=== PATIENT | male | born 1945 | race Caucasian/White ===

== ENCOUNTER 2020-04-09 10:10 | Inpatient (IN) | payer MEDICARE ==
[~2020-04-09] VITALS: Ht 175.3 cm; Wt 125.0 kg
--- NOTE | 2020-04-09 10:10 | NUR ---
PT ARRIVED TO UNIT VIA W/C ACCOMPANIED BY STAFF. PATIENTS VS OBTAINED AND ARE STABLE. PT IS ORIENTED TO ROOM AND PROCEDURES. PT IS OFFERED FOOD AND DRINK. PTS COVID SWAB COMPLETED AND ALL [facility] LABS ENTERED INTO COMPUTER. PT IS RESTING IN ROOM AT THIS TIME. DR WALTON NOTIFIED OF ADMISSION.
[2020-04-09 10:15] VITALS: BP 101/66
[2020-04-09] MEDS ORDERED: LORA10TA68 PO (12:45)
[2020-04-09] MEDS ORDERED: TAMS0.4C97 PO (12:45)
[2020-04-09] MEDS ORDERED: RISP0.5T24 PO (12:45)
[2020-04-09] MEDS ORDERED: PANT40TA3 PO (12:45)
[2020-04-09] MEDS ORDERED: ATOR20TA PO (12:45)
[2020-04-09] MEDS ORDERED: LOSA25TA PO (12:45)
[2020-04-09] MEDS ORDERED: ALBU2.5V8 IH (12:45)
[2020-04-09] MEDS ORDERED: CHOL4POW11 PO (12:45)
[2020-04-09] MEDS ORDERED: FLUP2.5T3 PO (12:45)
[2020-04-09] MEDS ORDERED: ASCO500C PO (12:45)
[2020-04-09] MEDS ORDERED: RIVA20TA2 PO (12:45)
[2020-04-09] MEDS ORDERED: ISOS60TA55 PO (12:45)
[2020-04-09] MEDS ORDERED: LEVO50TA5 PO (12:45)
[2020-04-09] MEDS ORDERED: HYDR-2763 PO (12:45)
[2020-04-09] MEDS ORDERED: INSU100I13 SQ (12:45)
[2020-04-09] MEDS ORDERED: CARV3.12 PO (12:45)
[2020-04-09] MEDS ORDERED: POLY17PO5 PO (12:45)
[2020-04-09] MEDS ORDERED: CALC0.2530 PO (12:45)
[2020-04-09] MEDS ORDERED: CARB15DR3 EACHEYE (12:45)
[2020-04-09] MEDS ORDERED: LOPE2TAB27 PO (12:45)
[2020-04-09] MEDS ORDERED: NYST15PO9 TP (12:45)
[2020-04-09] MEDS ORDERED: FURO-68 PO (12:45)
[2020-04-09] MEDS ORDERED: [UNRECOGNIZED DRUG - CODE] PO (12:45)
[2020-04-09] MEDS ORDERED: CELE200C PO (12:45)
[2020-04-09] MEDS ORDERED: DILT120C99 PO (12:45)
[2020-04-09] MEDS ORDERED: ESCITALOPRAM OX10 MG PO (12:45)
[2020-04-09] MEDS ORDERED: METH1TAB54 PO (12:45)
[2020-04-09] MEDS ORDERED: CHOL200078 PO (12:45)
[2020-04-09] MEDS ORDERED: TOLT4CAP PO (12:45)
[2020-04-09] MEDS ORDERED: ROPI1TAB4 PO (12:45)
[2020-04-09 13:44] LABS: BASO # 0.2 x10^3/uL (0.0-0.2); BASO % 1 % (0-3); EOS # 0.2 x10^3/uL (0.0-0.7); EOS % 1 % (0-3); HEMATOCRIT 36.6 % (39.0-53.0); HEMOGLOBIN 11.2 g/dL (13.0-17.5); LYMPH # 1.3 x10^3/uL (1.0-4.8); LYMPH % 10 % (24-48); MEAN CORPUSCULAR HEMOGLOBIN 28 pg (25-35); MEAN CORPUSCULAR HGB CONC 31 g/dL (31-37); MEAN CORPUSCULAR VOLUME 90 fL (79-100); MONO % 8 % (0-9); NEUT % 80 % (31-73); PLATELET COUNT 281 x10^3/uL (140-400); RED BLOOD COUNT 4.05 x10^6/uL (4.30-5.70); RED CELL DISTRIBUTION WIDTH 13.8 % (11.5-14.5); WHITE BLOOD COUNT 12.5 x10^3/uL (4.0-11.0)
[2020-04-09 14:01] LABS: ALBUMIN 2.6 g/dL (3.4-5.0); ALBUMIN/GLOBULIN RATIO 0.7 (1.0-1.7); CREATININE 0.8 mg/dL (0.7-1.3); MAGNESIUM 1.4 mg/dL (1.8-2.4); POTASSIUM 3.4 mmol/L (3.5-5.1); TOTAL BILIRUBIN 0.2 mg/dL (0.2-1.0); TOTAL PROTEIN 6.1 g/dL (6.4-8.2)
[2020-04-09] MEDS ORDERED: NYSTATIN TOPICAL POWDER 15GM BOTTLE. TP PRN (14:45)
[2020-04-09] MEDS ORDERED: POLYETHYLENE GLYCOL 3350 17 GM PACKET. PO PRN (14:45)
[2020-04-09] MEDS: HYDROcodone/APAP 7.5/325MG 1 TAB TABLET PO PRN ×2 (14:49→20:56)
[2020-04-09 15:15] LABS: BACTERIA,URINE 0 /HPF (0-FEW); BILIRUBIN,URINE NEG (NEG); CLARITY,URINE CLEAR; COLOR,URINE YELLOW; GLUCOSE,URINE NEG (NEG); NITRITE,URINE NEG (NEG); RBC,URINE 0 /HPF (0-2); UROBILINOGEN,URINE 0.2 mg/dL (0.2 mg/dL); WBC,URINE RARE /HPF (0-4)
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
[2020-04-09] MEDS ORDERED: CHOLESTYRAMINE/ASPARTAME 4 GM PACKET PO PRN (15:45)
[2020-04-09] MEDS ORDERED: LOPERAMIDE 2 MG CAPSULE PO PRN (15:45)
[2020-04-09] MEDS ORDERED: POLYVINYL ALCOHOL/POVIDONE/PF OPHTH SOLUTION DROPERETTE. OU PRN (15:45)
[2020-04-09 16:02] VITALS: BP 145/81
[2020-04-09] MEDS ORDERED: RIVAROXABAN 10 MG TABLET. PO SCH (17:00)
[2020-04-09] MEDS: CARVEDILOL 3.125 MG TABLET PO SCH (17:13)
[2020-04-09] MEDS ORDERED: TAMSULOSIN 0.4 MG CAP.ER.24H. PO SCH (18:00)
[2020-04-09 18:56] VITALS: BP 125/68
[2020-04-09] MEDS: OXYBUTYNIN CHLORIDE 5 MG TABLET PO SCH (20:53)
[2020-04-09] MEDS: PANTOPRAZOLE 40 MG TABLET. PO SCH (20:53)
[2020-04-09] MEDS: risperiDONE 0.25 MG TABLET. PO SCH (20:53)
[2020-04-09] MEDS: ASCORBIC ACID 500 MG TABLET PO SCH (20:54)
[2020-04-09] MEDS: POTASSIUM CHLORIDE 20 MEQ TABLET.ER. PO SCH (20:54)
[2020-04-09] MEDS: SIMETHICONE 80 MG TAB.CHEW PO SCH (20:54)
[2020-04-09] MEDS: MAGNESIUM OXIDE 400 MG TABLET PO SCH (20:55)
[2020-04-09] MEDS: METHENAMINE HIPPURATE 1 GM TABLET PO SCH (20:57)
[2020-04-09] MEDS ORDERED: CELECOXIB 100 MG CAPSULE PO SCH (21:00)
[2020-04-09] MEDS ORDERED: INSULIN GLARGINE SYRINGE. SQ SCH (21:00)
[2020-04-09] MEDS ORDERED: ATORVASTATIN CALCIUM 20 MG TABLET PO SCH (21:00)
[2020-04-09] MEDS ORDERED: rOPINIRole 1 MG TABLET. PO SCH (21:00)
[2020-04-09] MEDS: ALBUTEROL SULFATE 8GM INHALER. INH PRN (22:13)
[2020-04-09 22:56] VITALS: BP 118/69
[2020-04-10 05:41] LABS: HEMOGLOBIN A1C 5.8 % (4.8-5.6)
[2020-04-10 06:10] VITALS: BP 149/83
[2020-04-10] MEDS ORDERED: LEVOTHYROXINE 50 MCG TABLET PO SCH (07:30)
[2020-04-10] MEDS: ASCORBIC ACID 500 MG TABLET PO SCH (08:15)
[2020-04-10] MEDS: HYDROcodone/APAP 7.5/325MG 1 TAB TABLET PO PRN ×2 (08:15→12:50)
[2020-04-10] MEDS: SIMETHICONE 80 MG TAB.CHEW PO SCH ×2 (08:16→12:47)
[2020-04-10] MEDS: METHENAMINE HIPPURATE 1 GM TABLET PO SCH (08:17)
[2020-04-10] MEDS: PANTOPRAZOLE 40 MG TABLET. PO SCH (08:17)
[2020-04-10] MEDS: MAGNESIUM OXIDE 400 MG TABLET PO SCH ×2 (08:17→12:47)
[2020-04-10] MEDS: OXYBUTYNIN CHLORIDE 5 MG TABLET PO SCH ×2 (08:17→12:48)
[2020-04-10] MEDS: CARVEDILOL 3.125 MG TABLET PO SCH (08:18)
[2020-04-10] MEDS: ALBUTEROL SULFATE 8GM INHALER. INH PRN (08:18)
[2020-04-10] MEDS: POTASSIUM CHLORIDE 20 MEQ TABLET.ER. PO SCH ×2 (08:19→12:47)
[2020-04-10] MEDS ORDERED: FUROSEMIDE 40 MG TABLET PO SCH (09:00)
[2020-04-10] MEDS ORDERED: LOSARTAN 25 MG TABLET. PO SCH (09:00)
[2020-04-10] MEDS ORDERED: CHOLECALCIFEROL (VITAMIN D3) 1,000 UNIT TABLET PO SCH (09:00)
[2020-04-10] MEDS ORDERED: CETIRIZINE HCL 10 MG TABLET PO SCH (09:00)
[2020-04-10] MEDS ORDERED: ISOSORBIDE MONONITRATE ER 30 MG TAB.ER.24H PO SCH (09:00)
[2020-04-10] MEDS ORDERED: CITALOPRAM 20 MG TABLET. PO SCH (09:00)
[2020-04-10] MEDS ORDERED: CALCITRIOL 0.25 MCG CAPSULE PO SCH (09:00)
[2020-04-10] MEDS: risperiDONE 0.25 MG TABLET. PO SCH (09:36)
[2020-04-10 10:48] VITALS: BP 163/91
--- NOTE | 2020-04-10 14:25 | DS ---
DATE OF DISCHARGE: 04/10/2020 HISTORY OF PRESENT ILLNESS: The patient is a 74-year-old male patient, a resident at [facility], who was admitted to Med/Surg Unit in [facility] to screen him for coronavirus and his coronavirus-2 PCR was undetectable and he will be transferred to [facility] as he has been extremely agitated, anxious, paranoid, accusing staff for abusing and neglecting him. The police have been out of the facility multiple times and report his reports are unfounded. Attempt was made to treat him as an outpatient by the [facility] team has failed and therefore, he was referred to [facility] for inpatient psychiatric stabilization. PHYSICAL EXAMINATION: GENERAL: When I saw him today, he looked well and was clearly in no apparent respiratory distress. No pallor, jaundice, cyanosis or thyromegaly. No jugular venous distention. No lower limb edema. VITAL SIGNS: His heart rate was 80, blood pressure was 163/91, temperature was 98, respiratory rate was 18, and oxygen saturation was 92% on 3 liters of oxygen. HEAD, EYES, EARS, NOSE AND THROAT: Showed normocephalic, atraumatic. NECK: Supple. HEART: Showed normal first and second heart sounds. No gallop or murmur. CHEST: Clear to auscultation. No crepitation or rhonchi. ABDOMEN: Distended, soft, nontender. NEUROLOGIC: He has tardive dyskinesia with abnormal tongue movement that makes it difficult to understand at times, but otherwise, all his cranial nerves are intact. He moves extremities without difficulty, though is mostly wheelchair bound. LABORATORY DATA: Showed white cell count of 12,500, hemoglobin 11, hematocrit 36, MCV 90 and platelet count 281,000 with normal manual differential. His D-dimer was 0.37. His chemistry showed a serum sodium 143, potassium 3.4, chloride 103, bicarbonate 34, anion gap of 6, BUN 9, creatinine 0.8, estimated GFR was 95 mL per minute. His glucose 137, calcium 8, magnesium was 1.4. Total bilirubin, AST, ALT, alkaline phosphatase were normal. Total protein 6.1, albumin 2.6. His hemoglobin A1c was 5.8. TSH was normal at 1.0. His urinalysis essentially unremarkable and his coronavirus PCR was not detectable. DISCHARGE MEDICATIONS: He was transferred to Senior Behavioral Unit to continue with levothyroxine 50 mcg once a day, cetirizine 10 mg once a day, isosorbide mononitrate 60 mg once a day, citalopram hydrobromide 20 mg once a day, vitamin D 2000 units once a day, losartan potassium 25 mg daily, furosemide 40 mg once a day, diltiazem 120 mg daily, calcitriol 0.25 mcg once a day, potassium chloride 20 mEq 3 times a day, magnesium oxide 400 mg 3 times a day, oxybutynin 5 mg 3 times a day, Lantus insulin 30 units at bedtime, Celebrex 200 mg at bedtime, ascorbic acid 500 mg twice a day, simethicone 80 mg 3 times a day, Requip 1 mg at bedtime, Requip 0.25 mg twice a day, Protonix 40 mg twice a day, methenamine hippurate 1 gram twice a day, fluphenazine 2.5 mg at bedtime, atorvastatin 20 mg at bedtime, tamsulosin 0.4 mg at bedtime, rivaroxaban 20 mg once a day, carvedilol 3.125 mg twice a day, loperamide 2 mg every 2 hours, cholestyramine 1 gram daily, albuterol sulfate 1 puff every 4 hours, polyethylene glycol 17 grams daily, nystatin powder applied topically twice a day and hydrocodone/APAP 7.5/325 one tablet q.i.d. FINAL DISCHARGE DIAGNOSES: 1. Extreme agitation, anxiety and paranoia. The patient has a multitude of medical problems including: A. Chronic obstructive pulmonary disease. B. Type 2 diabetes mellitus. E. Obesity. D. Heart failure. E. Bronchial asthma. F. Hypercholesterolemia. G. Hypothyroidism. H. Vitamin D deficiency. I. Restless leg syndrome. J. Atrial fibrillation. K. Cerebrovascular accident. L. Gastroesophageal reflux disease. ZENA WALTON MD DR: CRISTHIAN/stephanie JOB#: [id number] / [id number]
--- NOTE | 2020-04-10 14:32 | NUR ---
PATIENT IS DISCHARGED TO [facility]. PT IS STABLE AT TIME OF DISCHARGE ALL LABS AND MED REC IS SENT WITH PATIENT.
[2020-04-10] MEDS ORDERED: CETI10TA16 PO (16:01)
[2020-04-10] MEDS ORDERED: CHOL500021 PO (16:21)
[2020-04-10] MEDS ORDERED: POTA20TA4 PO (16:21)
[2020-04-10] MEDS ORDERED: OXYB5TAB10 PO (16:21)
[2020-04-10] MEDS ORDERED: MAGN400T5 PO (16:21)
[2020-04-10] MEDS ORDERED: CITA10TA4 PO (16:21)
[2020-04-11] MEDS ORDERED: LEVOTHYROXINE 50 MCG TABLET PO SCH (06:00)
--- NOTE | 2020-04-14 07:10 | EKG ---
[address] [address] Test Date: 2020-04-09 Test Time: 16:23:31 Pat Name: NISREEN GARCÍA Department: Room: 105 A Gender: M Private Investigator Surveillance: : 1945 Requested By: ZENA WALTON Order Number: [id number] Reading MD: Measurements Intervals [place] Rate: P: ID: QRS: QRSD: T: QT: QTc: Interpretive Statements
== END 2020-04-10 14:50 | DRG 640 ==
LOC: 1 SOUTH 10:10
PROVIDERS: ADMIT Psychiatry & Neurology Psychiatry; ATTEND Psychiatry & Neurology Psychiatry
DX: E87.6 Hypokalemia (principal); E43 Unspecified severe protein-calorie malnutrition; I50.22 Chronic systolic (congestive) heart failure; Z68.41 Body mass index [BMI] 40.0-44.9, adult; F41.9 Anxiety disorder, unspecified; F22 Delusional disorders; J44.9 Chronic obstructive pulmonary disease, unspecified; E11.9 Type 2 diabetes mellitus without complications; E78.00 Pure hypercholesterolemia, unspecified; E03.9 Hypothyroidism, unspecified; G25.81 Restless legs syndrome; I11.0 Hypertensive heart disease with heart failure; I48.91 Unspecified atrial fibrillation; D64.9 Anemia, unspecified; K21.9 Gastro-esophageal reflux disease without esophagitis; M15.9 Polyosteoarthritis, unspecified; E83.42 Hypomagnesemia; G24.01 Drug induced subacute dyskinesia; E66.01 Morbid (severe) obesity due to excess calories; Z20.822 Contact with and (suspected) exposure to COVID-19; G47.33 Obstructive sleep apnea (adult) (pediatric); K59.09 Other constipation; Z99.3 Dependence on wheelchair; Z88.0 Allergy status to penicillin; Z88.8 Allergy status to other drugs, medicaments and biological substances; Z86.711 Personal history of pulmonary embolism; Z87.891 Personal history of nicotine dependence; Z86.73 Personal history of transient ischemic attack (TIA), and cerebral infarction without residual deficits
CPT/HCPCS: 36415; 80053; 80061; 81001; 82306; 82607; 82947; 83036; 83735; 84443; 85025; 85379; 86592; 93005; J1815; U0003

== ENCOUNTER 2020-04-10 14:50 | Inpatient (IN) | payer MEDICARE ==
[~2020-04-10] VITALS: Ht 175.3 cm; Wt 123.2 kg
[~2020-04-10 14:50] MED LIST: ALBU2.5V8 IH; ASCO500C PO; ATOR20TA PO; CALC0.2530 PO; CARB15DR3 EACHEYE; CARV3.12 PO; CELE200C PO; CHOL200078 PO; CHOL4POW11 PO; DILT120C99 PO; ESCITALOPRAM OX10 MG PO; FLUP2.5T3 PO; FURO-68 PO; HYDR-2763 PO; INSU100I13 SQ; ISOS60TA55 PO; LEVO50TA5 PO; LOPE2TAB27 PO; LORA10TA68 PO; LOSA25TA PO; METH1TAB54 PO; NYST15PO9 TP; PANT40TA3 PO; POLY17PO5 PO; RISP0.5T24 PO; RIVA20TA2 PO; ROPI1TAB4 PO; TAMS0.4C97 PO; TOLT4CAP PO; [UNRECOGNIZED DRUG - CODE] PO
[2020-04-10 15:18] VITALS: BP 111/57
[2020-04-10] MEDS ORDERED: POLYETHYLENE GLYCOL 3350 17 GM PACKET. PO PRN (15:45)
[2020-04-10] MEDS ORDERED: CETI10TA16 PO (16:01)
[2020-04-10] MEDS ORDERED: POTA20TA4 PO (16:21)
[2020-04-10] MEDS ORDERED: OXYB5TAB10 PO (16:21)
[2020-04-10] MEDS ORDERED: MAGN400T5 PO (16:21)
[2020-04-10] MEDS ORDERED: CHOL500021 PO (16:21)
[2020-04-10] MEDS ORDERED: CITA10TA4 PO (16:21)
[2020-04-10] MEDS ORDERED: MAGNESIUM HYDROXIDE 2,400 MG/30 ML ORAL.SUSP. PO PRN (16:30)
[2020-04-10] MEDS ORDERED: MAG HYDROX/AL HYDROX/SIMETH 30 ML ORAL.SUSP PO PRN (16:30)
[2020-04-10] MEDS ORDERED: METHYL SALICYLATE/MENTHOL TOPICAL OINTMENT 57GM TUBE. TP PRN (16:30)
--- NOTE | 2020-04-10 16:35 | NUR ---
Admission Note with Justification for Admission to [facility] Patient admitted to [facility] for protective oversight for emergency stabilization of acute psychiatric crisis. Pt admitted from: [facility] Facility Mode of arrival: Secure Transport Accompanied By: [facility] Staff Precipitating behaviors that initiated intake and admission: agitated, anxious, paranoid, acusing staff of abuse Description of failure of out patient attempts at stabilization in previous setting list behavior and medication trials:social work intrvention Behaviors and assessment findings upon admission: calm and cooperative Plan: Admit for protective oversight for adjustment and stabilization of medications, behaviors and mood. Intense treatment regimen including groups, medication adjustments, therapy, consistent regimen for ADL's, self care, and sleep hygiene. Daily monitoring by Inpatient staff, Psychiatry, and Medical Physician.
[2020-04-10] MEDS ORDERED: CHOLESTYRAMINE/ASPARTAME 4 GM PACKET PO PRN (17:00)
[2020-04-10] MEDS ORDERED: POLYVINYL ALCOHOL 1.4% OPHTH SOLUTION 15ML BOTTLE. OU PRN (17:00)
[2020-04-10] MEDS: RIVAROXABAN 10 MG TABLET. PO SCH (17:00)
[2020-04-10] MEDS: CARVEDILOL 3.125 MG TABLET PO SCH (17:00)
[2020-04-10] MEDS: TAMSULOSIN 0.4 MG CAP.ER.24H. PO SCH (17:23)
[2020-04-10] MEDS: INSULIN GLARGINE SYRINGE. SQ SCH (21:00)
[2020-04-10] MEDS: ATORVASTATIN CALCIUM 20 MG TABLET PO SCH (21:10)
[2020-04-10] MEDS: CELECOXIB 100 MG CAPSULE PO SCH (21:10)
[2020-04-10] MEDS: METHENAMINE HIPPURATE 1 GM TABLET PO SCH (21:11)
[2020-04-10] MEDS: rOPINIRole 1 MG TABLET. PO SCH (21:11)
[2020-04-10] MEDS: SIMETHICONE 80 MG TAB.CHEW PO SCH (21:11)
[2020-04-10] MEDS: ASCORBIC ACID 500 MG TABLET PO SCH (21:11)
[2020-04-10] MEDS: PANTOPRAZOLE 40 MG TABLET. PO SCH (21:11)
[2020-04-10] MEDS: risperiDONE 0.25 MG TABLET. PO SCH (21:11)
[2020-04-10] MEDS: HYDROcodone/APAP 7.5/325MG 1 TAB TABLET PO PRN (21:26)
--- NOTE | 2020-04-10 23:54 | NUR ---
Nursing Note The patient has been calm and compliant this shift. The patient was located in his room for his assessment and medication pass. The patient was able to take his medication whole with honey thick liquids. The patient was drowsy during his assessment but was able to tell med name and location. The patient was cooperative during HS cares.
[2020-04-11 06:00] VITALS: BP 143/85
[2020-04-11] MEDS: ASCORBIC ACID 500 MG TABLET PO SCH ×2 (09:38→20:37)
[2020-04-11] MEDS: SIMETHICONE 80 MG TAB.CHEW PO SCH ×3 (09:38→20:37)
[2020-04-11] MEDS: CARVEDILOL 3.125 MG TABLET PO SCH ×2 (09:38→16:30)
[2020-04-11] MEDS: PANTOPRAZOLE 40 MG TABLET. PO SCH ×2 (09:38→20:37)
[2020-04-11] MEDS: risperiDONE 0.25 MG TABLET. PO SCH ×2 (09:38→20:38)
[2020-04-11] MEDS: ISOSORBIDE MONONITRATE ER 30 MG TAB.ER.24H PO SCH (09:44)
[2020-04-11] MEDS: FUROSEMIDE 40 MG TABLET PO SCH (09:45)
[2020-04-11] MEDS: METHENAMINE HIPPURATE 1 GM TABLET PO SCH ×2 (09:45→20:39)
[2020-04-11] MEDS: LOSARTAN 25 MG TABLET. PO SCH (09:45)
[2020-04-11] MEDS: CALCITRIOL 0.25 MCG CAPSULE PO SCH (09:45)
[2020-04-11] MEDS: LEVOTHYROXINE 50 MCG TABLET PO SCH (09:45)
[2020-04-11] MEDS: HYDROcodone/APAP 7.5/325MG 1 TAB TABLET PO PRN ×3 (09:46→20:51)
--- NOTE | 2020-04-11 11:53 | NUR ---
WEEKLY ACTIVITY THERAPY NOTE Date of Admission: 04/10 Date of AT Assessment: TBD Precipitating behaviors that initiated intake and admission: agitated, anxious, paranoid, acusing staff of abuse Goal aimed:TBD Initial Goal: TBD Weekly progress towards goal: NA Group participation level: zero Weekly highlights: arrived on unit, new pt on observation Behaviors observed: Plan: meet/asses pt Beneficial adaptations:
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
--- NOTE | 2020-04-11 15:19 | NUR ---
Nursing note: Pt in his room at time of AM med pass and assessment. He is med compliant and cooperative. Pt c/o back pain at that time and requested PRN. PRN given with good effect. After lunch, pt was requesting to lay back down in bed. Pt was encouraged to stay up for group since he had laid in bed all morning. Pt responded "I have a bad heart and a bad back. I'm supposed to lay down all day." Pt was eventually agreeable to remain in his wheelchair for a little while longer. He is currently resting quietly in bed. Will continue to monitor.
[2020-04-11 16:02] VITALS: BP 133/65
[2020-04-11] MEDS: RIVAROXABAN 10 MG TABLET. PO SCH (16:30)
[2020-04-11] MEDS: TAMSULOSIN 0.4 MG CAP.ER.24H. PO SCH (16:30)
[2020-04-11] MEDS: ALBUTEROL SULFATE 2.5 MG/3 ML NEBU. IH PRN (16:34)
[2020-04-11] MEDS: ATORVASTATIN CALCIUM 20 MG TABLET PO SCH (20:37)
[2020-04-11] MEDS: rOPINIRole 1 MG TABLET. PO SCH (20:37)
[2020-04-11] MEDS: CELECOXIB 100 MG CAPSULE PO SCH (20:37)
--- NOTE | 2020-04-11 21:44 | PDOC ---
Exam Note: Good Note: Late entry for 04/10/2020. Please also refer to the separate dictated note~for this date of service dictated separately.~Patient seen individually. Discussed the patient with Nursing staff reviewed the chart.~Reviewed interim history and current functioning. Reviewed vital signs,~Labs/ Radiology~and current medic ations noted below. Continue current treatment with the changes noted in the dictated addendum note Assessment: Vital Signs/I&O: Vital Signs Date Time Temp Pulse Resp B/P (MAP) Pulse Ox O2 Delivery O2 Flow Rate FiO2 04/11/20 20:51 22 Nasal Cannula 2.5 04/11/20 17:53 95 04/11/20 16:30 57 133/65 04/11/20 16:02 97.6 I & O 04/10/20 04/10/20 04/11/20 15:00 23:00 07:00 Intake Total 1560 ml Balance 1560 ml Labs: Laboratory Tests Test 04/11/20 07:43 04/11/20 19:01 Glucose (Fingerstick) 130 mg/dL (70-99) H 146 mg/dL (70-99) H Current Medications: Meds: Current Medications Medications (Trade) Dose Ordered Sig/Aaron Route PRN Reason Start Time Stop Time Status Last Admin Dose Admin Calcitriol (Rocaltrol) 0.25 mcg DAILY PO 04/11/20 09:00 04/11/20 09:45 Diltiazem HCl (Cardizem 24hr Cd) 120 mg DAILY PO 04/11/20 09:00 04/11/20 09:45 Furosemide (Lasix) 40 mg DAILY PO 04/11/20 09:00 04/11/20 09:45 Levothyroxine Sodium (Synthroid) 50 mcg DAILYAC PO 04/11/20 07:30 04/11/20 09:45 Losartan Potassium (Cozaar) 25 mg DAILY PO 04/11/20 09:00 04/11/20 09:45 Isosorbide Mononitrate (Imdur) 60 mg DAILY PO 04/11/20 09:00 04/11/20 09:44 I have reviewed the current psychotropics carefully including drug interactions. Risk benefit ratio favors no change other than as noted in my dictated progress note. Diagnosis: Problems: (1) Schizoaffective disorder, bipolar type (2) Bipolar disorder with psychotic features (3) Chronic undifferentiated schizophrenia (4) Tardive dyskinesia KAMILA LOMELI MD Apr 11, 2020 21:44
--- NOTE | 2020-04-11 21:45 | PDOC ---
Exam Note: Good Note: Please also refer to the separate dictated note~for this date of service dictated separately.~Patient seen individually. Discussed the patient with Nursing staff reviewed the chart.~Reviewed interim history and current functioning. Reviewed vital signs,~Labs/ Radiology~and current medications noted below. Continue current treatment with the changes noted in the dictated addendum note Assessment: Vital Signs/I&O: Vital Signs Date Time Temp Pulse Resp B/P (MAP) Pulse Ox O2 Delivery O2 Flow Rate FiO2 04/11/20 20:51 22 Nasal Cannula 2.5 04/11/20 17:53 95 04/11/20 16:30 57 133/65 04/11/20 16:02 97.6 I & O 04/10/20 04/10/20 04/11/20 15:00 23:00 07:00 Intake Total 1560 ml Balance 1560 ml Labs: Laboratory Tests Test 04/11/20 07:43 04/11/20 19:01 Glucose (Fingerstick) 130 mg/dL (70-99) H 146 mg/dL (70-99) H Current Medications: Meds: Current Medications Medications (Trade) Dose Ordered Sig/Aaron Route PRN Reason Start Time Stop Time Status Last Admin Dose Admin Calcitriol (Rocaltrol) 0.25 mcg DAILY PO 04/11/20 09:00 04/11/20 09:45 Diltiazem HCl (Cardizem 24hr Cd) 120 mg DAILY PO 04/11/20 09:00 04/11/20 09:45 Furosemide (Lasix) 40 mg DAILY PO 04/11/20 09:00 04/11/20 09:45 Levothyroxine Sodium (Synthroid) 50 mcg DAILYAC PO 04/11/20 07:30 04/11/20 09:45 Losartan Potassium (Cozaar) 25 mg DAILY PO 04/11/20 09:00 04/11/20 09:45 Isosorbide Mononitrate (Imdur) 60 mg DAILY PO 04/11/20 09:00 04/11/20 09:44 I have reviewed the current psychotropics carefully including drug interactions. Risk benefit ratio favors no change other than as noted in my dictated progress note. Diagnosis: Problems: (1) Tardive dyskinesia (2) Chronic undifferentiated schizophrenia (3) Schizoaffective disorder, bipolar type (4) Bipolar disorder with psychotic features ARMANI,MAN M MD Apr 11, 2020 21:45
[2020-04-11] MEDS: INSULIN GLARGINE SYRINGE. SQ SCH (21:56)
--- NOTE | 2020-04-12 02:04 | NUR ---
Nursing Note The patient has been calm and compliant this shift. The patient was located in his room laying in bed for his assessment and medication pass. The patient was able to take his medication whole with honey thick liquids. The patient was drowsy during his assessment but was able to tell name, location and situation. The patient was cooperative during HS cares.
[2020-04-12 06:01] VITALS: BP 115/54
[2020-04-12] MEDS: LOSARTAN 25 MG TABLET. PO SCH (08:24)
[2020-04-12] MEDS: PANTOPRAZOLE 40 MG TABLET. PO SCH ×2 (08:24→20:35)
[2020-04-12] MEDS: ASCORBIC ACID 500 MG TABLET PO SCH ×2 (08:25→20:36)
[2020-04-12] MEDS: SIMETHICONE 80 MG TAB.CHEW PO SCH ×3 (08:25→20:36)
[2020-04-12] MEDS: LEVOTHYROXINE 50 MCG TABLET PO SCH (08:25)
[2020-04-12] MEDS: risperiDONE 0.25 MG TABLET. PO SCH ×2 (08:25→20:35)
[2020-04-12] MEDS: CARVEDILOL 3.125 MG TABLET PO SCH ×2 (08:26→16:13)
[2020-04-12] MEDS: FUROSEMIDE 40 MG TABLET PO SCH (08:26)
[2020-04-12] MEDS: METHENAMINE HIPPURATE 1 GM TABLET PO SCH ×2 (08:27→20:37)
[2020-04-12] MEDS: CALCITRIOL 0.25 MCG CAPSULE PO SCH (08:27)
[2020-04-12] MEDS: ISOSORBIDE MONONITRATE ER 30 MG TAB.ER.24H PO SCH (08:29)
[2020-04-12] MEDS: HYDROcodone/APAP 7.5/325MG 1 TAB TABLET PO PRN ×3 (08:36→20:44)
--- NOTE | 2020-04-12 09:08 | HP ---
ADMIT DATE: 04/10/2020 PSYCHIATRIC ADMISSION HISTORY/EVALUATION This late entry for date of service 04/10 covers elements not covered in my initial note 04/10. IDENTIFYING DATA: The patient is a 74-year-old male referred to us from Rachel Castillo by his primary care physician and psychiatrist who is at the [facility] in [place] on account of an acute exacerbation of his schizoaffective disorder, bipolar type versus schizophrenia, chronic, undifferentiated. The patient has been increasingly agitated, anxious, sleeping excessively, having an acute exacerbation of his tardive dyskinetic movements. He has been paranoid, suspicious, accusing staff of abusing and neglecting him. Reportedly, the police had to be called twice to the facility and the reports are unfounded. The patient has failed outpatient psychiatric interventions. Behaviors are unmanageable at the facility resulting in this referral. CHIEF COMPLAINT: "I have been treated for schizophrenia for many years. I have been going to the [facility] in [place]." HISTORY OF PRESENT ILLNESS: The patient has a long history of schizoaffective disorder, bipolar type versus schizophrenia, chronic, undifferentiated type. Recently, he has been more paranoid, delusional, agitated with marked mood lability, sleep and appetite changes. He does have a past history of alcohol abuse as well. Memory has been reasonable. PAST PSYCHIATRIC HISTORY: As above. MEDICAL HISTORY: Positive for COPD, diabetes mellitus, obesity, heart failure, asthma, hyperlipidemia, past history of alcohol abuse. Accu-Cheks b.i.d. CODE STATUS: Full code. ALLERGIES: PENICILLIN, LEVAQUIN, METOPROLOL, PRAVASTATIN. Ambulates in wheelchair, takes medications whole. UA 04/09 was negative. FAMILY HISTORY: Noncontributory. SOCIAL HISTORY: The patient lives at the above nursing facility and his lives at the same facility. Past history of alcohol abuse. No physical, sexual or elder abuse history is noted. He is not known to be a perpetrator. REACTION TO HOSPITALIZATION: The patient accepting of it. ASSETS: Supportive family, stable living at the above facility. REVIEW OF SYSTEMS: Ambulation impaired as the tardive dyskinetic movements, mainly of his orofacial muscles and tongue movements with tongue protrusion quite evident as I met with him evening of 04/10. Speech is a little garbled due to the above, but he is comprehensible. Abstraction fair, computation impaired, language function intact, attention span short. Mood and affect somewhat anxious, labile. He is quite paranoid as I addressed at length circumstances prompting admission. No suicidal or homicidal ideation. LABORATORY DATA: Reviewed. IMPRESSION: Schizoaffective disorder, bipolar type, mixed with psychotic features; anxiety disorder; unspecified schizophrenia, chronic, undifferentiated with acute exacerbation and psychotic features; impulse control disorder. Rest unchanged as above. PLAN: Admit to Geropsychiatry Unit at [facility]. I will see the patient daily individually from a psychiatric standpoint. Medical followup with Dr. Ortega/Dr. Alcantara. Continue the patient on his current medications [facility]. The patient is currently on Celexa 20 mg a day, Risperdal 0.25 mg b.i.d. Consider adding Depakote as a mood stabilizer, perhaps changing Risperdal to Clozaril and considering valbenazine any for his tardive dyskinesia. We will make further adjustments post baseline assessment. KAMILA LOMELI MD DR: MARILIN/stephanie JOB#: [id number] / [id number]
--- NOTE | 2020-04-12 09:16 | PN ---
DATE: 04/11/2020 PSYCHIATRIC PROGRESS NOTE This late entry 04/11 covers elements not covered in my initial note. SUBJECTIVE: I met with the patient evening of 04/11. The patient slept 8 hours previous night. He remains somewhat withdrawn, anxious with ongoing paranoia, but no aggression. Discussed with JUJU Jones. He continues to have dyskinetic movements of tardive dyskinesia. He becomes somewhat domineering, demanding, insisting he needs to be put to bed. We are awaiting medication records from the [facility]. REVIEW OF SYSTEMS: Ambulation impaired, in wheelchair. No CV, , pulmonary, eye system symptoms on review. MENTAL STATUS EXAM: Reasonably oriented. Speech is coherent, a little garbled as before due to his tardive dyskinesia. Abstraction fair, computation impaired, language function intact, attention span short. Mood and affect remain somewhat anxious, labile, distractable. No active suicidal or homicidal ideation. LABORATORY DATA: Reviewed. IMPRESSION: Schizoaffective disorder, bipolar type, mixed with psychotic features, schizophrenia, chronic, undifferentiated with acute exacerbation. Rest unchanged. PLAN: Continue current psychotropics. Consider changing Risperdal to Clozaril. Consider adding Depakote, but we will make all of these decisions after we get the records from the [facility]. Discussed all this at great length with the patient individually. He seemed to understand, was appreciative of the discussion and appreciative of the fact that we are waiting for the [facility] records before making final decisions on his treatment plan. KAMILA LOMELI MD DR: MARILIN/stephanie JOB#: [id number] / [id number]
[2020-04-12] MEDS: ALBUTEROL SULFATE 2.5 MG/3 ML NEBU. IH PRN ×2 (11:39→16:14)
[2020-04-12] MEDS: ACETAMINOPHEN 325 MG TABLET PO PRN (14:07)
--- NOTE | 2020-04-12 14:11 | NUR ---
Pt c/o of 6/10 pain in lower back and tailbone. PRN Acetaminophen 650 mg PO administered at his request
--- NOTE | 2020-04-12 14:36 | NUR ---
ACTIVITY THERAPY ASSESSMENT completed based on notes, observation and interview. Pt was sitting in the day room connected to the wall for his oxygen tank. Pt was polite, calm and pleasant during time of the assessment. Pt said that he has been sick for many years so he does not do many activities. Pt said that he likes watching TV, chatting with his and using the internet on his phone or ipad. Pt was unsure of his facilities name but was able to recall his date of , age, and what year it is. Pt was aware that he was at [facility]. Pt said that he is and has no children. Pt said that all his family has and his has Alzheimer's disease. Per notes pt was adopted at the age of 17 and did not end on good terms with his adoptive parents. AT explained groups to pt and asked if he was interested. Pt said "it depends if I am awake or not." Pt said that he feels like his is a good support system but has no further contact with any family. Pt reports that he is stressed as his watch, phone and wheelchair were taken upon admission. AT explained to pt hospital policies and that his items would be returned once he is discharged. Pt understood and said that he would manage. AT offered pt reading material which he declined. Pt came into Activity Therapy group and immediately lost interest and left. Pt often requests to lay down and is reserved to room. Initial goal aimed to increase motivation and engagement skills. Pt will participate in at least one individual or group Activity Therapy session per week. Addendum: 04/18/20 at 1223 by ROGER RM ACT Goal changed 04/18: Pt will participate in at least two individual or group Activity Therapy session per week.
--- NOTE | 2020-04-12 15:14 | NUR ---
Nursing note: Pt has been med compliant and cooperative this shift. He has been mostly pleasant, but has had a couple moments of agitation. Pt was very upset about his personal wheelchair being switched for one of ours that allowed an oxygen tank to be attached so the pt is able to wheel himself around the unit. Pt began yelling and cursing at staff and was difficult to redirect, but was eventually able to be redirected. He was also angry about his pain medication not automatically being administered every 6 hours. Pt was educated on the purpose of PRN medications. Pt verbalized understanding and requested a PRN for pain this morning as he was complaining of 7/10 back pain. Pt later requested PRN anxiety medication. He was informed at that time that he does not currently have an order for one. This was discussed with Dr. Layton and new PRN order received. He has spent most of the shift withdrawn to his room. Will continue to monitor.
--- NOTE | 2020-04-12 15:26 | TX PLAN ---
Interdisciplinary Tx Plan Admission Information Apr 10, 2020 at 14:50 Legal Status (on Admission): Voluntary DPOA/Guardian Name: Marv Hager Contact Other Contact Name: Maryanne Samayoa Other Contact Verified Code Status: Full Code Allergies: Coded Allergies: levofloxacin (Verified Allergy, Intermediate, 04/09/20) metoprolol (Verified Allergy, Intermediate, 04/09/20) Penicillins (Verified Allergy, Unknown, 04/09/20) pravastatin (Verified Allergy, Unknown, 04/09/20) Diagnoses Primary Diagnosis: Schizoaffective disorder, bipolar type, mixed with psychotic features, schizophrenia, chronic, undifferentiated with acute exacerbation Reasons for Admission: Agitated, Sig. Change Sleep, Anxiety/Panic, Suspicio us/paranoid Problem in Patient's Words: Per pt, "I need help getting my medications figured out. [facility], but he wanted me to come here for further help." Additional Admission Comments: Per intake record, at facility pt was agitated, anxious, sleeps too much, paranoid, accusing staff of abusing/neglecting him. Police have been out to facility twice to check on allegations, but reports were unfounded. Problems Active Problems: Agitation, sleeps too much, anxiety, accusatory Inactive Problems: None noted at this time Pt Strengths/Limitations Ability for Candor: Poor Cognitive Functioning/Ability: Fair Communication Skills/Ability: Fair Financial Resources: Good Insight/Judgement: Fair Intellectual Ability: Fair Physical Health: Poor Social Skills: Fair Stability in Family: Poor Stability in School/Work: Fair Verbal Skills: Fair Discharge Criteria Discharge Criteria: Adequate arrangements @DC, Verbal commit med comply, Improved behavior, Improved mood/thought Other Discharge Comments: None at this time Preliminary Discharge Plan Preliminary DC Plan: Current Living Arrange. Special Precautions Special Precautions: Agitation/Assault, Other (Pt is on O2.) Fall Risk: Moderate Other Precautions (specify): Pt uses a WC which he can transfer himself. He can ambulate short distances Initial D/C Plan Pt plan is to return to [facility] once stable. Identified Discharge Needs: None at this time. Currently Utilized Resources Currently Utilized Resources/P: PCP-Dr. Sudheer Peck Guardian-Marv Hager Caregiver-Francine Sanchez Living facility-[facility]-Maryanne Brownr, TRINI P) [phone] Referrals Community Resources: None noted at this time. Identified Problems/Hx/Goals Objectives/Short-Term Goals Short Term Goals: Control abnormal behavior, Dec. Anxiety/Panic, Dec. Hallucination/Delus, Dec. Symp. Depression, Improved Social Skills, Medication Stabilization, Monitor Med Effects, Promote Coping Skill Short Term Goals in Patient's: Pt states, "My medication needs to be monitored and probably altered, so that my [facility] can follow along." Interventions/Frequency Staff Interventions/Frequency&: Psychiatry to assess pt three times per week for medication management. Nursing to assess behaviors, monitor, medications, and complete 15 minute checks daily. Social Work to see pt at least two times weekly to aid in return to placement. Activities to encourage pt to participate in group activities daily. History Vocational History: According to pt, he served 7 years in the [employer] and 1 1/2 years in the [employer] until he retired for having hallucinations. Education: Pt reports that he was kicked out of high school for driving while intoxicated, but he did go back and finish. He later took some colled classes, but never earned a degree. Community Follow-up PCP Community Provider/Family Inpu: Input was given from pt facility. Guardian has not responded to outreach at this time. Treatment Plan Explained Patient/Systems Software Manager had this treatment plan explained to him/her as indicated by the signature below and has been given the opportunity to ask questions and make suggestions: Date: Patient/Systems Software Manager Signature: BENEDICT VALENCIA Apr 12, 2020 15:26
[2020-04-12 15:56] VITALS: BP 132/78
[2020-04-12] MEDS: RIVAROXABAN 10 MG TABLET. PO SCH (16:13)
[2020-04-12] MEDS: TAMSULOSIN 0.4 MG CAP.ER.24H. PO SCH (16:13)
[2020-04-12] MEDS: LORazepam 0.5 MG TABLET PO PRN (17:30)
--- NOTE | 2020-04-12 19:25 | CONS ---
DATE OF CONSULTATION: 04/12/2020 REASON FOR CONSULTATION: Medical management. HISTORY OF PRESENT ILLNESS: The patient, the patient is a 74-year-old male patient who was referred to [facility] from [facility] by his primary care physician and psychiatrist who is at the [facility] in [place] on account of acute exacerbation of his schizoaffective disorder, bipolar type versus schizophrenia. He apparently had an acute exacerbation of his tardive dyskinesia movement, has been paranoid, suspicious, accusing staff of abusing and neglecting him. Reportedly, the police had to be called twice to the facility and reports are unfounded. He apparently has failed outpatient psychiatric intervention and therefore, he was referred to [facility] to be screened for COVID-19 that came as undetectable and therefore he was transferred to [facility] for inpatient psychiatric stabilization. PAST MEDICAL HISTORY: Significant for chronic obstructive pulmonary disease, diabetes mellitus, obesity, heart failure, bronchial asthma, history of alcohol dependence, hypercholesterolemia. He also has hypothyroidism, vitamin D deficiency, restless leg syndrome, essential hypertension, atrial fibrillation, cerebrovascular accident, gastroesophageal reflux disease without esophagitis, chronic constipation, generalized osteoarthritis, history of retention of urine, pulmonary embolism, and recurrent episode of urinary tract infection as well as tardive dyskinesia. PAST SURGICAL HISTORY: Significant for automatic implantable cardioverter defibrillator. He denied any other surgical intervention. FAMILY HISTORY: Unremarkable. SOCIAL HISTORY: He is . His lives with him in the same senior living. He quit smoking about 5 years ago, quit drinking years ago according to him, he was in the [employer] after 7 years there, he retired and worked for another 23 years. ALLERGIES: HE IS ALLERGIC TO PENICILLIN, LEVOFLOXACIN, METOPROLOL AND PRAVASTATIN. MEDICATIONS: He is currently on following medications, __ 3 times a day, isosorbide mononitrate 60 mg daily, losartan potassium 25 mg daily, furosemide 40 mg daily, diltiazem hydrochloride 120 mg daily, calcitriol 0.25 mcg daily, levothyroxine sodium 50 mcg daily, Lantus insulin 30 units at bedtime, Celebrex 200 mg at bedtime, ascorbic acid 500 mg twice a day, simethicone 80 mg 3 times a day, Requip 1 mg at bedtime, Requip 0.25 mg twice a day, Protonix 40 mg twice a day, methenamine hippurate 1 gram twice a day, fluphenazine 2.5 mg at bedtime, atorvastatin 20 mg at bedtime, tamsulosin 0.4 mg in the evening. He is on rivaroxaban 20 mg daily, cholestyramine 4 grams daily, artificial tears 1 drop to both eyes twice a day, carvedilol 3.125 mg twice a day, magnesium hydroxide for milk of magnesia 30 mL p.o. daily p.r.n. for constipation, polyethylene glycol 17 grams daily, acetaminophen 650 mg every 6 hours, nystatin powder apply topically twice a day, hydrocodone/APAP 7.5/325 one tablet 4 times a day, albuterol sulfate inhaler every 4 hours as needed. PHYSICAL EXAMINATION: GENERAL: On examining him, he looked well and was clearly in no apparent respiratory distress. No pallor, jaundice or cyanosis. No lymphadenopathy, no thyromegaly. No jugular venous distention. No lower limb edema. VITAL SIGNS: His heart rate was 66, blood pressure 132/78, temperature 97.4, respiratory rate 16, and oxygen saturation was 96% on 2 liters of oxygen. HEAD, EYES, EARS, NOSE AND THROAT: Showed he is normocephalic, atraumatic. NECK: Supple. HEART: Showed normal first and second heart sounds. No gallop or murmur. CHEST: Clear to auscultation. No crepitation or rhonchi. ABDOMEN: Distended, soft, nontender. No guarding or rigidity. No organomegaly. All hernial orifice intact. Bowel sounds normal. NEUROLOGIC: He has tardive dyskinesia and abnormal movement of his tongue that sometimes makes understanding him difficult; however, grossly generally neurologically intact. All his cranial nerves are intact. EXTREMITIES: He moves extremities without difficulty, although he is mostly wheelchair bound. LABORATORY DATA: His blood sugar seems to be well controlled. His lab work showed a white cell count of 12,500, hemoglobin 11, hematocrit 36, MCV 90 and platelet count 281,000. His serum sodium was 143, potassium 3.4, chloride 103, bicarbonate 34, anion gap of 6, BUN 9, creatinine 0.8, estimated GFR was 95 mL per minute. His glucose 137, calcium 8, and magnesium was 1.4. Total bilirubin, AST, ALT, alkaline phosphatase were normal. Total protein is 6.1 and albumin 2.6. His vitamin B12 was 286 pg/mL. His 25-hydroxy vitamin D was 33 and TSH was 1.012. I did actually start him on potassium and magnesium. ASSESSMENT AND PLAN: In summary, examination of the skin showed he has also acanthosis nigricans, but he has also some form of skin rash on his left axillary area. It is not a rash, actually is a lesion that might need to be excised and once he is discharged to be seen by a patient services coordinator to make sure to rule out malignancy. All in all, the patient seems to be medically stable. His lab work showed that he has hypokalemia and hypomagnesemia for which I did start him on potassium and magnesium supplement. I will arrange for him to repeat his labs. Thank you, Dr. Layton to allow for allowing me to participate in the care of this patient. ZENA WALTON MD DR: CRISTHIAN/stephanie JOB#: [id number] / [id number]
[2020-04-12] MEDS: rOPINIRole 1 MG TABLET. PO SCH (20:35)
[2020-04-12] MEDS: CELECOXIB 100 MG CAPSULE PO SCH (20:36)
[2020-04-12] MEDS: ATORVASTATIN CALCIUM 20 MG TABLET PO SCH (20:36)
[2020-04-12] MEDS: LOPERAMIDE 2 MG CAPSULE PO PRN (20:36)
--- NOTE | 2020-04-12 21:00 | PDOC ---
Exam Note: Good Note: Please also refer to the separate dictated note~for this date of service dictated separately.~Patient seen individually. Discussed the patient with Nursing staff reviewed the chart.~Reviewed interim history and current functioning. Reviewed vital signs,~Labs/ Radiology~and current medications noted below. Continue current treatment with the changes noted in the dictated addendum note Assessment: Vital Signs/I&O: Vital Signs Date Time Temp Pulse Resp B/P (MAP) Pulse Ox O2 Delivery O2 Flow Rate FiO2 04/12/20 20:44 18 Nasal Cannula 2.5 04/12/20 17:17 96 04/12/20 16:13 66 132/78 04/12/20 15:56 97.4 I & O 04/11/20 04/11/20 04/12/20 15:00 23:00 07:00 Intake Total 960 ml 960 ml Balance 960 ml 960 ml Labs: Laboratory Tests Test 04/12/20 08:09 04/12/20 19:06 Glucose (Fingerstick) 97 mg/dL (70-99) 147 mg/dL (70-99) H Current Medications: Meds: Current Medications Medications (Trade) Dose Ordered Sig/Aaron Route PRN Reason Start Time Stop Time Status Last Admin Dose Admin Lorazepam (Ativan) 0.25 mg PRN TID PRN PO ANXIETY / AGITATION 04/12/20 16:30 04/12/20 17:30 I have reviewed the current psychotropics carefully including drug interactions. Risk benefit ratio favors no change other than as noted in my dictated progress note. Diagnosis: Problems: (1) Impulse control disorder, unspecified (2) Anxiety disorder, unspecified (3) Tardive dyskinesia (4) Chronic undifferentiated schizophrenia (5) Schizoaffective disorder, bipolar type (6) Bipolar disorder with psychotic features KAMILA LOMELI MD Apr 12, 2020 21:00
[2020-04-12] MEDS: INSULIN GLARGINE SYRINGE. SQ SCH (22:04)
[2020-04-12 22:07] LABS: ALBUMIN/GLOBULIN RATIO 0.8 (1.0-1.7); CALCIUM 8.2 mg/dL (8.5-10.1); CREATININE 0.9 mg/dL (0.7-1.3); GFR 82.9; POTASSIUM 3.4 mmol/L (3.5-5.1); TOTAL BILIRUBIN 0.3 mg/dL (0.2-1.0); TOTAL PROTEIN 6.6 g/dL (6.4-8.2)
[2020-04-13] MEDS: HYDROcodone/APAP 7.5/325MG 1 TAB TABLET PO PRN ×3 (05:54→20:38)
[2020-04-13 06:04] VITALS: BP 132/70
[2020-04-13] MEDS: LOPERAMIDE 2 MG CAPSULE PO PRN (06:35)
[2020-04-13] MEDS: LORazepam 0.5 MG TABLET PO PRN ×3 (06:35→20:45)
[2020-04-13 07:28] LABS: HEMATOCRIT 39.7 % (39.0-53.0); HEMOGLOBIN 12.6 g/dL (13.0-17.5); RED BLOOD COUNT 4.41 x10^6/uL (4.30-5.70); RED CELL DISTRIBUTION WIDTH 13.8 % (11.5-14.5); WHITE BLOOD COUNT 10.5 x10^3/uL (4.0-11.0)
[2020-04-13] MEDS: SIMETHICONE 80 MG TAB.CHEW PO SCH ×3 (08:37→19:44)
[2020-04-13] MEDS: LOSARTAN 25 MG TABLET. PO SCH (08:38)
[2020-04-13] MEDS: risperiDONE 0.25 MG TABLET. PO SCH ×2 (08:38→19:47)
[2020-04-13] MEDS: ISOSORBIDE MONONITRATE ER 30 MG TAB.ER.24H PO SCH (08:38)
[2020-04-13] MEDS: ASCORBIC ACID 500 MG TABLET PO SCH ×2 (08:38→19:47)
[2020-04-13] MEDS: PANTOPRAZOLE 40 MG TABLET. PO SCH ×2 (08:38→19:44)
[2020-04-13] MEDS: LEVOTHYROXINE 50 MCG TABLET PO SCH (08:38)
[2020-04-13] MEDS: CARVEDILOL 3.125 MG TABLET PO SCH ×2 (08:38→16:52)
[2020-04-13] MEDS: FUROSEMIDE 40 MG TABLET PO SCH (08:39)
[2020-04-13] MEDS: METHENAMINE HIPPURATE 1 GM TABLET PO SCH ×2 (08:40→19:49)
[2020-04-13] MEDS: CALCITRIOL 0.25 MCG CAPSULE PO SCH (08:40)
--- NOTE | 2020-04-13 09:59 | PDOC ---
Exam Note: Good Note: This note is a late entry for 04/11/2020 covers elements not covered in my initial note. Subjective: The patient was seen face to face in the evening of 04/11/2020 with Anel MATUTE, discussed and reviewed the chart. He slept 8-1/4 hours previous night. The patient has significant tardive dyskinetic movements. He has been pleasant, spends much time in bed, depending to get to bed. We are awaiting medication log of his psychotropics from the [facility]. Review of Systems: Positive for impaired ambulation in wheelchair and the abnormal movements consistent with tardive dyskinesia. No CV, , pulmonary, eye system symptoms on review. Mental Status Exam: The patient is oriented to himself and situation. Speech garbled due to tardive dyskinetic movements. Abstraction is fair. Computation impaired. Attention span is short. Language function intact. Mood and affect anxious, labile. No active suicidal or homicidal ideation. Laboratory Data: Reviewed. 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 Schizophrenia chronic undifferentiated. Anxiety disorder unspecified. Impulse control disorder unspecified. Plan: Discussed his baseline assessments and adjustments in his psychotropics depending on this. Assessment: Vital Signs/I&O: Vital Signs Date Time Temp Pulse Resp B/P (MAP) Pulse Ox O2 Delivery O2 Flow Rate FiO2 04/13/20 08:39 72 132/70 04/13/20 07:33 97 04/13/20 06:04 98.6 18 04/13/20 05:54 2.5 04/12/20 21:44 Nasal Cannula I & O 04/12/20 04/12/20 04/13/20 15:00 23:00 07:00 Intake Total 1140 ml 1080 ml Balance 1140 ml 1080 ml Labs: Laboratory Tests Test 04/12/20 19:06 04/12/20 21:40 04/13/20 06:52 04/13/20 07:47 Glucose (Fingerstick) 147 mg/dL (70-99) H 200 mg/dL (70-99) H Sodium Level 140 mmol/L (136-145) Potassium Level 3.4 mmol/L (3.5-5.1) L Chloride Level 99 mmol/L (98-107) Carbon Dioxide Level 33 mmol/L (21-32) H Anion Gap 8 (6-14) Blood Urea Nitrogen 8 mg/dL (8-26) Creatinine 0.9 mg/dL (0.7-1.3) Estimated GFR (Cockcroft-Gault) 82.9 BUN/Creatinine Ratio 9 (6-20) Glucose Level 150 mg/dL (70-99) H Calcium Level 8.2 mg/dL (8.5-10.1) L Total Bilirubin 0.3 mg/dL (0.2-1.0) Aspartate Amino Transferase (AST) 18 U/L (15-37) Alanine Aminotransferase (ALT) 24 U/L (16-63) Alkaline Phosphatase 65 U/L (46-116) Total Protein 6.6 g/dL (6.4-8.2) Albumin 3.0 g/dL (3.4-5.0) L Albumin/Globulin Ratio 0.8 (1.0-1.7) L White Blood Count 10.5 x10^3/uL (4.0-11.0) Red Blood Count 4.41 x10^6/uL (4.30-5.70) Hemoglobin 12.6 g/dL (13.0-17.5) L Hematocrit 39.7 % (39.0-53.0) Mean Corpuscular Volume 90 fL (79-100) Mean Corpuscular Hemoglobin 28 pg (25-35) Mean Corpuscular Hemoglobin Concent 32 g/dL (31-37) Red Cell Distribution Width 13.8 % (11.5-14.5) Platelet Count 287 x10^3/uL (140-400) Magnesium Level 1.7 mg/dL (1.8-2.4) L Current Medications: Meds: Laboratory Tests Test 04/12/20 19:06 04/12/20 21:40 04/13/20 06:52 04/13/20 07:47 Glucose (Fingerstick) 147 mg/dL 200 mg/dL Sodium Level 140 mmol/L Potassium Level 3.4 mmol/L Chloride Level 99 mmol/L Carbon Dioxide Level 33 mmol/L Anion Gap 8 Blood Urea Nitrogen 8 mg/dL Creatinine 0.9 mg/dL Estimated GFR (Cockcroft-Gault) 82.9 BUN/Creatinine Ratio 9 Glucose Level 150 mg/dL Calcium Level 8.2 mg/dL Total Bilirubin 0.3 mg/dL Aspartate Amino Transf (AST/SGOT) 18 U/L Alanine Aminotransferase (ALT/SGPT) 24 U/L Alkaline Phosphatase 65 U/L Total Protein 6.6 g/dL Albumin 3.0 g/dL Albumin/Globulin Ratio 0.8 White Blood Count 10.5 x10^3/uL Red Blood Count 4.41 x10^6/uL Hemoglobin 12.6 g/dL Hematocrit 39.7 % Mean Corpuscular Volume 90 fL Mean Corpuscular Hemoglobin 28 pg Mean Corpuscular Hemoglobin Concent 32 g/dL Red Cell Distribution Width 13.8 % Platelet Count 287 x10^3/uL Magnesium Level 1.7 mg/dL Current Medications Medications (Trade) Dose Ordered Sig/Aaron Route PRN Reason Start Time Stop Time Status Last Admin Dose Admin Albuterol Sulfate (Ventolin) 8 mg PRN Q4HRS PRN IH wheezing 04/10/20 15:45 04/12/20 16:14 Atorvastatin Calcium (Lipitor) 20 mg QHS PO 04/10/20 21:00 04/12/20 20:36 Calcitriol (Rocaltrol) 0.25 mcg DAILY PO 04/11/20 09:00 04/13/20 08:40 Carvedilol (Coreg) 3.125 mg BIDWMEALS PO 04/10/20 17:00 04/13/20 08:38 Diltiazem HCl (Cardizem 24hr Cd) 120 mg DAILY PO 04/11/20 09:00 04/13/20 08:39 Fluphenazine HCl (Prolixin) 2.5 mg QHS PO 04/10/20 21:00 04/12/20 20:35 Furosemide (Lasix) 40 mg DAILY PO 04/11/20 09:00 04/13/20 08:39 Acetaminophen/ Hydrocodone Bitart (Lortab 7.5/325) 1 tab PRN QID PRN PO MOD-SEV PAIN 04/10/20 15:45 04/13/20 05:54 Levothyroxine Sodium (Synthroid) 50 mcg DAILYAC PO 04/11/20 07:30 04/13/20 08:38 Losartan Potassium (Cozaar) 25 mg DAILY PO 04/11/20 09:00 04/13/20 08:38 Methenamine Hippurate (Hiprex) 1 gm BID PO 04/10/20 21:00 04/13/20 08:40 Nystatin (Nystop) 15 kailey PRN BID PRN TP YEAST 04/10/20 15:45 Pantoprazole Sodium (Protonix) 40 mg BID PO 04/10/20 21:00 04/13/20 08:38 Polyethylene Glycol (miraLAX) 17 gm PRN DAILY PRN PO 2ND CHOICE CONSTIPATION 04/10/20 15:45 Risperidone (RisperDAL) 0.25 mg BID PO 04/10/20 21:00 04/13/20 08:38 Ropinirole HCl (Requip) 1 mg QHS PO 04/10/20 21:00 04/12/20 20:35 Tamsulosin HCl (Flomax) 0.4 mg QEVNG PO 04/10/20 18:00 04/12/20 16:13 Simethicone (Gas-X) 80 mg TID PO 04/10/20 21:00 04/13/20 08:37 Ascorbic Acid (Vitamin C) 500 mg BID PO 04/10/20 21:00 04/13/20 08:38 Artificial Tears (Artificial Tears) 1 drop PRN BID PRN OU DRY EYE 04/10/20 17:00 Celecoxib (CeleBREX) 200 mg QHS PO 04/10/20 21:00 04/12/20 20:36 Cholestyramine Resin (Questran Light) 4 gm PRN DAILY PRN PO LOOSE STOOLS 04/10/20 17:00 Insulin Glargine (Lantus Syringe) 30 unit QHS SQ 04/10/20 21:00 04/12/20 22:04 Isosorbide Mononitrate (Imdur) 60 mg DAILY PO 04/11/20 09:00 04/13/20 08:38 Loperamide HCl (Imodium) 2 mg PRN Q2HRS PRN PO DIARRHEA 04/10/20 17:00 04/13/20 06:35 Rivaroxaban (Xarelto) 20 mg DAILYWSUP PO 04/10/20 17:00 04/12/20 16:13 Acetaminophen (Tylenol) 650 mg PRN Q6HRS PRN PO MILD PAIN / TEMP > 100.3'F 04/10/20 16:30 04/12/20 14:07 Multi-Ingredient Ointment (Analgesic [place]) 1 kailey PRN QID PRN TP MUSCLE PAIN 04/10/20 16:30 Al Hydroxide/Mg Hydroxide (Mylanta Plus Xs) 15 ml PRN AFTMEALHC PRN PO DYSPEPSIA 04/10/20 16:30 Magnesium Hydroxide (Milk Of Magnesia) 2,400 mg PRN QHS PRN PO 2ND CHOICE CONSTIPATION 04/10/20 16:30 Lorazepam (Ativan) 0.25 mg PRN TID PRN PO ANXIETY / AGITATION 04/12/20 16:30 04/13/20 06:35 Current Medications Medications (Trade) Dose Ordered Sig/Aaron Route PRN Reason Start Time Stop Time Status Last Admin Dose Admin Lorazepam (Ativan) 0.25 mg PRN TID PRN PO ANXIETY / AGITATION 04/12/20 16:30 04/13/20 06:35 I have reviewed the current psychotropics carefully including drug interactions. Risk benefit ratio favors no change other than as noted in my dictated progress note. Diagnosis: Problems: (1) Tardive dyskinesia (2) Chronic undifferentiated schizophrenia (3) Schizoaffective disorder, bipolar type (4) Bipolar disorder with psychotic features (5) Impulse control disorder, unspecified (6) Anxiety disorder, unspecified KAMILA LOMELI MD Apr 13, 2020 09:59
--- NOTE | 2020-04-13 10:22 | PDOC ---
Exam Note: Good Note: This note is a late entry for 04/12/2020 covers elements not covered in my initial note. Subjective: The patient was seen face to face in the morning of 04/12/2020 for a treatment team meeting with Janet Duarte and Jessica (long term care social worker), Michelle Espinal and Anna, activity therapy and Anel MATUTE, discussed and reviewed the chart. We had lengthy discussion about his diagnoses, possible need for mood stabilizers, perhaps Depakote, consideration of Clozaril but we are awaiting records from [facility] to make final decisions. He slept 7-3/4 hours previous night. The patient remains on oxygen, was very upset with staff because they took his personal wheelchair and substituted it with more appropriate wheelchair that can hold his oxygen tank. He is not accepting this and I addressed this with him. His care is being managed by his legal guardian. Review of Systems: Shortness of breath on oxygen supplements. Poor ambulation in wheelchair and the abnormal movements consistent with tardive dyskinesia. No CV, , pulmonary, eye system symptoms on review. Mental Status Exam: The patient is oriented to himself. Speech garbled due to tardive dyskinetic movements. Abstraction is fair. Computation impaired. Attention span is short. Language function intact. Mood and affect anxious, labile. No active suicidal or homicidal ideation. Laboratory Data: Reviewed. 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 Schizophrenia chronic undifferentiated. Anxiety disorder unspecified. Impulse control disorder unspecified. Plan: As noted above. Assessment: Vital Signs/I&O: Vital Signs Date Time Temp Pulse Resp B/P (MAP) Pulse Ox O2 Delivery O2 Flow Rate FiO2 04/13/20 08:39 72 132/70 04/13/20 07:33 97 04/13/20 06:04 98.6 18 04/13/20 05:54 2.5 04/12/20 21:44 Nasal Cannula I & O 04/12/20 04/12/20 04/13/20 15:00 23:00 07:00 Intake Total 1140 ml 1080 ml Balance 1140 ml 1080 ml Labs: Laboratory Tests Test 04/12/20 19:06 04/12/20 21:40 04/13/20 06:52 04/13/20 07:47 Glucose (Fingerstick) 147 mg/dL (70-99) H 200 mg/dL (70-99) H Sodium Level 140 mmol/L (136-145) Potassium Level 3.4 mmol/L (3.5-5.1) L Chloride Level 99 mmol/L (98-107) Carbon Dioxide Level 33 mmol/L (21-32) H Anion Gap 8 (6-14) Blood Urea Nitrogen 8 mg/dL (8-26) Creatinine 0.9 mg/dL (0.7-1.3) Estimated GFR (Cockcroft-Gault) 82.9 BUN/Creatinine Ratio 9 (6-20) Glucose Level 150 mg/dL (70-99) H Calcium Level 8.2 mg/dL (8.5-10.1) L Total Bilirubin 0.3 mg/dL (0.2-1.0) Aspartate Amino Transferase (AST) 18 U/L (15-37) Alanine Aminotransferase (ALT) 24 U/L (16-63) Alkaline Phosphatase 65 U/L (46-116) Total Protein 6.6 g/dL (6.4-8.2) Albumin 3.0 g/dL (3.4-5.0) L Albumin/Globulin Ratio 0.8 (1.0-1.7) L White Blood Count 10.5 x10^3/uL (4.0-11.0) Red Blood Count 4.41 x10^6/uL (4.30-5.70) Hemoglobin 12.6 g/dL (13.0-17.5) L Hematocrit 39.7 % (39.0-53.0) Mean Corpuscular Volume 90 fL (79-100) Mean Corpuscular Hemoglobin 28 pg (25-35) Mean Corpuscular Hemoglobin Concent 32 g/dL (31-37) Red Cell Distribution Width 13.8 % (11.5-14.5) Platelet Count 287 x10^3/uL (140-400) Magnesium Level 1.7 mg/dL (1.8-2.4) L Current Medications: Meds: Current Medications Medications (Trade) Dose Ordered Sig/Aaron Route PRN Reason Start Time Stop Time Status Last Admin Dose Admin Lorazepam (Ativan) 0.25 mg PRN TID PRN PO ANXIETY / AGITATION 04/12/20 16:30 04/13/20 06:35 I have reviewed the current psychotropics carefully including drug interactions. Risk benefit ratio favors no change other than as noted in my dictated progress note. Diagnosis: Problems: (1) Tardive dyskinesia (2) Chronic undifferentiated schizophrenia (3) Schizoaffective disorder, bipolar type (4) Bipolar disorder with psychotic features (5) Impulse control disorder, unspecified (6) Anxiety disorder, unspecified KAMILA LOMELI MD Apr 13, 2020 10:22
--- NOTE | 2020-04-13 12:07 | NUR ---
Nursing note: Pt has been pleasant, med compliant and cooperative this shift. Pt had no complaints at time of assessment. He is currently in the dining room for lunch. Will continue to monitor.
--- NOTE | 2020-04-13 12:33 | NUR ---
Nursing note: Pt c/o back pain 08/20. PRN given. Will continue to monitor.
[2020-04-13] MEDS: ALBUTEROL SULFATE 2.5 MG/3 ML NEBU. IH PRN ×2 (14:09→20:45)
[2020-04-13] MEDS: RIVAROXABAN 10 MG TABLET. PO SCH (16:51)
[2020-04-13] MEDS: TAMSULOSIN 0.4 MG CAP.ER.24H. PO SCH ×2 (16:52→19:47)
[2020-04-13] MEDS: rOPINIRole 1 MG TABLET. PO SCH (19:44)
[2020-04-13] MEDS: CELECOXIB 100 MG CAPSULE PO SCH (19:44)
[2020-04-13] MEDS: ATORVASTATIN CALCIUM 20 MG TABLET PO SCH (19:47)
--- NOTE | 2020-04-13 21:02 | NUR ---
Patient requested PRN pain medication and anti-anxiety medicine for pain and anxiety. PRN Lortan and PRN xanax given per order. Patient also requested PRN inhaler for wheezing. PRN inhaler given per order. Will continue to monitor
--- NOTE | 2020-04-13 21:03 | PDOC ---
Exam Note: Good Note: Please also refer to the separate dictated note~for this date of service dictated separately.~Patient seen individually. Discussed the patient with Nursing staff reviewed the chart.~Reviewed interim history and current functioning. Reviewed vital signs,~Labs/ Radiology~and current medications noted below. Continue current treatment with the changes noted in the dictated addendum note Assessment: Vital Signs/I&O: Vital Signs Date Time Temp Pulse Resp B/P (MAP) Pulse Ox O2 Delivery O2 Flow Rate FiO2 04/13/20 16:52 72 132/70 04/13/20 14:02 97 04/13/20 06:04 98.6 18 04/13/20 05:54 2.5 04/12/20 21:44 Nasal Cannula I & O 04/12/20 04/12/20 04/13/20 14:59 22:59 06:59 Intake Total 1140 ml 1080 ml Balance 1140 ml 1080 ml Labs: Laboratory Tests Test 04/12/20 21:40 04/13/20 06:52 04/13/20 07:47 04/13/20 19:09 Sodium Level 140 mmol/L (136-145) Potassium Level 3.4 mmol/L (3.5-5.1) L Chloride Level 99 mmol/L (98-107) Carbon Dioxide Level 33 mmol/L (21-32) H Anion Gap 8 (6-14) Blood Urea Nitrogen 8 mg/dL (8-26) Creatinine 0.9 mg/dL (0.7-1.3) Estimated GFR (Cockcroft-Gault) 82.9 BUN/Creatinine Ratio 9 (6-20) Glucose Level 150 mg/dL (70-99) H Calcium Level 8.2 mg/dL (8.5-10.1) L Total Bilirubin 0.3 mg/dL (0.2-1.0) Aspartate Amino Transferase (AST) 18 U/L (15-37) Alanine Aminotransferase (ALT) 24 U/L (16-63) Alkaline Phosphatase 65 U/L (46-116) Total Protein 6.6 g/dL (6.4-8.2) Albumin 3.0 g/dL (3.4-5.0) L Albumin/Globulin Ratio 0.8 (1.0-1.7) L White Blood Count 10.5 x10^3/uL (4.0-11.0) Red Blood Count 4.41 x10^6/uL (4.30-5.70) Hemoglobin 12.6 g/dL (13.0-17.5) L Hematocrit 39.7 % (39.0-53.0) Mean Corpuscular Volume 90 fL (79-100) Mean Corpuscular Hemoglobin 28 pg (25-35) Mean Corpuscular Hemoglobin Concent 32 g/dL (31-37) Red Cell Distribution Width 13.8 % (11.5-14.5) Platelet Count 287 x10^3/uL (140-400) Magnesium Level 1.7 mg/dL (1.8-2.4) L Glucose (Fingerstick) 200 mg/dL (70-99) H 139 mg/dL (70-99) H Current Medications: Meds: Laboratory Tests Test 04/12/20 21:40 04/13/20 06:52 04/13/20 07:47 04/13/20 19:09 Sodium Level 140 mmol/L Potassium Level 3.4 mmol/L Chloride Level 99 mmol/L Carbon Dioxide Level 33 mmol/L Anion Gap 8 Blood Urea Nitrogen 8 mg/dL Creatinine 0.9 mg/dL Estimated GFR (Cockcroft-Gault) 82.9 BUN/Creatinine Ratio 9 Glucose Level 150 mg/dL Calcium Level 8.2 mg/dL Total Bilirubin 0.3 mg/dL Aspartate Amino Transf (AST/SGOT) 18 U/L Alanine Aminotransferase (ALT/SGPT) 24 U/L Alkaline Phosphatase 65 U/L Total Protein 6.6 g/dL Albumin 3.0 g/dL Albumin/Globulin Ratio 0.8 White Blood Count 10.5 x10^3/uL Red Blood Count 4.41 x10^6/uL Hemoglobin 12.6 g/dL Hematocrit 39.7 % Mean Corpuscular Volume 90 fL Mean Corpuscular Hemoglobin 28 pg Mean Corpuscular Hemoglobin Concent 32 g/dL Red Cell Distribution Width 13.8 % Platelet Count 287 x10^3/uL Magnesium Level 1.7 mg/dL Glucose (Fingerstick) 200 mg/dL 139 mg/dL Current Medications Medications (Trade) Dose Ordered Sig/Aaron Route PRN Reason Start Time Stop Time Status Last Admin Dose Admin Albuterol Sulfate (Ventolin) 8 mg PRN Q4HRS PRN IH wheezing 04/10/20 15:45 04/13/20 20:45 Atorvastatin Calcium (Lipitor) 20 mg QHS PO 04/10/20 21:00 04/13/20 19:47 Calcitriol (Rocaltrol) 0.25 mcg DAILY PO 04/11/20 09:00 04/13/20 08:40 Carvedilol (Coreg) 3.125 mg BIDWMEALS PO 04/10/20 17:00 04/13/20 16:52 Diltiazem HCl (Cardizem 24hr Cd) 120 mg DAILY PO 04/11/20 09:00 04/13/20 08:39 Fluphenazine HCl (Prolixin) 2.5 mg QHS PO 04/10/20 21:00 04/13/20 19:44 Furosemide (Lasix) 40 mg DAILY PO 04/11/20 09:00 04/13/20 08:39 Acetaminophen/ Hydrocodone Bitart (Lortab 7.5/325) 1 tab PRN QID PRN PO MOD-SEV PAIN 04/10/20 15:45 04/13/20 20:38 Levothyroxine Sodium (Synthroid) 50 mcg DAILYAC PO 04/11/20 07:30 04/13/20 08:38 Losartan Potassium (Cozaar) 25 mg DAILY PO 04/11/20 09:00 04/13/20 08:38 Methenamine Hippurate (Hiprex) 1 gm BID PO 04/10/20 21:00 04/13/20 19:49 Nystatin (Nystop) 15 kailey PRN BID PRN TP YEAST 04/10/20 15:45 Pantoprazole Sodium (Protonix) 40 mg BID PO 04/10/20 21:00 04/13/20 19:44 Polyethylene Glycol (miraLAX) 17 gm PRN DAILY PRN PO 2ND CHOICE CONSTIPATION 04/10/20 15:45 Risperidone (RisperDAL) 0.25 mg BID PO 04/10/20 21:00 04/13/20 19:47 Ropinirole HCl (Requip) 1 mg QHS PO 04/10/20 21:00 04/13/20 19:44 Tamsulosin HCl (Flomax) 0.4 mg QEVNG PO 04/10/20 18:00 04/13/20 19:47 Simethicone (Gas-X) 80 mg TID PO 04/10/20 21:00 04/13/20 19:44 Ascorbic Acid (Vitamin C) 500 mg BID PO 04/10/20 21:00 04/13/20 19:47 Artificial Tears (Artificial Tears) 1 drop PRN BID PRN OU DRY EYE 04/10/20 17:00 Celecoxib (CeleBREX) 200 mg QHS PO 04/10/20 21:00 04/13/20 19:44 Cholestyramine Resin (Questran Light) 4 gm PRN DAILY PRN PO LOOSE STOOLS 04/10/20 17:00 Insulin Glargine (Lantus Syringe) 30 unit QHS SQ 04/10/20 21:00 04/12/20 22:04 Isosorbide Mononitrate (Imdur) 60 mg DAILY PO 04/11/20 09:00 04/13/20 08:38 Loperamide HCl (Imodium) 2 mg PRN Q2HRS PRN PO DIARRHEA 04/10/20 17:00 04/13/20 06:35 Rivaroxaban (Xarelto) 20 mg DAILYWSUP PO 04/10/20 17:00 04/13/20 16:51 Acetaminophen (Tylenol) 650 mg PRN Q6HRS PRN PO MILD PAIN / TEMP > 100.3'F 04/10/20 16:30 04/12/20 14:07 Multi-Ingredient Ointment (Analgesic [place]) 1 kailey PRN QID PRN TP MUSCLE PAIN 04/10/20 16:30 Al Hydroxide/Mg Hydroxide (Mylanta Plus Xs) 15 ml PRN AFTMEALHC PRN PO DYSPEPSIA 04/10/20 16:30 Magnesium Hydroxide (Milk Of Magnesia) 2,400 mg PRN QHS PRN PO 2ND CHOICE CONSTIPATION 04/10/20 16:30 Lorazepam (Ativan) 0.25 mg PRN TID PRN PO ANXIETY / AGITATION 04/12/20 16:30 04/13/20 20:45 Divalproex Sodium (Depakote Sprinkles) 250 mg 0900,1700 PO 04/14/20 09:00 I have reviewed the current psychotropics carefully including drug interactions. Risk benefit ratio favors no change other than as noted in my dictated progress note. Diagnosis: Problems: (1) Tardive dyskinesia (2) Chronic undifferentiated schizophrenia (3) Schizoaffective disorder, bipolar type (4) Bipolar disorder with psychotic features (5) Impulse control disorder, unspecified (6) Anxiety disorder, unspecified KAMILA LOMELI MD Apr 13, 2020 21:03
[2020-04-13] MEDS: INSULIN GLARGINE SYRINGE. SQ SCH (21:35)
--- NOTE | 2020-04-13 22:00 | NUR ---
Patient was in day room watching tv with peers. He asked several staff members when he would get his medication and reported pain. Nurse provided medication whole with honey thick orange juice. Patient compliant with medications and tolerated the honey thick beverage well. Patient polite to nurse and interactive. After receiving HS meds and PRN medications, the patient is sleeping at this time with no s/s pain noted. Patient stated he was anxious, but did not accuse staff of neglecting him this night.
[2020-04-14 05:51] VITALS: BP 139/81
--- NOTE | 2020-04-14 07:35 | PDOC ---
Exam Note: Good Note: This note is a late entry for 04/13/2020 covers elements not covered in my initial note. Subjective: The patient was seen face to face in the evening of 04/13/2020 with Anel MATUTE, discussed and reviewed the chart. He slept 6-1/4 hours previous night. Overall, the patient has been less attention seeking. We are awaiting records from the [facility]. Review of Systems: Shortness of breath on oxygen supplements. Positive for tardive dyskinetic mouth and tongue movements. Impaired ambulation in wheelchair. No CV, , pulmonary, eye system symptoms on review. Mental Status Exam: The patient is oriented to himself and situation. Speech at times is difficult to understand. Abstraction is fair. Computation impaired. Language function intact. Mood and affect less paranoid, psychotic, labile. Laboratory Data: Reviewed. 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 Schizophrenia chronic undifferentiated. Anxiety disorder unspecified. Impulse control disorder unspecified. Plan: We will start Depakote Sprinkle 250 mg 9 a.m. and 5 p.m. Check CBC, CMP, valproic acid level in 3 days. Rest unchanged for now. Initially the patient said he had been on Depakote in the past, did not do well but later he corrected himself and felt he had got confused with different medication. Assessment: Vital Signs/I&O: Vital Signs Date Time Temp Pulse Resp B/P (MAP) Pulse Ox O2 Delivery O2 Flow Rate FiO2 04/14/20 05:51 97.7 68 20 139/81 (100) 94 04/13/20 05:54 2.5 04/12/20 21:44 Nasal Cannula I & O 04/13/20 04/13/20 04/14/20 15:00 23:00 07:00 Intake Total 880 ml 1020 ml Balance 880 ml 1020 ml Labs: Laboratory Tests Test 04/13/20 07:47 04/13/20 19:09 Glucose (Fingerstick) 200 mg/dL (70-99) H 139 mg/dL (70-99) H Current Medications: Meds: Laboratory Tests Test 04/13/20 07:47 04/13/20 19:09 Glucose (Fingerstick) 200 mg/dL 139 mg/dL Current Medications Medications (Trade) Dose Ordered Sig/Aaron Route PRN Reason Start Time Stop Time Status Last Admin Dose Admin Albuterol Sulfate (Ventolin) 8 mg PRN Q4HRS PRN IH wheezing 04/10/20 15:45 04/13/20 20:45 Atorvastatin Calcium (Lipitor) 20 mg QHS PO 04/10/20 21:00 04/13/20 19:47 Calcitriol (Rocaltrol) 0.25 mcg DAILY PO 04/11/20 09:00 04/13/20 08:40 Carvedilol (Coreg) 3.125 mg BIDWMEALS PO 04/10/20 17:00 04/13/20 16:52 Diltiazem HCl (Cardizem 24hr Cd) 120 mg DAILY PO 04/11/20 09:00 04/13/20 08:39 Fluphenazine HCl (Prolixin) 2.5 mg QHS PO 04/10/20 21:00 04/13/20 19:44 Furosemide (Lasix) 40 mg DAILY PO 04/11/20 09:00 04/13/20 08:39 Acetaminophen/ Hydrocodone Bitart (Lortab 7.5/325) 1 tab PRN QID PRN PO MOD-SEV PAIN 04/10/20 15:45 04/13/20 20:38 Levothyroxine Sodium (Synthroid) 50 mcg DAILYAC PO 04/11/20 07:30 04/13/20 08:38 Losartan Potassium (Cozaar) 25 mg DAILY PO 04/11/20 09:00 04/13/20 08:38 Methenamine Hippurate (Hiprex) 1 gm BID PO 04/10/20 21:00 04/13/20 19:49 Nystatin (Nystop) 15 kailey PRN BID PRN TP YEAST 04/10/20 15:45 Pantoprazole Sodium (Protonix) 40 mg BID PO 04/10/20 21:00 04/13/20 19:44 Polyethylene Glycol (miraLAX) 17 gm PRN DAILY PRN PO 2ND CHOICE CONSTIPATION 04/10/20 15:45 Risperidone (RisperDAL) 0.25 mg BID PO 04/10/20 21:00 04/13/20 19:47 Ropinirole HCl (Requip) 1 mg QHS PO 04/10/20 21:00 04/13/20 19:44 Tamsulosin HCl (Flomax) 0.4 mg QEVNG PO 04/10/20 18:00 04/13/20 19:47 Simethicone (Gas-X) 80 mg TID PO 04/10/20 21:00 04/13/20 19:44 Ascorbic Acid (Vitamin C) 500 mg BID PO 04/10/20 21:00 04/13/20 19:47 Artificial Tears (Artificial Tears) 1 drop PRN BID PRN OU DRY EYE 04/10/20 17:00 Celecoxib (CeleBREX) 200 mg QHS PO 04/10/20 21:00 04/13/20 19:44 Cholestyramine Resin (Questran Light) 4 gm PRN DAILY PRN PO LOOSE STOOLS 04/10/20 17:00 Insulin Glargine (Lantus Syringe) 30 unit QHS SQ 04/10/20 21:00 04/13/20 21:35 Isosorbide Mononitrate (Imdur) 60 mg DAILY PO 04/11/20 09:00 04/13/20 08:38 Loperamide HCl (Imodium) 2 mg PRN Q2HRS PRN PO DIARRHEA 04/10/20 17:00 04/13/20 06:35 Rivaroxaban (Xarelto) 20 mg DAILYWSUP PO 04/10/20 17:00 04/13/20 16:51 Acetaminophen (Tylenol) 650 mg PRN Q6HRS PRN PO MILD PAIN / TEMP > 100.3'F 04/10/20 16:30 04/12/20 14:07 Multi-Ingredient Ointment (Analgesic [place]) 1 kailey PRN QID PRN TP MUSCLE PAIN 04/10/20 16:30 Al Hydroxide/Mg Hydroxide (Mylanta Plus Xs) 15 ml PRN AFTMEALHC PRN PO DYSPEPSIA 04/10/20 16:30 Magnesium Hydroxide (Milk Of Magnesia) 2,400 mg PRN QHS PRN PO 2ND CHOICE CONSTIPATION 04/10/20 16:30 Lorazepam (Ativan) 0.25 mg PRN TID PRN PO ANXIETY / AGITATION 04/12/20 16:30 04/13/20 20:45 Divalproex Sodium (Depakote Sprinkles) 250 mg 0900,1700 PO 04/14/20 09:00 I have reviewed the current psychotropics carefully including drug interactions. Risk benefit ratio favors no change other than as noted in my dictated progress note. Diagnosis: Problems: (1) Tardive dyskinesia (2) Chronic undifferentiated schizophrenia (3) Schizoaffective disorder, bipolar type (4) Bipolar disorder with psychotic features (5) Impulse control disorder, unspecified (6) Anxiety disorder, unspecified KAMILA LOMELI MD Apr 14, 2020 07:35
[2020-04-14] MEDS: METHENAMINE HIPPURATE 1 GM TABLET PO SCH ×2 (08:20→21:03)
[2020-04-14] MEDS: ISOSORBIDE MONONITRATE ER 30 MG TAB.ER.24H PO SCH (08:20)
[2020-04-14] MEDS: PANTOPRAZOLE 40 MG TABLET. PO SCH ×2 (08:21→21:02)
[2020-04-14] MEDS: FUROSEMIDE 40 MG TABLET PO SCH (08:21)
[2020-04-14] MEDS: LEVOTHYROXINE 50 MCG TABLET PO SCH (08:21)
[2020-04-14] MEDS: SIMETHICONE 80 MG TAB.CHEW PO SCH ×3 (08:21→22:27)
[2020-04-14] MEDS: risperiDONE 0.25 MG TABLET. PO SCH ×2 (08:21→21:02)
[2020-04-14] MEDS: CARVEDILOL 3.125 MG TABLET PO SCH ×2 (08:21→17:23)
[2020-04-14] MEDS: DIVALPROEX 125 MG CAP.SPRINK PO SCH ×2 (08:21→17:21)
[2020-04-14] MEDS: ASCORBIC ACID 500 MG TABLET PO SCH ×2 (08:22→22:27)
[2020-04-14] MEDS: CALCITRIOL 0.25 MCG CAPSULE PO SCH (08:22)
[2020-04-14] MEDS: LOSARTAN 25 MG TABLET. PO SCH (08:22)
[2020-04-14] MEDS: HYDROcodone/APAP 7.5/325MG 1 TAB TABLET PO PRN ×3 (08:26→22:12)
[2020-04-14] MEDS: LORazepam 0.5 MG TABLET PO PRN (08:27)
--- NOTE | 2020-04-14 16:51 | NUR ---
Patient in room at time of assessment. Patient is alert and oriented with complaints of lower back and chest pain. Chest pain is nothing new and he continues to have. No shooting pain down arm, no shortness of breath, no other signs needing attention. Normal pain for patient to have. Pain medication given with medications. patient takes whole with no problems. He is on thicken fluids, but does fine with swallowing pills. Patient also has a white discharge from right eye and it itches and nuno. He has redness in left eye but no discharge. ABX eye drop ordered to begin tonight or when we get from pharmacy. No further concerns or complaints at this time.
[2020-04-14] MEDS: RIVAROXABAN 10 MG TABLET. PO SCH (17:22)
[2020-04-14 17:30] VITALS: BP 120/74
--- NOTE | 2020-04-14 17:39 | NUR ---
Patient is very demanding and attention seeking. Once he sees that someone else gets something he needs it. He is also c/opain still so he was given another hydrocodone.
--- NOTE | 2020-04-14 19:00 | NUR ---
Patient has K+ 3.4 and is on lasix. Patient is not on a potassium supplement at this time. Dr Alcantara is aware per report from day nurse.
[2020-04-14 19:44] VITALS: BP 154/54
[2020-04-14] MEDS: rOPINIRole 1 MG TABLET. PO SCH (21:02)
[2020-04-14] MEDS: ATORVASTATIN CALCIUM 20 MG TABLET PO SCH (21:02)
[2020-04-14] MEDS: CELECOXIB 100 MG CAPSULE PO SCH (21:02)
--- NOTE | 2020-04-14 21:02 | PDOC ---
Exam Note: Good Note: Please also refer to the separate dictated note~for this date of service dictated separately.~Patient seen individually. Discussed the patient with Nursing staff reviewed the chart.~Reviewed interim history and current functioning. Reviewed vital signs,~Labs/ Radiology~and current medications noted below. Continue current treatment with the changes noted in the dictated addendum note Assessment: Vital Signs/I&O: Vital Signs Date Time Temp Pulse Resp B/P (MAP) Pulse Ox O2 Delivery O2 Flow Rate FiO2 04/14/20 19:44 53 18 154/54 (87) 99 Room Air 04/14/20 17:30 98.5 04/13/20 05:54 2.5 I & O 04/13/20 04/13/20 04/14/20 15:00 23:00 07:00 Intake Total 880 ml 1020 ml Balance 880 ml 1020 ml Labs: Laboratory Tests Test 04/14/20 07:56 04/14/20 19:39 Glucose (Fingerstick) 110 mg/dL (70-99) H 151 mg/dL (70-99) H Current Medications: Meds: Current Medications Medications (Trade) Dose Ordered Sig/Aaron Route PRN Reason Start Time Stop Time Status Last Admin Dose Admin Divalproex Sodium (Depakote Sprinkles) 250 mg 0900,1700 PO 04/14/20 09:00 04/14/20 17:21 I have reviewed the current psychotropics carefully including drug interactions. Risk benefit ratio favors no change other than as noted in my dictated progress note. Diagnosis: Problems: (1) Tardive dyskinesia (2) Chronic undifferentiated schizophrenia (3) Schizoaffective disorder, bipolar type (4) Bipolar disorder with psychotic features (5) Impulse control disorder, unspecified (6) Anxiety disorder, unspecified KAMILA LOMELI MD Apr 14, 2020 21:02
[2020-04-14] MEDS: NEOMYCIN/BACI/POLY/HC OPHTH OINTMENT 3.5GM TUBE. OU SCH (21:59)
[2020-04-14] MEDS: INSULIN GLARGINE SYRINGE. SQ SCH (21:59)
[2020-04-14] MEDS: ALBUTEROL SULFATE 2.5 MG/3 ML NEBU. IH PRN (22:12)
--- NOTE | 2020-04-14 22:27 | NUR ---
Patient stated that he had requested a Lortab for pain when he got his shower at 1999, he was then sleeping after that when nurse checked on him. Nurse provided PRN lortab for pain at 2215 with HS medications per order. PRN inhaler used per order as well per patient request.
--- NOTE | 2020-04-14 23:02 | NUR ---
Patient cooperative with shower and then went to bed. HS medications give at around 2200. Patient compliant with medications and cooperative. Patients right eye continues to have white drainage and patient states it itches. Cortisporin opthalmic ointment applied per order. BMP ordered for tomorrow morning to re-check patients potassium. It was 3.4 on a previous test and patient is on lasix without a potassium supplement.
[2020-04-15 05:54] VITALS: BP 135/73
[2020-04-15] MEDS: HYDROcodone/APAP 7.5/325MG 1 TAB TABLET PO PRN ×3 (06:10→16:13)
--- NOTE | 2020-04-15 06:10 | NUR ---
Patient requests pain pill, states he has pain in his back. PRN lortab provided per order for pain.
[2020-04-15] MEDS: LEVOTHYROXINE 50 MCG TABLET PO SCH ×2 (06:12→07:30)
[2020-04-15 07:06] LABS: CALCIUM 8.5 mg/dL (8.5-10.1); CREATININE 0.9 mg/dL (0.7-1.3); GFR 82.9; POTASSIUM 4.2 mmol/L (3.5-5.1)
[2020-04-15] MEDS: risperiDONE 0.25 MG TABLET. PO SCH ×2 (07:52→20:50)
[2020-04-15] MEDS: LOSARTAN 25 MG TABLET. PO SCH (07:52)
[2020-04-15] MEDS: SIMETHICONE 80 MG TAB.CHEW PO SCH ×3 (07:52→20:50)
[2020-04-15] MEDS: CALCITRIOL 0.25 MCG CAPSULE PO SCH (07:53)
[2020-04-15] MEDS: DIVALPROEX 125 MG CAP.SPRINK PO SCH ×2 (07:53→17:01)
[2020-04-15] MEDS: ISOSORBIDE MONONITRATE ER 30 MG TAB.ER.24H PO SCH (07:53)
[2020-04-15] MEDS: PANTOPRAZOLE 40 MG TABLET. PO SCH ×2 (07:54→20:50)
[2020-04-15] MEDS: FUROSEMIDE 40 MG TABLET PO SCH (07:54)
[2020-04-15] MEDS: CARVEDILOL 3.125 MG TABLET PO SCH ×2 (07:54→17:01)
[2020-04-15] MEDS: ASCORBIC ACID 500 MG TABLET PO SCH ×2 (07:54→20:50)
[2020-04-15] MEDS: NEOMYCIN/BACI/POLY/HC OPHTH OINTMENT 3.5GM TUBE. OU SCH ×2 (07:55→20:53)
[2020-04-15] MEDS: METHENAMINE HIPPURATE 1 GM TABLET PO SCH ×2 (07:56→21:11)
--- NOTE | 2020-04-15 07:56 | PDOC ---
Exam Note: Good Note: This note is a late entry for 04/14/2020 covers elements not covered in my initial note. Subjective: The patient was seen individually in the evening of 04/14/2020 with Tash MATUTE, discussed and reviewed the chart. He slept 7-1/4 hours previous night. The patient has been somewhat more sedated. He has some eye discharge and has been started on antibiotics per Dr. Alcantara. I met with him in his room. Review of Systems: Shortness of breath on oxygen supplements. Positive for tardive dyskinetic movements and difficulty in speech. Impaired ambulation in wheelchair. No CV, , pulmonary, eye system symptoms on review. Mental Status Exam: The patient is reasonably oriented. He has difficulty with speech due to his tardive dyskinesia. Speech is coherent. Abstraction is fair. Computation impaired. Language function intact. Mood and affect less paranoid. No suicidal or homicidal ideation. Laboratory Data: Reviewed. 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 Schizophrenia chronic undifferentiated. Anxiety disorder unspecified. Impulse control disorder unspecified. Plan: No change from initial note. We have initiated Depakote and we will follow labs level. Adjust as clinically indicated. Assessment: Vital Signs/I&O: Vital Signs Date Time Temp Pulse Resp B/P (MAP) Pulse Ox O2 Delivery O2 Flow Rate FiO2 04/15/20 05:54 97.0 59 18 135/73 (93) 96 04/14/20 19:44 Room Air 04/13/20 05:54 2.5 I & O 04/14/20 04/14/20 04/15/20 15:00 23:00 07:00 Intake Total 720 ml 600 ml Balance 720 ml 600 ml Labs: Laboratory Tests Test 04/14/20 19:39 04/15/20 06:06 Glucose (Fingerstick) 151 mg/dL (70-99) H Sodium Level 144 mmol/L (136-145) Potassium Level 4.2 mmol/L (3.5-5.1) Chloride Level 104 mmol/L (98-107) Carbon Dioxide Level 36 mmol/L (21-32) H Anion Gap 4 (6-14) L Blood Urea Nitrogen 15 mg/dL (8-26) Creatinine 0.9 mg/dL (0.7-1.3) Estimated GFR (Cockcroft-Gault) 82.9 Glucose Level 109 mg/dL (70-99) H Calcium Level 8.5 mg/dL (8.5-10.1) Current Medications: Meds: Laboratory Tests Test 04/14/20 19:39 04/15/20 06:06 Glucose (Fingerstick) 151 mg/dL Sodium Level 144 mmol/L Potassium Level 4.2 mmol/L Chloride Level 104 mmol/L Carbon Dioxide Level 36 mmol/L Anion Gap 4 Blood Urea Nitrogen 15 mg/dL Creatinine 0.9 mg/dL Estimated GFR (Cockcroft-Gault) 82.9 Glucose Level 109 mg/dL Calcium Level 8.5 mg/dL Current Medications Medications (Trade) Dose Ordered Sig/Aaron Route PRN Reason Start Time Stop Time Status Last Admin Dose Admin Albuterol Sulfate (Ventolin) 8 mg PRN Q4HRS PRN IH wheezing 04/10/20 15:45 04/14/20 22:31 DC 04/14/20 22:12 Atorvastatin Calcium (Lipitor) 20 mg QHS PO 04/10/20 21:00 04/14/20 21:02 Calcitriol (Rocaltrol) 0.25 mcg DAILY PO 04/11/20 09:00 04/14/20 08:22 Carvedilol (Coreg) 3.125 mg BIDWMEALS PO 04/10/20 17:00 04/14/20 17:23 Diltiazem HCl (Cardizem 24hr Cd) 120 mg DAILY PO 04/11/20 09:00 04/14/20 08:21 Fluphenazine HCl (Prolixin) 2.5 mg QHS PO 04/10/20 21:00 04/14/20 21:02 Furosemide (Lasix) 40 mg DAILY PO 04/11/20 09:00 04/14/20 08:21 Acetaminophen/ Hydrocodone Bitart (Lortab 7.5/325) 1 tab PRN QID PRN PO MOD-SEV PAIN 04/10/20 15:45 04/15/20 06:10 Levothyroxine Sodium (Synthroid) 50 mcg DAILYAC PO 04/11/20 07:30 04/14/20 08:21 Losartan Potassium (Cozaar) 25 mg DAILY PO 04/11/20 09:00 04/14/20 08:22 Methenamine Hippurate (Hiprex) 1 gm BID PO 04/10/20 21:00 04/14/20 21:03 Nystatin (Nystop) 15 kailey PRN BID PRN TP YEAST 04/10/20 15:45 Pantoprazole Sodium (Protonix) 40 mg BID PO 04/10/20 21:00 04/14/20 21:02 Polyethylene Glycol (miraLAX) 17 gm PRN DAILY PRN PO 2ND CHOICE CONSTIPATION 04/10/20 15:45 Risperidone (RisperDAL) 0.25 mg BID PO 04/10/20 21:00 04/14/20 21:02 Ropinirole HCl (Requip) 1 mg QHS PO 04/10/20 21:00 04/14/20 21:02 Tamsulosin HCl (Flomax) 0.4 mg QEVNG PO 04/10/20 18:00 04/13/20 19:47 Simethicone (Gas-X) 80 mg TID PO 04/10/20 21:00 04/14/20 14:00 Ascorbic Acid (Vitamin C) 500 mg BID PO 04/10/20 21:00 04/14/20 08:22 Artificial Tears (Artificial Tears) 1 drop PRN BID PRN OU DRY EYE 04/10/20 17:00 Celecoxib (CeleBREX) 200 mg QHS PO 04/10/20 21:00 04/14/20 21:02 Cholestyramine Resin (Questran Light) 4 gm PRN DAILY PRN PO LOOSE STOOLS 04/10/20 17:00 Insulin Glargine (Lantus Syringe) 30 unit QHS SQ 04/10/20 21:00 04/14/20 21:59 Isosorbide Mononitrate (Imdur) 60 mg DAILY PO 04/11/20 09:00 04/14/20 08:20 Loperamide HCl (Imodium) 2 mg PRN Q2HRS PRN PO DIARRHEA 04/10/20 17:00 04/13/20 06:35 Rivaroxaban (Xarelto) 20 mg DAILYWSUP PO 04/10/20 17:00 04/14/20 17:22 Acetaminophen (Tylenol) 650 mg PRN Q6HRS PRN PO MILD PAIN / TEMP > 100.3'F 04/10/20 16:30 04/12/20 14:07 Multi-Ingredient Ointment (Analgesic [place]) 1 kailey PRN QID PRN TP MUSCLE PAIN 04/10/20 16:30 Al Hydroxide/Mg Hydroxide (Mylanta Plus Xs) 15 ml PRN AFTMEALHC PRN PO DYSPEPSIA 04/10/20 16:30 Magnesium Hydroxide (Milk Of Magnesia) 2,400 mg PRN QHS PRN PO 2ND CHOICE CONSTIPATION 04/10/20 16:30 Lorazepam (Ativan) 0.25 mg PRN TID PRN PO ANXIETY / AGITATION 04/12/20 16:30 04/14/20 08:27 Divalproex Sodium (Depakote Sprinkles) 250 mg 0900,1700 PO 04/14/20 09:00 04/14/20 17:21 Neomycin/ Polymyxin/Bacitr/ Hydrocort (Cortisporin Ophth) 2 kaiely BID OU 04/14/20 21:00 04/14/20 21:59 Albuterol Sulfate (Ventolin) 2.5 mg PRN Q4HRS PRN IH wheezing 04/14/20 22:31 Current Medications Medications (Trade) Dose Ordered Sig/Aaron Route PRN Reason Start Time Stop Time Status Last Admin Dose Admin Divalproex Sodium (Depakote Sprinkles) 250 mg 0900,1700 PO 04/14/20 09:00 04/14/20 17:21 Neomycin/ Polymyxin/Bacitr/ Hydrocort (Cortisporin Ophth) 2 kailey BID OU 04/14/20 21:00 04/14/20 21:59 I have reviewed the current psychotropics carefully including drug interactions. Risk benefit ratio favors no change other than as noted in my dictated progress note. Diagnosis: Problems: (1) Tardive dyskinesia (2) Chronic undifferentiated schizophrenia (3) Schizoaffective disorder, bipolar type (4) Bipolar disorder with psychotic features (5) Impulse control disorder, unspecified (6) Anxiety disorder, unspecified KAMILA LOMELI MD Apr 15, 2020 07:56
[2020-04-15] MEDS: LORazepam 0.5 MG TABLET PO PRN ×2 (10:26→17:01)
--- NOTE | 2020-04-15 10:38 | NUR ---
Patient states that he is very anxious and would like an ativan. GIven to patient.
[2020-04-15 16:12] VITALS: BP 114/73
[2020-04-15] MEDS: RIVAROXABAN 10 MG TABLET. PO SCH (17:01)
[2020-04-15] MEDS: TAMSULOSIN 0.4 MG CAP.ER.24H. PO SCH (18:00)
--- NOTE | 2020-04-15 18:40 | NUR ---
Patient in room at time of visit. Patient is alert and oriented. Patient takes medications whole with no problems. Patient tends to be attention seeking and everytime he heres someone ask for something he needs it too. He also wants to see if we an schedule his pain medications so he does not need to ask for them. We will talk to the facility he came from to see how he was taking there and go fromt here.
--- NOTE | 2020-04-15 19:58 | NUR ---
Per Dr Morris request, med list from facility verified, patient is supposed to be taking his lortab scheduled QID not PRN as it was entered. Corrected in [employer] to QID per medication list.
--- NOTE | 2020-04-15 20:48 | PDOC ---
Exam Note: Good Note: Please also refer to the separate dictated note~for this date of service dictated separately.~Patient seen individually. Discussed the patient with Nursing staff reviewed the chart.~Reviewed interim history and current functioning. Reviewed vital signs,~Labs/ Radiology~and current medications noted below. Continue current treatment with the changes noted in the dictated addendum note Assessment: Vital Signs/I&O: Vital Signs Date Time Temp Pulse Resp B/P (MAP) Pulse Ox O2 Delivery O2 Flow Rate FiO2 04/15/20 17:01 76 114/73 04/15/20 16:12 97.3 22 93 Room Air 04/13/20 05:54 2.5 I & O 04/14/20 04/14/20 04/15/20 15:00 23:00 07:00 Intake Total 720 ml 600 ml Balance 720 ml 600 ml Labs: Laboratory Tests Test 04/15/20 06:06 04/15/20 08:08 04/15/20 19:22 Sodium Level 144 mmol/L (136-145) Potassium Level 4.2 mmol/L (3.5-5.1) Chloride Level 104 mmol/L (98-107) Carbon Dioxide Level 36 mmol/L (21-32) H Anion Gap 4 (6-14) L Blood Urea Nitrogen 15 mg/dL (8-26) Creatinine 0.9 mg/dL (0.7-1.3) Estimated GFR (Cockcroft-Gault) 82.9 Glucose Level 109 mg/dL (70-99) H Calcium Level 8.5 mg/dL (8.5-10.1) Glucose (Fingerstick) 113 mg/dL (70-99) H 125 mg/dL (70-99) H Current Medications: Meds: Current Medications Medications (Trade) Dose Ordered Sig/Aaron Route PRN Reason Start Time Stop Time Status Last Admin Dose Admin Neomycin/ Polymyxin/Bacitr/ Hydrocort (Cortisporin Ophth) 2 kailey BID OU 04/14/20 21:00 04/15/20 07:55 I have reviewed the current psychotropics carefully including drug interactions. Risk benefit ratio favors no change other than as noted in my dictated progress note. Diagnosis: Problems: (1) Tardive dyskinesia (2) Chronic undifferentiated schizophrenia (3) Schizoaffective disorder, bipolar type (4) Bipolar disorder with psychotic features (5) Impulse control disorder, unspecified (6) Anxiety disorder, unspecified KAMILA LOMELI MD Apr 15, 2020 20:48
[2020-04-15] MEDS: rOPINIRole 1 MG TABLET. PO SCH (20:50)
[2020-04-15] MEDS: ATORVASTATIN CALCIUM 20 MG TABLET PO SCH (20:50)
[2020-04-15] MEDS: LOPERAMIDE 2 MG CAPSULE PO PRN (20:50)
[2020-04-15] MEDS: CELECOXIB 100 MG CAPSULE PO SCH (20:50)
[2020-04-15] MEDS: HYDROcodone/APAP 7.5/325MG 1 TAB TABLET PO SCH (20:51)
[2020-04-15] MEDS: INSULIN GLARGINE SYRINGE. SQ SCH (21:12)
--- NOTE | 2020-04-15 23:34 | NUR ---
Patient was attention and medication seeking at the beginning of the shift. Once he got his HS medications he went to bed. Patient given PRN inhaler at HS for SOB per his request. Patient requested PRN ativan but it had only been 4 hours since his last dose. Nurse encouraged him to lay down and try to sleep without it. He was able to fall asleep and has been sleeping soundly. Patient reported that he has had diarrhea multiple times today. PRN Imodium given for diarrhea with HS meds as well. Will continue to monitor.
[2020-04-16] MEDS ORDERED: SALI44.32 MM (00:44)
[2020-04-16] MEDS ORDERED: NITR0.4T22 SL (00:44)
[2020-04-16] MEDS ORDERED: CHOL400T36 PO (00:44)
[2020-04-16] MEDS ORDERED: SALIVA STIMULANT AGENT 44ML SPRAY BOTTLE. PO PRN (01:15)
[2020-04-16 06:22] VITALS: BP 129/77
[2020-04-16] MEDS ORDERED: CHOLECALCIFEROL 50 MCG PO SCH (09:00)
[2020-04-16] MEDS: LORazepam 0.5 MG TABLET PO PRN ×2 (09:19→17:05)
[2020-04-16] MEDS: LEVOTHYROXINE 50 MCG TABLET PO SCH (09:19)
[2020-04-16] MEDS: CARVEDILOL 3.125 MG TABLET PO SCH ×2 (09:25→17:04)
[2020-04-16] MEDS: POTASSIUM CHLORIDE 20 MEQ TABLET.ER. PO SCH ×3 (09:25→17:04)
[2020-04-16] MEDS: NEOMYCIN/BACI/POLY/HC OPHTH OINTMENT 3.5GM TUBE. OU SCH ×2 (09:26→20:49)
[2020-04-16] MEDS: CITALOPRAM 10 MG TABLET. PO SCH (09:26)
[2020-04-16] MEDS: DIVALPROEX 125 MG CAP.SPRINK PO SCH ×2 (09:27→17:04)
[2020-04-16] MEDS: LOSARTAN 25 MG TABLET. PO SCH (09:27)
[2020-04-16] MEDS: OXYBUTYNIN CHLORIDE 5 MG TABLET PO SCH ×3 (09:28→20:51)
[2020-04-16] MEDS: ISOSORBIDE MONONITRATE ER 30 MG TAB.ER.24H PO SCH (09:28)
[2020-04-16] MEDS: METHENAMINE HIPPURATE 1 GM TABLET PO SCH ×2 (09:28→20:50)
[2020-04-16] MEDS: SIMETHICONE 80 MG TAB.CHEW PO SCH ×3 (09:28→20:51)
[2020-04-16] MEDS: FUROSEMIDE 40 MG TABLET PO SCH (09:28)
[2020-04-16] MEDS: PANTOPRAZOLE 40 MG TABLET. PO SCH ×2 (09:30→20:51)
[2020-04-16] MEDS: ASCORBIC ACID 500 MG TABLET PO SCH ×2 (09:30→20:51)
[2020-04-16] MEDS: CETIRIZINE HCL 10 MG TABLET PO SCH (09:30)
[2020-04-16] MEDS: CHOLECALCIFEROL (VITAMIN D3) 1,000 UNIT TABLET PO SCH (09:30)
[2020-04-16] MEDS: risperiDONE 0.25 MG TABLET. PO SCH ×2 (09:30→20:51)
[2020-04-16] MEDS: MAGNESIUM OXIDE 400 MG TABLET PO SCH ×3 (09:31→20:51)
[2020-04-16] MEDS: CALCITRIOL 0.25 MCG CAPSULE PO SCH (09:32)
[2020-04-16] MEDS: HYDROcodone/APAP 7.5/325MG 1 TAB TABLET PO SCH ×4 (09:33→20:51)
--- NOTE | 2020-04-16 10:52 | NUR ---
Pt is A & O x 4. He is compliant with his medication and assessment. He was verbally aggressive and cursed at a [employer] PATHOLOGIST this am when his glasses were not immediately available-see B[employer] LANGU[employer] PATHOLOGIST's note.
[2020-04-16 16:14] VITALS: BP 106/63
[2020-04-16] MEDS: RIVAROXABAN 10 MG TABLET. PO SCH (17:06)
[2020-04-16] MEDS: TAMSULOSIN 0.4 MG CAP.ER.24H. PO SCH (17:07)
[2020-04-16] MEDS: CELECOXIB 100 MG CAPSULE PO SCH (20:50)
[2020-04-16] MEDS: ATORVASTATIN CALCIUM 20 MG TABLET PO SCH (20:51)
[2020-04-16] MEDS: rOPINIRole 1 MG TABLET. PO SCH (20:51)
[2020-04-16] MEDS: INSULIN GLARGINE SYRINGE. SQ SCH (21:27)
--- NOTE | 2020-04-16 21:28 | PDOC ---
Exam Note: Good Note: Please also refer to the separate dictated note~for this date of service dictated separately.~Patient seen individually. Discussed the patient with Nursing staff reviewed the chart.~Reviewed interim history and current functioning. Reviewed vital signs,~Labs/ Radiology~and current medications noted below. Continue current treatment with the changes noted in the dictated addendum note Assessment: Vital Signs/I&O: Vital Signs Date Time Temp Pulse Resp B/P (MAP) Pulse Ox O2 Delivery O2 Flow Rate FiO2 04/16/20 17:04 20 04/16/20 17:04 78 106/63 04/16/20 16:14 97.4 98 2.0 04/16/20 06:22 Nasal Cannula I & O 04/15/20 04/15/20 04/16/20 15:00 23:00 07:00 Intake Total 1200 ml 720 ml Balance 1200 ml 720 ml Labs: Laboratory Tests Test 04/16/20 07:22 04/16/20 19:14 Glucose (Fingerstick) 89 mg/dL (70-99) 165 mg/dL (70-99) H Current Medications: Meds: Current Medications Medications (Trade) Dose Ordered Sig/Aaron Route PRN Reason Start Time Stop Time Status Last Admin Dose Admin Cetirizine HCl (ZyrTEC) 10 mg DAILY PO 04/16/20 09:00 04/16/20 09:30 Citalopram Hydrobromide (CeleXA) 20 mg DAILY PO 04/16/20 09:00 04/16/20 09:26 Magnesium Oxide (Magnesium Oxide) 400 mg TID PO 04/16/20 09:00 04/16/20 20:51 Oxybutynin Chloride (Ditropan) 5 mg TID PO 04/16/20 09:00 04/16/20 20:51 Potassium Chloride (Klor-Con) 20 meq TIDWMEALS PO 04/16/20 08:00 04/16/20 17:04 Vitamin D (Vitamin D3) 2,000 unit DAILY PO 04/16/20 09:00 04/16/20 09:30 I have reviewed the current psychotropics carefully including drug interactions. Risk benefit ratio favors no change other than as noted in my dictated progress note. Diagnosis: Problems: (1) Tardive dyskinesia (2) Chronic undifferentiated schizophrenia (3) Schizoaffective disorder, bipolar type (4) Bipolar disorder with psychotic features (5) Impulse control disorder, unspecified (6) Anxiety disorder, unspecified KAMILA OLMELI MD Apr 16, 2020 21:28
--- NOTE | 2020-04-17 00:33 | NUR ---
Pt calm and compliant, in bed for med pass. Currently in bed asleep.
[2020-04-17] MEDS: LEVOTHYROXINE 50 MCG TABLET PO SCH ×3 (05:10→06:00)
--- NOTE | 2020-04-17 05:19 | NUR ---
Pt refused synthroid this AM. RN clarified medication, educated on purpose, but pt stated synthroid made him sick and he stopped taking it before admission.
[2020-04-17 06:30] VITALS: BP 115/72
[2020-04-17 06:55] LABS: BASO # 0.1 x10^3/uL (0.0-0.2); BASO % 1 % (0-3); EOS # 0.3 x10^3/uL (0.0-0.7); EOS % 3 % (0-3); HEMATOCRIT 38.2 % (39.0-53.0); HEMOGLOBIN 12.4 g/dL (13.0-17.5); LYMPH # 1.5 x10^3/uL (1.0-4.8); LYMPH % 14 % (24-48); MEAN CORPUSCULAR HEMOGLOBIN 29 pg (25-35); MEAN CORPUSCULAR HGB CONC 32 g/dL (31-37); MEAN CORPUSCULAR VOLUME 90 fL (79-100); MONO # 0.8 x10^3/uL (0.0-1.1); MONO % 8 % (0-9); NEUT # 7.5 x10^3uL (1.8-7.7); NEUT % 74 % (31-73); PLATELET COUNT 257 x10^3/uL (140-400); RED BLOOD COUNT 4.26 x10^6/uL (4.30-5.70); RED CELL DISTRIBUTION WIDTH 14.2 % (11.5-14.5); WHITE BLOOD COUNT 10.1 x10^3/uL (4.0-11.0)
[2020-04-17 07:05] LABS: ALBUMIN/GLOBULIN RATIO 0.8 (1.0-1.7); ALK PHOS 58 U/L (46-116); ALT (SGPT) 28 U/L (16-63); ANION GAP 6 (6-14); AST (SGOT) 19 U/L (15-37); BLOOD UREA NITROGEN 16 mg/dL (8-26); BUN/CREATININE RATIO 20 (6-20); CALCIUM 8.8 mg/dL (8.5-10.1); CARBON DIOXIDE 35 mmol/L (21-32); CHLORIDE 101 mmol/L (98-107); CREATININE 0.8 mg/dL (0.7-1.3); GLUCOSE 113 mg/dL (70-99); POTASSIUM 4.4 mmol/L (3.5-5.1); SODIUM 142 mmol/L (136-145); TOTAL BILIRUBIN 0.4 mg/dL (0.2-1.0); TOTAL PROTEIN 6.7 g/dL (6.4-8.2)
[2020-04-17 07:07] LABS: VAL ACID 20 mcg/mL (50-100)
--- NOTE | 2020-04-17 07:38 | PDOC ---
Exam Note: Good Note: This note is a late entry for 04/15/2020 covers elements not covered in my initial note. Subjective: The patient was seen individually in the evening of 04/15/2020 with Tash MATUTE, discussed and reviewed the chart. He slept 8-3/4 hours previous night. The patient has been upset about not getting enough of his narcotics for pain and we will defer to Dr. Alcantara. Nursing staff will check with group home and restart the schedule he was getting at the group home unless Dr. Alcantara wants to do it differently. He is also obsessed about wanting Ativan just when he can get it. Review of Systems: Shortness of breath on oxygen supplements, some GI complaints and having bad gas. No CV, , eye, ENT system symptoms on review. Mental Status Exam: The patient is oriented to himself and situation. I met with him in his room. Speech is coherent, less pressured. Abstraction is fair. Computation impaired. Language function intact. Mood and affect remains somewhat anxious, labile. No suicidal or homicidal ideation. Laboratory Data: Reviewed. 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 Schizophrenia chronic undifferentiated. Anxiety disorder unspecified. Impulse control disorder unspecified. Plan: No change from initial note. Continue Depakote current dosage and check labs level on 04/17 unchanged for now. Assessment: Vital Signs/I&O: Vital Signs Date Time Temp Pulse Resp B/P (MAP) Pulse Ox O2 Delivery O2 Flow Rate FiO2 04/17/20 06:30 97.0 60 24 115/72 (86) 94 Nasal Cannula 3.0 I & O 04/16/20 04/16/20 04/17/20 14:59 22:59 06:59 Intake Total 480 ml 700 ml Balance 480 ml 700 ml Labs: Laboratory Tests Test 04/16/20 19:14 04/17/20 06:20 04/17/20 07:35 Glucose (Fingerstick) 165 mg/dL (70-99) H 86 mg/dL (70-99) White Blood Count 10.1 x10^3/uL (4.0-11.0) Red Blood Count 4.26 x10^6/uL (4.30-5.70) L Hemoglobin 12.4 g/dL (13.0-17.5) L Hematocrit 38.2 % (39.0-53.0) L Mean Corpuscular Volume 90 fL (79-100) Mean Corpuscular Hemoglobin 29 pg (25-35) Mean Corpuscular Hemoglobin Concent 32 g/dL (31-37) Red Cell Distribution Width 14.2 % (11.5-14.5) Platelet Count 257 x10^3/uL (140-400) Neutrophils (%) (Auto) 74 % (31-73) H Lymphocytes (%) (Auto) 14 % (24-48) L Monocytes (%) (Auto) 8 % (0-9) Eosinophils (%) (Auto) 3 % (0-3) Basophils (%) (Auto) 1 % (0-3) Neutrophils # (Auto) 7.5 x10^3uL (1.8-7.7) Lymphocytes # (Auto) 1.5 x10^3/uL (1.0-4.8) Monocytes # (Auto) 0.8 x10^3/uL (0.0-1.1) Eosinophils # (Auto) 0.3 x10^3/uL (0.0-0.7) Basophils # (Auto) 0.1 x10^3/uL (0.0-0.2) Sodium Level 142 mmol/L (136-145) Potassium Level 4.4 mmol/L (3.5-5.1) Chloride Level 101 mmol/L (98-107) Carbon Dioxide Level 35 mmol/L (21-32) H Anion Gap 6 (6-14) Blood Urea Nitrogen 16 mg/dL (8-26) Creatinine 0.8 mg/dL (0.7-1.3) Estimated GFR (Cockcroft-Gault) 95.0 BUN/Creatinine Ratio 20 (6-20) Glucose Level 113 mg/dL (70-99) H Calcium Level 8.8 mg/dL (8.5-10.1) Total Bilirubin 0.4 mg/dL (0.2-1.0) Aspartate Amino Transferase (AST) 19 U/L (15-37) Alanine Aminotransferase (ALT) 28 U/L (16-63) Alkaline Phosphatase 58 U/L (46-116) Total Protein 6.7 g/dL (6.4-8.2) Albumin 3.0 g/dL (3.4-5.0) L Albumin/Globulin Ratio 0.8 (1.0-1.7) L Valproic Acid Level 20 mcg/mL (50-100) L Valproic Acid Last Dose Date 04/16/20 Valproic Acid Last Dose Time 1700 Current Medications: Meds: Laboratory Tests Test 04/16/20 19:14 04/17/20 06:20 04/17/20 07:35 Glucose (Fingerstick) 165 mg/dL 86 mg/dL White Blood Count 10.1 x10^3/uL Red Blood Count 4.26 x10^6/uL Hemoglobin 12.4 g/dL Hematocrit 38.2 % Mean Corpuscular Volume 90 fL Mean Corpuscular Hemoglobin 29 pg Mean Corpuscular Hemoglobin Concent 32 g/dL Red Cell Distribution Width 14.2 % Platelet Count 257 x10^3/uL Neutrophils (%) (Auto) 74 % Lymphocytes (%) (Auto) 14 % Monocytes (%) (Auto) 8 % Eosinophils (%) (Auto) 3 % Basophils (%) (Auto) 1 % Neutrophils # (Auto) 7.5 x10^3uL Lymphocytes # (Auto) 1.5 x10^3/uL Monocytes # (Auto) 0.8 x10^3/uL Eosinophils # (Auto) 0.3 x10^3/uL Basophils # (Auto) 0.1 x10^3/uL Sodium Level 142 mmol/L Potassium Level 4.4 mmol/L Chloride Level 101 mmol/L Carbon Dioxide Level 35 mmol/L Anion Gap 6 Blood Urea Nitrogen 16 mg/dL Creatinine 0.8 mg/dL Estimated GFR (Cockcroft-Gault) 95.0 BUN/Creatinine Ratio 20 Glucose Level 113 mg/dL Calcium Level 8.8 mg/dL Total Bilirubin 0.4 mg/dL Aspartate Amino Transf (AST/SGOT) 19 U/L Alanine Aminotransferase (ALT/SGPT) 28 U/L Alkaline Phosphatase 58 U/L Total Protein 6.7 g/dL Albumin 3.0 g/dL Albumin/Globulin Ratio 0.8 Valproic Acid (Depakene) Level 20 mcg/mL Valproic Acid Last Dose Date 04/16/20 Valproic Acid Last Dose Time 1700 Current Medications Medications (Trade) Dose Ordered Sig/Aaron Route PRN Reason Start Time Stop Time Status Last Admin Dose Admin Albuterol Sulfate (Ventolin) 8 mg PRN Q4HRS PRN IH wheezing 04/10/20 15:45 04/14/20 22:31 DC 04/14/20 22:12 Atorvastatin Calcium (Lipitor) 20 mg QHS PO 04/10/20 21:00 04/16/20 20:51 Calcitriol (Rocaltrol) 0.25 mcg DAILY PO 04/11/20 09:00 04/16/20 09:32 Carvedilol (Coreg) 3.125 mg BIDWMEALS PO 04/10/20 17:00 04/16/20 17:04 Diltiazem HCl (Cardizem 24hr Cd) 120 mg DAILY PO 04/11/20 09:00 04/16/20 09:26 Fluphenazine HCl (Prolixin) 2.5 mg QHS PO 04/10/20 21:00 04/16/20 20:51 Furosemide (Lasix) 40 mg DAILY PO 04/11/20 09:00 04/16/20 09:28 Acetaminophen/ Hydrocodone Bitart (Lortab 7.5/325) 1 tab PRN QID PRN PO MOD-SEV PAIN 04/10/20 15:45 04/15/20 19:58 DC 04/15/20 16:13 Levothyroxine Sodium (Synthroid) 50 mcg DAILYAC PO 04/11/20 07:30 04/16/20 11:53 DC 04/16/20 09:19 Losartan Potassium (Cozaar) 25 mg DAILY PO 04/11/20 09:00 04/16/20 09:27 Methenamine Hippurate (Hiprex) 1 gm BID PO 04/10/20 21:00 04/16/20 20:50 Nystatin (Nystop) 15 kailey PRN BID PRN TP YEAST 04/10/20 15:45 Pantoprazole Sodium (Protonix) 40 mg BID PO 04/10/20 21:00 04/16/20 20:51 Polyethylene Glycol (miraLAX) 17 gm PRN DAILY PRN PO 2ND CHOICE CONSTIPATION 04/10/20 15:45 Risperidone (RisperDAL) 0.25 mg BID PO 04/10/20 21:00 04/16/20 20:51 Ropinirole HCl (Requip) 1 mg QHS PO 04/10/20 21:00 04/16/20 20:51 Tamsulosin HCl (Flomax) 0.4 mg QEVNG PO 04/10/20 18:00 04/16/20 17:07 Simethicone (Gas-X) 80 mg TID PO 04/10/20 21:00 04/16/20 20:51 Ascorbic Acid (Vitamin C) 500 mg BID PO 04/10/20 21:00 04/16/20 20:51 Artificial Tears (Artificial Tears) 1 drop PRN BID PRN OU DRY EYE 04/10/20 17:00 Celecoxib (CeleBREX) 200 mg QHS PO 04/10/20 21:00 04/16/20 20:50 Cholestyramine Resin (Questran Light) 4 gm PRN DAILY PRN PO LOOSE STOOLS 04/10/20 17:00 Insulin Glargine (Lantus Syringe) 30 unit QHS SQ 04/10/20 21:00 04/16/20 21:27 Isosorbide Mononitrate (Imdur) 60 mg DAILY PO 04/11/20 09:00 04/16/20 09:28 Loperamide HCl (Imodium) 2 mg PRN Q2HRS PRN PO DIARRHEA 04/10/20 17:00 04/15/20 20:50 Rivaroxaban (Xarelto) 20 mg DAILYWSUP PO 04/10/20 17:00 04/16/20 17:06 Acetaminophen (Tylenol) 650 mg PRN Q6HRS PRN PO MILD PAIN / TEMP > 100.3'F 04/10/20 16:30 04/12/20 14:07 Multi-Ingredient Ointment (Analgesic [place]) 1 kailey PRN QID PRN TP MUSCLE PAIN 04/10/20 16:30 Al Hydroxide/Mg Hydroxide (Mylanta Plus Xs) 15 ml PRN AFTMEALHC PRN PO DYSPEPSIA 04/10/20 16:30 Magnesium Hydroxide (Milk Of Magnesia) 2,400 mg PRN QHS PRN PO 2ND CHOICE CONSTIPATION 04/10/20 16:30 Lorazepam (Ativan) 0.25 mg PRN TID PRN PO ANXIETY / AGITATION 04/12/20 16:30 04/16/20 17:05 Divalproex Sodium (Depakote Sprinkles) 250 mg 0900,1700 PO 04/14/20 09:00 04/16/20 17:04 Neomycin/ Polymyxin/Bacitr/ Hydrocort (Cortisporin Ophth) 2 kailey BID OU 04/14/20 21:00 04/16/20 20:49 Albuterol Sulfate (Ventolin) 2.5 mg PRN Q4HRS PRN IH wheezing 04/14/20 22:31 Acetaminophen/ Hydrocodone Bitart (Lortab 7.5/325) 1 tab QID PO 04/15/20 20:30 04/16/20 20:51 Cetirizine HCl (ZyrTEC) 10 mg DAILY PO 04/16/20 09:00 04/16/20 09:30 Citalopram Hydrobromide (CeleXA) 20 mg DAILY PO 04/16/20 09:00 04/16/20 09:26 Magnesium Oxide (Magnesium Oxide) 400 mg TID PO 04/16/20 09:00 04/16/20 20:51 Nitroglycerin (Nitrostat) 0.4 mg 1X PRN SL chest pain 04/16/20 00:30 Oxybutynin Chloride (Ditropan) 5 mg TID PO 04/16/20 09:00 04/16/20 20:51 Potassium Chloride (Klor-Con) 20 meq TIDWMEALS PO 04/16/20 08:00 04/16/20 17:04 Non-Formulary Medication (Cholecalciferol (Vitamin D3) (Vitamin D3)) 50 mcg DAILY PO 04/16/20 09:00 UNV Saliva Substitute (Biotene Moisturizing Mouth) 2 spray PRN Q12HR PRN PO DRY MOUTH 04/16/20 01:15 Vitamin D (Vitamin D3) 2,000 unit DAILY PO 04/16/20 09:00 04/16/20 09:30 Levothyroxine Sodium (Synthroid) 50 mcg DAILY06 PO 04/17/20 06:00 Current Medications Medications (Trade) Dose Ordered Sig/Aaron Route PRN Reason Start Time Stop Time Status Last Admin Dose Admin Cetirizine HCl (ZyrTEC) 10 mg DAILY PO 04/16/20 09:00 04/16/20 09:30 Citalopram Hydrobromide (CeleXA) 20 mg DAILY PO 04/16/20 09:00 04/16/20 09:26 Magnesium Oxide (Magnesium Oxide) 400 mg TID PO 04/16/20 09:00 04/16/20 20:51 Oxybutynin Chloride (Ditropan) 5 mg TID PO 04/16/20 09:00 04/16/20 20:51 Potassium Chloride (Klor-Con) 20 meq TIDWMEALS PO 04/16/20 08:00 04/16/20 17:04 Vitamin D (Vitamin D3) 2,000 unit DAILY PO 04/16/20 09:00 04/16/20 09:30 I have reviewed the current psychotropics carefully including drug interactions. Risk benefit ratio favors no change other than as noted in my dictated progress note. Diagnosis: Problems: (1) Tardive dyskinesia (2) Chronic undifferentiated schizophrenia (3) Schizoaffective disorder, bipolar type (4) Bipolar disorder with psychotic features (5) Impulse control disorder, unspecified (6) Anxiety disorder, unspecified KAMILA LOMELI MD Apr 17, 2020 07:38
--- NOTE | 2020-04-17 07:56 | PDOC ---
Exam Note: Good Note: This note is a late entry for 04/16/2020 covers elements not covered in my initial note. Subjective: The patient was seen individually in the evening of 04/16/2020 with Debbie MATUTE, discussed and reviewed the chart. He slept 7-1/2 hours previous night. The patient had a good night and day. He was agitated, feeling someone had taken his glasses, cursing and yelling at staff, redirected later. Review of Systems: Shortness of breath on oxygen supplements. Impaired ambulation in wheelchair. GI symptoms with bad gas as before. No CV, , eye, ENT system symptoms on review. Mental Status Exam: The patient is reasonably oriented. I met with him in his room in the evening. Speech is coherent. Abstraction is fair. Computation impaired. Language function intact. Mood and affect less paranoid. No suicidal or homicidal ideation. Laboratory Data: Reviewed. 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 Schizophrenia chronic undifferentiated. Anxiety disorder unspecified. Impulse control disorder unspecified. Plan: No change from initial note. Assessment: Vital Signs/I&O: Vital Signs Date Time Temp Pulse Resp B/P (MAP) Pulse Ox O2 Delivery O2 Flow Rate FiO2 04/17/20 06:30 97.0 60 24 115/72 (86) 94 Nasal Cannula 3.0 I & O 04/16/20 04/16/20 04/17/20 15:00 23:00 07:00 Intake Total 480 ml 700 ml Balance 480 ml 700 ml Labs: Laboratory Tests Test 04/16/20 19:14 04/17/20 06:20 04/17/20 07:35 Glucose (Fingerstick) 165 mg/dL (70-99) H 86 mg/dL (70-99) White Blood Count 10.1 x10^3/uL (4.0-11.0) Red Blood Count 4.26 x10^6/uL (4.30-5.70) L Hemoglobin 12.4 g/dL (13.0-17.5) L Hematocrit 38.2 % (39.0-53.0) L Mean Corpuscular Volume 90 fL (79-100) Mean Corpuscular Hemoglobin 29 pg (25-35) Mean Corpuscular Hemoglobin Concent 32 g/dL (31-37) Red Cell Distribution Width 14.2 % (11.5-14.5) Platelet Count 257 x10^3/uL (140-400) Neutrophils (%) (Auto) 74 % (31-73) H Lymphocytes (%) (Auto) 14 % (24-48) L Monocytes (%) (Auto) 8 % (0-9) Eosinophils (%) (Auto) 3 % (0-3) Basophils (%) (Auto) 1 % (0-3) Neutrophils # (Auto) 7.5 x10^3uL (1.8-7.7) Lymphocytes # (Auto) 1.5 x10^3/uL (1.0-4.8) Monocytes # (Auto) 0.8 x10^3/uL (0.0-1.1) Eosinophils # (Auto) 0.3 x10^3/uL (0.0-0.7) Basophils # (Auto) 0.1 x10^3/uL (0.0-0.2) Sodium Level 142 mmol/L (136-145) Potassium Level 4.4 mmol/L (3.5-5.1) Chloride Level 101 mmol/L (98-107) Carbon Dioxide Level 35 mmol/L (21-32) H Anion Gap 6 (6-14) Blood Urea Nitrogen 16 mg/dL (8-26) Creatinine 0.8 mg/dL (0.7-1.3) Estimated GFR (Cockcroft-Gault) 95.0 BUN/Creatinine Ratio 20 (6-20) Glucose Level 113 mg/dL (70-99) H Calcium Level 8.8 mg/dL (8.5-10.1) Total Bilirubin 0.4 mg/dL (0.2-1.0) Aspartate Amino Transferase (AST) 19 U/L (15-37) Alanine Aminotransferase (ALT) 28 U/L (16-63) Alkaline Phosphatase 58 U/L (46-116) Total Protein 6.7 g/dL (6.4-8.2) Albumin 3.0 g/dL (3.4-5.0) L Albumin/Globulin Ratio 0.8 (1.0-1.7) L Valproic Acid Level 20 mcg/mL (50-100) L Valproic Acid Last Dose Date 04/16/20 Valproic Acid Last Dose Time 1700 Current Medications: Meds: Laboratory Tests Test 3/6/21 19:14 04/17/20 06:20 04/17/20 07:35 Glucose (Fingerstick) 165 mg/dL 86 mg/dL White Blood Count 10.1 x10^3/uL Red Blood Count 4.26 x10^6/uL Hemoglobin 12.4 g/dL Hematocrit 38.2 % Mean Corpuscular Volume 90 fL Mean Corpuscular Hemoglobin 29 pg Mean Corpuscular Hemoglobin Concent 32 g/dL Red Cell Distribution Width 14.2 % Platelet Count 257 x10^3/uL Neutrophils (%) (Auto) 74 % Lymphocytes (%) (Auto) 14 % Monocytes (%) (Auto) 8 % Eosinophils (%) (Auto) 3 % Basophils (%) (Auto) 1 % Neutrophils # (Auto) 7.5 x10^3uL Lymphocytes # (Auto) 1.5 x10^3/uL Monocytes # (Auto) 0.8 x10^3/uL Eosinophils # (Auto) 0.3 x10^3/uL Basophils # (Auto) 0.1 x10^3/uL Sodium Level 142 mmol/L Potassium Level 4.4 mmol/L Chloride Level 101 mmol/L Carbon Dioxide Level 35 mmol/L Anion Gap 6 Blood Urea Nitrogen 16 mg/dL Creatinine 0.8 mg/dL Estimated GFR (Cockcroft-Gault) 95.0 BUN/Creatinine Ratio 20 Glucose Level 113 mg/dL Calcium Level 8.8 mg/dL Total Bilirubin 0.4 mg/dL Aspartate Amino Transf (AST/SGOT) 19 U/L Alanine Aminotransferase (ALT/SGPT) 28 U/L Alkaline Phosphatase 58 U/L Total Protein 6.7 g/dL Albumin 3.0 g/dL Albumin/Globulin Ratio 0.8 Valproic Acid (Depakene) Level 20 mcg/mL Valproic Acid Last Dose Date 04/16/20 Valproic Acid Last Dose Time 1700 Current Medications Medications (Trade) Dose Ordered Sig/Aaron Route PRN Reason Start Time Stop Time Status Last Admin Dose Admin Albuterol Sulfate (Ventolin) 8 mg PRN Q4HRS PRN IH wheezing 04/10/20 15:45 04/14/20 22:31 DC 04/14/20 22:12 Atorvastatin Calcium (Lipitor) 20 mg QHS PO 04/10/20 21:00 04/16/20 20:51 Calcitriol (Rocaltrol) 0.25 mcg DAILY PO 04/11/20 09:00 04/16/20 09:32 Carvedilol (Coreg) 3.125 mg BIDWMEALS PO 04/10/20 17:00 04/16/20 17:04 Diltiazem HCl (Cardizem 24hr Cd) 120 mg DAILY PO 04/11/20 09:00 04/16/20 09:26 Fluphenazine HCl (Prolixin) 2.5 mg QHS PO 04/10/20 21:00 04/16/20 20:51 Furosemide (Lasix) 40 mg DAILY PO 04/11/20 09:00 04/16/20 09:28 Acetaminophen/ Hydrocodone Bitart (Lortab 7.5/325) 1 tab PRN QID PRN PO MOD-SEV PAIN 04/10/20 15:45 04/15/20 19:58 DC 04/15/20 16:13 Levothyroxine Sodium (Synthroid) 50 mcg DAILYAC PO 04/11/20 07:30 04/16/20 11:53 DC 04/16/20 09:19 Losartan Potassium (Cozaar) 25 mg DAILY PO 04/11/20 09:00 04/16/20 09:27 Methenamine Hippurate (Hiprex) 1 gm BID PO 04/10/20 21:00 04/16/20 20:50 Nystatin (Nystop) 15 kailey PRN BID PRN TP YEAST 04/10/20 15:45 Pantoprazole Sodium (Protonix) 40 mg BID PO 04/10/20 21:00 04/16/20 20:51 Polyethylene Glycol (miraLAX) 17 gm PRN DAILY PRN PO 2ND CHOICE CONSTIPATION 04/10/20 15:45 Risperidone (RisperDAL) 0.25 mg BID PO 04/10/20 21:00 04/16/20 20:51 Ropinirole HCl (Requip) 1 mg QHS PO 04/10/20 21:00 04/16/20 20:51 Tamsulosin HCl (Flomax) 0.4 mg QEVNG PO 04/10/20 18:00 04/16/20 17:07 Simethicone (Gas-X) 80 mg TID PO 04/10/20 21:00 04/16/20 20:51 Ascorbic Acid (Vitamin C) 500 mg BID PO 04/10/20 21:00 04/16/20 20:51 Artificial Tears (Artificial Tears) 1 drop PRN BID PRN OU DRY EYE 04/10/20 17:00 Celecoxib (CeleBREX) 200 mg QHS PO 04/10/20 21:00 04/16/20 20:50 Cholestyramine Resin (Questran Light) 4 gm PRN DAILY PRN PO LOOSE STOOLS 04/10/20 17:00 Insulin Glargine (Lantus Syringe) 30 unit QHS SQ 04/10/20 21:00 04/16/20 21:27 Isosorbide Mononitrate (Imdur) 60 mg DAILY PO 04/11/20 09:00 04/16/20 09:28 Loperamide HCl (Imodium) 2 mg PRN Q2HRS PRN PO DIARRHEA 04/10/20 17:00 04/15/20 20:50 Rivaroxaban (Xarelto) 20 mg DAILYWSUP PO 04/10/20 17:00 04/16/20 17:06 Acetaminophen (Tylenol) 650 mg PRN Q6HRS PRN PO MILD PAIN / TEMP > 100.3'F 04/10/20 16:30 04/12/20 14:07 Multi-Ingredient Ointment (Analgesic [place]) 1 kailey PRN QID PRN TP MUSCLE PAIN 04/10/20 16:30 Al Hydroxide/Mg Hydroxide (Mylanta Plus Xs) 15 ml PRN AFTMEALHC PRN PO DYSPEPSIA 04/10/20 16:30 Magnesium Hydroxide (Milk Of Magnesia) 2,400 mg PRN QHS PRN PO 2ND CHOICE CONSTIPATION 04/10/20 16:30 Lorazepam (Ativan) 0.25 mg PRN TID PRN PO ANXIETY / AGITATION 04/12/20 16:30 04/16/20 17:05 Divalproex Sodium (Depakote Sprinkles) 250 mg 0900,1700 PO 04/14/20 09:00 04/16/20 17:04 Neomycin/ Polymyxin/Bacitr/ Hydrocort (Cortisporin Ophth) 2 kailey BID OU 04/14/20 21:00 04/16/20 20:49 Albuterol Sulfate (Ventolin) 2.5 mg PRN Q4HRS PRN IH wheezing 04/14/20 22:31 Acetaminophen/ Hydrocodone Bitart (Lortab 7.5/325) 1 tab QID PO 04/15/20 20:30 04/16/20 20:51 Cetirizine HCl (ZyrTEC) 10 mg DAILY PO 04/16/20 09:00 04/16/20 09:30 Citalopram Hydrobromide (CeleXA) 20 mg DAILY PO 04/16/20 09:00 04/16/20 09:26 Magnesium Oxide (Magnesium Oxide) 400 mg TID PO 04/16/20 09:00 04/16/20 20:51 Nitroglycerin (Nitrostat) 0.4 mg 1X PRN SL chest pain 04/16/20 00:30 Oxybutynin Chloride (Ditropan) 5 mg TID PO 04/16/20 09:00 04/16/20 20:51 Potassium Chloride (Klor-Con) 20 meq TIDWMEALS PO 04/16/20 08:00 04/16/20 17:04 Non-Formulary Medication (Cholecalciferol (Vitamin D3) (Vitamin D3)) 50 mcg DAILY PO 04/16/20 09:00 UNV Saliva Substitute (Biotene Moisturizing Mouth) 2 spray PRN Q12HR PRN PO DRY MOUTH 04/16/20 01:15 Vitamin D (Vitamin D3) 2,000 unit DAILY PO 04/16/20 09:00 04/16/20 09:30 Levothyroxine Sodium (Synthroid) 50 mcg DAILY06 PO 04/17/20 06:00 Current Medications Medications (Trade) Dose Ordered Sig/Aaron Route PRN Reason Start Time Stop Time Status Last Admin Dose Admin Cetirizine HCl (ZyrTEC) 10 mg DAILY PO 04/16/20 09:00 04/16/20 09:30 Citalopram Hydrobromide (CeleXA) 20 mg DAILY PO 04/16/20 09:00 04/16/20 09:26 Magnesium Oxide (Magnesium Oxide) 400 mg TID PO 04/16/20 09:00 04/16/20 20:51 Oxybutynin Chloride (Ditropan) 5 mg TID PO 04/16/20 09:00 04/16/20 20:51 Potassium Chloride (Klor-Con) 20 meq TIDWMEALS PO 04/16/20 08:00 04/16/20 17:04 Vitamin D (Vitamin D3) 2,000 unit DAILY PO 04/16/20 09:00 04/16/20 09:30 I have reviewed the current psychotropics carefully including drug interactions. Risk benefit ratio favors no change other than as noted in my dictated progress note. Diagnosis: Problems: (1) Tardive dyskinesia (2) Chronic undifferentiated schizophrenia (3) Schizoaffective disorder, bipolar type (4) Bipolar disorder with psychotic features (5) Impulse control disorder, unspecified (6) Anxiety disorder, unspecified KAMILA LOMELI MD Apr 17, 2020 07:56
[2020-04-17] MEDS: POTASSIUM CHLORIDE 20 MEQ TABLET.ER. PO SCH ×3 (08:05→17:04)
[2020-04-17] MEDS: CARVEDILOL 3.125 MG TABLET PO SCH ×2 (08:05→17:04)
[2020-04-17] MEDS: CITALOPRAM 10 MG TABLET. PO SCH (08:06)
[2020-04-17] MEDS: NEOMYCIN/BACI/POLY/HC OPHTH OINTMENT 3.5GM TUBE. OU SCH ×2 (08:06→19:43)
[2020-04-17] MEDS: DIVALPROEX 125 MG CAP.SPRINK PO SCH ×2 (08:07→17:04)
[2020-04-17] MEDS: SIMETHICONE 80 MG TAB.CHEW PO SCH ×3 (08:07→19:31)
[2020-04-17] MEDS: OXYBUTYNIN CHLORIDE 5 MG TABLET PO SCH ×3 (08:07→19:31)
[2020-04-17] MEDS: LOSARTAN 25 MG TABLET. PO SCH (08:07)
[2020-04-17] MEDS: HYDROcodone/APAP 7.5/325MG 1 TAB TABLET PO SCH ×4 (08:08→19:31)
[2020-04-17] MEDS: MAGNESIUM OXIDE 400 MG TABLET PO SCH ×3 (08:08→19:34)
[2020-04-17] MEDS: PANTOPRAZOLE 40 MG TABLET. PO SCH ×2 (08:08→19:30)
[2020-04-17] MEDS: FUROSEMIDE 40 MG TABLET PO SCH (08:08)
[2020-04-17] MEDS: risperiDONE 0.25 MG TABLET. PO SCH ×2 (08:08→19:30)
[2020-04-17] MEDS: CALCITRIOL 0.25 MCG CAPSULE PO SCH (08:09)
[2020-04-17] MEDS: ASCORBIC ACID 500 MG TABLET PO SCH ×2 (08:09→19:43)
[2020-04-17] MEDS: CETIRIZINE HCL 10 MG TABLET PO SCH (08:09)
[2020-04-17] MEDS: LORazepam 0.5 MG TABLET PO PRN ×3 (08:09→17:04)
[2020-04-17] MEDS: CHOLECALCIFEROL (VITAMIN D3) 1,000 UNIT TABLET PO SCH (08:09)
[2020-04-17] MEDS: METHENAMINE HIPPURATE 1 GM TABLET PO SCH ×2 (08:15→19:30)
[2020-04-17] MEDS: ISOSORBIDE MONONITRATE ER 30 MG TAB.ER.24H PO SCH (08:15)
[2020-04-17] MEDS: ALBUTEROL SULFATE 2.5 MG/3 ML NEBU. IH PRN ×2 (08:24→12:28)
--- NOTE | 2020-04-17 09:51 | NUR ---
Pt is calm, cooperative, and compliant. No agitation, no aggression, no hallucinations, no delusions. He is compliant with his medications and assessment. He stated he feels his medication is working and feels better.
[2020-04-17 16:14] VITALS: BP 103/62
[2020-04-17] MEDS: TAMSULOSIN 0.4 MG CAP.ER.24H. PO SCH (17:04)
[2020-04-17] MEDS: RIVAROXABAN 10 MG TABLET. PO SCH (17:04)
[2020-04-17] MEDS: rOPINIRole 1 MG TABLET. PO SCH (19:30)
[2020-04-17] MEDS: ATORVASTATIN CALCIUM 20 MG TABLET PO SCH (19:30)
[2020-04-17] MEDS: CELECOXIB 100 MG CAPSULE PO SCH (19:31)
[2020-04-17] MEDS: NYSTATIN TOPICAL POWDER 15GM BOTTLE. TP PRN (19:32)
[2020-04-17] MEDS: INSULIN GLARGINE SYRINGE. SQ SCH (19:45)
--- NOTE | 2020-04-17 21:00 | NUR ---
Pt has been in his room tonight. He was cooperative with cares and meds. Meds were taken whole without difficulty. He has had no behaviors tonight.
--- NOTE | 2020-04-17 21:01 | PDOC ---
Exam Note: Good Note: Please also refer to the separate dictated note~for this date of service dictated separately.~Patient seen individually. Discussed the patient with Nursing staff reviewed the chart.~Reviewed interim history and current functioning. Reviewed vital signs,~Labs/ Radiology~and current medications noted below. Continue current treatment with the changes noted in the dictated addendum note Assessment: Vital Signs/I&O: Vital Signs Date Time Temp Pulse Resp B/P (MAP) Pulse Ox O2 Delivery O2 Flow Rate FiO2 04/17/20 18:04 20 04/17/20 17:04 80 103/62 04/17/20 16:14 97.2 97 Room Air 04/17/20 06:30 3.0 I & O 04/16/20 04/16/20 04/17/20 15:00 23:00 07:00 Intake Total 480 ml 700 ml Balance 480 ml 700 ml Labs: Laboratory Tests Test 04/17/20 06:20 04/17/20 07:35 04/17/20 19:12 White Blood Count 10.1 x10^3/uL (4.0-11.0) Red Blood Count 4.26 x10^6/uL (4.30-5.70) L Hemoglobin 12.4 g/dL (13.0-17.5) L Hematocrit 38.2 % (39.0-53.0) L Mean Corpuscular Volume 90 fL (79-100) Mean Corpuscular Hemoglobin 29 pg (25-35) Mean Corpuscular Hemoglobin Concent 32 g/dL (31-37) Red Cell Distribution Width 14.2 % (11.5-14.5) Platelet Count 257 x10^3/uL (140-400) Neutrophils (%) (Auto) 74 % (31-73) H Lymphocytes (%) (Auto) 14 % (24-48) L Monocytes (%) (Auto) 8 % (0-9) Eosinophils (%) (Auto) 3 % (0-3) Basophils (%) (Auto) 1 % (0-3) Neutrophils # (Auto) 7.5 x10^3uL (1.8-7.7) Lymphocytes # (Auto) 1.5 x10^3/uL (1.0-4.8) Monocytes # (Auto) 0.8 x10^3/uL (0.0-1.1) Eosinophils # (Auto) 0.3 x10^3/uL (0.0-0.7) Basophils # (Auto) 0.1 x10^3/uL (0.0-0.2) Sodium Level 142 mmol/L (136-145) Potassium Level 4.4 mmol/L (3.5-5.1) Chloride Level 101 mmol/L (98-107) Carbon Dioxide Level 35 mmol/L (21-32) H Anion Gap 6 (6-14) Blood Urea Nitrogen 16 mg/dL (8-26) Creatinine 0.8 mg/dL (0.7-1.3) Estimated GFR (Cockcroft-Gault) 95.0 BUN/Creatinine Ratio 20 (6-20) Glucose Level 113 mg/dL (70-99) H Calcium Level 8.8 mg/dL (8.5-10.1) Total Bilirubin 0.4 mg/dL (0.2-1.0) Aspartate Amino Transferase (AST) 19 U/L (15-37) Alanine Aminotransferase (ALT) 28 U/L (16-63) Alkaline Phosphatase 58 U/L (46-116) Total Protein 6.7 g/dL (6.4-8.2) Albumin 3.0 g/dL (3.4-5.0) L Albumin/Globulin Ratio 0.8 (1.0-1.7) L Valproic Acid Level 20 mcg/mL (50-100) L Valproic Acid Last Dose Date 04/16/20 Valproic Acid Last Dose Time 1700 Glucose (Fingerstick) 86 mg/dL (70-99) 131 mg/dL (70-99) H Current Medications: Meds: Laboratory Tests Test 04/17/20 06:20 04/17/20 07:35 04/17/20 19:12 White Blood Count 10.1 x10^3/uL Red Blood Count 4.26 x10^6/uL Hemoglobin 12.4 g/dL Hematocrit 38.2 % Mean Corpuscular Volume 90 fL Mean Corpuscular Hemoglobin 29 pg Mean Corpuscular Hemoglobin Concent 32 g/dL Red Cell Distribution Width 14.2 % Platelet Count 257 x10^3/uL Neutrophils (%) (Auto) 74 % Lymphocytes (%) (Auto) 14 % Monocytes (%) (Auto) 8 % Eosinophils (%) (Auto) 3 % Basophils (%) (Auto) 1 % Neutrophils # (Auto) 7.5 x10^3uL Lymphocytes # (Auto) 1.5 x10^3/uL Monocytes # (Auto) 0.8 x10^3/uL Eosinophils # (Auto) 0.3 x10^3/uL Basophils # (Auto) 0.1 x10^3/uL Sodium Level 142 mmol/L Potassium Level 4.4 mmol/L Chloride Level 101 mmol/L Carbon Dioxide Level 35 mmol/L Anion Gap 6 Blood Urea Nitrogen 16 mg/dL Creatinine 0.8 mg/dL Estimated GFR (Cockcroft-Gault) 95.0 BUN/Creatinine Ratio 20 Glucose Level 113 mg/dL Calcium Level 8.8 mg/dL Total Bilirubin 0.4 mg/dL Aspartate Amino Transf (AST/SGOT) 19 U/L Alanine Aminotransferase (ALT/SGPT) 28 U/L Alkaline Phosphatase 58 U/L Total Protein 6.7 g/dL Albumin 3.0 g/dL Albumin/Globulin Ratio 0.8 Valproic Acid (Depakene) Level 20 mcg/mL Valproic Acid Last Dose Date 04/16/20 Valproic Acid Last Dose Time 1700 Glucose (Fingerstick) 86 mg/dL 131 mg/dL Current Medications Medications (Trade) Dose Ordered Sig/Aaron Route PRN Reason Start Time Stop Time Status Last Admin Dose Admin Albuterol Sulfate (Ventolin) 8 mg PRN Q4HRS PRN IH wheezing 04/10/20 15:45 04/14/20 22:31 DC 04/14/20 22:12 Atorvastatin Calcium (Lipitor) 20 mg QHS PO 04/10/20 21:00 04/17/20 19:30 Calcitriol (Rocaltrol) 0.25 mcg DAILY PO 04/11/20 09:00 04/17/20 08:09 Carvedilol (Coreg) 3.125 mg BIDWMEALS PO 04/10/20 17:00 04/17/20 17:04 Diltiazem HCl (Cardizem 24hr Cd) 120 mg DAILY PO 04/11/20 09:00 04/17/20 08:06 Fluphenazine HCl (Prolixin) 2.5 mg QHS PO 04/10/20 21:00 04/17/20 19:30 Furosemide (Lasix) 40 mg DAILY PO 04/11/20 09:00 04/17/20 08:08 Acetaminophen/ Hydrocodone Bitart (Lortab 7.5/325) 1 tab PRN QID PRN PO MOD-SEV PAIN 04/10/20 15:45 04/15/20 19:58 DC 04/15/20 16:13 Levothyroxine Sodium (Synthroid) 50 mcg DAILYAC PO 04/11/20 07:30 04/16/20 11:53 DC 04/16/20 09:19 Losartan Potassium (Cozaar) 25 mg DAILY PO 04/11/20 09:00 04/17/20 08:07 Methenamine Hippurate (Hiprex) 1 gm BID PO 04/10/20 21:00 04/17/20 19:30 Nystatin (Nystop) 15 kailey PRN BID PRN TP YEAST 04/10/20 15:45 04/17/20 19:32 Pantoprazole Sodium (Protonix) 40 mg BID PO 04/10/20 21:00 04/17/20 19:30 Polyethylene Glycol (miraLAX) 17 gm PRN DAILY PRN PO 2ND CHOICE CONSTIPATION 04/10/20 15:45 Risperidone (RisperDAL) 0.25 mg BID PO 04/10/20 21:00 04/17/20 19:30 Ropinirole HCl (Requip) 1 mg QHS PO 04/10/20 21:00 04/17/20 19:30 Tamsulosin HCl (Flomax) 0.4 mg QEVNG PO 04/10/20 18:00 04/17/20 17:04 Simethicone (Gas-X) 80 mg TID PO 04/10/20 21:00 04/17/20 19:31 Ascorbic Acid (Vitamin C) 500 mg BID PO 04/10/20 21:00 04/17/20 19:43 Artificial Tears (Artificial Tears) 1 drop PRN BID PRN OU DRY EYE 04/10/20 17:00 Celecoxib (CeleBREX) 200 mg QHS PO 04/10/20 21:00 04/17/20 19:31 Cholestyramine Resin (Questran Light) 4 gm PRN DAILY PRN PO LOOSE STOOLS 04/10/20 17:00 Insulin Glargine (Lantus Syringe) 30 unit QHS SQ 04/10/20 21:00 04/17/20 19:45 Isosorbide Mononitrate (Imdur) 60 mg DAILY PO 04/11/20 09:00 04/17/20 08:15 Loperamide HCl (Imodium) 2 mg PRN Q2HRS PRN PO DIARRHEA 04/10/20 17:00 04/15/20 20:50 Rivaroxaban (Xarelto) 20 mg DAILYWSUP PO 04/10/20 17:00 04/17/20 17:04 Acetaminophen (Tylenol) 650 mg PRN Q6HRS PRN PO MILD PAIN / TEMP > 100.3'F 04/10/20 16:30 04/12/20 14:07 Multi-Ingredient Ointment (Analgesic [place]) 1 kailey PRN QID PRN TP MUSCLE PAIN 04/10/20 16:30 Al Hydroxide/Mg Hydroxide (Mylanta Plus Xs) 15 ml PRN AFTMEALHC PRN PO DYSPEPSIA 04/10/20 16:30 Magnesium Hydroxide (Milk Of Magnesia) 2,400 mg PRN QHS PRN PO 2ND CHOICE CONSTIPATION 04/10/20 16:30 Lorazepam (Ativan) 0.25 mg PRN TID PRN PO ANXIETY / AGITATION 04/12/20 16:30 04/17/20 17:04 Divalproex Sodium (Depakote Sprinkles) 250 mg 0900,1700 PO 04/14/20 09:00 04/17/20 18:32 DC 04/17/20 17:04 Neomycin/ Polymyxin/Bacitr/ Hydrocort (Cortisporin Ophth) 2 kailey BID OU 04/14/20 21:00 04/17/20 08:06 Albuterol Sulfate (Ventolin) 2.5 mg PRN Q4HRS PRN IH wheezing 04/14/20 22:31 04/17/20 12:28 Acetaminophen/ Hydrocodone Bitart (Lortab 7.5/325) 1 tab QID PO 04/15/20 20:30 04/17/20 19:31 Cetirizine HCl (ZyrTEC) 10 mg DAILY PO 04/16/20 09:00 04/17/20 08:09 Citalopram Hydrobromide (CeleXA) 20 mg DAILY PO 04/16/20 09:00 04/17/20 08:06 Magnesium Oxide (Magnesium Oxide) 400 mg TID PO 04/16/20 09:00 04/17/20 19:34 Nitroglycerin (Nitrostat) 0.4 mg 1X PRN SL chest pain 04/16/20 00:30 Oxybutynin Chloride (Ditropan) 5 mg TID PO 04/16/20 09:00 04/17/20 19:31 Potassium Chloride (Klor-Con) 20 meq TIDWMEALS PO 04/16/20 08:00 04/17/20 17:04 Non-Formulary Medication (Cholecalciferol (Vitamin D3) (Vitamin D3)) 50 mcg DAILY PO 04/16/20 09:00 UNV Saliva Substitute (Biotene Moisturizing Mouth) 2 spray PRN Q12HR PRN PO DRY MOUTH 04/16/20 01:15 Vitamin D (Vitamin D3) 2,000 unit DAILY PO 04/16/20 09:00 04/17/20 08:09 Levothyroxine Sodium (Synthroid) 50 mcg DAILY06 PO 04/17/20 06:00 Divalproex Sodium (Depakote Sprinkles) 500 mg 0900,1700 PO 04/18/20 09:00 I have reviewed the current psychotropics carefully including drug interactions. Risk benefit ratio favors no change other than as noted in my dictated progress note. Diagnosis: Problems: (1) Tardive dyskinesia (2) Chronic undifferentiated schizophrenia (3) Schizoaffective disorder, bipolar type (4) Bipolar disorder with psychotic features (5) Impulse control disorder, unspecified (6) Anxiety disorder, unspecified KAMILA LOMELI MD Apr 17, 2020 21:01
[2020-04-18] MEDS: LEVOTHYROXINE 50 MCG TABLET PO SCH (05:38)
[2020-04-18 06:21] VITALS: BP 116/68
[2020-04-18] MEDS: CARVEDILOL 3.125 MG TABLET PO SCH ×2 (08:08→17:15)
[2020-04-18] MEDS: POTASSIUM CHLORIDE 20 MEQ TABLET.ER. PO SCH ×3 (08:08→17:19)
[2020-04-18] MEDS: NEOMYCIN/BACI/POLY/HC OPHTH OINTMENT 3.5GM TUBE. OU SCH ×2 (08:09→20:50)
[2020-04-18] MEDS: CITALOPRAM 10 MG TABLET. PO SCH (08:10)
[2020-04-18] MEDS: LOSARTAN 25 MG TABLET. PO SCH (08:11)
[2020-04-18] MEDS: DIVALPROEX 125 MG CAP.SPRINK PO SCH ×2 (08:11→17:15)
[2020-04-18] MEDS: SIMETHICONE 80 MG TAB.CHEW PO SCH ×3 (08:11→20:50)
[2020-04-18] MEDS: OXYBUTYNIN CHLORIDE 5 MG TABLET PO SCH ×3 (08:11→20:49)
[2020-04-18] MEDS: FUROSEMIDE 40 MG TABLET PO SCH (08:12)
[2020-04-18] MEDS: MAGNESIUM OXIDE 400 MG TABLET PO SCH ×3 (08:12→21:00)
[2020-04-18] MEDS: HYDROcodone/APAP 7.5/325MG 1 TAB TABLET PO SCH ×4 (08:12→21:00)
[2020-04-18] MEDS: CHOLECALCIFEROL (VITAMIN D3) 1,000 UNIT TABLET PO SCH (08:13)
[2020-04-18] MEDS: ASCORBIC ACID 500 MG TABLET PO SCH ×2 (08:13→20:50)
[2020-04-18] MEDS: CETIRIZINE HCL 10 MG TABLET PO SCH (08:13)
[2020-04-18] MEDS: PANTOPRAZOLE 40 MG TABLET. PO SCH ×2 (08:13→20:50)
[2020-04-18] MEDS: risperiDONE 0.25 MG TABLET. PO SCH ×2 (08:13→20:49)
[2020-04-18] MEDS: LORazepam 0.5 MG TABLET PO PRN ×3 (08:14→17:16)
[2020-04-18] MEDS: ISOSORBIDE MONONITRATE ER 30 MG TAB.ER.24H PO SCH (08:17)
[2020-04-18] MEDS: METHENAMINE HIPPURATE 1 GM TABLET PO SCH ×2 (08:17→20:49)
[2020-04-18] MEDS: CALCITRIOL 0.25 MCG CAPSULE PO SCH (08:17)
--- NOTE | 2020-04-18 08:26 | PDOC ---
Exam Note: Good Note: This note is a late entry for 04/17/2020 covers elements not covered in my initial note. Subjective: The patient was seen individually in the evening of 04/17/2020 with Debbie MATUTE, discussed and reviewed the chart. He slept 9-3/4 hours previous night. Overall the patient is doing better. Review of Systems: Shortness of breath on oxygen supplements. Impaired ambulation in wheelchair. No CV, , eye, ENT system symptoms on review. Mental Status Exam: The patient is lying in bed as I initially went to his room. He sat up to visit with me. Speech is coherent, difficult to understand at times. Abstraction is fair. Computation impaired. Language function intact. Attention span is short. Mood and affect somewhat anxious, less labile. Laboratory Data: Reviewed. 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 Schizophrenia chronic undifferentiated. Anxiety disorder unspecified. Impulse control disorder unspecified. Plan: Valproic acid level is 20. We will increase the Depakote from 250 mg b.i.d. to 500 mg b.i.d. Check CBC, CMP, valproic acid level in 3 days. Rest unchanged. Assessment: Vital Signs/I&O: Vital Signs Date Time Temp Pulse Resp B/P (MAP) Pulse Ox O2 Delivery O2 Flow Rate FiO2 04/18/20 08:17 68 116/68 04/18/20 08:12 20 04/18/20 06:21 98.0 94 Nasal Cannula 3.0 I & O 04/17/20 04/17/20 04/18/20 15:00 23:00 07:00 Intake Total 1320 ml 840 ml Balance 1320 ml 840 ml Labs: Laboratory Tests Test 04/17/20 19:12 04/18/20 07:43 Glucose (Fingerstick) 131 mg/dL (70-99) H 99 mg/dL (70-99) Current Medications: Meds: Laboratory Tests Test 04/17/20 19:12 04/18/20 07:43 Glucose (Fingerstick) 131 mg/dL 99 mg/dL Current Medications Medications (Trade) Dose Ordered Sig/Aaron Route PRN Reason Start Time Stop Time Status Last Admin Dose Admin Albuterol Sulfate (Ventolin) 8 mg PRN Q4HRS PRN IH wheezing 04/10/20 15:45 04/14/20 22:31 DC 04/14/20 22:12 Atorvastatin Calcium (Lipitor) 20 mg QHS PO 04/10/20 21:00 04/17/20 19:30 Calcitriol (Rocaltrol) 0.25 mcg DAILY PO 04/11/20 09:00 04/18/20 08:17 Carvedilol (Coreg) 3.125 mg BIDWMEALS PO 04/10/20 17:00 04/18/20 08:08 Diltiazem HCl (Cardizem 24hr Cd) 120 mg DAILY PO 04/11/20 09:00 04/18/20 08:09 Fluphenazine HCl (Prolixin) 2.5 mg QHS PO 04/10/20 21:00 04/17/20 19:30 Furosemide (Lasix) 40 mg DAILY PO 04/11/20 09:00 04/18/20 08:12 Acetaminophen/ Hydrocodone Bitart (Lortab 7.5/325) 1 tab PRN QID PRN PO MOD-SEV PAIN 04/10/20 15:45 04/15/20 19:58 DC 04/15/20 16:13 Levothyroxine Sodium (Synthroid) 50 mcg DAILYAC PO 04/11/20 07:30 04/16/20 11:53 DC 04/16/20 09:19 Losartan Potassium (Cozaar) 25 mg DAILY PO 04/11/20 09:00 04/18/20 08:11 Methenamine Hippurate (Hiprex) 1 gm BID PO 04/10/20 21:00 04/18/20 08:17 Nystatin (Nystop) 15 kailey PRN BID PRN TP YEAST 04/10/20 15:45 04/17/20 19:32 Pantoprazole Sodium (Protonix) 40 mg BID PO 04/10/20 21:00 04/18/20 08:13 Polyethylene Glycol (miraLAX) 17 gm PRN DAILY PRN PO 2ND CHOICE CONSTIPATION 04/10/20 15:45 Risperidone (RisperDAL) 0.25 mg BID PO 04/10/20 21:00 04/18/20 08:13 Ropinirole HCl (Requip) 1 mg QHS PO 04/10/20 21:00 04/17/20 19:30 Tamsulosin HCl (Flomax) 0.4 mg QEVNG PO 04/10/20 18:00 04/17/20 17:04 Simethicone (Gas-X) 80 mg TID PO 04/10/20 21:00 04/18/20 08:11 Ascorbic Acid (Vitamin C) 500 mg BID PO 04/10/20 21:00 04/18/20 08:13 Artificial Tears (Artificial Tears) 1 drop PRN BID PRN OU DRY EYE 04/10/20 17:00 Celecoxib (CeleBREX) 200 mg QHS PO 04/10/20 21:00 04/17/20 19:31 Cholestyramine Resin (Questran Light) 4 gm PRN DAILY PRN PO LOOSE STOOLS 04/10/20 17:00 Insulin Glargine (Lantus Syringe) 30 unit QHS SQ 04/10/20 21:00 04/17/20 19:45 Isosorbide Mononitrate (Imdur) 60 mg DAILY PO 04/11/20 09:00 04/18/20 08:17 Loperamide HCl (Imodium) 2 mg PRN Q2HRS PRN PO DIARRHEA 04/10/20 17:00 04/15/20 20:50 Rivaroxaban (Xarelto) 20 mg DAILYWSUP PO 04/10/20 17:00 04/17/20 17:04 Acetaminophen (Tylenol) 650 mg PRN Q6HRS PRN PO MILD PAIN / TEMP > 100.3'F 04/10/20 16:30 04/12/20 14:07 Multi-Ingredient Ointment (Analgesic [place]) 1 kailey PRN QID PRN TP MUSCLE PAIN 04/10/20 16:30 Al Hydroxide/Mg Hydroxide (Mylanta Plus Xs) 15 ml PRN AFTMEALHC PRN PO DYSPEPSIA 04/10/20 16:30 Magnesium Hydroxide (Milk Of Magnesia) 2,400 mg PRN QHS PRN PO 2ND CHOICE CONSTIPATION 04/10/20 16:30 Lorazepam (Ativan) 0.25 mg PRN TID PRN PO ANXIETY / AGITATION 04/12/20 16:30 04/18/20 08:14 Divalproex Sodium (Depakote Sprinkles) 250 mg 0900,1700 PO 04/14/20 09:00 04/17/20 18:32 DC 04/17/20 17:04 Neomycin/ Polymyxin/Bacitr/ Hydrocort (Cortisporin Ophth) 2 kailey BID OU 04/14/20 21:00 04/18/20 08:09 Albuterol Sulfate (Ventolin) 2.5 mg PRN Q4HRS PRN IH wheezing 04/14/20 22:31 04/17/20 12:28 Acetaminophen/ Hydrocodone Bitart (Lortab 7.5/325) 1 tab QID PO 04/15/20 20:30 04/18/20 08:12 Cetirizine HCl (ZyrTEC) 10 mg DAILY PO 04/16/20 09:00 04/18/20 08:13 Citalopram Hydrobromide (CeleXA) 20 mg DAILY PO 04/16/20 09:00 04/18/20 08:10 Magnesium Oxide (Magnesium Oxide) 400 mg TID PO 04/16/20 09:00 04/18/20 08:12 Nitroglycerin (Nitrostat) 0.4 mg 1X PRN SL chest pain 04/16/20 00:30 Oxybutynin Chloride (Ditropan) 5 mg TID PO 04/16/20 09:00 04/18/20 08:11 Potassium Chloride (Klor-Con) 20 meq TIDWMEALS PO 04/16/20 08:00 04/18/20 08:08 Non-Formulary Medication (Cholecalciferol (Vitamin D3) (Vitamin D3)) 50 mcg DAILY PO 04/16/20 09:00 UNV Saliva Substitute (Biotene Moisturizing Mouth) 2 spray PRN Q12HR PRN PO DRY MOUTH 04/16/20 01:15 Vitamin D (Vitamin D3) 2,000 unit DAILY PO 04/16/20 09:00 04/18/20 08:13 Levothyroxine Sodium (Synthroid) 50 mcg DAILY06 PO 04/17/20 06:00 04/18/20 05:38 Divalproex Sodium (Depakote Sprinkles) 500 mg 0900,1700 PO 04/18/20 09:00 04/18/20 08:11 Current Medications Medications (Trade) Dose Ordered Sig/Aaron Route PRN Reason Start Time Stop Time Status Last Admin Dose Admin Divalproex Sodium (Depakote Sprinkles) 500 mg 0900,1700 PO 04/18/20 09:00 04/18/20 08:11 I have reviewed the current psychotropics carefully including drug interactions. Risk benefit ratio favors no change other than as noted in my dictated progress note. Diagnosis: Problems: (1) Tardive dyskinesia (2) Chronic undifferentiated schizophrenia (3) Schizoaffective disorder, bipolar type (4) Bipolar disorder with psychotic features (5) Impulse control disorder, unspecified (6) Anxiety disorder, unspecified KAMILA LOMELI MD Apr 18, 2020 08:26
--- NOTE | 2020-04-18 09:56 | NUR ---
No agitation, no aggression, no hallucinations, no delusions. He is compliant with his medications and assessment. He stated he feels his medication is working and feels better. Pt is calm, cooperative, and compliant.
--- NOTE | 2020-04-18 12:17 | NUR ---
WEEKLY ACTIVITY THERAPY NOTE Date of Admission: 04/10 Date of AT Assessment: 04/12 Precipitating behaviors that initiated intake and admission: agitated, anxious, paranoid, accusing staff of abuse Goal aimed:increase motivation and engagement skills Initial Goal:Pt will participate in at least one individual or group Activity Therapy session per week. Weekly progress towards goal: achieved goal, 03/14 Group participation level: 1 min, 1 mod Weekly highlights: fishing Saturday afternoon Behaviors observed: often sleeping or secluded to room Plan: change goal to: Pt will participate in at least two individual or group Activity Therapy session per week. Beneficial adaptations:
--- NOTE | 2020-04-18 12:40 | TX PLAN ---
Interdisciplinary Tx Plan Admission Information Apr 10, 2020 at 14:50 Legal Status (on Admission): Voluntary DPOA/Guardian Name: Marv Hager Contact Other Contact Name: Maryanne Samayoa Other Contact Verified Code Status: Full Code Allergies: Coded Allergies: levofloxacin (Verified Allergy, Intermediate, 04/09/20) metoprolol (Verified Allergy, Intermediate, 04/09/20) Penicillins (Verified Allergy, Unknown, 04/09/20) pravastatin (Verified Allergy, Unknown, 04/09/20) Diagnoses Primary Diagnosis: Schizoaffective disorder, bipolar type, mixed with psychotic features, schizophrenia, chronic, undifferentiated with acute exacerbation Reasons for Admission: Agitated, Sig. Change Sleep, Anxiety/Panic, Suspicio us/paranoid Problem in Patient's Words: Per pt, "I need help getting my medications figured out. I've worked with [facility], but he wanted me to come here for further help." Additional Admission Comments: Per intake record, at facility pt was agitated, anxious, sleeps too much, paranoid, accusing staff of abusing/neglecting him. Police have been out to facility twice to check on allegations, but reports were unfounded. Problems Active Problems: Agitation, sleeps too much, anxiety, accusatory Inactive Problems: None noted at this time Pt Strengths/Limitations Ability for [place]: Poor Cognitive Functioning/Ability: Fair Communication Skills/Ability: Fair Financial Resources: Good Insight/Judgement: Fair Intellectual Ability: Fair Physical Health: Poor Social Skills: Fair Stability in Family: Poor Stability in School/Work: Fair Verbal Skills: Fair Discharge Criteria Discharge Criteria: Adequate arrangements @DC, Verbal commit med comply, Improved behavior, Improved mood/thought Other Discharge Comments: None at this time Preliminary Discharge Plan Preliminary DC Plan: Current Living Arrange. Special Precautions Special Precautions: Agitation/Assault, Other (Pt is on O2.) Fall Risk: Moderate Other Precautions (specify): Pt uses a WC which he can transfer himself. He can ambulate short distances Initial D/C Plan Pt plan is to return to [facility] once stable. Identified Discharge Needs: None at this time. Currently Utilized Resources Currently Utilized Resources/P: PCP-Dr. Sudheer Peck Guardian-Marv Hager Caregiver-Francine Sanchez [facility], TRINI P) [phone] Referrals Community Resources: None noted at this time. Identified Problems/Hx/Goals Objectives/Short-Term Goals Short Term Goals: Control abnormal behavior, Dec. Anxiety/Panic, Dec. Hallucination/Delus, Dec. Symp. Depression, Improved Social Skills, Medication Stabilization, Monitor Med Effects, Promote Coping Skill Short Term Goals in Patient's: Pt states, "My medication needs to be monitored and probably altered, so that my [facility] doctor can follow along." Interventions/Frequency Staff Interventions/Frequency&: Psychiatry to assess pt three times per week for medication management. Nursing to assess behaviors, monitor, medications, and complete 15 minute checks daily. Social Work to see pt at least two times weekly to aid in return to placement. Activities to encourage pt to participate in group activities daily. History Vocational History: According to pt, he served 7 years in the [employer] and 1 1/2 years in the [employer] until he retired for having hallucinations. Education: Pt reports that he was kicked out of high school for driving while intoxicated, but he did go back and finish. He later took some colled classes, but never earned a degree. Community Follow-up PCP Community Provider/Family Inpu: Input was given from pt facility. Guardian has not responded to outreach at this time. Treatment Plan Explained Patient/Store Stock Help had this treatment plan explained to him/her as indicated by the signature below and has been given the opportunity to ask questions and make suggestions: Date: Patient/Store Stock Help Signature: Status Update Update Pt sleeping an average of 9 hours at night and eating 100% of his meals. He attended two groups last week and stays mostly in his own room. Pt reporting he seems to be feeling better and has been pleasant with staff. Pt agitation has decreased and he has had no incidences of accusations . Pt is taking Celexa, Risperdal, Ativan, and Depakote. Pt will return to facility once stable. BENEDICT VALENCIA Apr 18, 2020 12:40
[2020-04-18 16:05] VITALS: BP 112/67
[2020-04-18] MEDS: TAMSULOSIN 0.4 MG CAP.ER.24H. PO SCH (17:16)
[2020-04-18] MEDS: RIVAROXABAN 10 MG TABLET. PO SCH (17:16)
[2020-04-18] MEDS: ALBUTEROL SULFATE 2.5 MG/3 ML NEBU. IH PRN (17:17)
[2020-04-18] MEDS: NYSTATIN TOPICAL POWDER 15GM BOTTLE. TP PRN (20:47)
[2020-04-18] MEDS: CELECOXIB 100 MG CAPSULE PO SCH (20:49)
[2020-04-18] MEDS: rOPINIRole 1 MG TABLET. PO SCH (20:49)
[2020-04-18] MEDS: ATORVASTATIN CALCIUM 20 MG TABLET PO SCH (20:49)
[2020-04-18] MEDS: INSULIN GLARGINE SYRINGE. SQ SCH (20:51)
--- NOTE | 2020-04-18 21:23 | PDOC ---
Exam Note: Good Note: Please also refer to the separate dictated note~for this date of service dictated separately.~Patient seen individually. Discussed the patient with Nursing staff reviewed the chart.~Reviewed interim history and current functioning. Reviewed vital signs,~Labs/ Radiology~and current medications noted below. Continue current treatment with the changes noted in the dictated addendum note Assessment: Vital Signs/I&O: Vital Signs Date Time Temp Pulse Resp B/P (MAP) Pulse Ox O2 Delivery O2 Flow Rate FiO2 04/18/20 18:15 20 04/18/20 17:15 71 112/67 04/18/20 16:05 97.9 96 2.0 04/18/20 06:21 Nasal Cannula I & O 04/17/20 04/17/20 04/18/20 15:00 23:00 07:00 Intake Total 1320 ml 840 ml Balance 1320 ml 840 ml Labs: Laboratory Tests Test 04/18/20 07:43 04/18/20 19:01 Glucose (Fingerstick) 99 mg/dL (70-99) 152 mg/dL (70-99) H Current Medications: Meds: Current Medications Medications (Trade) Dose Ordered Sig/Aaron Route PRN Reason Start Time Stop Time Status Last Admin Dose Admin Divalproex Sodium (Depakote Sprinkles) 500 mg 0900,1700 PO 04/18/20 09:00 04/18/20 17:15 I have reviewed the current psychotropics carefully including drug interactions. Risk benefit ratio favors no change other than as noted in my dictated progress note. Diagnosis: Problems: (1) Tardive dyskinesia (2) Chronic undifferentiated schizophrenia (3) Schizoaffective disorder, bipolar type (4) Bipolar disorder with psychotic features (5) Impulse control disorder, unspecified (6) Anxiety disorder, unspecified KAMILA LOMELI MD Apr 18, 2020 21:23
[2020-04-19 06:15] VITALS: BP 123/72
[2020-04-19] MEDS: MAGNESIUM OXIDE 400 MG TABLET PO SCH ×3 (09:00→20:55)
[2020-04-19] MEDS: METHENAMINE HIPPURATE 1 GM TABLET PO SCH ×2 (09:05→20:54)
[2020-04-19] MEDS: CALCITRIOL 0.25 MCG CAPSULE PO SCH (09:05)
[2020-04-19] MEDS: DIVALPROEX 125 MG CAP.SPRINK PO SCH ×2 (09:05→16:53)
[2020-04-19] MEDS: CETIRIZINE HCL 10 MG TABLET PO SCH (09:05)
[2020-04-19] MEDS: FUROSEMIDE 40 MG TABLET PO SCH (09:06)
[2020-04-19] MEDS: ASCORBIC ACID 500 MG TABLET PO SCH ×2 (09:07→20:54)
[2020-04-19] MEDS: PANTOPRAZOLE 40 MG TABLET. PO SCH ×2 (09:07→20:55)
[2020-04-19] MEDS: SIMETHICONE 80 MG TAB.CHEW PO SCH ×3 (09:07→20:54)
[2020-04-19] MEDS: LOSARTAN 25 MG TABLET. PO SCH (09:07)
[2020-04-19] MEDS: OXYBUTYNIN CHLORIDE 5 MG TABLET PO SCH ×3 (09:07→20:54)
[2020-04-19] MEDS: CARVEDILOL 3.125 MG TABLET PO SCH ×2 (09:07→16:54)
[2020-04-19] MEDS: CITALOPRAM 10 MG TABLET. PO SCH (09:08)
[2020-04-19] MEDS: POTASSIUM CHLORIDE 20 MEQ TABLET.ER. PO SCH ×3 (09:08→16:53)
[2020-04-19] MEDS: risperiDONE 0.25 MG TABLET. PO SCH ×2 (09:08→20:55)
[2020-04-19] MEDS: ISOSORBIDE MONONITRATE ER 30 MG TAB.ER.24H PO SCH (09:08)
[2020-04-19] MEDS: CHOLECALCIFEROL (VITAMIN D3) 1,000 UNIT TABLET PO SCH (09:08)
[2020-04-19] MEDS: LEVOTHYROXINE 50 MCG TABLET PO SCH (09:08)
[2020-04-19] MEDS: HYDROcodone/APAP 7.5/325MG 1 TAB TABLET PO SCH ×4 (09:09→20:55)
[2020-04-19] MEDS: NEOMYCIN/BACI/POLY/HC OPHTH OINTMENT 3.5GM TUBE. OU SCH ×2 (09:10→20:53)
--- NOTE | 2020-04-19 11:26 | NUR ---
Nursing note: Pt was initially agitated upon waking up as he was demanding TRANSPORTATION ATTENDANT to get him dressed. TRANSPORTATION ATTENDANT reminded pt that he is capable of dressing himself as he has shown he is able to multiple times. Pt began yelling and cursing at TRANSPORTATION ATTENDANT. Pt then got dressed on his own. He was taken to the day room once dressed so he could eat his breakfast and take his meds. Pt was much calmer at this point and took his meds whole . Pt c/o back pain 09/20. Scheduled pain medication provided. Pt is currently sitting quietly in the day room. Will continue to monitor.
[2020-04-19 16:11] VITALS: BP 96/61
[2020-04-19] MEDS: RIVAROXABAN 10 MG TABLET. PO SCH (16:53)
[2020-04-19] MEDS: TAMSULOSIN 0.4 MG CAP.ER.24H. PO SCH (16:53)
[2020-04-19] MEDS: ALBUTEROL SULFATE 2.5 MG/3 ML NEBU. IH PRN (16:54)
[2020-04-19] MEDS: INSULIN GLARGINE SYRINGE. SQ SCH (20:53)
[2020-04-19] MEDS: rOPINIRole 1 MG TABLET. PO SCH (20:54)
[2020-04-19] MEDS: ATORVASTATIN CALCIUM 20 MG TABLET PO SCH (20:54)
[2020-04-19] MEDS: CELECOXIB 100 MG CAPSULE PO SCH (20:54)
--- NOTE | 2020-04-19 21:01 | PDOC ---
Exam Note: Good Note: This note is a late entry for 04/18/2020 covers elements not covered in my initial note. Subjective: The patient was reviewed in the morning of 04/18/2020 for a treatment team meeting with Vicenta Wright, Janet Duarte and Jessica (social media specialist), Anna, activity therapy and Debbie MATUTE, discussed and reviewed the chart. He slept 9 hours previous night. Appetite is 100%. Review of Systems: Difficulty with breathing on oxygen supplements. Impaired ambulation in wheelchair, chronic pain. No CV, , eye, ENT system symptoms on review. Mental Status Exam: Reasonably oriented. Speech is coherent, less pressured. Abstraction is fair. Computation impaired. Language function intact. Attention span is short. Mood and affect improved. Laboratory Data: Reviewed. 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 Schizophrenia chronic undifferentiated. Anxiety disorder unspecified. Impulse control disorder unspecified. Plan: No change from initial note. Depakote is being adjusted. Labs to be drawn on 04/21. Rest unchanged. Assessment: Vital Signs/I&O: Vital Signs Date Time Temp Pulse Resp B/P (MAP) Pulse Ox O2 Delivery O2 Flow Rate FiO2 04/19/20 18:00 96 04/19/20 16:54 67 96/61 04/19/20 16:11 98.4 18 04/19/20 06:15 Nasal Cannula 2.0 I & O 04/18/20 04/18/20 04/19/20 15:00 23:00 07:00 Intake Total 1060 ml 600 ml Balance 1060 ml 600 ml Labs: Laboratory Tests Test 04/19/20 07:23 04/19/20 19:13 Glucose (Fingerstick) 84 mg/dL (70-99) 158 mg/dL (70-99) H Current Medications: Meds: Laboratory Tests Test 04/19/20 07:23 04/19/20 19:13 Glucose (Fingerstick) 84 mg/dL 158 mg/dL Current Medications Medications (Trade) Dose Ordered Sig/Aaron Route PRN Reason Start Time Stop Time Status Last Admin Dose Admin Albuterol Sulfate (Ventolin) 8 mg PRN Q4HRS PRN IH wheezing 04/10/20 15:45 04/14/20 22:31 DC 04/14/20 22:12 Atorvastatin Calcium (Lipitor) 20 mg QHS PO 04/10/20 21:00 04/19/20 20:54 Calcitriol (Rocaltrol) 0.25 mcg DAILY PO 04/11/20 09:00 04/19/20 09:05 Carvedilol (Coreg) 3.125 mg BIDWMEALS PO 04/10/20 17:00 04/19/20 09:07 Diltiazem HCl (Cardizem 24hr Cd) 120 mg DAILY PO 04/11/20 09:00 04/19/20 09:06 Fluphenazine HCl (Prolixin) 2.5 mg QHS PO 04/10/20 21:00 04/19/20 20:54 Furosemide (Lasix) 40 mg DAILY PO 04/11/20 09:00 04/19/20 09:06 Acetaminophen/ Hydrocodone Bitart (Lortab 7.5/325) 1 tab PRN QID PRN PO MOD-SEV PAIN 04/10/20 15:45 04/15/20 19:58 DC 04/15/20 16:13 Levothyroxine Sodium (Synthroid) 50 mcg DAILYAC PO 04/11/20 07:30 04/16/20 11:53 DC 04/16/20 09:19 Losartan Potassium (Cozaar) 25 mg DAILY PO 04/11/20 09:00 04/19/20 09:07 Methenamine Hippurate (Hiprex) 1 gm BID PO 04/10/20 21:00 04/19/20 20:54 Nystatin (Nystop) 15 kailey PRN BID PRN TP YEAST 04/10/20 15:45 04/18/20 20:47 Pantoprazole Sodium (Protonix) 40 mg BID PO 04/10/20 21:00 04/19/20 20:55 Polyethylene Glycol (miraLAX) 17 gm PRN DAILY PRN PO 2ND CHOICE CONSTIPATION 04/10/20 15:45 Risperidone (RisperDAL) 0.25 mg BID PO 04/10/20 21:00 04/19/20 20:55 Ropinirole HCl (Requip) 1 mg QHS PO 04/10/20 21:00 04/19/20 20:54 Tamsulosin HCl (Flomax) 0.4 mg QEVNG PO 04/10/20 18:00 04/19/20 16:53 Simethicone (Gas-X) 80 mg TID PO 04/10/20 21:00 04/19/20 20:54 Ascorbic Acid (Vitamin C) 500 mg BID PO 04/10/20 21:00 04/19/20 20:54 Artificial Tears (Artificial Tears) 1 drop PRN BID PRN OU DRY EYE 04/10/20 17:00 Celecoxib (CeleBREX) 200 mg QHS PO 04/10/20 21:00 04/19/20 20:54 Cholestyramine Resin (Questran Light) 4 gm PRN DAILY PRN PO LOOSE STOOLS 04/10/20 17:00 Insulin Glargine (Lantus Syringe) 30 unit QHS SQ 04/10/20 21:00 04/19/20 20:53 Isosorbide Mononitrate (Imdur) 60 mg DAILY PO 04/11/20 09:00 04/19/20 09:08 Loperamide HCl (Imodium) 2 mg PRN Q2HRS PRN PO DIARRHEA 04/10/20 17:00 04/15/20 20:50 Rivaroxaban (Xarelto) 20 mg DAILYWSUP PO 04/10/20 17:00 04/19/20 16:53 Acetaminophen (Tylenol) 650 mg PRN Q6HRS PRN PO MILD PAIN / TEMP > 100.3'F 04/10/20 16:30 04/12/20 14:07 Multi-Ingredient Ointment (Analgesic [place]) 1 kailey PRN QID PRN TP MUSCLE PAIN 04/10/20 16:30 Al Hydroxide/Mg Hydroxide (Mylanta Plus Xs) 15 ml PRN AFTMEALHC PRN PO DYSPEPSIA 04/10/20 16:30 Magnesium Hydroxide (Milk Of Magnesia) 2,400 mg PRN QHS PRN PO 2ND CHOICE CONSTIPATION 04/10/20 16:30 Lorazepam (Ativan) 0.25 mg PRN TID PRN PO ANXIETY / AGITATION 04/12/20 16:30 04/18/20 17:16 Divalproex Sodium (Depakote Sprinkles) 250 mg 0900,1700 PO 04/14/20 09:00 04/17/20 18:32 DC 04/17/20 17:04 Neomycin/ Polymyxin/Bacitr/ Hydrocort (Cortisporin Ophth) 2 kailey BID OU 3/4/21 21:00 04/19/20 20:53 Albuterol Sulfate (Ventolin) 2.5 mg PRN Q4HRS PRN IH wheezing 04/14/20 22:31 04/19/20 16:54 Acetaminophen/ Hydrocodone Bitart (Lortab 7.5/325) 1 tab QID PO 04/15/20 20:30 04/19/20 20:55 Cetirizine HCl (ZyrTEC) 10 mg DAILY PO 04/16/20 09:00 04/19/20 09:05 Citalopram Hydrobromide (CeleXA) 20 mg DAILY PO 04/16/20 09:00 04/19/20 09:08 Magnesium Oxide (Magnesium Oxide) 400 mg TID PO 04/16/20 09:00 04/19/20 20:55 Nitroglycerin (Nitrostat) 0.4 mg 1X PRN SL chest pain 04/16/20 00:30 Oxybutynin Chloride (Ditropan) 5 mg TID PO 04/16/20 09:00 04/19/20 20:54 Potassium Chloride (Klor-Con) 20 meq TIDWMEALS PO 04/16/20 08:00 04/19/20 16:53 Non-Formulary Medication (Cholecalciferol (Vitamin D3) (Vitamin D3)) 50 mcg DAILY PO 04/16/20 09:00 UNV Saliva Substitute (Biotene Moisturizing Mouth) 2 spray PRN Q12HR PRN PO DRY MOUTH 04/16/20 01:15 Vitamin D (Vitamin D3) 2,000 unit DAILY PO 04/16/20 09:00 04/19/20 09:08 Levothyroxine Sodium (Synthroid) 50 mcg DAILY06 PO 04/17/20 06:00 04/19/20 09:08 Divalproex Sodium (Depakote Sprinkles) 500 mg 0900,1700 PO 04/18/20 09:00 04/19/20 16:53 I have reviewed the current psychotropics carefully including drug interactions. Risk benefit ratio favors no change other than as noted in my dictated progress note. Diagnosis: Problems: (1) Tardive dyskinesia (2) Chronic undifferentiated schizophrenia (3) Schizoaffective disorder, bipolar type (4) Bipolar disorder with psychotic features (5) Impulse control disorder, unspecified (6) Anxiety disorder, unspecified KAMILA LOMELI MD Apr 19, 2020 21:01
--- NOTE | 2020-04-19 21:01 | PDOC ---
Exam Note: Good Note: Please also refer to the separate dictated note~for this date of service dictated separately.~Patient seen individually. Discussed the patient with Nursing staff reviewed the chart.~Reviewed interim history and current functioning. Reviewed vital signs,~Labs/ Radiology~and current medications noted below. Continue current treatment with the changes noted in the dictated addendum note Assessment: Vital Signs/I&O: Vital Signs Date Time Temp Pulse Resp B/P (MAP) Pulse Ox O2 Delivery O2 Flow Rate FiO2 04/19/20 18:00 96 04/19/20 16:54 67 96/61 04/19/20 16:11 98.4 18 04/19/20 06:15 Nasal Cannula 2.0 I & O 04/18/20 04/18/20 04/19/20 15:00 23:00 07:00 Intake Total 1060 ml 600 ml Balance 1060 ml 600 ml Labs: Laboratory Tests Test 04/19/20 07:23 04/19/20 19:13 Glucose (Fingerstick) 84 mg/dL (70-99) 158 mg/dL (70-99) H Current Medications: Meds: Laboratory Tests Test 04/19/20 07:23 04/19/20 19:13 Glucose (Fingerstick) 84 mg/dL 158 mg/dL Current Medications Medications (Trade) Dose Ordered Sig/Aaron Route PRN Reason Start Time Stop Time Status Last Admin Dose Admin Albuterol Sulfate (Ventolin) 8 mg PRN Q4HRS PRN IH wheezing 04/10/20 15:45 04/14/20 22:31 DC 04/14/20 22:12 Atorvastatin Calcium (Lipitor) 20 mg QHS PO 04/10/20 21:00 04/19/20 20:54 Calcitriol (Rocaltrol) 0.25 mcg DAILY PO 04/11/20 09:00 04/19/20 09:05 Carvedilol (Coreg) 3.125 mg BIDWMEALS PO 04/10/20 17:00 04/19/20 09:07 Diltiazem HCl (Cardizem 24hr Cd) 120 mg DAILY PO 04/11/20 09:00 04/19/20 09:06 Fluphenazine HCl (Prolixin) 2.5 mg QHS PO 04/10/20 21:00 04/19/20 20:54 Furosemide (Lasix) 40 mg DAILY PO 04/11/20 09:00 04/19/20 09:06 Acetaminophen/ Hydrocodone Bitart (Lortab 7.5/325) 1 tab PRN QID PRN PO MOD-SEV PAIN 04/10/20 15:45 04/15/20 19:58 DC 04/15/20 16:13 Levothyroxine Sodium (Synthroid) 50 mcg DAILYAC PO 04/11/20 07:30 04/16/20 11:53 DC 04/16/20 09:19 Losartan Potassium (Cozaar) 25 mg DAILY PO 04/11/20 09:00 04/19/20 09:07 Methenamine Hippurate (Hiprex) 1 gm BID PO 04/10/20 21:00 04/19/20 20:54 Nystatin (Nystop) 15 kailey PRN BID PRN TP YEAST 04/10/20 15:45 04/18/20 20:47 Pantoprazole Sodium (Protonix) 40 mg BID PO 04/10/20 21:00 04/19/20 20:55 Polyethylene Glycol (miraLAX) 17 gm PRN DAILY PRN PO 2ND CHOICE CONSTIPATION 04/10/20 15:45 Risperidone (RisperDAL) 0.25 mg BID PO 04/10/20 21:00 04/19/20 20:55 Ropinirole HCl (Requip) 1 mg QHS PO 04/10/20 21:00 04/19/20 20:54 Tamsulosin HCl (Flomax) 0.4 mg QEVNG PO 04/10/20 18:00 04/19/20 16:53 Simethicone (Gas-X) 80 mg TID PO 04/10/20 21:00 04/19/20 20:54 Ascorbic Acid (Vitamin C) 500 mg BID PO 04/10/20 21:00 04/19/20 20:54 Artificial Tears (Artificial Tears) 1 drop PRN BID PRN OU DRY EYE 04/10/20 17:00 Celecoxib (CeleBREX) 200 mg QHS PO 04/10/20 21:00 04/19/20 20:54 Cholestyramine Resin (Questran Light) 4 gm PRN DAILY PRN PO LOOSE STOOLS 04/10/20 17:00 Insulin Glargine (Lantus Syringe) 30 unit QHS SQ 04/10/20 21:00 3/9/21 20:53 Isosorbide Mononitrate (Imdur) 60 mg DAILY PO 04/11/20 09:00 04/19/20 09:08 Loperamide HCl (Imodium) 2 mg PRN Q2HRS PRN PO DIARRHEA 04/10/20 17:00 04/15/20 20:50 Rivaroxaban (Xarelto) 20 mg DAILYWSUP PO 04/10/20 17:00 04/19/20 16:53 Acetaminophen (Tylenol) 650 mg PRN Q6HRS PRN PO MILD PAIN / TEMP > 100.3'F 04/10/20 16:30 04/12/20 14:07 Multi-Ingredient Ointment (Analgesic [place]) 1 kailey PRN QID PRN TP MUSCLE PAIN 04/10/20 16:30 Al Hydroxide/Mg Hydroxide (Mylanta Plus Xs) 15 ml PRN AFTMEALHC PRN PO DYSPEPSIA 04/10/20 16:30 Magnesium Hydroxide (Milk Of Magnesia) 2,400 mg PRN QHS PRN PO 2ND CHOICE CONSTIPATION 04/10/20 16:30 Lorazepam (Ativan) 0.25 mg PRN TID PRN PO ANXIETY / AGITATION 04/12/20 16:30 04/18/20 17:16 Divalproex Sodium (Depakote Sprinkles) 250 mg 0900,1700 PO 04/14/20 09:00 04/17/20 18:32 DC 04/17/20 17:04 Neomycin/ Polymyxin/Bacitr/ Hydrocort (Cortisporin Ophth) 2 kailey BID OU 04/14/20 21:00 04/19/20 20:53 Albuterol Sulfate (Ventolin) 2.5 mg PRN Q4HRS PRN IH wheezing 04/14/20 22:31 04/19/20 16:54 Acetaminophen/ Hydrocodone Bitart (Lortab 7.5/325) 1 tab QID PO 04/15/20 20:30 04/19/20 20:55 Cetirizine HCl (ZyrTEC) 10 mg DAILY PO 04/16/20 09:00 04/19/20 09:05 Citalopram Hydrobromide (CeleXA) 20 mg DAILY PO 04/16/20 09:00 04/19/20 09:08 Magnesium Oxide (Magnesium Oxide) 400 mg TID PO 04/16/20 09:00 04/19/20 20:55 Nitroglycerin (Nitrostat) 0.4 mg 1X PRN SL chest pain 04/16/20 00:30 Oxybutynin Chloride (Ditropan) 5 mg TID PO 04/16/20 09:00 04/19/20 20:54 Potassium Chloride (Klor-Con) 20 meq TIDWMEALS PO 04/16/20 08:00 04/19/20 16:53 Non-Formulary Medication (Cholecalciferol (Vitamin D3) (Vitamin D3)) 50 mcg DAILY PO 04/16/20 09:00 UNV Saliva Substitute (Biotene Moisturizing Mouth) 2 spray PRN Q12HR PRN PO DRY MOUTH 04/16/20 01:15 Vitamin D (Vitamin D3) 2,000 unit DAILY PO 04/16/20 09:00 04/19/20 09:08 Levothyroxine Sodium (Synthroid) 50 mcg DAILY06 PO 04/17/20 06:00 04/19/20 09:08 Divalproex Sodium (Depakote Sprinkles) 500 mg 0900,1700 PO 04/18/20 09:00 04/19/20 16:53 I have reviewed the current psychotropics carefully including drug interactions. Risk benefit ratio favors no change other than as noted in my dictated progress note. Diagnosis: Problems: (1) Tardive dyskinesia (2) Chronic undifferentiated schizophrenia (3) Schizoaffective disorder, bipolar type (4) Bipolar disorder with psychotic features (5) Impulse control disorder, unspecified (6) Anxiety disorder, unspecified KAMILA LOMELI MD Apr 19, 2020 21:01
--- NOTE | 2020-04-20 02:06 | NUR ---
Pt has been in his room tonight mainly sleeping. When awake he has been pleasant and cooperative. Meds were taken whole without difficulty and he has had no behaviors tonight.
[2020-04-20 06:14] VITALS: BP 124/90
[2020-04-20] MEDS: LEVOTHYROXINE 50 MCG TABLET PO SCH (06:18)
--- NOTE | 2020-04-20 08:09 | PDOC ---
Exam Note: Good Note: This note is a late entry for 04/19/2020 covers elements not covered in my initial note. Subjective: The patient was seen individually in the evening of 04/19/2020 with Anel MATUTE, discussed and reviewed the chart. He slept 8 hours previous night. Previous night he was agitated when he was taken for a shower but then did better. He was angry in the morning. He was trying to walk in the dayroom undressed without pants and shirt. He did redirect, undressed himself even though he was demanding per nursing staff to assist him but he is able to do it himself and staff encouraged him to do so which he did ultimately. His Depakote has been increased recently. Labs level are to be checked on 04/21. Review of Systems: Shortness of breath on oxygen supplements. No CV, , eye, ENT system symptoms on review. Mental Status Exam: Reasonably oriented. Speech is coherent, less pressured. Abstraction is fair. Computation impaired. Language function intact. Attention span is short. Mood and affect labile at times. Laboratory Data: Reviewed. 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 Schizophrenia chronic undifferentiated. Anxiety disorder unspecified. Impulse control disorder unspecified. Plan: No change from initial note. Continue current psychotropics. Adjust Depakote post labs. Assessment: Vital Signs/I&O: Vital Signs Date Time Temp Pulse Resp B/P (MAP) Pulse Ox O2 Delivery O2 Flow Rate FiO2 04/20/20 06:14 97.0 80 20 124/90 (101) 96 Nasal Cannula 3.0 I & O 04/19/20 04/19/20 04/20/20 15:00 23:00 07:00 Intake Total 660 ml 300 ml Balance 660 ml 300 ml Labs: Laboratory Tests Test 04/19/20 19:13 Glucose (Fingerstick) 158 mg/dL (70-99) H Current Medications: Meds: Laboratory Tests Test 04/19/20 19:13 Glucose (Fingerstick) 158 mg/dL Current Medications Medications (Trade) Dose Ordered Sig/Aaron Route PRN Reason Start Time Stop Time Status Last Admin Dose Admin Albuterol Sulfate (Ventolin) 8 mg PRN Q4HRS PRN IH wheezing 04/10/20 15:45 04/14/20 22:31 DC 04/14/20 22:12 Atorvastatin Calcium (Lipitor) 20 mg QHS PO 04/10/20 21:00 04/19/20 20:54 Calcitriol (Rocaltrol) 0.25 mcg DAILY PO 04/11/20 09:00 04/19/20 09:05 Carvedilol (Coreg) 3.125 mg BIDWMEALS PO 04/10/20 17:00 04/19/20 09:07 Diltiazem HCl (Cardizem 24hr Cd) 120 mg DAILY PO 04/11/20 09:00 04/19/20 09:06 Fluphenazine HCl (Prolixin) 2.5 mg QHS PO 04/10/20 21:00 04/19/20 20:54 Furosemide (Lasix) 40 mg DAILY PO 04/11/20 09:00 04/19/20 09:06 Acetaminophen/ Hydrocodone Bitart (Lortab 7.5/325) 1 tab PRN QID PRN PO MOD-SEV PAIN 04/10/20 15:45 04/15/20 19:58 DC 04/15/20 16:13 Levothyroxine Sodium (Synthroid) 50 mcg DAILYAC PO 04/11/20 07:30 04/16/20 11:53 DC 04/16/20 09:19 Losartan Potassium (Cozaar) 25 mg DAILY PO 04/11/20 09:00 04/19/20 09:07 Methenamine Hippurate (Hiprex) 1 gm BID PO 04/10/20 21:00 04/19/20 20:54 Nystatin (Nystop) 15 kailey PRN BID PRN TP YEAST 04/10/20 15:45 04/18/20 20:47 Pantoprazole Sodium (Protonix) 40 mg BID PO 04/10/20 21:00 04/19/20 20:55 Polyethylene Glycol (miraLAX) 17 gm PRN DAILY PRN PO 2ND CHOICE CONSTIPATION 04/10/20 15:45 Risperidone (RisperDAL) 0.25 mg BID PO 04/10/20 21:00 04/19/20 20:55 Ropinirole HCl (Requip) 1 mg QHS PO 04/10/20 21:00 04/19/20 20:54 Tamsulosin HCl (Flomax) 0.4 mg QEVNG PO 04/10/20 18:00 04/19/20 16:53 Simethicone (Gas-X) 80 mg TID PO 04/10/20 21:00 04/19/20 20:54 Ascorbic Acid (Vitamin C) 500 mg BID PO 04/10/20 21:00 04/19/20 20:54 Artificial Tears (Artificial Tears) 1 drop PRN BID PRN OU DRY EYE 04/10/20 17:00 Celecoxib (CeleBREX) 200 mg QHS PO 04/10/20 21:00 04/19/20 20:54 Cholestyramine Resin (Questran Light) 4 gm PRN DAILY PRN PO LOOSE STOOLS 04/10/20 17:00 Insulin Glargine (Lantus Syringe) 30 unit QHS SQ 04/10/20 21:00 04/19/20 20:53 Isosorbide Mononitrate (Imdur) 60 mg DAILY PO 04/11/20 09:00 04/19/20 09:08 Loperamide HCl (Imodium) 2 mg PRN Q2HRS PRN PO DIARRHEA 04/10/20 17:00 04/15/20 20:50 Rivaroxaban (Xarelto) 20 mg DAILYWSUP PO 04/10/20 17:00 04/19/20 16:53 Acetaminophen (Tylenol) 650 mg PRN Q6HRS PRN PO MILD PAIN / TEMP > 100.3'F 04/10/20 16:30 04/12/20 14:07 Multi-Ingredient Ointment (Analgesic [place]) 1 kailey PRN QID PRN TP MUSCLE PAIN 04/10/20 16:30 Al Hydroxide/Mg Hydroxide (Mylanta Plus Xs) 15 ml PRN AFTMEALHC PRN PO DYSPEPSIA 04/10/20 16:30 Magnesium Hydroxide (Milk Of Magnesia) 2,400 mg PRN QHS PRN PO 2ND CHOICE CONSTIPATION 04/10/20 16:30 Lorazepam (Ativan) 0.25 mg PRN TID PRN PO ANXIETY / AGITATION 04/12/20 16:30 04/18/20 17:16 Divalproex Sodium (Depakote Sprinkles) 250 mg 0900,1700 PO 04/14/20 09:00 04/17/20 18:32 DC 04/17/20 17:04 Neomycin/ Polymyxin/Bacitr/ Hydrocort (Cortisporin Ophth) 2 kailey BID OU 04/14/20 21:00 04/19/20 20:53 Albuterol Sulfate (Ventolin) 2.5 mg PRN Q4HRS PRN IH wheezing 04/14/20 22:31 04/19/20 16:54 Acetaminophen/ Hydrocodone Bitart (Lortab 7.5/325) 1 tab QID PO 04/15/20 20:30 04/19/20 20:55 Cetirizine HCl (ZyrTEC) 10 mg DAILY PO 04/16/20 09:00 04/19/20 09:05 Citalopram Hydrobromide (CeleXA) 20 mg DAILY PO 04/16/20 09:00 04/19/20 09:08 Magnesium Oxide (Magnesium Oxide) 400 mg TID PO 04/16/20 09:00 04/19/20 20:55 Nitroglycerin (Nitrostat) 0.4 mg 1X PRN SL chest pain 04/16/20 00:30 Oxybutynin Chloride (Ditropan) 5 mg TID PO 04/16/20 09:00 04/19/20 20:54 Potassium Chloride (Klor-Con) 20 meq TIDWMEALS PO 04/16/20 08:00 04/19/20 16:53 Non-Formulary Medication (Cholecalciferol (Vitamin D3) (Vitamin D3)) 50 mcg DAILY PO 04/16/20 09:00 UNV Saliva Substitute (Biotene Moisturizing Mouth) 2 spray PRN Q12HR PRN PO DRY MOUTH 04/16/20 01:15 Vitamin D (Vitamin D3) 2,000 unit DAILY PO 04/16/20 09:00 04/19/20 09:08 Levothyroxine Sodium (Synthroid) 50 mcg DAILY06 PO 04/17/20 06:00 04/20/20 06:18 Divalproex Sodium (Depakote Sprinkles) 500 mg 0900,1700 PO 04/18/20 09:00 04/19/20 16:53 I have reviewed the current psychotropics carefully including drug interactions. Risk benefit ratio favors no change other than as noted in my dictated progress note. Diagnosis: Problems: (1) Tardive dyskinesia (2) Chronic undifferentiated schizophrenia (3) Schizoaffective disorder, bipolar type (4) Bipolar disorder with psychotic features (5) Impulse control disorder, unspecified (6) Anxiety disorder, unspecified KAMILA LOMELI MD Apr 20, 2020 08:09
[2020-04-20] MEDS: ISOSORBIDE MONONITRATE ER 30 MG TAB.ER.24H PO SCH (08:23)
[2020-04-20] MEDS: CITALOPRAM 10 MG TABLET. PO SCH (08:23)
[2020-04-20] MEDS: CARVEDILOL 3.125 MG TABLET PO SCH ×2 (08:23→17:32)
[2020-04-20] MEDS: ASCORBIC ACID 500 MG TABLET PO SCH ×2 (08:23→19:46)
[2020-04-20] MEDS: POTASSIUM CHLORIDE 20 MEQ TABLET.ER. PO SCH ×3 (08:24→17:40)
[2020-04-20] MEDS: CALCITRIOL 0.25 MCG CAPSULE PO SCH (08:24)
[2020-04-20] MEDS: risperiDONE 0.25 MG TABLET. PO SCH ×2 (08:24→19:48)
[2020-04-20] MEDS: SIMETHICONE 80 MG TAB.CHEW PO SCH ×3 (08:24→19:47)
[2020-04-20] MEDS: PANTOPRAZOLE 40 MG TABLET. PO SCH ×2 (08:25→19:47)
[2020-04-20] MEDS: FUROSEMIDE 40 MG TABLET PO SCH (08:25)
[2020-04-20] MEDS: OXYBUTYNIN CHLORIDE 5 MG TABLET PO SCH ×3 (08:25→19:46)
[2020-04-20] MEDS: LOSARTAN 25 MG TABLET. PO SCH (08:25)
[2020-04-20] MEDS: CHOLECALCIFEROL (VITAMIN D3) 1,000 UNIT TABLET PO SCH (08:25)
[2020-04-20] MEDS: CETIRIZINE HCL 10 MG TABLET PO SCH (08:26)
[2020-04-20] MEDS: HYDROcodone/APAP 7.5/325MG 1 TAB TABLET PO SCH ×4 (08:26→19:55)
[2020-04-20] MEDS: DIVALPROEX 125 MG CAP.SPRINK PO SCH ×2 (08:26→17:40)
[2020-04-20] MEDS: METHENAMINE HIPPURATE 1 GM TABLET PO SCH ×2 (08:26→19:50)
[2020-04-20] MEDS: NEOMYCIN/BACI/POLY/HC OPHTH OINTMENT 3.5GM TUBE. OU SCH ×2 (08:27→19:50)
[2020-04-20] MEDS: MAGNESIUM OXIDE 400 MG TABLET PO SCH ×3 (08:27→19:48)
--- NOTE | 2020-04-20 11:53 | NUR ---
Nursing note: Pt in dining room at time of AM med pass and assessment. He is med compliant and cooperative with assessment. Pt was upset that he had not been given water yet, though he had already drank coffee and 3 cups of juice. Pt was given water to take his meds with and much happier. He c/o pain in his back. Scheduled pain med administered. After breakfast, pt went back to his room where he is currently laying in bed. Will continue to monitor.
[2020-04-20] MEDS: RIVAROXABAN 10 MG TABLET. PO SCH (17:35)
[2020-04-20] MEDS: TAMSULOSIN 0.4 MG CAP.ER.24H. PO SCH (17:41)
[2020-04-20] MEDS: ATORVASTATIN CALCIUM 20 MG TABLET PO SCH (19:47)
[2020-04-20] MEDS: rOPINIRole 1 MG TABLET. PO SCH (19:47)
[2020-04-20] MEDS: CELECOXIB 100 MG CAPSULE PO SCH (19:47)
[2020-04-20] MEDS: INSULIN GLARGINE SYRINGE. SQ SCH (21:00)
[2020-04-20 22:43] VITALS: BP 101/69
--- NOTE | 2020-04-20 22:47 | PDOC ---
Exam Note: Good Note: Please also refer to the separate dictated note~for this date of service dictated separately.~Patient seen individually. Discussed the patient with Nursing staff reviewed the chart.~Reviewed interim history and current functioning. Reviewed vital signs,~Labs/ Radiology~and current medications noted below. Continue current treatment with the changes noted in the dictated addendum note Assessment: Vital Signs/I&O: Vital Signs Date Time Temp Pulse Resp B/P (MAP) Pulse Ox O2 Delivery O2 Flow Rate FiO2 04/20/20 22:43 98.0 69 16 101/69 (80) 98 Nasal Cannula 3.0 I & O 04/19/20 04/19/20 04/20/20 15:00 23:00 07:00 Intake Total 660 ml 300 ml Balance 660 ml 300 ml Labs: Laboratory Tests Test 04/20/20 08:25 04/20/20 19:21 Glucose (Fingerstick) 94 mg/dL (70-99) 134 mg/dL (70-99) H Current Medications: Meds: Laboratory Tests Test 04/20/20 08:25 04/20/20 19:21 Glucose (Fingerstick) 94 mg/dL 134 mg/dL Current Medications Medications (Trade) Dose Ordered Sig/Aaron Route PRN Reason Start Time Stop Time Status Last Admin Dose Admin Albuterol Sulfate (Ventolin) 8 mg PRN Q4HRS PRN IH wheezing 04/10/20 15:45 04/14/20 22:31 DC 04/14/20 22:12 Atorvastatin Calcium (Lipitor) 20 mg QHS PO 04/10/20 21:00 04/20/20 19:47 Calcitriol (Rocaltrol) 0.25 mcg DAILY PO 04/11/20 09:00 04/20/20 08:24 Carvedilol (Coreg) 3.125 mg BIDWMEALS PO 04/10/20 17:00 04/20/20 17:32 Diltiazem HCl (Cardizem 24hr Cd) 120 mg DAILY PO 04/11/20 09:00 04/20/20 08:24 Fluphenazine HCl (Prolixin) 2.5 mg QHS PO 04/10/20 21:00 04/20/20 19:48 Furosemide (Lasix) 40 mg DAILY PO 04/11/20 09:00 04/20/20 08:25 Acetaminophen/ Hydrocodone Bitart (Lortab 7.5/325) 1 tab PRN QID PRN PO MOD-SEV PAIN 04/10/20 15:45 04/15/20 19:58 DC 04/15/20 16:13 Levothyroxine Sodium (Synthroid) 50 mcg DAILYAC PO 04/11/20 07:30 04/16/20 11:53 DC 04/16/20 09:19 Losartan Potassium (Cozaar) 25 mg DAILY PO 04/11/20 09:00 04/20/20 08:25 Methenamine Hippurate (Hiprex) 1 gm BID PO 04/10/20 21:00 04/20/20 19:50 Nystatin (Nystop) 15 kailey PRN BID PRN TP YEAST 04/10/20 15:45 04/18/20 20:47 Pantoprazole Sodium (Protonix) 40 mg BID PO 04/10/20 21:00 04/20/20 19:47 Polyethylene Glycol (miraLAX) 17 gm PRN DAILY PRN PO 2ND CHOICE CONSTIPATION 04/10/20 15:45 Risperidone (RisperDAL) 0.25 mg BID PO 04/10/20 21:00 04/20/20 19:48 Ropinirole HCl (Requip) 1 mg QHS PO 04/10/20 21:00 04/20/20 19:47 Tamsulosin HCl (Flomax) 0.4 mg QEVNG PO 04/10/20 18:00 04/20/20 17:41 Simethicone (Gas-X) 80 mg TID PO 04/10/20 21:00 04/20/20 19:47 Ascorbic Acid (Vitamin C) 500 mg BID PO 04/10/20 21:00 04/20/20 19:46 Artificial Tears (Artificial Tears) 1 drop PRN BID PRN OU DRY EYE 04/10/20 17:00 Celecoxib (CeleBREX) 200 mg QHS PO 04/10/20 21:00 04/20/20 19:47 Cholestyramine Resin (Questran Light) 4 gm PRN DAILY PRN PO LOOSE STOOLS 04/10/20 17:00 Insulin Glargine (Lantus Syringe) 30 unit QHS SQ 04/10/20 21:00 04/20/20 21:00 Isosorbide Mononitrate (Imdur) 60 mg DAILY PO 04/11/20 09:00 04/20/20 08:23 Loperamide HCl (Imodium) 2 mg PRN Q2HRS PRN PO DIARRHEA 04/10/20 17:00 04/15/20 20:50 Rivaroxaban (Xarelto) 20 mg DAILYWSUP PO 04/10/20 17:00 04/20/20 17:35 Acetaminophen (Tylenol) 650 mg PRN Q6HRS PRN PO MILD PAIN / TEMP > 100.3'F 04/10/20 16:30 04/12/20 14:07 Multi-Ingredient Ointment (Analgesic [place]) 1 kailey PRN QID PRN TP MUSCLE PAIN 04/10/20 16:30 Al Hydroxide/Mg Hydroxide (Mylanta Plus Xs) 15 ml PRN AFTMEALHC PRN PO DYSPEPSIA 04/10/20 16:30 Magnesium Hydroxide (Milk Of Magnesia) 2,400 mg PRN QHS PRN PO 2ND CHOICE CONSTIPATION 04/10/20 16:30 Lorazepam (Ativan) 0.25 mg PRN TID PRN PO ANXIETY / AGITATION 04/12/20 16:30 04/18/20 17:16 Divalproex Sodium (Depakote Sprinkles) 250 mg 0900,1700 PO 04/14/20 09:00 04/17/20 18:32 DC 04/17/20 17:04 Neomycin/ Polymyxin/Bacitr/ Hydrocort (Cortisporin Ophth) 2 kailey BID OU 04/14/20 21:00 04/20/20 19:50 Albuterol Sulfate (Ventolin) 2.5 mg PRN Q4HRS PRN IH wheezing 04/14/20 22:31 04/19/20 16:54 Acetaminophen/ Hydrocodone Bitart (Lortab 7.5/325) 1 tab QID PO 04/15/20 20:30 04/20/20 19:55 Cetirizine HCl (ZyrTEC) 10 mg DAILY PO 04/16/20 09:00 04/20/20 08:26 Citalopram Hydrobromide (CeleXA) 20 mg DAILY PO 04/16/20 09:00 04/20/20 08:23 Magnesium Oxide (Magnesium Oxide) 400 mg TID PO 04/16/20 09:00 04/20/20 19:48 Nitroglycerin (Nitrostat) 0.4 mg 1X PRN SL chest pain 04/16/20 00:30 Oxybutynin Chloride (Ditropan) 5 mg TID PO 04/16/20 09:00 04/20/20 19:46 Potassium Chloride (Klor-Con) 20 meq TIDWMEALS PO 04/16/20 08:00 04/20/20 17:40 Non-Formulary Medication (Cholecalciferol (Vitamin D3) (Vitamin D3)) 50 mcg DAILY PO 04/16/20 09:00 UNV Saliva Substitute (Biotene Moisturizing Mouth) 2 spray PRN Q12HR PRN PO DRY MOUTH 04/16/20 01:15 Vitamin D (Vitamin D3) 2,000 unit DAILY PO 04/16/20 09:00 04/20/20 08:25 Levothyroxine Sodium (Synthroid) 50 mcg DAILY06 PO 04/17/20 06:00 04/20/20 06:18 Divalproex Sodium (Depakote Sprinkles) 500 mg 0900,1700 PO 04/18/20 09:00 04/20/20 17:40 I have reviewed the current psychotropics carefully including drug interactions. Risk benefit ratio favors no change other than as noted in my dictated progress note. Diagnosis: Problems: (1) Tardive dyskinesia (2) Chronic undifferentiated schizophrenia (3) Schizoaffective disorder, bipolar type (4) Bipolar disorder with psychotic features (5) Impulse control disorder, unspecified (6) Anxiety disorder, unspecified KAMILA LOMELI MD Apr 20, 2020 22:47
--- NOTE | 2020-04-21 01:40 | NUR ---
Pt is calm, cooperative, and compliant. No behaviors are present at this time. He is compliant with his medications and assessment.
[2020-04-21 05:37] VITALS: BP 100/60
[2020-04-21] MEDS: LEVOTHYROXINE 50 MCG TABLET PO SCH (05:39)
[2020-04-21 06:34] LABS: BASO % 0 % (0-3); EOS # 0.3 x10^3/uL (0.0-0.7); EOS % 4 % (0-3); HEMATOCRIT 38.9 % (39.0-53.0); HEMOGLOBIN 12.2 g/dL (13.0-17.5); LYMPH # 1.6 x10^3/uL (1.0-4.8); LYMPH % 17 % (24-48); MEAN CORPUSCULAR HEMOGLOBIN 28 pg (25-35); MEAN CORPUSCULAR HGB CONC 31 g/dL (31-37); MEAN CORPUSCULAR VOLUME 90 fL (79-100); MONO # 0.9 x10^3/uL (0.0-1.1); MONO % 10 % (0-9); NEUT # 6.4 x10^3uL (1.8-7.7); NEUT % 69 % (31-73); PLATELET COUNT 264 x10^3/uL (140-400); RED BLOOD COUNT 4.32 x10^6/uL (4.30-5.70); RED CELL DISTRIBUTION WIDTH 14.4 % (11.5-14.5); WHITE BLOOD COUNT 9.3 x10^3/uL (4.0-11.0)
[2020-04-21 06:54] LABS: ALBUMIN/GLOBULIN RATIO 0.8 (1.0-1.7); ALK PHOS 62 U/L (46-116); ALT (SGPT) 26 U/L (16-63); ANION GAP 4 (6-14); AST (SGOT) 15 U/L (15-37); BLOOD UREA NITROGEN 21 mg/dL (8-26); BUN/CREATININE RATIO 19 (6-20); CALCIUM 8.5 mg/dL (8.5-10.1); CARBON DIOXIDE 35 mmol/L (21-32); CHLORIDE 99 mmol/L (98-107); CREATININE 1.1 mg/dL (0.7-1.3); GFR 65.8; GLUCOSE 93 mg/dL (70-99); POTASSIUM 5.3 mmol/L (3.5-5.1); SODIUM 138 mmol/L (136-145); TOTAL BILIRUBIN 0.5 mg/dL (0.2-1.0); TOTAL PROTEIN 6.7 g/dL (6.4-8.2)
[2020-04-21 06:57] LABS: VAL ACID 38 mcg/mL (50-100)
[2020-04-21] MEDS: POTASSIUM CHLORIDE 20 MEQ TABLET.ER. PO SCH ×2 (08:00→12:00)
--- NOTE | 2020-04-21 08:00 | PDOC ---
Exam Note: Good Note: This note is a late entry for 04/20/2020 covers elements not covered in my initial note. Subjective: The patient was seen individually in the evening of 04/20/2020 with Anel MATUTE, discussed and reviewed the chart. He slept 7 hours previous night. The patient spends much time in bed. He has been anxious at times but otherwise appropriate, somewhat paranoid. Review of Systems: Positive for chronic pain, wanting his pain meds right on the minute. Shortness of breath on O2 supplements. Impaired ambulation. Difficulty with his speech due to tardive dyskinetic movements. No CV, , eye system symptoms on review. Mental Status Exam: Reasonably oriented. Speech as noted above. Abstraction is fair. Computation impaired. Language function intact. Attention span is short. Mood and affect somewhat anxious, labile, withdrawn at times. Laboratory Data: Reviewed. 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 Anxiety disorder unspecified. Impulse control disorder unspecified. Plan: No change from initial note. We will check labs in the morning. Assessment: Vital Signs/I&O: Vital Signs Date Time Temp Pulse Resp B/P (MAP) Pulse Ox O2 Delivery O2 Flow Rate FiO2 04/21/20 05:37 97.2 80 24 100/60 (73) 92 Room Air 04/20/20 22:43 3.0 I & O 04/20/20 04/20/20 04/21/20 15:00 23:00 07:00 Intake Total 820 ml 790 ml Balance 820 ml 790 ml Labs: Laboratory Tests Test 04/20/20 08:25 04/20/20 19:21 04/21/20 06:10 04/21/20 07:43 Glucose (Fingerstick) 94 mg/dL (70-99) 134 mg/dL (70-99) H 90 mg/dL (70-99) White Blood Count 9.3 x10^3/uL (4.0-11.0) Red Blood Count 4.32 x10^6/uL (4.30-5.70) Hemoglobin 12.2 g/dL (13.0-17.5) L Hematocrit 38.9 % (39.0-53.0) L Mean Corpuscular Volume 90 fL (79-100) Mean Corpuscular Hemoglobin 28 pg (25-35) Mean Corpuscular Hemoglobin Concent 31 g/dL (31-37) Red Cell Distribution Width 14.4 % (11.5-14.5) Platelet Count 264 x10^3/uL (140-400) Neutrophils (%) (Auto) 69 % (31-73) Lymphocytes (%) (Auto) 17 % (24-48) L Monocytes (%) (Auto) 10 % (0-9) H Eosinophils (%) (Auto) 4 % (0-3) H Basophils (%) (Auto) 0 % (0-3) Neutrophils # (Auto) 6.4 x10^3uL (1.8-7.7) Lymphocytes # (Auto) 1.6 x10^3/uL (1.0-4.8) Monocytes # (Auto) 0.9 x10^3/uL (0.0-1.1) Eosinophils # (Auto) 0.3 x10^3/uL (0.0-0.7) Basophils # (Auto) 0.0 x10^3/uL (0.0-0.2) Sodium Level 138 mmol/L (136-145) Potassium Level 5.3 mmol/L (3.5-5.1) H Chloride Level 99 mmol/L (98-107) Carbon Dioxide Level 35 mmol/L (21-32) H Anion Gap 4 (6-14) L Blood Urea Nitrogen 21 mg/dL (8-26) Creatinine 1.1 mg/dL (0.7-1.3) Estimated GFR (Cockcroft-Gault) 65.8 BUN/Creatinine Ratio 19 (6-20) Glucose Level 93 mg/dL (70-99) Calcium Level 8.5 mg/dL (8.5-10.1) Total Bilirubin 0.5 mg/dL (0.2-1.0) Aspartate Amino Transferase (AST) 15 U/L (15-37) Alanine Aminotransferase (ALT) 26 U/L (16-63) Alkaline Phosphatase 62 U/L (46-116) Total Protein 6.7 g/dL (6.4-8.2) Albumin 3.0 g/dL (3.4-5.0) L Albumin/Globulin Ratio 0.8 (1.0-1.7) L Valproic Acid Level 38 mcg/mL (50-100) L Valproic Acid Last Dose Date 04/20/20 Valproic Acid Last Dose Time 1700 Current Medications: Meds: Laboratory Tests Test 04/20/20 08:25 04/20/20 19:21 04/21/20 06:10 04/21/20 07:43 Glucose (Fingerstick) 94 mg/dL 134 mg/dL 90 mg/dL White Blood Count 9.3 x10^3/uL Red Blood Count 4.32 x10^6/uL Hemoglobin 12.2 g/dL Hematocrit 38.9 % Mean Corpuscular Volume 90 fL Mean Corpuscular Hemoglobin 28 pg Mean Corpuscular Hemoglobin Concent 31 g/dL Red Cell Distribution Width 14.4 % Platelet Count 264 x10^3/uL Neutrophils (%) (Auto) 69 % Lymphocytes (%) (Auto) 17 % Monocytes (%) (Auto) 10 % Eosinophils (%) (Auto) 4 % Basophils (%) (Auto) 0 % Neutrophils # (Auto) 6.4 x10^3uL Lymphocytes # (Auto) 1.6 x10^3/uL Monocytes # (Auto) 0.9 x10^3/uL Eosinophils # (Auto) 0.3 x10^3/uL Basophils # (Auto) 0.0 x10^3/uL Sodium Level 138 mmol/L Potassium Level 5.3 mmol/L Chloride Level 99 mmol/L Carbon Dioxide Level 35 mmol/L Anion Gap 4 Blood Urea Nitrogen 21 mg/dL Creatinine 1.1 mg/dL Estimated GFR (Cockcroft-Gault) 65.8 BUN/Creatinine Ratio 19 Glucose Level 93 mg/dL Calcium Level 8.5 mg/dL Total Bilirubin 0.5 mg/dL Aspartate Amino Transf (AST/SGOT) 15 U/L Alanine Aminotransferase (ALT/SGPT) 26 U/L Alkaline Phosphatase 62 U/L Total Protein 6.7 g/dL Albumin 3.0 g/dL Albumin/Globulin Ratio 0.8 Valproic Acid (Depakene) Level 38 mcg/mL Valproic Acid Last Dose Date 04/20/20 Valproic Acid Last Dose Time 1700 Current Medications Medications (Trade) Dose Ordered Sig/Aaron Route PRN Reason Start Time Stop Time Status Last Admin Dose Admin Albuterol Sulfate (Ventolin) 8 mg PRN Q4HRS PRN IH wheezing 04/10/20 15:45 04/14/20 22:31 DC 04/14/20 22:12 Atorvastatin Calcium (Lipitor) 20 mg QHS PO 04/10/20 21:00 04/20/20 19:47 Calcitriol (Rocaltrol) 0.25 mcg DAILY PO 04/11/20 09:00 04/20/20 08:24 Carvedilol (Coreg) 3.125 mg BIDWMEALS PO 04/10/20 17:00 04/20/20 17:32 Diltiazem HCl (Cardizem 24hr Cd) 120 mg DAILY PO 04/11/20 09:00 04/20/20 08:24 Fluphenazine HCl (Prolixin) 2.5 mg QHS PO 04/10/20 21:00 04/20/20 19:48 Furosemide (Lasix) 40 mg DAILY PO 04/11/20 09:00 04/20/20 08:25 Acetaminophen/ Hydrocodone Bitart (Lortab 7.5/325) 1 tab PRN QID PRN PO MOD-SEV PAIN 04/10/20 15:45 04/15/20 19:58 DC 04/15/20 16:13 Levothyroxine Sodium (Synthroid) 50 mcg DAILYAC PO 04/11/20 07:30 04/16/20 11:53 DC 04/16/20 09:19 Losartan Potassium (Cozaar) 25 mg DAILY PO 04/11/20 09:00 04/20/20 08:25 Methenamine Hippurate (Hiprex) 1 gm BID PO 04/10/20 21:00 04/20/20 19:50 Nystatin (Nystop) 15 kailey PRN BID PRN TP YEAST 04/10/20 15:45 04/18/20 20:47 Pantoprazole Sodium (Protonix) 40 mg BID PO 04/10/20 21:00 04/20/20 19:47 Polyethylene Glycol (miraLAX) 17 gm PRN DAILY PRN PO 2ND CHOICE CONSTIPATION 04/10/20 15:45 Risperidone (RisperDAL) 0.25 mg BID PO 04/10/20 21:00 04/20/20 19:48 Ropinirole HCl (Requip) 1 mg QHS PO 04/10/20 21:00 04/20/20 19:47 Tamsulosin HCl (Flomax) 0.4 mg QEVNG PO 04/10/20 18:00 04/20/20 17:41 Simethicone (Gas-X) 80 mg TID PO 04/10/20 21:00 04/20/20 19:47 Ascorbic Acid (Vitamin C) 500 mg BID PO 04/10/20 21:00 04/20/20 19:46 Artificial Tears (Artificial Tears) 1 drop PRN BID PRN OU DRY EYE 04/10/20 17:00 Celecoxib (CeleBREX) 200 mg QHS PO 04/10/20 21:00 04/20/20 19:47 Cholestyramine Resin (Questran Light) 4 gm PRN DAILY PRN PO LOOSE STOOLS 04/10/20 17:00 Insulin Glargine (Lantus Syringe) 30 unit QHS SQ 04/10/20 21:00 04/20/20 21:00 Isosorbide Mononitrate (Imdur) 60 mg DAILY PO 04/11/20 09:00 04/20/20 08:23 Loperamide HCl (Imodium) 2 mg PRN Q2HRS PRN PO DIARRHEA 04/10/20 17:00 04/15/20 20:50 Rivaroxaban (Xarelto) 20 mg DAILYWSUP PO 04/10/20 17:00 04/20/20 17:35 Acetaminophen (Tylenol) 650 mg PRN Q6HRS PRN PO MILD PAIN / TEMP > 100.3'F 04/10/20 16:30 04/12/20 14:07 Multi-Ingredient Ointment (Analgesic Bentley) 1 kailey PRN QID PRN TP MUSCLE PAIN 04/10/20 16:30 Al Hydroxide/Mg Hydroxide (Mylanta Plus Xs) 15 ml PRN AFTMEALHC PRN PO DYSPEPSIA 04/10/20 16:30 Magnesium Hydroxide (Milk Of Magnesia) 2,400 mg PRN QHS PRN PO 2ND CHOICE CONSTIPATION 04/10/20 16:30 Lorazepam (Ativan) 0.25 mg PRN TID PRN PO ANXIETY / AGITATION 04/12/20 16:30 04/18/20 17:16 Divalproex Sodium (Depakote Sprinkles) 250 mg 0900,1700 PO 04/14/20 09:00 04/17/20 18:32 DC 04/17/20 17:04 Neomycin/ Polymyxin/Bacitr/ Hydrocort (Cortisporin Ophth) 2 kailey BID OU 04/14/20 21:00 04/20/20 19:50 Albuterol Sulfate (Ventolin) 2.5 mg PRN Q4HRS PRN IH wheezing 04/14/20 22:31 04/19/20 16:54 Acetaminophen/ Hydrocodone Bitart (Lortab 7.5/325) 1 tab QID PO 04/15/20 20:30 04/20/20 19:55 Cetirizine HCl (ZyrTEC) 10 mg DAILY PO 04/16/20 09:00 04/20/20 08:26 Citalopram Hydrobromide (CeleXA) 20 mg DAILY PO 04/16/20 09:00 04/20/20 08:23 Magnesium Oxide (Magnesium Oxide) 400 mg TID PO 04/16/20 09:00 04/20/20 19:48 Nitroglycerin (Nitrostat) 0.4 mg 1X PRN SL chest pain 04/16/20 00:30 Oxybutynin Chloride (Ditropan) 5 mg TID PO 04/16/20 09:00 04/20/20 19:46 Potassium Chloride (Klor-Con) 20 meq TIDWMEALS PO 04/16/20 08:00 04/20/20 17:40 Non-Formulary Medication (Cholecalciferol (Vitamin D3) (Vitamin D3)) 50 mcg DAILY PO 04/16/20 09:00 UNV Saliva Substitute (Biotene Moisturizing Mouth) 2 spray PRN Q12HR PRN PO DRY MOUTH 04/16/20 01:15 Vitamin D (Vitamin D3) 2,000 unit DAILY PO 04/16/20 09:00 04/20/20 08:25 Levothyroxine Sodium (Synthroid) 50 mcg DAILY06 PO 04/17/20 06:00 04/21/20 05:39 Divalproex Sodium (Depakote Sprinkles) 500 mg 0900,1700 PO 04/18/20 09:00 04/20/20 17:40 I have reviewed the current psychotropics carefully including drug interactions. Risk benefit ratio favors no change other than as noted in my dictated progress note. Diagnosis: Problems: (1) Tardive dyskinesia (2) Schizoaffective disorder, bipolar type (3) Bipolar disorder with psychotic features (4) Impulse control disorder, unspecified (5) Anxiety disorder, unspecified KAMILA LOMELI MD Apr 21, 2020 08:00
[2020-04-21] MEDS: MAGNESIUM OXIDE 400 MG TABLET PO SCH ×3 (09:00→20:28)
[2020-04-21] MEDS: ASCORBIC ACID 500 MG TABLET PO SCH ×2 (09:13→20:26)
[2020-04-21] MEDS: CHOLECALCIFEROL (VITAMIN D3) 1,000 UNIT TABLET PO SCH (09:13)
[2020-04-21] MEDS: ISOSORBIDE MONONITRATE ER 30 MG TAB.ER.24H PO SCH (09:14)
[2020-04-21] MEDS: OXYBUTYNIN CHLORIDE 5 MG TABLET PO SCH ×3 (09:14→20:26)
[2020-04-21] MEDS: CETIRIZINE HCL 10 MG TABLET PO SCH (09:14)
[2020-04-21] MEDS: DIVALPROEX 125 MG CAP.SPRINK PO SCH ×2 (09:14→17:30)
[2020-04-21] MEDS: risperiDONE 0.25 MG TABLET. PO SCH ×2 (09:14→20:26)
[2020-04-21] MEDS: PANTOPRAZOLE 40 MG TABLET. PO SCH ×2 (09:14→20:25)
[2020-04-21] MEDS: SIMETHICONE 80 MG TAB.CHEW PO SCH ×3 (09:15→20:25)
[2020-04-21] MEDS: METHENAMINE HIPPURATE 1 GM TABLET PO SCH ×2 (09:15→20:29)
[2020-04-21] MEDS: FUROSEMIDE 40 MG TABLET PO SCH (09:15)
[2020-04-21] MEDS: LOSARTAN 25 MG TABLET. PO SCH (09:16)
[2020-04-21] MEDS: CALCITRIOL 0.25 MCG CAPSULE PO SCH (09:16)
[2020-04-21] MEDS: HYDROcodone/APAP 7.5/325MG 1 TAB TABLET PO SCH ×4 (09:16→21:00)
[2020-04-21] MEDS: CARVEDILOL 3.125 MG TABLET PO SCH ×2 (09:16→17:00)
[2020-04-21] MEDS: NEOMYCIN/BACI/POLY/HC OPHTH OINTMENT 3.5GM TUBE. OU SCH ×2 (09:17→20:30)
[2020-04-21] MEDS: CITALOPRAM 10 MG TABLET. PO SCH (09:17)
--- NOTE | 2020-04-21 16:06 | NUR ---
[facility] and review medication list. Maryanne appreciative of call. TRINI will contact Maryanne again next week for update.
[2020-04-21 16:21] VITALS: BP 92/62
--- NOTE | 2020-04-21 16:30 | NUR ---
Nursing note: Pt has spent most of the day in bed. He is compliant with meds whole and continues to c/o back pain, but receives scheduled pain medication. Pt is demanding at times and wants someone to dress him and change his brief for him when he is capable of doing these cares himself. Pt will get up at meal times, but then goes back to bed though he receives much encouragement to stay up a little bit and participate in groups. Will continue to monitor.
[2020-04-21] MEDS: RIVAROXABAN 10 MG TABLET. PO SCH (17:30)
[2020-04-21] MEDS: TAMSULOSIN 0.4 MG CAP.ER.24H. PO SCH ×2 (17:33→20:28)
[2020-04-21] MEDS: rOPINIRole 1 MG TABLET. PO SCH (20:25)
[2020-04-21] MEDS: ATORVASTATIN CALCIUM 20 MG TABLET PO SCH (20:26)
[2020-04-21] MEDS: CELECOXIB 100 MG CAPSULE PO SCH (20:28)
[2020-04-21 20:39] VITALS: BP 96/58
--- NOTE | 2020-04-21 20:59 | PDOC ---
Exam Note: Good Note: Please also refer to the separate dictated note~for this date of service dictated separately.~Patient seen individually. Discussed the patient with Nursing staff reviewed the chart.~Reviewed interim history and current functioning. Reviewed vital signs,~Labs/ Radiology~and current medications noted below. Continue current treatment with the changes noted in the dictated addendum note Assessment: Vital Signs/I&O: Vital Signs Date Time Temp Pulse Resp B/P (MAP) Pulse Ox O2 Delivery O2 Flow Rate FiO2 04/21/20 20:39 66 96/58 (71) 04/21/20 20:39 20 Nasal Cannula 2.0 04/21/20 17:30 96 04/21/20 16:21 98.7 I & O 04/20/20 04/20/20 04/21/20 15:00 23:00 07:00 Intake Total 820 ml 790 ml Balance 820 ml 790 ml Labs: Laboratory Tests Test 04/21/20 06:10 04/21/20 07:43 04/21/20 19:17 White Blood Count 9.3 x10^3/uL (4.0-11.0) Red Blood Count 4.32 x10^6/uL (4.30-5.70) Hemoglobin 12.2 g/dL (13.0-17.5) L Hematocrit 38.9 % (39.0-53.0) L Mean Corpuscular Volume 90 fL (79-100) Mean Corpuscular Hemoglobin 28 pg (25-35) Mean Corpuscular Hemoglobin Concent 31 g/dL (31-37) Red Cell Distribution Width 14.4 % (11.5-14.5) Platelet Count 264 x10^3/uL (140-400) Neutrophils (%) (Auto) 69 % (31-73) Lymphocytes (%) (Auto) 17 % (24-48) L Monocytes (%) (Auto) 10 % (0-9) H Eosinophils (%) (Auto) 4 % (0-3) H Basophils (%) (Auto) 0 % (0-3) Neutrophils # (Auto) 6.4 x10^3uL (1.8-7.7) Lymphocytes # (Auto) 1.6 x10^3/uL (1.0-4.8) Monocytes # (Auto) 0.9 x10^3/uL (0.0-1.1) Eosinophils # (Auto) 0.3 x10^3/uL (0.0-0.7) Basophils # (Auto) 0.0 x10^3/uL (0.0-0.2) Sodium Level 138 mmol/L (136-145) Potassium Level 5.3 mmol/L (3.5-5.1) H Chloride Level 99 mmol/L (98-107) Carbon Dioxide Level 35 mmol/L (21-32) H Anion Gap 4 (6-14) L Blood Urea Nitrogen 21 mg/dL (8-26) Creatinine 1.1 mg/dL (0.7-1.3) Estimated GFR (Cockcroft-Gault) 65.8 BUN/Creatinine Ratio 19 (6-20) Glucose Level 93 mg/dL (70-99) Calcium Level 8.5 mg/dL (8.5-10.1) Total Bilirubin 0.5 mg/dL (0.2-1.0) Aspartate Amino Transferase (AST) 15 U/L (15-37) Alanine Aminotransferase (ALT) 26 U/L (16-63) Alkaline Phosphatase 62 U/L (46-116) Total Protein 6.7 g/dL (6.4-8.2) Albumin 3.0 g/dL (3.4-5.0) L Albumin/Globulin Ratio 0.8 (1.0-1.7) L Valproic Acid Level 38 mcg/mL (50-100) L Valproic Acid Last Dose Date 04/20/20 Valproic Acid Last Dose Time 1700 Glucose (Fingerstick) 90 mg/dL (70-99) 109 mg/dL (70-99) H Current Medications: Meds: Laboratory Tests Test 04/21/20 06:10 04/21/20 07:43 04/21/20 19:17 White Blood Count 9.3 x10^3/uL Red Blood Count 4.32 x10^6/uL Hemoglobin 12.2 g/dL Hematocrit 38.9 % Mean Corpuscular Volume 90 fL Mean Corpuscular Hemoglobin 28 pg Mean Corpuscular Hemoglobin Concent 31 g/dL Red Cell Distribution Width 14.4 % Platelet Count 264 x10^3/uL Neutrophils (%) (Auto) 69 % Lymphocytes (%) (Auto) 17 % Monocytes (%) (Auto) 10 % Eosinophils (%) (Auto) 4 % Basophils (%) (Auto) 0 % Neutrophils # (Auto) 6.4 x10^3uL Lymphocytes # (Auto) 1.6 x10^3/uL Monocytes # (Auto) 0.9 x10^3/uL Eosinophils # (Auto) 0.3 x10^3/uL Basophils # (Auto) 0.0 x10^3/uL Sodium Level 138 mmol/L Potassium Level 5.3 mmol/L Chloride Level 99 mmol/L Carbon Dioxide Level 35 mmol/L Anion Gap 4 Blood Urea Nitrogen 21 mg/dL Creatinine 1.1 mg/dL Estimated GFR (Cockcroft-Gault) 65.8 BUN/Creatinine Ratio 19 Glucose Level 93 mg/dL Calcium Level 8.5 mg/dL Total Bilirubin 0.5 mg/dL Aspartate Amino Transf (AST/SGOT) 15 U/L Alanine Aminotransferase (ALT/SGPT) 26 U/L Alkaline Phosphatase 62 U/L Total Protein 6.7 g/dL Albumin 3.0 g/dL Albumin/Globulin Ratio 0.8 Valproic Acid (Depakene) Level 38 mcg/mL Valproic Acid Last Dose Date 04/20/20 Valproic Acid Last Dose Time 1700 Glucose (Fingerstick) 90 mg/dL 109 mg/dL Current Medications Medications (Trade) Dose Ordered Sig/Aaron Route PRN Reason Start Time Stop Time Status Last Admin Dose Admin Albuterol Sulfate (Ventolin) 8 mg PRN Q4HRS PRN IH wheezing 04/10/20 15:45 04/14/20 22:31 DC 04/14/20 22:12 Atorvastatin Calcium (Lipitor) 20 mg QHS PO 04/10/20 21:00 04/21/20 20:26 Calcitriol (Rocaltrol) 0.25 mcg DAILY PO 04/11/20 09:00 04/21/20 09:16 Carvedilol (Coreg) 3.125 mg BIDWMEALS PO 04/10/20 17:00 04/21/20 09:16 Diltiazem HCl (Cardizem 24hr Cd) 120 mg DAILY PO 04/11/20 09:00 04/21/20 09:17 Fluphenazine HCl (Prolixin) 2.5 mg QHS PO 04/10/20 21:00 04/21/20 20:25 Furosemide (Lasix) 40 mg DAILY PO 04/11/20 09:00 04/21/20 09:15 Acetaminophen/ Hydrocodone Bitart (Lortab 7.5/325) 1 tab PRN QID PRN PO MOD-SEV PAIN 04/10/20 15:45 04/15/20 19:58 DC 04/15/20 16:13 Levothyroxine Sodium (Synthroid) 50 mcg DAILYAC PO 04/11/20 07:30 04/16/20 11:53 DC 04/16/20 09:19 Losartan Potassium (Cozaar) 25 mg DAILY PO 04/11/20 09:00 04/21/20 09:16 Methenamine Hippurate (Hiprex) 1 gm BID PO 04/10/20 21:00 04/21/20 20:29 Nystatin (Nystop) 15 kailey PRN BID PRN TP YEAST 04/10/20 15:45 04/18/20 20:47 Pantoprazole Sodium (Protonix) 40 mg BID PO 04/10/20 21:00 04/21/20 20:25 Polyethylene Glycol (miraLAX) 17 gm PRN DAILY PRN PO 2ND CHOICE CONSTIPATION 04/10/20 15:45 Risperidone (RisperDAL) 0.25 mg BID PO 04/10/20 21:00 04/21/20 20:26 Ropinirole HCl (Requip) 1 mg QHS PO 04/10/20 21:00 04/21/20 20:25 Tamsulosin HCl (Flomax) 0.4 mg QEVNG PO 04/10/20 18:00 04/21/20 20:28 Simethicone (Gas-X) 80 mg TID PO 04/10/20 21:00 04/21/20 20:25 Ascorbic Acid (Vitamin C) 500 mg BID PO 04/10/20 21:00 04/21/20 20:26 Artificial Tears (Artificial Tears) 1 drop PRN BID PRN OU DRY EYE 04/10/20 17:00 Celecoxib (CeleBREX) 200 mg QHS PO 04/10/20 21:00 04/21/20 20:28 Cholestyramine Resin (Questran Light) 4 gm PRN DAILY PRN PO LOOSE STOOLS 04/10/20 17:00 Insulin Glargine (Lantus Syringe) 30 unit QHS SQ 04/10/20 21:00 04/20/20 21:00 Isosorbide Mononitrate (Imdur) 60 mg DAILY PO 04/11/20 09:00 04/21/20 09:14 Loperamide HCl (Imodium) 2 mg PRN Q2HRS PRN PO DIARRHEA 04/10/20 17:00 04/15/20 20:50 Rivaroxaban (Xarelto) 20 mg DAILYWSUP PO 04/10/20 17:00 04/21/20 17:30 Acetaminophen (Tylenol) 650 mg PRN Q6HRS PRN PO MILD PAIN / TEMP > 100.3'F 04/10/20 16:30 04/12/20 14:07 Multi-Ingredient Ointment (Analgesic Ivor) 1 kailey PRN QID PRN TP MUSCLE PAIN 04/10/20 16:30 Al Hydroxide/Mg Hydroxide (Mylanta Plus Xs) 15 ml PRN AFTMEALHC PRN PO DYSPEPSIA 04/10/20 16:30 Magnesium Hydroxide (Milk Of Magnesia) 2,400 mg PRN QHS PRN PO 2ND CHOICE CONSTIPATION 04/10/20 16:30 Lorazepam (Ativan) 0.25 mg PRN TID PRN PO ANXIETY / AGITATION 04/12/20 16:30 04/18/20 17:16 Divalproex Sodium (Depakote Sprinkles) 250 mg 0900,1700 PO 04/14/20 09:00 04/17/20 18:32 DC 04/17/20 17:04 Neomycin/ Polymyxin/Bacitr/ Hydrocort (Cortisporin Ophth) 2 kailey BID OU 04/14/20 21:00 04/21/20 20:30 Albuterol Sulfate (Ventolin) 2.5 mg PRN Q4HRS PRN IH wheezing 04/14/20 22:31 04/19/20 16:54 Acetaminophen/ Hydrocodone Bitart (Lortab 7.5/325) 1 tab QID PO 04/15/20 20:30 04/21/20 17:30 Cetirizine HCl (ZyrTEC) 10 mg DAILY PO 04/16/20 09:00 04/21/20 09:14 Citalopram Hydrobromide (CeleXA) 20 mg DAILY PO 04/16/20 09:00 04/21/20 09:17 Magnesium Oxide (Magnesium Oxide) 400 mg TID PO 04/16/20 09:00 04/21/20 20:28 Nitroglycerin (Nitrostat) 0.4 mg 1X PRN SL chest pain 04/16/20 00:30 Oxybutynin Chloride (Ditropan) 5 mg TID PO 04/16/20 09:00 04/21/20 20:26 Potassium Chloride (Klor-Con) 20 meq TIDWMEALS PO 04/16/20 08:00 04/21/20 16:03 DC 04/20/20 17:40 Non-Formulary Medication (Cholecalciferol (Vitamin D3) (Vitamin D3)) 50 mcg DAILY PO 04/16/20 09:00 UNV Saliva Substitute (Biotene Moisturizing Mouth) 2 spray PRN Q12HR PRN PO DRY MOUTH 04/16/20 01:15 Vitamin D (Vitamin D3) 2,000 unit DAILY PO 04/16/20 09:00 04/21/20 09:13 Levothyroxine Sodium (Synthroid) 50 mcg DAILY06 PO 04/17/20 06:00 04/21/20 05:39 Divalproex Sodium (Depakote Sprinkles) 500 mg 0900,1700 PO 04/18/20 09:00 04/21/20 18:05 DC 04/21/20 17:30 Potassium Chloride (Klor-Con) 20 meq DAILY PO 04/22/20 09:00 Divalproex Sodium (Depakote Sprinkles) 750 mg 0900,1700 PO 04/22/20 09:00 I have reviewed the current psychotropics carefully including drug interactions. Risk benefit ratio favors no change other than as noted in my dictated progress note. Diagnosis: Problems: (1) Tardive dyskinesia (2) Schizoaffective disorder, bipolar type (3) Bipolar disorder with psychotic features (4) Impulse control disorder, unspecified (5) Anxiety disorder, unspecified KAMILA LOMELI MD Apr 21, 2020 20:59
[2020-04-21] MEDS: INSULIN GLARGINE SYRINGE. SQ SCH (21:00)
--- NOTE | 2020-04-21 23:43 | NUR ---
Nursing Note The patient was located in his room laying in bed for his assessment and medication pass. The patient was compliant with his medication whole with honey thick liquid. The patient was alert to name, date and location. the patient did not receive his pain medication this shift related to low bp. the patients Insulin was held with a blood glucose level of 109 due to no snack prior to HS. the patient was pleasant and appropriate during interactions.
[2020-04-22] MEDS: LEVOTHYROXINE 50 MCG TABLET PO SCH ×2 (05:30→05:33)
[2020-04-22 06:03] VITALS: BP 110/71
[2020-04-22] MEDS: POTASSIUM CHLORIDE 20 MEQ TABLET.ER. PO SCH (07:33)
[2020-04-22] MEDS: PANTOPRAZOLE 40 MG TABLET. PO SCH ×2 (08:05→20:32)
[2020-04-22] MEDS: ISOSORBIDE MONONITRATE ER 30 MG TAB.ER.24H PO SCH (08:07)
[2020-04-22] MEDS: OXYBUTYNIN CHLORIDE 5 MG TABLET PO SCH ×3 (08:07→20:31)
[2020-04-22] MEDS: ASCORBIC ACID 500 MG TABLET PO SCH ×2 (08:07→20:30)
[2020-04-22] MEDS: SIMETHICONE 80 MG TAB.CHEW PO SCH ×3 (08:07→20:29)
[2020-04-22] MEDS: CITALOPRAM 10 MG TABLET. PO SCH (08:07)
[2020-04-22] MEDS: FUROSEMIDE 40 MG TABLET PO SCH (08:07)
[2020-04-22] MEDS: CETIRIZINE HCL 10 MG TABLET PO SCH (08:07)
[2020-04-22] MEDS: MAGNESIUM OXIDE 400 MG TABLET PO SCH ×3 (08:07→20:29)
[2020-04-22] MEDS: CARVEDILOL 3.125 MG TABLET PO SCH ×2 (08:08→16:32)
[2020-04-22] MEDS: CHOLECALCIFEROL (VITAMIN D3) 1,000 UNIT TABLET PO SCH (08:08)
[2020-04-22] MEDS: risperiDONE 0.25 MG TABLET. PO SCH ×2 (08:08→20:31)
[2020-04-22] MEDS: LOSARTAN 25 MG TABLET. PO SCH (08:08)
[2020-04-22] MEDS: NYSTATIN TOPICAL POWDER 15GM BOTTLE. TP PRN (08:12)
[2020-04-22] MEDS: DIVALPROEX 125 MG CAP.SPRINK PO SCH ×2 (08:12→16:32)
[2020-04-22] MEDS: NEOMYCIN/BACI/POLY/HC OPHTH OINTMENT 3.5GM TUBE. OU SCH ×2 (08:13→20:28)
[2020-04-22] MEDS: CALCITRIOL 0.25 MCG CAPSULE PO SCH (08:13)
[2020-04-22] MEDS: HYDROcodone/APAP 7.5/325MG 1 TAB TABLET PO SCH ×4 (08:13→20:30)
[2020-04-22] MEDS: METHENAMINE HIPPURATE 1 GM TABLET PO SCH ×2 (08:13→20:28)
--- NOTE | 2020-04-22 08:23 | PDOC ---
Exam Note: Good Note: This note is a late entry for 04/21/2020 covers elements not covered in my initial note. Subjective: The patient was seen individually in the evening of 04/21/2020 with Anel MATUTE, discussed and reviewed the chart. He slept 6-3/4 hours previous night. The patient spent much of the day in bed, redirected. Valproic acid level is 38. Review of Systems: Positive for difficulty breathing on O2 supplements. Impaired ambulation. Chronic pain. No CV, , eye system symptoms on review. Mental Status Exam: Reasonably oriented. I met with him in his room. 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 Abstraction is fair. Computation impaired. Language function intact. Mood and affect withdrawn. Laboratory Data: Reviewed. 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 Anxiety disorder unspecified. Impulse control disorder unspecified. Plan: Increase Depakote from 500 mg b.i.d. to 750 mg b.i.d. Check CBC, CMP, valproic acid level in 3 days. Rest unchanged for now. Assessment: Vital Signs/I&O: Vital Signs Date Time Temp Pulse Resp B/P (MAP) Pulse Ox O2 Delivery O2 Flow Rate FiO2 04/22/20 08:09 72 110/71 04/22/20 06:03 96.5 24 97 Nasal Cannula 3.0 I & O 04/21/20 04/21/20 04/22/20 15:00 23:00 07:00 Intake Total 680 ml 360 ml Balance 680 ml 360 ml Labs: Laboratory Tests Test 04/21/20 19:17 04/22/20 07:23 Glucose (Fingerstick) 109 mg/dL (70-99) H 90 mg/dL (70-99) Current Medications: Meds: Laboratory Tests Test 04/21/20 19:17 04/22/20 07:23 Glucose (Fingerstick) 109 mg/dL 90 mg/dL Current Medications Medications (Trade) Dose Ordered Sig/Aaron Route PRN Reason Start Time Stop Time Status Last Admin Dose Admin Albuterol Sulfate (Ventolin) 8 mg PRN Q4HRS PRN IH wheezing 04/10/20 15:45 04/14/20 22:31 DC 04/14/20 22:12 Atorvastatin Calcium (Lipitor) 20 mg QHS PO 04/10/20 21:00 04/21/20 20:26 Calcitriol (Rocaltrol) 0.25 mcg DAILY PO 04/11/20 09:00 04/22/20 08:13 Carvedilol (Coreg) 3.125 mg BIDWMEALS PO 04/10/20 17:00 04/22/20 08:08 Diltiazem HCl (Cardizem 24hr Cd) 120 mg DAILY PO 04/11/20 09:00 04/22/20 08:09 Fluphenazine HCl (Prolixin) 2.5 mg QHS PO 04/10/20 21:00 04/21/20 20:25 Furosemide (Lasix) 40 mg DAILY PO 04/11/20 09:00 04/22/20 08:07 Acetaminophen/ Hydrocodone Bitart (Lortab 7.5/325) 1 tab PRN QID PRN PO MOD-SEV PAIN 04/10/20 15:45 04/15/20 19:58 DC 04/15/20 16:13 Levothyroxine Sodium (Synthroid) 50 mcg DAILYAC PO 04/11/20 07:30 04/16/20 11:53 DC 04/16/20 09:19 Losartan Potassium (Cozaar) 25 mg DAILY PO 04/11/20 09:00 04/22/20 08:08 Methenamine Hippurate (Hiprex) 1 gm BID PO 04/10/20 21:00 04/22/20 08:13 Nystatin (Nystop) 15 kailey PRN BID PRN TP YEAST 04/10/20 15:45 04/22/20 08:12 Pantoprazole Sodium (Protonix) 40 mg BID PO 04/10/20 21:00 04/22/20 08:05 Polyethylene Glycol (miraLAX) 17 gm PRN DAILY PRN PO 2ND CHOICE CONSTIPATION 04/10/20 15:45 Risperidone (RisperDAL) 0.25 mg BID PO 04/10/20 21:00 04/22/20 08:08 Ropinirole HCl (Requip) 1 mg QHS PO 04/10/20 21:00 04/21/20 20:25 Tamsulosin HCl (Flomax) 0.4 mg QEVNG PO 04/10/20 18:00 04/21/20 20:28 Simethicone (Gas-X) 80 mg TID PO 04/10/20 21:00 04/22/20 08:07 Ascorbic Acid (Vitamin C) 500 mg BID PO 04/10/20 21:00 04/22/20 08:07 Artificial Tears (Artificial Tears) 1 drop PRN BID PRN OU DRY EYE 04/10/20 17:00 Celecoxib (CeleBREX) 200 mg QHS PO 04/10/20 21:00 04/21/20 20:28 Cholestyramine Resin (Questran Light) 4 gm PRN DAILY PRN PO LOOSE STOOLS 04/10/20 17:00 Insulin Glargine (Lantus Syringe) 30 unit QHS SQ 04/10/20 21:00 04/20/20 21:00 Isosorbide Mononitrate (Imdur) 60 mg DAILY PO 04/11/20 09:00 04/22/20 08:07 Loperamide HCl (Imodium) 2 mg PRN Q2HRS PRN PO DIARRHEA 04/10/20 17:00 04/15/20 20:50 Rivaroxaban (Xarelto) 20 mg DAILYWSUP PO 04/10/20 17:00 04/21/20 17:30 Acetaminophen (Tylenol) 650 mg PRN Q6HRS PRN PO MILD PAIN / TEMP > 100.3'F 04/10/20 16:30 04/12/20 14:07 Multi-Ingredient Ointment (Analgesic [place]) 1 kailey PRN QID PRN TP MUSCLE PAIN 04/10/20 16:30 Al Hydroxide/Mg Hydroxide (Mylanta Plus Xs) 15 ml PRN AFTMEALHC PRN PO DYSPEPSIA 04/10/20 16:30 Magnesium Hydroxide (Milk Of Magnesia) 2,400 mg PRN QHS PRN PO 2ND CHOICE CONSTIPATION 04/10/20 16:30 Lorazepam (Ativan) 0.25 mg PRN TID PRN PO ANXIETY / AGITATION 04/12/20 16:30 04/18/20 17:16 Divalproex Sodium (Depakote Sprinkles) 250 mg 0900,1700 PO 04/14/20 09:00 04/17/20 18:32 DC 04/17/20 17:04 Neomycin/ Polymyxin/Bacitr/ Hydrocort (Cortisporin Ophth) 2 kailey BID OU 04/14/20 21:00 04/21/20 20:30 Albuterol Sulfate (Ventolin) 2.5 mg PRN Q4HRS PRN IH wheezing 04/14/20 22:31 04/19/20 16:54 Acetaminophen/ Hydrocodone Bitart (Lortab 7.5/325) 1 tab QID PO 04/15/20 20:30 04/21/20 17:30 Cetirizine HCl (ZyrTEC) 10 mg DAILY PO 04/16/20 09:00 04/22/20 08:07 Citalopram Hydrobromide (CeleXA) 20 mg DAILY PO 04/16/20 09:00 04/22/20 08:07 Magnesium Oxide (Magnesium Oxide) 400 mg TID PO 04/16/20 09:00 04/22/20 08:07 Nitroglycerin (Nitrostat) 0.4 mg 1X PRN SL chest pain 04/16/20 00:30 Oxybutynin Chloride (Ditropan) 5 mg TID PO 04/16/20 09:00 04/22/20 08:07 Potassium Chloride (Klor-Con) 20 meq TIDWMEALS PO 04/16/20 08:00 04/21/20 16:03 DC 04/20/20 17:40 Non-Formulary Medication (Cholecalciferol (Vitamin D3) (Vitamin D3)) 50 mcg DAILY PO 04/16/20 09:00 UNV Saliva Substitute (Biotene Moisturizing Mouth) 2 spray PRN Q12HR PRN PO DRY MOUTH 04/16/20 01:15 Vitamin D (Vitamin D3) 2,000 unit DAILY PO 04/16/20 09:00 04/22/20 08:08 Levothyroxine Sodium (Synthroid) 50 mcg DAILY06 PO 04/17/20 06:00 04/21/20 05:39 Divalproex Sodium (Depakote Sprinkles) 500 mg 0900,1700 PO 04/18/20 09:00 04/21/20 18:05 DC 04/21/20 17:30 Potassium Chloride (Klor-Con) 20 meq DAILY PO 04/22/20 09:00 Divalproex Sodium (Depakote Sprinkles) 750 mg 0900,1700 PO 04/22/20 09:00 04/22/20 08:12 Current Medications Medications (Trade) Dose Ordered Sig/Aaron Route PRN Reason Start Time Stop Time Status Last Admin Dose Admin Divalproex Sodium (Depakote Sprinkles) 750 mg 0900,1700 PO 04/22/20 09:00 04/22/20 08:12 I have reviewed the current psychotropics carefully including drug interactions. Risk benefit ratio favors no change other than as noted in my dictated progress note. Diagnosis: Problems: (1) Tardive dyskinesia (2) Chronic undifferentiated schizophrenia (3) Schizoaffective disorder, bipolar type (4) Bipolar disorder with psychotic features (5) Impulse control disorder, unspecified (6) Anxiety disorder, unspecified KAMILA LOMELI MD Apr 22, 2020 08:23
--- NOTE | 2020-04-22 12:41 | NUR ---
NURSING NOTE PT WAS IN DINNING ROOM THIS AM UPON ASSESSMENT AND MEDICATION ADMINISTRATION. PT WAS A&OX3 BUT FORGETFUL. PT WAS VERY AGITATED THIS AM WITH HIS THICKENED LIQUIDS STATING THAT HE CANNOT TAKE HIS MEDICATIONS WITH THICKENED LIQUID AND THAT "THIS IS BULLSHIT" THAT HE HAS TO DRINK THICKENED LIQUIDS. PT DENIED PAIN THIS AM. PAIN MEDICATION HELD. PT DID END UP TAKING HIS MEDICATIONS WITH NO PROBLEM. PT POTASSIUM PILL HELD D/T K 5.3. PT REPORTED LBM 04/22. PT WANTS TO ASK THE DR ABOUT SOMETHING FOR DRY MOUTH. WILL CONTINUE TO MONITOR. JUJU VALENCIA.
[2020-04-22 15:31] VITALS: BP 118/71
[2020-04-22] MEDS: RIVAROXABAN 10 MG TABLET. PO SCH (16:32)
[2020-04-22] MEDS: rOPINIRole 1 MG TABLET. PO SCH (20:29)
[2020-04-22] MEDS: CELECOXIB 100 MG CAPSULE PO SCH (20:31)
[2020-04-22] MEDS: ATORVASTATIN CALCIUM 20 MG TABLET PO SCH (20:31)
[2020-04-22] MEDS: INSULIN GLARGINE SYRINGE. SQ SCH (20:33)
--- NOTE | 2020-04-22 21:03 | PDOC ---
Exam Note: Good Note: Please also refer to the separate dictated note~for this date of service dictated separately.~Patient seen individually. Discussed the patient with Nursing staff reviewed the chart.~Reviewed interim history and current functioning. Reviewed vital signs,~Labs/ Radiology~and current medications noted below. Continue current treatment with the changes noted in the dictated addendum note Assessment: Vital Signs/I&O: Vital Signs Date Time Temp Pulse Resp B/P (MAP) Pulse Ox O2 Delivery O2 Flow Rate FiO2 04/22/20 20:30 97 04/22/20 16:32 64 118/71 04/22/20 15:31 97.6 18 Nasal Cannula 3.0 I & O 0 04/21/20 04/21/20 04/22/20 14:59 22:59 06:59 Intake Total 680 ml 360 ml Balance 680 ml 360 ml Labs: Laboratory Tests Test 04/22/20 07:23 04/22/20 19:24 Glucose (Fingerstick) 90 mg/dL (70-99) 147 mg/dL (70-99) H Current Medications: Meds: Current Medications Medications (Trade) Dose Ordered Sig/Aaron Route PRN Reason Start Time Stop Time Status Last Admin Dose Admin Divalproex Sodium (Depakote Sprinkles) 750 mg 0900,1700 PO 04/22/20 09:00 04/22/20 16:32 I have reviewed the current psychotropics carefully including drug interactions. Risk benefit ratio favors no change other than as noted in my dictated progress note. Diagnosis: Problems: (1) Tardive dyskinesia (2) Chronic undifferentiated schizophrenia (3) Schizoaffective disorder, bipolar type (4) Bipolar disorder with psychotic features (5) Impulse control disorder, unspecified (6) Anxiety disorder, unspecified KAMILA LOMELI MD Apr 22, 2020 21:03
--- NOTE | 2020-04-22 22:54 | NUR ---
Patient is in his bed on assumption of care, awake in bed. He is in pleasant spirits. Compliant with assessments and medications whole with honey thickened liquid. No agitation. Patient denies any pain or discomfort. He appears to be sleeping comfortably at present time. Will continue to monitor.
[2020-04-23] MEDS: LEVOTHYROXINE 50 MCG TABLET PO SCH (05:20)
[2020-04-23 06:10] VITALS: BP 100/58
[2020-04-23] MEDS: NEOMYCIN/BACI/POLY/HC OPHTH OINTMENT 3.5GM TUBE. OU SCH ×2 (07:42→20:29)
[2020-04-23] MEDS: CHOLECALCIFEROL (VITAMIN D3) 1,000 UNIT TABLET PO SCH (08:38)
[2020-04-23] MEDS: CALCITRIOL 0.25 MCG CAPSULE PO SCH (08:38)
[2020-04-23] MEDS: FUROSEMIDE 40 MG TABLET PO SCH (08:38)
[2020-04-23] MEDS: METHENAMINE HIPPURATE 1 GM TABLET PO SCH ×2 (08:38→20:30)
[2020-04-23] MEDS: SIMETHICONE 80 MG TAB.CHEW PO SCH ×3 (08:38→20:30)
[2020-04-23] MEDS: ISOSORBIDE MONONITRATE ER 30 MG TAB.ER.24H PO SCH (08:39)
[2020-04-23] MEDS: MAGNESIUM OXIDE 400 MG TABLET PO SCH ×3 (08:39→20:32)
[2020-04-23] MEDS: CETIRIZINE HCL 10 MG TABLET PO SCH (08:39)
[2020-04-23] MEDS: OXYBUTYNIN CHLORIDE 5 MG TABLET PO SCH ×3 (08:39→20:30)
[2020-04-23] MEDS: DIVALPROEX 125 MG CAP.SPRINK PO SCH ×2 (08:39→16:49)
[2020-04-23] MEDS: PANTOPRAZOLE 40 MG TABLET. PO SCH ×2 (08:39→20:32)
[2020-04-23] MEDS: HYDROcodone/APAP 7.5/325MG 1 TAB TABLET PO SCH ×4 (08:39→20:31)
[2020-04-23] MEDS: ASCORBIC ACID 500 MG TABLET PO SCH ×2 (08:40→20:29)
[2020-04-23] MEDS: risperiDONE 0.25 MG TABLET. PO SCH ×2 (08:40→20:31)
[2020-04-23] MEDS: POTASSIUM CHLORIDE 20 MEQ TABLET.ER. PO SCH (08:40)
[2020-04-23] MEDS: LOSARTAN 25 MG TABLET. PO SCH (08:40)
[2020-04-23] MEDS: CARVEDILOL 3.125 MG TABLET PO SCH ×2 (08:40→16:49)
[2020-04-23] MEDS: CITALOPRAM 10 MG TABLET. PO SCH (08:40)
--- NOTE | 2020-04-23 10:36 | NUR ---
Patient calm and cooperative. Patient wandering the halls socializing with peers.
[2020-04-23 15:58] VITALS: BP 90/62
[2020-04-23] MEDS: TAMSULOSIN 0.4 MG CAP.ER.24H. PO SCH (16:47)
[2020-04-23] MEDS: RIVAROXABAN 10 MG TABLET. PO SCH (16:49)
[2020-04-23] MEDS: INSULIN GLARGINE SYRINGE. SQ SCH (19:26)
[2020-04-23] MEDS: ATORVASTATIN CALCIUM 20 MG TABLET PO SCH (20:32)
[2020-04-23] MEDS: CELECOXIB 100 MG CAPSULE PO SCH (20:32)
[2020-04-23] MEDS: rOPINIRole 1 MG TABLET. PO SCH (20:33)
--- NOTE | 2020-04-23 20:53 | PDOC ---
Exam Note: Good Note: Please also refer to the separate dictated note~for this date of service dictated separately.~Patient seen individually. Discussed the patient with Nursing staff reviewed the chart.~Reviewed interim history and current functioning. Reviewed vital signs,~Labs/ Radiology~and current medications noted below. Continue current treatment with the changes noted in the dictated addendum note Assessment: Vital Signs/I&O: Vital Signs Date Time Temp Pulse Resp B/P (MAP) Pulse Ox O2 Delivery O2 Flow Rate FiO2 04/23/20 20:31 96 04/23/20 16:49 62 90/62 04/23/20 15:58 97.2 18 Room Air 04/23/20 12:12 2.0 I & O 04/22/20 04/22/20 04/23/20 15:00 23:00 07:00 Intake Total 1050 ml 600 ml Balance 1050 ml 600 ml Labs: Laboratory Tests Test 04/23/20 07:18 04/23/20 19:09 Glucose (Fingerstick) 94 mg/dL (70-99) 148 mg/dL (70-99) H Current Medications: Meds: Laboratory Tests Test 04/23/20 07:18 04/23/20 19:09 Glucose (Fingerstick) 94 mg/dL 148 mg/dL Current Medications Medications (Trade) Dose Ordered Sig/Aaron Route PRN Reason Start Time Stop Time Status Last Admin Dose Admin Albuterol Sulfate (Ventolin) 8 mg PRN Q4HRS PRN IH wheezing 04/10/20 15:45 04/14/20 22:31 DC 04/14/20 22:12 Atorvastatin Calcium (Lipitor) 20 mg QHS PO 04/10/20 21:00 04/23/20 20:32 Calcitriol (Rocaltrol) 0.25 mcg DAILY PO 04/11/20 09:00 04/23/20 08:38 Carvedilol (Coreg) 3.125 mg BIDWMEALS PO 04/10/20 17:00 04/23/20 08:40 Diltiazem HCl (Cardizem 24hr Cd) 120 mg DAILY PO 04/11/20 09:00 04/23/20 08:40 Fluphenazine HCl (Prolixin) 2.5 mg QHS PO 04/10/20 21:00 04/23/20 20:32 Furosemide (Lasix) 40 mg DAILY PO 04/11/20 09:00 04/23/20 08:38 Acetaminophen/ Hydrocodone Bitart (Lortab 7.5/325) 1 tab PRN QID PRN PO MOD-SEV PAIN 04/10/20 15:45 04/15/20 19:58 DC 04/15/20 16:13 Levothyroxine Sodium (Synthroid) 50 mcg DAILYAC PO 04/11/20 07:30 04/16/20 11:53 DC 04/16/20 09:19 Losartan Potassium (Cozaar) 25 mg DAILY PO 04/11/20 09:00 04/23/20 08:40 Methenamine Hippurate (Hiprex) 1 gm BID PO 04/10/20 21:00 04/23/20 20:30 Nystatin (Nystop) 15 kailey PRN BID PRN TP YEAST 04/10/20 15:45 04/22/20 08:12 Pantoprazole Sodium (Protonix) 40 mg BID PO 04/10/20 21:00 04/23/20 20:32 Polyethylene Glycol (miraLAX) 17 gm PRN DAILY PRN PO 1ST CHOICE CONSTIPATION 04/10/20 15:45 Risperidone (RisperDAL) 0.25 mg BID PO 04/10/20 21:00 04/23/20 20:31 Ropinirole HCl (Requip) 1 mg QHS PO 04/10/20 21:00 04/23/20 20:33 Tamsulosin HCl (Flomax) 0.4 mg QEVNG PO 04/10/20 18:00 04/23/20 16:47 Simethicone (Gas-X) 80 mg TID PO 04/10/20 21:00 04/23/20 20:30 Ascorbic Acid (Vitamin C) 500 mg BID PO 04/10/20 21:00 04/23/20 20:29 Artificial Tears (Artificial Tears) 1 drop PRN BID PRN OU DRY EYE 04/10/20 17:00 Celecoxib (CeleBREX) 200 mg QHS PO 04/10/20 21:00 04/23/20 20:32 Cholestyramine Resin (Questran Light) 4 gm PRN DAILY PRN PO LOOSE STOOLS 04/10/20 17:00 Insulin Glargine (Lantus Syringe) 30 unit QHS SQ 04/10/20 21:00 04/20/20 21:00 Isosorbide Mononitrate (Imdur) 60 mg DAILY PO 04/11/20 09:00 04/23/20 08:39 Loperamide HCl (Imodium) 2 mg PRN Q2HRS PRN PO DIARRHEA 04/10/20 17:00 04/15/20 20:50 Rivaroxaban (Xarelto) 20 mg DAILYWSUP PO 04/10/20 17:00 04/23/20 16:49 Acetaminophen (Tylenol) 650 mg PRN Q6HRS PRN PO MILD PAIN / TEMP > 100.3'F 04/10/20 16:30 04/12/20 14:07 Multi-Ingredient Ointment (Analgesic [place]) 1 kailey PRN QID PRN TP MUSCLE PAIN 04/10/20 16:30 Al Hydroxide/Mg Hydroxide (Mylanta Plus Xs) 15 ml PRN AFTMEALHC PRN PO DYSPEPSIA 04/10/20 16:30 Magnesium Hydroxide (Milk Of Magnesia) 2,400 mg PRN QHS PRN PO 2ND CHOICE CONSTIPATION 04/10/20 16:30 Lorazepam (Ativan) 0.25 mg PRN TID PRN PO ANXIETY / AGITATION 04/12/20 16:30 04/18/20 17:16 Divalproex Sodium (Depakote Sprinkles) 250 mg 0900,1700 PO 04/14/20 09:00 04/17/20 18:32 DC 04/17/20 17:04 Neomycin/ Polymyxin/Bacitr/ Hydrocort (Cortisporin Ophth) 2 kailey BID OU 04/14/20 21:00 04/23/20 20:29 Albuterol Sulfate (Ventolin) 2.5 mg PRN Q4HRS PRN IH wheezing 04/14/20 22:31 04/19/20 16:54 Acetaminophen/ Hydrocodone Bitart (Lortab 7.5/325) 1 tab QID PO 04/15/20 20:30 04/23/20 20:31 Cetirizine HCl (ZyrTEC) 10 mg DAILY PO 04/16/20 09:00 04/23/20 08:39 Citalopram Hydrobromide (CeleXA) 20 mg DAILY PO 04/16/20 09:00 04/23/20 08:40 Magnesium Oxide (Magnesium Oxide) 400 mg TID PO 04/16/20 09:00 04/23/20 20:32 Nitroglycerin (Nitrostat) 0.4 mg 1X PRN SL chest pain 04/16/20 00:30 Oxybutynin Chloride (Ditropan) 5 mg TID PO 04/16/20 09:00 04/23/20 20:30 Potassium Chloride (Klor-Con) 20 meq TIDWMEALS PO 04/16/20 08:00 04/21/20 16:03 DC 04/20/20 17:40 Non-Formulary Medication (Cholecalciferol (Vitamin D3) (Vitamin D3)) 50 mcg DAILY PO 04/16/20 09:00 UNV Saliva Substitute (Biotene Moisturizing Mouth) 2 spray PRN Q12HR PRN PO DRY MOUTH 04/16/20 01:15 Vitamin D (Vitamin D3) 2,000 unit DAILY PO 04/16/20 09:00 04/23/20 08:38 Levothyroxine Sodium (Synthroid) 50 mcg DAILY06 PO 04/17/20 06:00 04/23/20 05:20 Divalproex Sodium (Depakote Sprinkles) 500 mg 0900,1700 PO 04/18/20 09:00 04/21/20 18:05 DC 04/21/20 17:30 Potassium Chloride (Klor-Con) 20 meq DAILY PO 04/22/20 09:00 Divalproex Sodium (Depakote Sprinkles) 750 mg 0900,1700 PO 04/22/20 09:00 04/23/20 16:49 I have reviewed the current psychotropics carefully including drug interactions. Risk benefit ratio favors no change other than as noted in my dictated progress note. Diagnosis: Problems: (1) Tardive dyskinesia (2) Chronic undifferentiated schizophrenia (3) Schizoaffective disorder, bipolar type (4) Bipolar disorder with psychotic features (5) Impulse control disorder, unspecified (6) Anxiety disorder, unspecified KAMILA LOMELI MD Apr 23, 2020 20:53
[2020-04-24] MEDS: LEVOTHYROXINE 50 MCG TABLET PO SCH (04:56)
[2020-04-24 06:17] VITALS: BP 116/70
--- NOTE | 2020-04-24 08:26 | PDOC ---
Exam Note: Good Note: This note is a late entry for 04/22/2020 covers elements not covered in my initial note. Subjective: The patient was seen individually in the evening of 04/22/2020 with Dulce MATUTE, discussed and reviewed the chart. He slept 8-1/2 hours previous night. The patient has been agitated in the morning, yelling at nursing staff around breakfast time. Review of Systems: Positive for difficulty breathing on O2 supplements. Impaired ambulation. No CV, , eye system symptoms on review. He is fairly withdrawn. Mental Status Exam: Reasonably oriented. Speech is coherent, difficult to understand due to his tardive dyskinetic movements. Abstraction is fair. Computation impaired. Language function intact. Mood and affect somewhat withdrawn. No psychotic symptoms, suicidal or homicidal ideation. Laboratory Data: Reviewed. 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 Anxiety disorder unspecified. Impulse control disorder unspecified. Plan: No change from initial note. Assessment: Vital Signs/I&O: Vital Signs Date Time Temp Pulse Resp B/P (MAP) Pulse Ox O2 Delivery O2 Flow Rate FiO2 04/24/20 06:17 97.8 63 18 116/70 (85) 97 3.0 04/23/20 15:58 Room Air I & O 04/23/20 04/23/20 04/24/20 15:00 23:00 07:00 Intake Total 1160 ml 180 ml Balance 1160 ml 180 ml Labs: Laboratory Tests Test 04/23/20 19:09 04/24/20 08:05 Glucose (Fingerstick) 148 mg/dL (70-99) H 96 mg/dL (70-99) Current Medications: Meds: Laboratory Tests Test 04/23/20 19:09 04/24/20 08:05 Glucose (Fingerstick) 148 mg/dL 96 mg/dL Current Medications Medications (Trade) Dose Ordered Sig/Aaron Route PRN Reason Start Time Stop Time Status Last Admin Dose Admin Albuterol Sulfate (Ventolin) 8 mg PRN Q4HRS PRN IH wheezing 04/10/20 15:45 04/14/20 22:31 DC 04/14/20 22:12 Atorvastatin Calcium (Lipitor) 20 mg QHS PO 04/10/20 21:00 04/23/20 20:32 Calcitriol (Rocaltrol) 0.25 mcg DAILY PO 04/11/20 09:00 04/23/20 08:38 Carvedilol (Coreg) 3.125 mg BIDWMEALS PO 04/10/20 17:00 04/23/20 08:40 Diltiazem HCl (Cardizem 24hr Cd) 120 mg DAILY PO 04/11/20 09:00 04/23/20 08:40 Fluphenazine HCl (Prolixin) 2.5 mg QHS PO 04/10/20 21:00 04/23/20 20:32 Furosemide (Lasix) 40 mg DAILY PO 04/11/20 09:00 04/23/20 08:38 Acetaminophen/ Hydrocodone Bitart (Lortab 7.5/325) 1 tab PRN QID PRN PO MOD-SEV PAIN 04/10/20 15:45 04/15/20 19:58 DC 04/15/20 16:13 Levothyroxine Sodium (Synthroid) 50 mcg DAILYAC PO 04/11/20 07:30 04/16/20 11:53 DC 04/16/20 09:19 Losartan Potassium (Cozaar) 25 mg DAILY PO 04/11/20 09:00 04/23/20 08:40 Methenamine Hippurate (Hiprex) 1 gm BID PO 04/10/20 21:00 04/23/20 20:30 Nystatin (Nystop) 15 kailey PRN BID PRN TP YEAST 04/10/20 15:45 04/22/20 08:12 Pantoprazole Sodium (Protonix) 40 mg BID PO 04/10/20 21:00 04/23/20 20:32 Polyethylene Glycol (miraLAX) 17 gm PRN DAILY PRN PO 1ST CHOICE CONSTIPATION 04/10/20 15:45 Risperidone (RisperDAL) 0.25 mg BID PO 04/10/20 21:00 04/23/20 20:31 Ropinirole HCl (Requip) 1 mg QHS PO 04/10/20 21:00 04/23/20 20:33 Tamsulosin HCl (Flomax) 0.4 mg QEVNG PO 04/10/20 18:00 04/23/20 16:47 Simethicone (Gas-X) 80 mg TID PO 04/10/20 21:00 04/23/20 20:30 Ascorbic Acid (Vitamin C) 500 mg BID PO 04/10/20 21:00 04/23/20 20:29 Artificial Tears (Artificial Tears) 1 drop PRN BID PRN OU DRY EYE 04/10/20 17:00 Celecoxib (CeleBREX) 200 mg QHS PO 04/10/20 21:00 04/23/20 20:32 Cholestyramine Resin (Questran Light) 4 gm PRN DAILY PRN PO LOOSE STOOLS 04/10/20 17:00 Insulin Glargine (Lantus Syringe) 30 unit QHS SQ 04/10/20 21:00 04/20/20 21:00 Isosorbide Mononitrate (Imdur) 60 mg DAILY PO 04/11/20 09:00 04/23/20 08:39 Loperamide HCl (Imodium) 2 mg PRN Q2HRS PRN PO DIARRHEA 04/10/20 17:00 04/15/20 20:50 Rivaroxaban (Xarelto) 20 mg DAILYWSUP PO 04/10/20 17:00 04/23/20 16:49 Acetaminophen (Tylenol) 650 mg PRN Q6HRS PRN PO MILD PAIN / TEMP > 100.3'F 04/10/20 16:30 04/12/20 14:07 Multi-Ingredient Ointment (Analgesic [place]) 1 kailey PRN QID PRN TP MUSCLE PAIN 04/10/20 16:30 Al Hydroxide/Mg Hydroxide (Mylanta Plus Xs) 15 ml PRN AFTMEALHC PRN PO DYSPEPSIA 04/10/20 16:30 Magnesium Hydroxide (Milk Of Magnesia) 2,400 mg PRN QHS PRN PO 2ND CHOICE CONSTIPATION 04/10/20 16:30 Lorazepam (Ativan) 0.25 mg PRN TID PRN PO ANXIETY / AGITATION 04/12/20 16:30 04/18/20 17:16 Divalproex Sodium (Depakote Sprinkles) 250 mg 0900,1700 PO 04/14/20 09:00 04/17/20 18:32 DC 04/17/20 17:04 Neomycin/ Polymyxin/Bacitr/ Hydrocort (Cortisporin Ophth) 2 kailey BID OU 04/14/20 21:00 04/23/20 20:29 Albuterol Sulfate (Ventolin) 2.5 mg PRN Q4HRS PRN IH wheezing 04/14/20 22:31 04/19/20 16:54 Acetaminophen/ Hydrocodone Bitart (Lortab 7.5/325) 1 tab QID PO 04/15/20 20:30 04/23/20 20:31 Cetirizine HCl (ZyrTEC) 10 mg DAILY PO 04/16/20 09:00 04/23/20 08:39 Citalopram Hydrobromide (CeleXA) 20 mg DAILY PO 04/16/20 09:00 04/23/20 08:40 Magnesium Oxide (Magnesium Oxide) 400 mg TID PO 04/16/20 09:00 04/23/20 20:32 Nitroglycerin (Nitrostat) 0.4 mg 1X PRN SL chest pain 04/16/20 00:30 Oxybutynin Chloride (Ditropan) 5 mg TID PO 04/16/20 09:00 04/23/20 20:30 Potassium Chloride (Klor-Con) 20 meq TIDWMEALS PO 04/16/20 08:00 04/21/20 16:03 DC 04/20/20 17:40 Non-Formulary Medication (Cholecalciferol (Vitamin D3) (Vitamin D3)) 50 mcg DAILY PO 04/16/20 09:00 UNV Saliva Substitute (Biotene Moisturizing Mouth) 2 spray PRN Q12HR PRN PO DRY MOUTH 04/16/20 01:15 Vitamin D (Vitamin D3) 2,000 unit DAILY PO 04/16/20 09:00 04/23/20 08:38 Levothyroxine Sodium (Synthroid) 50 mcg DAILY06 PO 04/17/20 06:00 04/24/20 04:56 Divalproex Sodium (Depakote Sprinkles) 500 mg 0900,1700 PO 04/18/20 09:00 04/21/20 18:05 DC 04/21/20 17:30 Potassium Chloride (Klor-Con) 20 meq DAILY PO 04/22/20 09:00 Divalproex Sodium (Depakote Sprinkles) 750 mg 0900,1700 PO 04/22/20 09:00 04/23/20 21:10 DC 04/23/20 16:49 Divalproex Sodium (Depakote Er) 1,500 mg QHS PO 04/24/20 21:30 I have reviewed the current psychotropics carefully including drug interactions. Risk benefit ratio favors no change other than as noted in my dictated progress note. Diagnosis: Problems: (1) Tardive dyskinesia (2) Chronic undifferentiated schizophrenia (3) Schizoaffective disorder, bipolar type (4) Bipolar disorder with psychotic features (5) Impulse control disorder, unspecified (6) Anxiety disorder, unspecified KAMILA LOMELI MD Apr 24, 2020 08:26
[2020-04-24] MEDS: CARVEDILOL 3.125 MG TABLET PO SCH ×2 (08:40→17:13)
--- NOTE | 2020-04-24 08:40 | PDOC ---
Exam Note: Good Note: This note is a late entry for 04/23/2020 covers elements not covered in my initial note. Subjective: The patient was seen individually in the evening of 04/23/2020 with Ghanshyam MATUTE, discussed and reviewed the chart. He slept 8 hours previous night. The patient has had a good day, compliant, withdrawn, naps off and on. The patient states he is very tired since we have added the Depakote. I reviewed his records again and we will go ahead and change the entire dosage to ER h.s. to avoid sedation. Review of Systems: Positive for difficulty breathing on O2 supplements. Difficulty with speech due to dysarthria, tardive dyskinesia. Impaired ambulation. No CV, , eye system symptoms on review. Mental Status Exam: Reasonably oriented. Speech as above. Abstraction is fair. Computation impaired. Language function intact. Mood and affect withdrawn. Laboratory Data: Reviewed. 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 Anxiety disorder unspecified. Impulse control disorder unspecified. Plan: No change from initial note. Assessment: Vital Signs/I&O: Vital Signs Date Time Temp Pulse Resp B/P (MAP) Pulse Ox O2 Delivery O2 Flow Rate FiO2 04/24/20 06:17 97.8 63 18 116/70 (85) 97 3.0 04/23/20 15:58 Room Air I & O 04/23/20 04/23/20 04/24/20 15:00 23:00 07:00 Intake Total 1160 ml 180 ml Balance 1160 ml 180 ml Labs: Laboratory Tests Test 04/23/20 19:09 04/24/20 08:05 Glucose (Fingerstick) 148 mg/dL (70-99) H 96 mg/dL (70-99) Current Medications: Meds: Laboratory Tests Test 04/23/20 19:09 04/24/20 08:05 Glucose (Fingerstick) 148 mg/dL 96 mg/dL Current Medications Medications (Trade) Dose Ordered Sig/Aaron Route PRN Reason Start Time Stop Time Status Last Admin Dose Admin Albuterol Sulfate (Ventolin) 8 mg PRN Q4HRS PRN IH wheezing 04/10/20 15:45 04/14/20 22:31 DC 04/14/20 22:12 Atorvastatin Calcium (Lipitor) 20 mg QHS PO 04/10/20 21:00 04/23/20 20:32 Calcitriol (Rocaltrol) 0.25 mcg DAILY PO 04/11/20 09:00 04/23/20 08:38 Carvedilol (Coreg) 3.125 mg BIDWMEALS PO 04/10/20 17:00 04/23/20 08:40 Diltiazem HCl (Cardizem 24hr Cd) 120 mg DAILY PO 04/11/20 09:00 04/23/20 08:40 Fluphenazine HCl (Prolixin) 2.5 mg QHS PO 04/10/20 21:00 04/23/20 20:32 Furosemide (Lasix) 40 mg DAILY PO 04/11/20 09:00 04/23/20 08:38 Acetaminophen/ Hydrocodone Bitart (Lortab 7.5/325) 1 tab PRN QID PRN PO MOD-SEV PAIN 04/10/20 15:45 04/15/20 19:58 DC 04/15/20 16:13 Levothyroxine Sodium (Synthroid) 50 mcg DAILYAC PO 04/11/20 07:30 04/16/20 11:53 DC 04/16/20 09:19 Losartan Potassium (Cozaar) 25 mg DAILY PO 04/11/20 09:00 04/23/20 08:40 Methenamine Hippurate (Hiprex) 1 gm BID PO 04/10/20 21:00 04/23/20 20:30 Nystatin (Nystop) 15 kailey PRN BID PRN TP YEAST 04/10/20 15:45 04/22/20 08:12 Pantoprazole Sodium (Protonix) 40 mg BID PO 04/10/20 21:00 04/23/20 20:32 Polyethylene Glycol (miraLAX) 17 gm PRN DAILY PRN PO 1ST CHOICE CONSTIPATION 04/10/20 15:45 Risperidone (RisperDAL) 0.25 mg BID PO 04/10/20 21:00 04/23/20 20:31 Ropinirole HCl (Requip) 1 mg QHS PO 04/10/20 21:00 04/23/20 20:33 Tamsulosin HCl (Flomax) 0.4 mg QEVNG PO 04/10/20 18:00 04/23/20 16:47 Simethicone (Gas-X) 80 mg TID PO 04/10/20 21:00 04/23/20 20:30 Ascorbic Acid (Vitamin C) 500 mg BID PO 04/10/20 21:00 04/23/20 20:29 Artificial Tears (Artificial Tears) 1 drop PRN BID PRN OU DRY EYE 04/10/20 17:00 Celecoxib (CeleBREX) 200 mg QHS PO 04/10/20 21:00 04/23/20 20:32 Cholestyramine Resin (Questran Light) 4 gm PRN DAILY PRN PO LOOSE STOOLS 04/10/20 17:00 Insulin Glargine (Lantus Syringe) 30 unit QHS SQ 04/10/20 21:00 04/20/20 21:00 Isosorbide Mononitrate (Imdur) 60 mg DAILY PO 04/11/20 09:00 04/23/20 08:39 Loperamide HCl (Imodium) 2 mg PRN Q2HRS PRN PO DIARRHEA 04/10/20 17:00 04/15/20 20:50 Rivaroxaban (Xarelto) 20 mg DAILYWSUP PO 04/10/20 17:00 04/23/20 16:49 Acetaminophen (Tylenol) 650 mg PRN Q6HRS PRN PO MILD PAIN / TEMP > 100.3'F 04/10/20 16:30 04/12/20 14:07 Multi-Ingredient Ointment (Analgesic [place]) 1 kailey PRN QID PRN TP MUSCLE PAIN 04/10/20 16:30 Al Hydroxide/Mg Hydroxide (Mylanta Plus Xs) 15 ml PRN AFTMEALHC PRN PO DYSPEPSIA 04/10/20 16:30 Magnesium Hydroxide (Milk Of Magnesia) 2,400 mg PRN QHS PRN PO 2ND CHOICE CONSTIPATION 04/10/20 16:30 Lorazepam (Ativan) 0.25 mg PRN TID PRN PO ANXIETY / AGITATION 04/12/20 16:30 04/18/20 17:16 Divalproex Sodium (Depakote Sprinkles) 250 mg 0900,1700 PO 04/14/20 09:00 04/17/20 18:32 DC 04/17/20 17:04 Neomycin/ Polymyxin/Bacitr/ Hydrocort (Cortisporin Ophth) 2 kailey BID OU 04/14/20 21:00 04/23/20 20:29 Albuterol Sulfate (Ventolin) 2.5 mg PRN Q4HRS PRN IH wheezing 04/14/20 22:31 04/19/20 16:54 Acetaminophen/ Hydrocodone Bitart (Lortab 7.5/325) 1 tab QID PO 04/15/20 20:30 04/23/20 20:31 Cetirizine HCl (ZyrTEC) 10 mg DAILY PO 04/16/20 09:00 04/23/20 08:39 Citalopram Hydrobromide (CeleXA) 20 mg DAILY PO 04/16/20 09:00 04/23/20 08:40 Magnesium Oxide (Magnesium Oxide) 400 mg TID PO 04/16/20 09:00 04/23/20 20:32 Nitroglycerin (Nitrostat) 0.4 mg 1X PRN SL chest pain 04/16/20 00:30 Oxybutynin Chloride (Ditropan) 5 mg TID PO 04/16/20 09:00 04/23/20 20:30 Potassium Chloride (Klor-Con) 20 meq TIDWMEALS PO 04/16/20 08:00 04/21/20 16:03 DC 04/20/20 17:40 Non-Formulary Medication (Cholecalciferol (Vitamin D3) (Vitamin D3)) 50 mcg DAILY PO 04/16/20 09:00 UNV Saliva Substitute (Biotene Moisturizing Mouth) 2 spray PRN Q12HR PRN PO DRY MOUTH 04/16/20 01:15 Vitamin D (Vitamin D3) 2,000 unit DAILY PO 04/16/20 09:00 04/23/20 08:38 Levothyroxine Sodium (Synthroid) 50 mcg DAILY06 PO 04/17/20 06:00 04/24/20 04:56 Divalproex Sodium (Depakote Sprinkles) 500 mg 0900,1700 PO 04/18/20 09:00 04/21/20 18:05 DC 04/21/20 17:30 Potassium Chloride (Klor-Con) 20 meq DAILY PO 04/22/20 09:00 Divalproex Sodium (Depakote Sprinkles) 750 mg 0900,1700 PO 04/22/20 09:00 3/13/21 21:10 DC 04/23/20 16:49 Divalproex Sodium (Depakote Er) 1,500 mg QHS PO 04/24/20 21:30 I have reviewed the current psychotropics carefully including drug interactions. Risk benefit ratio favors no change other than as noted in my dictated progress note. Diagnosis: Problems: (1) Tardive dyskinesia (2) Chronic undifferentiated schizophrenia (3) Schizoaffective disorder, bipolar type (4) Bipolar disorder with psychotic features (5) Impulse control disorder, unspecified (6) Anxiety disorder, unspecified KAMILA LOMELI MD Apr 24, 2020 08:40
[2020-04-24] MEDS: SIMETHICONE 80 MG TAB.CHEW PO SCH ×3 (08:41→20:51)
[2020-04-24] MEDS: LOSARTAN 25 MG TABLET. PO SCH (08:41)
[2020-04-24] MEDS: OXYBUTYNIN CHLORIDE 5 MG TABLET PO SCH ×3 (08:41→20:52)
[2020-04-24] MEDS: CITALOPRAM 10 MG TABLET. PO SCH (08:41)
[2020-04-24] MEDS: risperiDONE 0.25 MG TABLET. PO SCH ×2 (08:42→20:52)
[2020-04-24] MEDS: PANTOPRAZOLE 40 MG TABLET. PO SCH ×2 (08:42→20:52)
[2020-04-24] MEDS: MAGNESIUM OXIDE 400 MG TABLET PO SCH ×3 (08:42→20:53)
[2020-04-24] MEDS: FUROSEMIDE 40 MG TABLET PO SCH (08:42)
[2020-04-24] MEDS: METHENAMINE HIPPURATE 1 GM TABLET PO SCH ×2 (08:42→20:50)
[2020-04-24] MEDS: CHOLECALCIFEROL (VITAMIN D3) 1,000 UNIT TABLET PO SCH (08:43)
[2020-04-24] MEDS: CETIRIZINE HCL 10 MG TABLET PO SCH (08:43)
[2020-04-24] MEDS: CALCITRIOL 0.25 MCG CAPSULE PO SCH (08:43)
[2020-04-24] MEDS: LORazepam 0.5 MG TABLET PO PRN ×3 (08:43→17:15)
[2020-04-24] MEDS: ASCORBIC ACID 500 MG TABLET PO SCH ×2 (08:43→20:54)
[2020-04-24] MEDS: HYDROcodone/APAP 7.5/325MG 1 TAB TABLET PO SCH ×4 (08:47→20:52)
[2020-04-24] MEDS: POTASSIUM CHLORIDE 20 MEQ TABLET.ER. PO SCH (09:00)
[2020-04-24] MEDS: NEOMYCIN/BACI/POLY/HC OPHTH OINTMENT 3.5GM TUBE. OU SCH (09:00)
[2020-04-24] MEDS: ISOSORBIDE MONONITRATE ER 30 MG TAB.ER.24H PO SCH (09:00)
--- NOTE | 2020-04-24 12:45 | NUR ---
Pt was calling out for "help!" When nurse entered the room the pt was laying on his right side with his head pointing to the and facing the dayroom. When asked what happened pt stated "I fell." Pt stated "I was standing to switch my oxygen when my knees gave out." He stated he went to his knees then face down bumping his nose on the floor. He c/o of pain in his middle toe on his right foot, small laceration noted. First aide administered per protocol. When obtaining VS pt obseved to have bp's of 66/44, 87/59 and 109/75. temp: 97.7 oral, Resp: 20, 93% on 3L NC, No change in mentation, pt is able to follow commands, no bruising, swelling, or reddened areas noted. He is able to follow commands and was assisted to bed X [address] Jordan garcia, new order to D/C losartan and decrease Imdur from 60mg to 30mg. Message left with pts guardian. Dr. Layton aware no new orders.
[2020-04-24 15:49] VITALS: BP 107/71
[2020-04-24] MEDS: RIVAROXABAN 10 MG TABLET. PO SCH (17:13)
[2020-04-24] MEDS: TAMSULOSIN 0.4 MG CAP.ER.24H. PO SCH (17:14)
[2020-04-24] MEDS: INSULIN GLARGINE SYRINGE. SQ SCH (19:40)
[2020-04-24] MEDS: CELECOXIB 100 MG CAPSULE PO SCH (20:51)
[2020-04-24] MEDS: ATORVASTATIN CALCIUM 20 MG TABLET PO SCH (20:51)
[2020-04-24] MEDS: rOPINIRole 1 MG TABLET. PO SCH (20:52)
[2020-04-24] MEDS: DIVALPROEX ER 500 MG TAB.ER.24H PO SCH (20:54)
--- NOTE | 2020-04-24 21:57 | PDOC ---
Exam Note: Good Note: Please also refer to the separate dictated note~for this date of service dictated separately.~Patient seen individually. Discussed the patient with Nursing staff reviewed the chart.~Reviewed interim history and current functioning. Reviewed vital signs,~Labs/ Radiology~and current medications noted below. Continue current treatment with the changes noted in the dictated addendum note Assessment: Vital Signs/I&O: Vital Signs Date Time Temp Pulse Resp B/P (MAP) Pulse Ox O2 Delivery O2 Flow Rate FiO2 04/24/20 20:52 95 04/24/20 18:13 20 04/24/20 17:13 62 107/71 04/24/20 15:49 97.8 04/24/20 06:17 3.0 04/23/20 15:58 Room Air I & O 04/23/20 04/23/20 04/24/20 15:00 23:00 07:00 Intake Total 1160 ml 180 ml Balance 1160 ml 180 ml Labs: Laboratory Tests Test 04/24/20 08:05 04/24/20 19:35 Glucose (Fingerstick) 96 mg/dL (70-99) 171 mg/dL (70-99) H Current Medications: Meds: Current Medications Medications (Trade) Dose Ordered Sig/Aaron Route PRN Reason Start Time Stop Time Status Last Admin Dose Admin Divalproex Sodium (Depakote Er) 1,500 mg QHS PO 04/24/20 21:30 04/24/20 20:54 I have reviewed the current psychotropics carefully including drug interactions. Risk benefit ratio favors no change other than as noted in my dictated progress note. Diagnosis: Problems: (1) Tardive dyskinesia (2) Chronic undifferentiated schizophrenia (3) Schizoaffective disorder, bipolar type (4) Bipolar disorder with psychotic features (5) Impulse control disorder, unspecified (6) Anxiety disorder, unspecified KAMILA LOMELI MD Apr 24, 2020 21:57
--- NOTE | 2020-04-24 23:34 | NUR ---
Patient is in his bed on assumption of care, awake in bed. He is in pleasant spirits. Compliant with assessments and medications whole with honey thickened liquid. Cooperative with shower and HS cares. No agitation. Patient denies any pain or discomfort. He appears to be sleeping comfortably at present time. Will continue to monitor.
[2020-04-25] MEDS: LEVOTHYROXINE 50 MCG TABLET PO SCH (05:09)
[2020-04-25 06:35] VITALS: BP 104/69
[2020-04-25 07:12] LABS: BASO # 0.1 x10^3/uL (0.0-0.2); BASO % 2 % (0-3); EOS # 0.2 x10^3/uL (0.0-0.7); EOS % 2 % (0-3); HEMATOCRIT 41.4 % (39.0-53.0); LYMPH # 1.5 x10^3/uL (1.0-4.8); LYMPH % 18 % (24-48); MEAN CORPUSCULAR HEMOGLOBIN 29 pg (25-35); MEAN CORPUSCULAR HGB CONC 32 g/dL (31-37); MEAN CORPUSCULAR VOLUME 91 fL (79-100); MONO # 0.8 x10^3/uL (0.0-1.1); MONO % 10 % (0-9); NEUT # 5.6 x10^3uL (1.8-7.7); NEUT % 68 % (31-73); PLATELET COUNT 255 x10^3/uL (140-400); RED BLOOD COUNT 4.57 x10^6/uL (4.30-5.70); RED CELL DISTRIBUTION WIDTH 14.1 % (11.5-14.5); WHITE BLOOD COUNT 8.2 x10^3/uL (4.0-11.0)
[2020-04-25 07:28] LABS: ALBUMIN 3.3 g/dL (3.4-5.0); ALBUMIN/GLOBULIN RATIO 0.8 (1.0-1.7); ALK PHOS 60 U/L (46-116); ALT (SGPT) 30 U/L (16-63); ANION GAP 3 (6-14); AST (SGOT) 18 U/L (15-37); BLOOD UREA NITROGEN 15 mg/dL (8-26); BUN/CREATININE RATIO 15 (6-20); CALCIUM 8.9 mg/dL (8.5-10.1); CARBON DIOXIDE 37 mmol/L (21-32); CHLORIDE 99 mmol/L (98-107); GFR 73.5; GLUCOSE 106 mg/dL (70-99); POTASSIUM 4.8 mmol/L (3.5-5.1); SODIUM 139 mmol/L (136-145); TOTAL BILIRUBIN 0.3 mg/dL (0.2-1.0); TOTAL PROTEIN 7.4 g/dL (6.4-8.2)
[2020-04-25 07:29] LABS: VAL ACID 52 mcg/mL (50-100)
[2020-04-25] MEDS: CARVEDILOL 3.125 MG TABLET PO SCH ×2 (08:00→17:00)
[2020-04-25] MEDS: CITALOPRAM 10 MG TABLET. PO SCH (08:38)
[2020-04-25] MEDS: OXYBUTYNIN CHLORIDE 5 MG TABLET PO SCH ×3 (08:38→20:30)
[2020-04-25] MEDS: SIMETHICONE 80 MG TAB.CHEW PO SCH ×3 (08:38→20:30)
[2020-04-25] MEDS: METHENAMINE HIPPURATE 1 GM TABLET PO SCH ×2 (08:38→20:32)
[2020-04-25] MEDS: HYDROcodone/APAP 7.5/325MG 1 TAB TABLET PO SCH ×4 (08:39→20:32)
[2020-04-25] MEDS: ASCORBIC ACID 500 MG TABLET PO SCH ×2 (08:39→20:32)
[2020-04-25] MEDS: CETIRIZINE HCL 10 MG TABLET PO SCH (08:39)
[2020-04-25] MEDS: FUROSEMIDE 40 MG TABLET PO SCH (08:39)
[2020-04-25] MEDS: CHOLECALCIFEROL (VITAMIN D3) 1,000 UNIT TABLET PO SCH (08:39)
[2020-04-25] MEDS: LORazepam 0.5 MG TABLET PO PRN (08:39)
[2020-04-25] MEDS: risperiDONE 0.25 MG TABLET. PO SCH ×2 (08:39→20:30)
[2020-04-25] MEDS: CALCITRIOL 0.25 MCG CAPSULE PO SCH (08:39)
[2020-04-25] MEDS: MAGNESIUM OXIDE 400 MG TABLET PO SCH ×3 (08:39→20:30)
[2020-04-25] MEDS: PANTOPRAZOLE 40 MG TABLET. PO SCH ×2 (08:39→20:30)
--- NOTE | 2020-04-25 08:46 | PDOC ---
Exam Note: Good Note: This note is a late entry for 04/24/2020 covers elements not covered in my initial note. Subjective: The patient was seen individually in the evening of 04/24/2020 with Debbie MATUTE, discussed and reviewed the chart. He slept 7 hours previous night. The patient did well previous night. He fell around 12.45 p.m. He has low blood pressure. We will defer to Dr. Ortega. Blood pressure 66/44 mmHg, pulse 88. Later BP 109/[address] Ortega is reducing the cardiac meds. He states he is less sedated today. We changed the Depakote to ER only to be given at h.s. and this he is quite sure to help sedation. Review of Systems: Ambulation impaired. He is lying in bed. I turned on the lights and he was able to sit up. He does have oxygen in place. Difficulty with speech due to dyskinetic mouth movements. No CV, , eye system symptoms on review. Mental Status Exam: Reasonably oriented. He was able to express appreciation of being less sedated. Speech as above. Abstraction is fair. Computation impaired. Language function intact. Mood and affect withdrawn. No clear suicidal or homicidal ideation. He had questions about discharge plans which we addressed. Laboratory Data: Reviewed. 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 Anxiety disorder unspecified. Impulse control disorder unspecified. Plan: No change from initial note. Assessment: Vital Signs/I&O: Vital Signs Date Time Temp Pulse Resp B/P (MAP) Pulse Ox O2 Delivery O2 Flow Rate FiO2 04/25/20 08:39 20 04/25/20 06:35 98.4 58 104/69 (81) 99 Nasal Cannula 3.0 I & O 04/24/20 04/24/20 04/25/20 15:00 23:00 07:00 Intake Total 1150 ml 790 ml Balance 1150 ml 790 ml Labs: Laboratory Tests Test 04/24/20 19:35 04/25/20 06:52 04/25/20 07:46 Glucose (Fingerstick) 171 mg/dL (70-99) H 165 mg/dL (70-99) H White Blood Count 8.2 x10^3/uL (4.0-11.0) Red Blood Count 4.57 x10^6/uL (4.30-5.70) Hemoglobin 13.0 g/dL (13.0-17.5) Hematocrit 41.4 % (39.0-53.0) Mean Corpuscular Volume 91 fL (79-100) Mean Corpuscular Hemoglobin 29 pg (25-35) Mean Corpuscular Hemoglobin Concent 32 g/dL (31-37) Red Cell Distribution Width 14.1 % (11.5-14.5) Platelet Count 255 x10^3/uL (140-400) Neutrophils (%) (Auto) 68 % (31-73) Lymphocytes (%) (Auto) 18 % (24-48) L Monocytes (%) (Auto) 10 % (0-9) H Eosinophils (%) (Auto) 2 % (0-3) Basophils (%) (Auto) 2 % (0-3) Neutrophils # (Auto) 5.6 x10^3uL (1.8-7.7) Lymphocytes # (Auto) 1.5 x10^3/uL (1.0-4.8) Monocytes # (Auto) 0.8 x10^3/uL (0.0-1.1) Eosinophils # (Auto) 0.2 x10^3/uL (0.0-0.7) Basophils # (Auto) 0.1 x10^3/uL (0.0-0.2) Sodium Level 139 mmol/L (136-145) Potassium Level 4.8 mmol/L (3.5-5.1) Chloride Level 99 mmol/L (98-107) Carbon Dioxide Level 37 mmol/L (21-32) H Anion Gap 3 (6-14) L Blood Urea Nitrogen 15 mg/dL (8-26) Creatinine 1.0 mg/dL (0.7-1.3) Estimated GFR (Cockcroft-Gault) 73.5 BUN/Creatinine Ratio 15 (6-20) Glucose Level 106 mg/dL (70-99) H Calcium Level 8.9 mg/dL (8.5-10.1) Total Bilirubin 0.3 mg/dL (0.2-1.0) Aspartate Amino Transferase (AST) 18 U/L (15-37) Alanine Aminotransferase (ALT) 30 U/L (16-63) Alkaline Phosphatase 60 U/L (46-116) Total Protein 7.4 g/dL (6.4-8.2) Albumin 3.3 g/dL (3.4-5.0) L Albumin/Globulin Ratio 0.8 (1.0-1.7) L Valproic Acid Level 52 mcg/mL (50-100) Valproic Acid Last Dose Date 04/24/20 Valproic Acid Last Dose Time 1700 Current Medications: Meds: Laboratory Tests Test 04/24/20 19:35 04/25/20 06:52 04/25/20 07:46 Glucose (Fingerstick) 171 mg/dL 165 mg/dL White Blood Count 8.2 x10^3/uL Red Blood Count 4.57 x10^6/uL Hemoglobin 13.0 g/dL Hematocrit 41.4 % Mean Corpuscular Volume 91 fL Mean Corpuscular Hemoglobin 29 pg Mean Corpuscular Hemoglobin Concent 32 g/dL Red Cell Distribution Width 14.1 % Platelet Count 255 x10^3/uL Neutrophils (%) (Auto) 68 % Lymphocytes (%) (Auto) 18 % Monocytes (%) (Auto) 10 % Eosinophils (%) (Auto) 2 % Basophils (%) (Auto) 2 % Neutrophils # (Auto) 5.6 x10^3uL Lymphocytes # (Auto) 1.5 x10^3/uL Monocytes # (Auto) 0.8 x10^3/uL Eosinophils # (Auto) 0.2 x10^3/uL Basophils # (Auto) 0.1 x10^3/uL Sodium Level 139 mmol/L Potassium Level 4.8 mmol/L Chloride Level 99 mmol/L Carbon Dioxide Level 37 mmol/L Anion Gap 3 Blood Urea Nitrogen 15 mg/dL Creatinine 1.0 mg/dL Estimated GFR (Cockcroft-Gault) 73.5 BUN/Creatinine Ratio 15 Glucose Level 106 mg/dL Calcium Level 8.9 mg/dL Total Bilirubin 0.3 mg/dL Aspartate Amino Transf (AST/SGOT) 18 U/L Alanine Aminotransferase (ALT/SGPT) 30 U/L Alkaline Phosphatase 60 U/L Total Protein 7.4 g/dL Albumin 3.3 g/dL Albumin/Globulin Ratio 0.8 Valproic Acid (Depakene) Level 52 mcg/mL Valproic Acid Last Dose Date 04/24/20 Valproic Acid Last Dose Time 1700 Current Medications Medications (Trade) Dose Ordered Sig/Aaron Route PRN Reason Start Time Stop Time Status Last Admin Dose Admin Albuterol Sulfate (Ventolin) 8 mg PRN Q4HRS PRN IH wheezing 04/10/20 15:45 04/14/20 22:31 DC 04/14/20 22:12 Atorvastatin Calcium (Lipitor) 20 mg QHS PO 04/10/20 21:00 04/24/20 20:51 Calcitriol (Rocaltrol) 0.25 mcg DAILY PO 04/11/20 09:00 04/25/20 08:39 Carvedilol (Coreg) 3.125 mg BIDWMEALS PO 04/10/20 17:00 04/24/20 17:13 Diltiazem HCl (Cardizem 24hr Cd) 120 mg DAILY PO 04/11/20 09:00 04/24/20 08:41 Fluphenazine HCl (Prolixin) 2.5 mg QHS PO 04/10/20 21:00 04/24/20 20:50 Furosemide (Lasix) 40 mg DAILY PO 04/11/20 09:00 04/25/20 08:39 Acetaminophen/ Hydrocodone Bitart (Lortab 7.5/325) 1 tab PRN QID PRN PO MOD-SEV PAIN 04/10/20 15:45 04/15/20 19:58 DC 04/15/20 16:13 Levothyroxine Sodium (Synthroid) 50 mcg DAILYAC PO 04/11/20 07:30 04/16/20 11:53 DC 04/16/20 09:19 Losartan Potassium (Cozaar) 25 mg DAILY PO 04/11/20 09:00 04/24/20 13:14 DC 04/24/20 08:41 Methenamine Hippurate (Hiprex) 1 gm BID PO 04/10/20 21:00 04/25/20 08:38 Nystatin (Nystop) 15 kailey PRN BID PRN TP YEAST 04/10/20 15:45 04/22/20 08:12 Pantoprazole Sodium (Protonix) 40 mg BID PO 04/10/20 21:00 04/25/20 08:39 Polyethylene Glycol (miraLAX) 17 gm PRN DAILY PRN PO 1ST CHOICE CONSTIPATION 04/10/20 15:45 Risperidone (RisperDAL) 0.25 mg BID PO 04/10/20 21:00 04/25/20 08:39 Ropinirole HCl (Requip) 1 mg QHS PO 04/10/20 21:00 04/24/20 20:52 Tamsulosin HCl (Flomax) 0.4 mg QEVNG PO 04/10/20 18:00 04/24/20 17:14 Simethicone (Gas-X) 80 mg TID PO 04/10/20 21:00 04/25/20 08:38 Ascorbic Acid (Vitamin C) 500 mg BID PO 04/10/20 21:00 04/25/20 08:39 Artificial Tears (Artificial Tears) 1 drop PRN BID PRN OU DRY EYE 04/10/20 17:00 Celecoxib (CeleBREX) 200 mg QHS PO 04/10/20 21:00 04/24/20 20:51 Cholestyramine Resin (Questran Light) 4 gm PRN DAILY PRN PO LOOSE STOOLS 04/10/20 17:00 Insulin Glargine (Lantus Syringe) 30 unit QHS SQ 04/10/20 21:00 04/24/20 18:13 DC 04/20/20 21:00 Isosorbide Mononitrate (Imdur) 60 mg DAILY PO 04/11/20 09:00 04/24/20 13:14 DC 04/23/20 08:39 Loperamide HCl (Imodium) 2 mg PRN Q2HRS PRN PO DIARRHEA 04/10/20 17:00 04/15/20 20:50 Rivaroxaban (Xarelto) 20 mg DAILYWSUP PO 04/10/20 17:00 04/24/20 17:13 Acetaminophen (Tylenol) 650 mg PRN Q6HRS PRN PO MILD PAIN / TEMP > 100.3'F 04/10/20 16:30 04/12/20 14:07 Multi-Ingredient Ointment (Analgesic [place]) 1 kailey PRN QID PRN TP MUSCLE PAIN 04/10/20 16:30 Al Hydroxide/Mg Hydroxide (Mylanta Plus Xs) 15 ml PRN AFTMEALHC PRN PO DYSPEPSIA 04/10/20 16:30 Magnesium Hydroxide (Milk Of Magnesia) 2,400 mg PRN QHS PRN PO 2ND CHOICE CONSTIPATION 04/10/20 16:30 Lorazepam (Ativan) 0.25 mg PRN TID PRN PO ANXIETY / AGITATION 04/12/20 16:30 04/25/20 08:39 Divalproex Sodium (Depakote Sprinkles) 250 mg 0900,1700 PO 04/14/20 09:00 04/17/20 18:32 DC 04/17/20 17:04 Neomycin/ Polymyxin/Bacitr/ Hydrocort (Cortisporin Ophth) 2 kailey BID OU 04/14/20 21:00 04/24/20 18:13 DC 04/23/20 20:29 Albuterol Sulfate (Ventolin) 2.5 mg PRN Q4HRS PRN IH wheezing 04/14/20 22:31 04/19/20 16:54 Acetaminophen/ Hydrocodone Bitart (Lortab 7.5/325) 1 tab QID PO 04/15/20 20:30 04/25/20 08:39 Cetirizine HCl (ZyrTEC) 10 mg DAILY PO 04/16/20 09:00 04/25/20 08:39 Citalopram Hydrobromide (CeleXA) 20 mg DAILY PO 04/16/20 09:00 04/25/20 08:38 Magnesium Oxide (Magnesium Oxide) 400 mg TID PO 04/16/20 09:00 04/25/20 08:39 Nitroglycerin (Nitrostat) 0.4 mg 1X PRN SL chest pain 04/16/20 00:30 Oxybutynin Chloride (Ditropan) 5 mg TID PO 04/16/20 09:00 04/25/20 08:38 Potassium Chloride (Klor-Con) 20 meq TIDWMEALS PO 04/16/20 08:00 04/21/20 16:03 DC 04/20/20 17:40 Non-Formulary Medication (Cholecalciferol (Vitamin D3) (Vitamin D3)) 50 mcg DAILY PO 04/16/20 09:00 UNV Saliva Substitute (Biotene Moisturizing Mouth) 2 spray PRN Q12HR PRN PO DRY MOUTH 04/16/20 01:15 Vitamin D (Vitamin D3) 2,000 unit DAILY PO 04/16/20 09:00 04/25/20 08:39 Levothyroxine Sodium (Synthroid) 50 mcg DAILY06 PO 04/17/20 06:00 04/25/20 05:09 Divalproex Sodium (Depakote Sprinkles) 500 mg 0900,1700 PO 04/18/20 09:00 04/21/20 18:05 DC 04/21/20 17:30 Potassium Chloride (Klor-Con) 20 meq DAILY PO 04/22/20 09:00 Divalproex Sodium (Depakote Sprinkles) 750 mg 0900,1700 PO 04/22/20 09:00 04/23/20 21:10 DC 04/23/20 16:49 Divalproex Sodium (Depakote Er) 1,500 mg QHS PO 04/24/20 21:30 04/24/20 20:54 Isosorbide Mononitrate (Imdur) 30 mg DAILY PO 04/25/20 09:00 Insulin Glargine (Lantus Syringe) 20 unit QHS SQ 04/24/20 21:00 Current Medications Medications (Trade) Dose Ordered Sig/Aaron Route PRN Reason Start Time Stop Time Status Last Admin Dose Admin Divalproex Sodium (Depakote Er) 1,500 mg QHS PO 04/24/20 21:30 04/24/20 20:54 I have reviewed the current psychotropics carefully including drug interactions. Risk benefit ratio favors no change other than as noted in my dictated progress note. Diagnosis: Problems: (1) Tardive dyskinesia (2) Chronic undifferentiated schizophrenia (3) Schizoaffective disorder, bipolar type (4) Bipolar disorder with psychotic features (5) Impulse control disorder, unspecified (6) Anxiety disorder, unspecified KAMILA LOMELI MD Apr 25, 2020 08:46
[2020-04-25] MEDS: ISOSORBIDE MONONITRATE ER 30 MG TAB.ER.24H PO SCH (09:00)
[2020-04-25] MEDS: POTASSIUM CHLORIDE 20 MEQ TABLET.ER. PO SCH (09:00)
--- NOTE | 2020-04-25 10:20 | NUR ---
No agitation, no aggression, no hallucinations, no delusions. He is compliant with his medications and assessment.
--- NOTE | 2020-04-25 12:55 | NUR ---
WEEKLY ACTIVITY THERAPY NOTE Date of Admission: 04/10 Date of AT Assessment: 04/12 Precipitating behaviors that initiated intake and admission: agitated, anxious, paranoid, accusing staff of abuse Goal aimed:increase motivation and engagement skills Initial Goal:Pt will participate in at least one individual or group Activity Therapy session per week. Goal changed 04/18: Pt will participate in at least two individual or group Activity Therapy session per week. Weekly progress towards goal: did not achieve, zero Group participation level: zero Weekly highlights: none Behaviors observed: isolated to room, limited interest in groups offered Plan: no change to goal Beneficial adaptations:
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
--- NOTE | 2020-04-25 14:13 | NUR ---
WEEKLY NOTE: Pt sleeping 8.5 to 9 hours at night and eating 100% of his meals. Pt had a recent fall d/t low b/p, therefore, losartan was d/cd and Imdur was decreased from 60mg to 30mg. Blood pressure will continue to be monitored. Depakote, also, changed to ER to help with sedation. Pt continues to feel that psychiatric medications he is currently taking are helping him. Pt has been cooperative and compliant with medications. Pt has occasional agitation when he feels that he isn't getting the treatment he needs, yet, staff encourage pt to be as independent as possible with his self-care. Update provided to facility. Pt will return to facility once stable.
[2020-04-25 15:29] VITALS: BP 93/69
[2020-04-25] MEDS: RIVAROXABAN 10 MG TABLET. PO SCH (17:13)
[2020-04-25] MEDS: TAMSULOSIN 0.4 MG CAP.ER.24H. PO SCH (17:13)
--- NOTE | 2020-04-25 18:37 | NUR ---
new order from Dr. Ortega: hold K on 04/26. Resume K on 04/27 after BMP.
[2020-04-25] MEDS: rOPINIRole 1 MG TABLET. PO SCH (20:29)
[2020-04-25] MEDS: ATORVASTATIN CALCIUM 20 MG TABLET PO SCH (20:30)
[2020-04-25] MEDS: DIVALPROEX ER 500 MG TAB.ER.24H PO SCH (20:30)
[2020-04-25] MEDS: CELECOXIB 100 MG CAPSULE PO SCH (20:30)
[2020-04-25] MEDS: INSULIN GLARGINE SYRINGE. SQ SCH (21:36)
--- NOTE | 2020-04-25 22:03 | PDOC ---
Exam Note: Good Note: Please also refer to the separate dictated note~for this date of service dictated separately.~Patient seen individually. Discussed the patient with Nursing staff reviewed the chart.~Reviewed interim history and current functioning. Reviewed vital signs,~Labs/ Radiology~and current medications noted below. Continue current treatment with the changes noted in the dictated addendum note Assessment: Vital Signs/I&O: Vital Signs Date Time Temp Pulse Resp B/P (MAP) Pulse Ox O2 Delivery O2 Flow Rate FiO2 04/25/20 18:19 20 04/25/20 15:29 98.6 78 93/69 (77) 95 04/25/20 06:35 Nasal Cannula 3.0 I & O 04/24/20 04/24/20 04/25/20 15:00 23:00 07:00 Intake Total 1150 ml 790 ml Balance 1150 ml 790 ml Labs: Laboratory Tests Test 04/25/20 06:52 04/25/20 07:46 04/25/20 19:01 White Blood Count 8.2 x10^3/uL (4.0-11.0) Red Blood Count 4.57 x10^6/uL (4.30-5.70) Hemoglobin 13.0 g/dL (13.0-17.5) Hematocrit 41.4 % (39.0-53.0) Mean Corpuscular Volume 91 fL (79-100) Mean Corpuscular Hemoglobin 29 pg (25-35) Mean Corpuscular Hemoglobin Concent 32 g/dL (31-37) Red Cell Distribution Width 14.1 % (11.5-14.5) Platelet Count 255 x10^3/uL (140-400) Neutrophils (%) (Auto) 68 % (31-73) Lymphocytes (%) (Auto) 18 % (24-48) L Monocytes (%) (Auto) 10 % (0-9) H Eosinophils (%) (Auto) 2 % (0-3) Basophils (%) (Auto) 2 % (0-3) Neutrophils # (Auto) 5.6 x10^3uL (1.8-7.7) Lymphocytes # (Auto) 1.5 x10^3/uL (1.0-4.8) Monocytes # (Auto) 0.8 x10^3/uL (0.0-1.1) Eosinophils # (Auto) 0.2 x10^3/uL (0.0-0.7) Basophils # (Auto) 0.1 x10^3/uL (0.0-0.2) Sodium Level 139 mmol/L (136-145) Potassium Level 4.8 mmol/L (3.5-5.1) Chloride Level 99 mmol/L (98-107) Carbon Dioxide Level 37 mmol/L (21-32) H Anion Gap 3 (6-14) L Blood Urea Nitrogen 15 mg/dL (8-26) Creatinine 1.0 mg/dL (0.7-1.3) Estimated GFR (Cockcroft-Gault) 73.5 BUN/Creatinine Ratio 15 (6-20) Glucose Level 106 mg/dL (70-99) H Calcium Level 8.9 mg/dL (8.5-10.1) Total Bilirubin 0.3 mg/dL (0.2-1.0) Aspartate Amino Transferase (AST) 18 U/L (15-37) Alanine Aminotransferase (ALT) 30 U/L (16-63) Alkaline Phosphatase 60 U/L (46-116) Total Protein 7.4 g/dL (6.4-8.2) Albumin 3.3 g/dL (3.4-5.0) L Albumin/Globulin Ratio 0.8 (1.0-1.7) L Valproic Acid Level 52 mcg/mL (50-100) Valproic Acid Last Dose Date 04/24/20 Valproic Acid Last Dose Time 1700 Glucose (Fingerstick) 165 mg/dL (70-99) H 178 mg/dL (70-99) H Current Medications: Meds: Laboratory Tests Test 04/25/20 06:52 04/25/20 07:46 04/25/20 19:01 White Blood Count 8.2 x10^3/uL Red Blood Count 4.57 x10^6/uL Hemoglobin 13.0 g/dL Hematocrit 41.4 % Mean Corpuscular Volume 91 fL Mean Corpuscular Hemoglobin 29 pg Mean Corpuscular Hemoglobin Concent 32 g/dL Red Cell Distribution Width 14.1 % Platelet Count 255 x10^3/uL Neutrophils (%) (Auto) 68 % Lymphocytes (%) (Auto) 18 % Monocytes (%) (Auto) 10 % Eosinophils (%) (Auto) 2 % Basophils (%) (Auto) 2 % Neutrophils # (Auto) 5.6 x10^3uL Lymphocytes # (Auto) 1.5 x10^3/uL Monocytes # (Auto) 0.8 x10^3/uL Eosinophils # (Auto) 0.2 x10^3/uL Basophils # (Auto) 0.1 x10^3/uL Sodium Level 139 mmol/L Potassium Level 4.8 mmol/L Chloride Level 99 mmol/L Carbon Dioxide Level 37 mmol/L Anion Gap 3 Blood Urea Nitrogen 15 mg/dL Creatinine 1.0 mg/dL Estimated GFR (Cockcroft-Gault) 73.5 BUN/Creatinine Ratio 15 Glucose Level 106 mg/dL Calcium Level 8.9 mg/dL Total Bilirubin 0.3 mg/dL Aspartate Amino Transf (AST/SGOT) 18 U/L Alanine Aminotransferase (ALT/SGPT) 30 U/L Alkaline Phosphatase 60 U/L Total Protein 7.4 g/dL Albumin 3.3 g/dL Albumin/Globulin Ratio 0.8 Valproic Acid (Depakene) Level 52 mcg/mL Valproic Acid Last Dose Date 04/24/20 Valproic Acid Last Dose Time 1700 Glucose (Fingerstick) 165 mg/dL 178 mg/dL Current Medications Medications (Trade) Dose Ordered Sig/Aaron Route PRN Reason Start Time Stop Time Status Last Admin Dose Admin Albuterol Sulfate (Ventolin) 8 mg PRN Q4HRS PRN IH wheezing 04/10/20 15:45 04/14/20 22:31 DC 04/14/20 22:12 Atorvastatin Calcium (Lipitor) 20 mg QHS PO 04/10/20 21:00 04/25/20 20:30 Calcitriol (Rocaltrol) 0.25 mcg DAILY PO 04/11/20 09:00 04/25/20 08:39 Carvedilol (Coreg) 3.125 mg BIDWMEALS PO 04/10/20 17:00 04/24/20 17:13 Diltiazem HCl (Cardizem 24hr Cd) 120 mg DAILY PO 04/11/20 09:00 04/24/20 08:41 Fluphenazine HCl (Prolixin) 2.5 mg QHS PO 04/10/20 21:00 04/25/20 20:30 Furosemide (Lasix) 40 mg DAILY PO 04/11/20 09:00 04/25/20 08:39 Acetaminophen/ Hydrocodone Bitart (Lortab 7.5/325) 1 tab PRN QID PRN PO MOD-SEV PAIN 04/10/20 15:45 04/15/20 19:58 DC 04/15/20 16:13 Levothyroxine Sodium (Synthroid) 50 mcg DAILYAC PO 04/11/20 07:30 04/16/20 11:53 DC 04/16/20 09:19 Losartan Potassium (Cozaar) 25 mg DAILY PO 04/11/20 09:00 04/24/20 13:14 DC 04/24/20 08:41 Methenamine Hippurate (Hiprex) 1 gm BID PO 04/10/20 21:00 04/25/20 20:32 Nystatin (Nystop) 15 kailey PRN BID PRN TP YEAST 04/10/20 15:45 04/22/20 08:12 Pantoprazole Sodium (Protonix) 40 mg BID PO 04/10/20 21:00 04/25/20 20:30 Polyethylene Glycol (miraLAX) 17 gm PRN DAILY PRN PO 1ST CHOICE CONSTIPATION 04/10/20 15:45 Risperidone (RisperDAL) 0.25 mg BID PO 04/10/20 21:00 04/25/20 20:30 Ropinirole HCl (Requip) 1 mg QHS PO 04/10/20 21:00 04/25/20 20:29 Tamsulosin HCl (Flomax) 0.4 mg QEVNG PO 04/10/20 18:00 04/25/20 17:13 Simethicone (Gas-X) 80 mg TID PO 04/10/20 21:00 04/25/20 20:30 Ascorbic Acid (Vitamin C) 500 mg BID PO 04/10/20 21:00 04/25/20 20:32 Artificial Tears (Artificial Tears) 1 drop PRN BID PRN OU DRY EYE 04/10/20 17:00 Celecoxib (CeleBREX) 200 mg QHS PO 04/10/20 21:00 04/25/20 20:30 Cholestyramine Resin (Questran Light) 4 gm PRN DAILY PRN PO LOOSE STOOLS 04/10/20 17:00 Insulin Glargine (Lantus Syringe) 30 unit QHS SQ 04/10/20 21:00 04/24/20 18:13 DC 04/20/20 21:00 Isosorbide Mononitrate (Imdur) 60 mg DAILY PO 04/11/20 09:00 04/24/20 13:14 DC 04/23/20 08:39 Loperamide HCl (Imodium) 2 mg PRN Q2HRS PRN PO DIARRHEA 04/10/20 17:00 04/15/20 20:50 Rivaroxaban (Xarelto) 20 mg DAILYWSUP PO 04/10/20 17:00 04/25/20 17:13 Acetaminophen (Tylenol) 650 mg PRN Q6HRS PRN PO MILD PAIN / TEMP > 100.3'F 04/10/20 16:30 04/12/20 14:07 Multi-Ingredient Ointment (Analgesic [place]) 1 kailey PRN QID PRN TP MUSCLE PAIN 04/10/20 16:30 Al Hydroxide/Mg Hydroxide (Mylanta Plus Xs) 15 ml PRN AFTMEALHC PRN PO DYSPEPSIA 04/10/20 16:30 Magnesium Hydroxide (Milk Of Magnesia) 2,400 mg PRN QHS PRN PO 2ND CHOICE CONSTIPATION 04/10/20 16:30 Lorazepam (Ativan) 0.25 mg PRN TID PRN PO ANXIETY / AGITATION 04/12/20 16:30 04/25/20 08:39 Divalproex Sodium (Depakote Sprinkles) 250 mg 0900,1700 PO 04/14/20 09:00 04/17/20 18:32 DC 04/17/20 17:04 Neomycin/ Polymyxin/Bacitr/ Hydrocort (Cortisporin Ophth) 2 kailey BID OU 04/14/20 21:00 04/24/20 18:13 DC 04/23/20 20:29 Albuterol Sulfate (Ventolin) 2.5 mg PRN Q4HRS PRN IH wheezing 04/14/20 22:31 04/19/20 16:54 Acetaminophen/ Hydrocodone Bitart (Lortab 7.5/325) 1 tab QID PO 04/15/20 20:30 04/25/20 20:32 Cetirizine HCl (ZyrTEC) 10 mg DAILY PO 04/16/20 09:00 04/25/20 08:39 Citalopram Hydrobromide (CeleXA) 20 mg DAILY PO 04/16/20 09:00 04/25/20 08:38 Magnesium Oxide (Magnesium Oxide) 400 mg TID PO 04/16/20 09:00 04/25/20 20:30 Nitroglycerin (Nitrostat) 0.4 mg 1X PRN SL chest pain 04/16/20 00:30 Oxybutynin Chloride (Ditropan) 5 mg TID PO 04/16/20 09:00 04/25/20 20:30 Potassium Chloride (Klor-Con) 20 meq TIDWMEALS PO 04/16/20 08:00 04/21/20 16:03 DC 04/20/20 17:40 Non-Formulary Medication (Cholecalciferol (Vitamin D3) (Vitamin D3)) 50 mcg DAILY PO 04/16/20 09:00 UNV Saliva Substitute (Biotene Moisturizing Mouth) 2 spray PRN Q12HR PRN PO DRY MOUTH 04/16/20 01:15 Vitamin D (Vitamin D3) 2,000 unit DAILY PO 04/16/20 09:00 04/25/20 08:39 Levothyroxine Sodium (Synthroid) 50 mcg DAILY06 PO 04/17/20 06:00 04/25/20 05:09 Divalproex Sodium (Depakote Sprinkles) 500 mg 0900,1700 PO 04/18/20 09:00 04/21/20 18:05 DC 04/21/20 17:30 Potassium Chloride (Klor-Con) 20 meq DAILY PO 04/22/20 09:00 04/25/20 18:43 DC Divalproex Sodium (Depakote Sprinkles) 750 mg 0900,1700 PO 04/22/20 09:00 04/23/20 21:10 DC 04/23/20 16:49 Divalproex Sodium (Depakote Er) 1,500 mg QHS PO 04/24/20 21:30 04/25/20 20:30 Isosorbide Mononitrate (Imdur) 30 mg DAILY PO 04/25/20 09:00 Insulin Glargine (Lantus Syringe) 20 unit QHS SQ 04/24/20 21:00 04/25/20 21:36 Potassium Chloride (Klor-Con) 20 meq DAILY PO 04/27/20 09:00 I have reviewed the current psychotropics carefully including drug interactions. Risk benefit ratio favors no change other than as noted in my dictated progress note. Diagnosis: Problems: (1) Tardive dyskinesia (2) Schizoaffective disorder, bipolar type (3) Bipolar disorder with psychotic features (4) Impulse control disorder, unspecified (5) Anxiety disorder, unspecified KAMILA LOMELI MD Apr 25, 2020 22:02
--- NOTE | 2020-04-25 23:36 | NUR ---
Patient was asking for PRN ativan and then was asleep in the wheelchair when nurse entered the room. PRN not given at this time. Patient compliant with medications, taken whole with Honey Thick liquids. Patient went to bed immediately after receiving HS medications and appears to be sleeping soundly. There was some medication/attention seeking behaviors at the beginning of the shift but that resolved without any interventions by staff.
[2020-04-26] MEDS: LEVOTHYROXINE 50 MCG TABLET PO SCH (05:08)
[2020-04-26 05:55] VITALS: BP 141/83
[2020-04-26] MEDS: OXYBUTYNIN CHLORIDE 5 MG TABLET PO SCH ×3 (08:04→21:49)
[2020-04-26] MEDS: MAGNESIUM OXIDE 400 MG TABLET PO SCH ×3 (08:04→21:49)
[2020-04-26] MEDS: METHENAMINE HIPPURATE 1 GM TABLET PO SCH ×2 (08:05→21:51)
[2020-04-26] MEDS: SIMETHICONE 80 MG TAB.CHEW PO SCH ×3 (08:05→21:48)
[2020-04-26] MEDS: CHOLECALCIFEROL (VITAMIN D3) 1,000 UNIT TABLET PO SCH (08:05)
[2020-04-26] MEDS: CALCITRIOL 0.25 MCG CAPSULE PO SCH (08:05)
[2020-04-26] MEDS: PANTOPRAZOLE 40 MG TABLET. PO SCH ×2 (08:05→21:49)
[2020-04-26] MEDS: FUROSEMIDE 40 MG TABLET PO SCH (08:05)
[2020-04-26] MEDS: ASCORBIC ACID 500 MG TABLET PO SCH ×2 (08:05→21:49)
[2020-04-26] MEDS: CETIRIZINE HCL 10 MG TABLET PO SCH (08:05)
[2020-04-26] MEDS: CITALOPRAM 10 MG TABLET. PO SCH (08:06)
[2020-04-26] MEDS: risperiDONE 0.25 MG TABLET. PO SCH ×2 (08:06→21:49)
[2020-04-26] MEDS: HYDROcodone/APAP 7.5/325MG 1 TAB TABLET PO SCH ×4 (08:06→21:51)
[2020-04-26] MEDS: ISOSORBIDE MONONITRATE ER 30 MG TAB.ER.24H PO SCH (08:07)
[2020-04-26] MEDS: CARVEDILOL 3.125 MG TABLET PO SCH ×2 (08:08→17:18)
[2020-04-26 09:30] VITALS: BP 137/82
[2020-04-26] MEDS: NITROGLYCERIN SUBLINGUAL 0.4 MG BOTTLE OF 25. SL PRN ×2 (09:48→18:16)
--- NOTE | 2020-04-26 10:42 | PDOC ---
Exam Note: Good Note: This note is a late entry for 04/25/2020 covers elements not covered in my initial note. Subjective: The patient was reviewed in the morning of 04/25/2020 for a treatment team meeting with Vicenta Wright, Janet Duarte and Jessica (oncology social worker), Anna, activity therapy and Debbie MATUTE, discussed and reviewed the chart. He was also seen individually in the evening. He slept 7-1/2 hours previous night. Appetite is 100%. The patient had a fall the day before, was hypotensive. Dr. Ortega is reducing his antihypotensive meds. He has been fixated, obsessing about wanting his guardian to discharge him. Discussed all this at treatment team meeting but by the time I saw him in the evening he was in the group lounge area, much more interactive, more awake states he is less sedated since we changed the Depakote to an extended release in the evening. 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 Review of Systems: Ambulation impaired in wheelchair. Shortness of breath on O2 supplements. No CV, , eye system symptoms on review. Mental Status Exam: The patient is awake, alert and oriented. Speech is coherent. Abstraction is fair. Computation impaired. Language function intact. Attention span is fair. Mood and affect is improved. Laboratory Data: Reviewed. 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 Anxiety disorder unspecified. Impulse control disorder unspecified. Plan: No change from initial note. We will consider transition to snf later this week. Assessment: Vital Signs/I&O: Vital Signs Date Time Temp Pulse Resp B/P (MAP) Pulse Ox O2 Delivery O2 Flow Rate FiO2 04/26/20 09:48 89 141/83 04/26/20 09:12 94 04/26/20 05:55 98.1 20 Nasal Cannula 3.5 I & O 04/25/20 04/25/20 04/26/20 14:59 22:59 06:59 Intake Total 960 ml 790 ml Balance 960 ml 790 ml Labs: Laboratory Tests Test 04/25/20 19:01 04/26/20 08:26 Glucose (Fingerstick) 178 mg/dL (70-99) H 120 mg/dL (70-99) H Current Medications: Meds: Laboratory Tests Test 04/25/20 19:01 04/26/20 08:26 Glucose (Fingerstick) 178 mg/dL 120 mg/dL Current Medications Medications (Trade) Dose Ordered Sig/Aaron Route PRN Reason Start Time Stop Time Status Last Admin Dose Admin Albuterol Sulfate (Ventolin) 8 mg PRN Q4HRS PRN IH wheezing 04/10/20 15:45 04/14/20 22:31 DC 04/14/20 22:12 Atorvastatin Calcium (Lipitor) 20 mg QHS PO 04/10/20 21:00 04/25/20 20:30 Calcitriol (Rocaltrol) 0.25 mcg DAILY PO 04/11/20 09:00 04/26/20 08:05 Carvedilol (Coreg) 3.125 mg BIDWMEALS PO 04/10/20 17:00 04/26/20 08:08 Diltiazem HCl (Cardizem 24hr Cd) 120 mg DAILY PO 04/11/20 09:00 04/26/20 08:08 Fluphenazine HCl (Prolixin) 2.5 mg QHS PO 04/10/20 21:00 04/25/20 20:30 Furosemide (Lasix) 40 mg DAILY PO 04/11/20 09:00 04/26/20 08:05 Acetaminophen/ Hydrocodone Bitart (Lortab 7.5/325) 1 tab PRN QID PRN PO MOD-SEV PAIN 04/10/20 15:45 04/15/20 19:58 DC 04/15/20 16:13 Levothyroxine Sodium (Synthroid) 50 mcg DAILYAC PO 04/11/20 07:30 04/16/20 11:53 DC 04/16/20 09:19 Losartan Potassium (Cozaar) 25 mg DAILY PO 04/11/20 09:00 04/24/20 13:14 DC 04/24/20 08:41 Methenamine Hippurate (Hiprex) 1 gm BID PO 04/10/20 21:00 04/26/20 08:05 Nystatin (Nystop) 15 kailey PRN BID PRN TP YEAST 04/10/20 15:45 04/22/20 08:12 Pantoprazole Sodium (Protonix) 40 mg BID PO 04/10/20 21:00 04/26/20 08:05 Polyethylene Glycol (miraLAX) 17 gm PRN DAILY PRN PO 1ST CHOICE CONSTIPATION 04/10/20 15:45 Risperidone (RisperDAL) 0.25 mg BID PO 04/10/20 21:00 04/26/20 08:06 Ropinirole HCl (Requip) 1 mg QHS PO 04/10/20 21:00 04/25/20 20:29 Tamsulosin HCl (Flomax) 0.4 mg QEVNG PO 04/10/20 18:00 04/25/20 17:13 Simethicone (Gas-X) 80 mg TID PO 04/10/20 21:00 04/26/20 08:05 Ascorbic Acid (Vitamin C) 500 mg BID PO 04/10/20 21:00 04/26/20 08:05 Artificial Tears (Artificial Tears) 1 drop PRN BID PRN OU DRY EYE 04/10/20 17:00 Celecoxib (CeleBREX) 200 mg QHS PO 04/10/20 21:00 04/25/20 20:30 Cholestyramine Resin (Questran Light) 4 gm PRN DAILY PRN PO LOOSE STOOLS 04/10/20 17:00 Insulin Glargine (Lantus Syringe) 30 unit QHS SQ 04/10/20 21:00 04/24/20 18:13 DC 04/20/20 21:00 Isosorbide Mononitrate (Imdur) 60 mg DAILY PO 04/11/20 09:00 04/24/20 13:14 DC 04/23/20 08:39 Loperamide HCl (Imodium) 2 mg PRN Q2HRS PRN PO DIARRHEA 04/10/20 17:00 04/15/20 20:50 Rivaroxaban (Xarelto) 20 mg DAILYWSUP PO 04/10/20 17:00 04/25/20 17:13 Acetaminophen (Tylenol) 650 mg PRN Q6HRS PRN PO MILD PAIN / TEMP > 100.3'F 04/10/20 16:30 04/12/20 14:07 Multi-Ingredient Ointment (Analgesic [place]) 1 kailey PRN QID PRN TP MUSCLE PAIN 04/10/20 16:30 Al Hydroxide/Mg Hydroxide (Mylanta Plus Xs) 15 ml PRN AFTMEALHC PRN PO DYSPEPSIA 04/10/20 16:30 Magnesium Hydroxide (Milk Of Magnesia) 2,400 mg PRN QHS PRN PO 2ND CHOICE CONSTIPATION 04/10/20 16:30 Lorazepam (Ativan) 0.25 mg PRN TID PRN PO ANXIETY / AGITATION 04/12/20 16:30 04/25/20 08:39 Divalproex Sodium (Depakote Sprinkles) 250 mg 0900,1700 PO 04/14/20 09:00 04/17/20 18:32 DC 04/17/20 17:04 Neomycin/ Polymyxin/Bacitr/ Hydrocort (Cortisporin Ophth) 2 kailey BID OU 04/14/20 21:00 04/24/20 18:13 DC 04/23/20 20:29 Albuterol Sulfate (Ventolin) 2.5 mg PRN Q4HRS PRN IH wheezing 04/14/20 22:31 04/19/20 16:54 Acetaminophen/ Hydrocodone Bitart (Lortab 7.5/325) 1 tab QID PO 04/15/20 20:30 04/26/20 08:06 Cetirizine HCl (ZyrTEC) 10 mg DAILY PO 04/16/20 09:00 04/26/20 08:05 Citalopram Hydrobromide (CeleXA) 20 mg DAILY PO 04/16/20 09:00 04/26/20 08:06 Magnesium Oxide (Magnesium Oxide) 400 mg TID PO 04/16/20 09:00 04/26/20 08:04 Nitroglycerin (Nitrostat) 0.4 mg 1X PRN SL chest pain 04/16/20 00:30 04/26/20 09:48 Oxybutynin Chloride (Ditropan) 5 mg TID PO 04/16/20 09:00 04/26/20 08:04 Potassium Chloride (Klor-Con) 20 meq TIDWMEALS PO 04/16/20 08:00 04/21/20 16:03 DC 04/20/20 17:40 Non-Formulary Medication (Cholecalciferol (Vitamin D3) (Vitamin D3)) 50 mcg DAILY PO 04/16/20 09:00 UNV Saliva Substitute (Biotene Moisturizing Mouth) 2 spray PRN Q12HR PRN PO DRY MOUTH 04/16/20 01:15 Vitamin D (Vitamin D3) 2,000 unit DAILY PO 04/16/20 09:00 04/26/20 08:05 Levothyroxine Sodium (Synthroid) 50 mcg DAILY06 PO 04/17/20 06:00 04/26/20 05:08 Divalproex Sodium (Depakote Sprinkles) 500 mg 0900,1700 PO 04/18/20 09:00 04/21/20 18:05 DC 04/21/20 17:30 Potassium Chloride (Klor-Con) 20 meq DAILY PO 04/22/20 09:00 04/25/20 18:43 DC Divalproex Sodium (Depakote Sprinkles) 750 mg 0900,1700 PO 04/22/20 09:00 04/23/20 21:10 DC 04/23/20 16:49 Divalproex Sodium (Depakote Er) 1,500 mg QHS PO 04/24/20 21:30 04/25/20 20:30 Isosorbide Mononitrate (Imdur) 30 mg DAILY PO 04/25/20 09:00 04/26/20 08:07 Insulin Glargine (Lantus Syringe) 20 unit QHS SQ 04/24/20 21:00 04/25/20 21:36 Potassium Chloride (Klor-Con) 20 meq DAILY PO 04/27/20 09:00 I have reviewed the current psychotropics carefully including drug interactions. Risk benefit ratio favors no change other than as noted in my dictated progress note. Diagnosis: Problems: (1) Tardive dyskinesia (2) Chronic undifferentiated schizophrenia (3) Schizoaffective disorder, bipolar type (4) Bipolar disorder with psychotic features (5) Impulse control disorder, unspecified (6) Anxiety disorder, unspecified KAMILA LOMELI MD Apr 26, 2020 10:42
[2020-04-26] MEDS ORDERED: ASPIRIN 325 MG TABLET PO ONE (11:20)
--- NOTE | 2020-04-26 13:00 | NUR ---
Nursing note: Pt was in dining room for AM med pass and assessment. He was calm, med compliant and cooperative. Pt denying any pain at that time. About 10 minutes later, pt observed pushing his breakfast tray away as he was moaning and grasping his chest. Pt's face also appeared pale. VS stable at that time. Pt stated that the pain radiated into his throat but refused any PRN dyspepsia medications stating "it's heart pain". Pain did subside and pt returned to his room. A short time later while in the day room, pt again began to experience chest pain. VS continue to be stable, but HR is irregular. PRN nitro given @ 0948 which did help with pain, but pt stated pain did continue to come back off and on. EKG also obtained. Dr. Ortega notified of pt's change in condition. New orders received for 2 sets of troponin and to consult Stacey Angel APRN. Stacey Angel APRN notified of situation. New orders received for Aspirin 325mg x1 NOW and Aspirin 81mg daily.
[2020-04-26 16:19] VITALS: BP 147/84
[2020-04-26] MEDS: TAMSULOSIN 0.4 MG CAP.ER.24H. PO SCH (17:18)
[2020-04-26] MEDS: RIVAROXABAN 10 MG TABLET. PO SCH (17:18)
[2020-04-26 18:00] VITALS: BP 120/81
--- NOTE | 2020-04-26 18:17 | NUR ---
Nursing note: Pt c/o chest pain. VS continue to be stable. Dr. Ortega here to see pt and ordered to give nitro. Nitro administered with reports that it helped pain. Will continue to monitor and report to MD with any other changes.
[2020-04-26] MEDS: DIVALPROEX ER 500 MG TAB.ER.24H PO SCH (21:48)
[2020-04-26] MEDS: ATORVASTATIN CALCIUM 20 MG TABLET PO SCH (21:49)
[2020-04-26] MEDS: rOPINIRole 1 MG TABLET. PO SCH (21:49)
[2020-04-26] MEDS: CELECOXIB 100 MG CAPSULE PO SCH (21:49)
[2020-04-26] MEDS: INSULIN GLARGINE SYRINGE. SQ SCH (21:52)
--- NOTE | 2020-04-26 21:55 | PDOC ---
Exam Note: Good Note: Please also refer to the separate dictated note~for this date of service dictated separately.~Patient seen individually. Discussed the patient with Nursing staff reviewed the chart.~Reviewed interim history and current functioning. Reviewed vital signs,~Labs/ Radiology~and current medications noted below. Continue current treatment with the changes noted in the dictated addendum note Assessment: Vital Signs/I&O: Vital Signs Date Time Temp Pulse Resp B/P (MAP) Pulse Ox O2 Delivery O2 Flow Rate FiO2 04/26/20 18:25 96 04/26/20 18:16 76 120/81 04/26/20 18:00 Nasal Cannula 3.5 04/26/20 16:19 97.0 20 I & O 04/25/20 04/25/20 04/26/20 15:00 23:00 07:00 Intake Total 960 ml 790 ml Balance 960 ml 790 ml Labs: Laboratory Tests Test 04/26/20 08:00 04/26/20 08:26 04/26/20 11:03 04/26/20 12:55 Iron Level 46 ug/dL (65-175) L Total Iron Binding Capacity 334 ug/dL (250-450) Iron Saturation 14 % (15-34) L Glucose (Fingerstick) 120 mg/dL (70-99) H Troponin I Quantitative < 0.017 ng/mL (0-0.055) < 0.017 ng/mL (0-0.055) Test 04/26/20 15:55 04/26/20 19:07 Glucose (Fingerstick) 115 mg/dL (70-99) H 191 mg/dL (70-99) H Current Medications: Meds: Current Medications Medications (Trade) Dose Ordered Sig/Aaron Route PRN Reason Start Time Stop Time Status Last Admin Dose Admin Aspirin (Lashell Aspirin) 325 mg 1X ONCE PO 04/26/20 11:20 04/26/20 11:21 DC 04/26/20 11:25 I have reviewed the current psychotropics carefully including drug interactions. Risk benefit ratio favors no change other than as noted in my dictated progress note. Diagnosis: Problems: (1) Tardive dyskinesia (2) Chronic undifferentiated schizophrenia (3) Schizoaffective disorder, bipolar type (4) Bipolar disorder with psychotic features (5) Impulse control disorder, unspecified (6) Anxiety disorder, unspecified ARMANI,MAN M MD Apr 26, 2020 21:55
--- NOTE | 2020-04-26 23:38 | NUR ---
Patient in bed asleep when nurse went in to assess and give meds. Patient cooperative with assessment. He reports he "still feels short of breath" but is no longer having chest pain. Patient was observed to have the NC in his mouth with the concentrator turned up to 4L. Nurse provided education about wearing the NC properly and not increasing the oxygen level. Patient compliant with medications taken whole with honey thickened liquids.
[2020-04-27] MEDS: LEVOTHYROXINE 50 MCG TABLET PO SCH (05:34)
[2020-04-27 05:56] VITALS: BP 109/76
[2020-04-27 06:14] LABS: CALCIUM 8.7 mg/dL (8.5-10.1); CREATININE 0.9 mg/dL (0.7-1.3); GFR 82.9; POTASSIUM 4.1 mmol/L (3.5-5.1)
[2020-04-27] MEDS: CETIRIZINE HCL 10 MG TABLET PO SCH (08:02)
[2020-04-27] MEDS: CITALOPRAM 10 MG TABLET. PO SCH (08:03)
[2020-04-27] MEDS: ISOSORBIDE MONONITRATE ER 30 MG TAB.ER.24H PO SCH (08:03)
[2020-04-27] MEDS: CHOLECALCIFEROL (VITAMIN D3) 1,000 UNIT TABLET PO SCH (08:03)
[2020-04-27] MEDS: FUROSEMIDE 40 MG TABLET PO SCH (08:04)
[2020-04-27] MEDS: MAGNESIUM OXIDE 400 MG TABLET PO SCH ×3 (08:04→20:31)
[2020-04-27] MEDS: SIMETHICONE 80 MG TAB.CHEW PO SCH ×3 (08:04→20:30)
[2020-04-27] MEDS: ASPIRIN CHEWABLE 81 MG TABLET. PO SCH (08:04)
[2020-04-27] MEDS: METHENAMINE HIPPURATE 1 GM TABLET PO SCH ×2 (08:04→20:33)
[2020-04-27] MEDS: CARVEDILOL 3.125 MG TABLET PO SCH ×2 (08:04→17:10)
[2020-04-27] MEDS: PANTOPRAZOLE 40 MG TABLET. PO SCH ×2 (08:04→20:31)
[2020-04-27] MEDS: POTASSIUM CHLORIDE 20 MEQ TABLET.ER. PO SCH (08:05)
[2020-04-27] MEDS: CALCITRIOL 0.25 MCG CAPSULE PO SCH (08:05)
[2020-04-27] MEDS: OXYBUTYNIN CHLORIDE 5 MG TABLET PO SCH ×3 (08:06→20:31)
[2020-04-27] MEDS: risperiDONE 0.25 MG TABLET. PO SCH ×2 (08:06→20:31)
[2020-04-27] MEDS: HYDROcodone/APAP 7.5/325MG 1 TAB TABLET PO SCH ×4 (08:06→20:37)
[2020-04-27] MEDS: ASCORBIC ACID 500 MG TABLET PO SCH ×2 (08:15→20:31)
--- NOTE | 2020-04-27 08:52 | PDOC2 ---
CARDIAC CONSULT DATE OF CONSULT DOS: DATE: 04/27/20 TIME: 08:35 REASON FOR CONSULT Reason for Consult Chest pain REFERRING PHYSICIAN Referring Physician Dr. Ortega SOURCE Source: Chart review, Patient HPI History of Present Illness This is a 74 yo male who presented from [facility] to the [facility] secondary to acute exacerbation of his schizoaffective disorder with failed outpatient psychiatric intervention. Yesterday, patient had complaints of chest pain, which prompted this consult. Two sets of troponin levels were obtained, both of which were negative. Patient reports aching in his right chest and down his side. Is worse with certain movement and with deep breathing. Also reports increased pain when pressure is applied to the right chest. Denies any associated dizziness, diaphoresis, palpitations, or nausea/vomiting. Does have a history of CAD s/p PCI/stent, AFIB, CHF, and cardiomyopathy s/p AICD. Follows with [facility] in [place]. PAST MEDICAL HISTORY Cardiovascular: AFIB, CAD, CHF, HTN, hyperipidemia Pulmonary: Pulmonary embolus GI: GERD Psych: Addictions (ETOH), Bipolar, Depression, Schizophrenia Musculoskeletal: Osteoarthritis Renal/: Other (retention ) Endocrine: Hypothyroidism PAST SURGICAL HISTORY Past Surgical History: Pacemaker (AICD) FAMILY HISTORY Family History: Hypertension SOCIAL HISTORY Smoke: Quit ALCOHOL: other (h/o heavy use ) Drugs: None Lives: Retirement CURRENT MEDICATIONS Current Medications Current Medications Albuterol Sulfate (Ventolin) 8 mg PRN Q4HRS PRN IH wheezing Last administered on 04/14/20at 22:12; Start 04/10/20 at 15:45; Stop 04/14/20 at 22:31; Status DC Atorvastatin Calcium (Lipitor) 20 mg QHS PO Last administered on 04/26/20at 21:49; Start 04/10/20 at 21:00 Calcitriol (Rocaltrol) 0.25 mcg DAILY PO Last administered on 04/27/20at 08:05; Start 04/11/20 at 09:00 Carvedilol (Coreg) 3.125 mg BIDWMEALS PO Last administered on 04/27/20at 08:04; Start 04/10/20 at 17:00 Diltiazem HCl (Cardizem 24hr Cd) 120 mg DAILY PO Last administered on 04/27/20at 08:05; Start 04/11/20 at 09:00 Fluphenazine HCl (Prolixin) 2.5 mg QHS PO Last administered on 04/26/20at 21:48; Start 04/10/20 at 21:00 Furosemide (Lasix) 40 mg DAILY PO Last administered on 04/27/20at 08:04; Start 04/11/20 at 09:00 Acetaminophen/ Hydrocodone Bitart (Lortab 7.5/325) 1 tab PRN QID PRN PO MOD-SEV PAIN Last administered on 04/15/20 16:13; Start 04/10/20 at 15:45; Stop 04/15/20 at 19:58; Status DC Levothyroxine Sodium (Synthroid) 50 mcg DAILYAC PO Last administered on 04/16/20at 09:19; Start 04/11/20 at 07:30; Stop 04/16/20 at 11:53; Status DC Losartan Potassium (Cozaar) 25 mg DAILY PO Last administered on 04/24/20at 08:41; Start 04/11/20 at 09:00; Stop 04/24/20 at 13:14; Status DC Methenamine Hippurate (Hiprex) 1 gm BID PO Last administered on 04/27/20at 08:04; Start 04/10/20 at 21:00 Nystatin (Nystop) 15 kailey PRN BID PRN TP YEAST Last administered on 04/22/20at 08:12; Start 04/10/20 at 15:45 Pantoprazole Sodium (Protonix) 40 mg BID PO Last administered on 04/27/20at 08:04; Start 04/10/20 at 21:00 Polyethylene Glycol (miraLAX) 17 gm PRN DAILY PRN PO 1ST CHOICE CONSTIPATION; Start 04/10/20 at 15:45 Risperidone (RisperDAL) 0.25 mg BID PO Last administered on 04/27/20at 08:06; Start 04/10/20 at 21:00 Ropinirole HCl (Requip) 1 mg QHS PO Last administered on 04/26/20at 21:49; Start 04/10/20 at 21:00 Tamsulosin HCl (Flomax) 0.4 mg QEVNG PO Last administered on 04/26/20at 17:18; Start 04/10/20 at 18:00 Simethicone (Gas-X) 80 mg TID PO Last administered on 04/27/20at 08:04; Start 04/10/20 at 21:00 Ascorbic Acid (Vitamin C) 500 mg BID PO Last administered on 04/27/20at 08:15; Start 04/10/20 at 21:00 Artificial Tears (Artificial Tears) 1 drop PRN BID PRN OU DRY EYE; Start 04/10/20 at 17:00 Celecoxib (CeleBREX) 200 mg QHS PO Last administered on 04/26/20at 21:49; Start 04/10/20 at 21:00 Cholestyramine Resin (Questran Light) 4 gm PRN DAILY PRN PO LOOSE STOOLS; Start 04/10/20 at 17:00 Insulin Glargine (Lantus Syringe) 30 unit QHS SQ Last administered on 04/20/20at 21:00; Start 04/10/20 at 21:00; Stop 04/24/20 at 18:13; Status DC Isosorbide Mononitrate (Imdur) 60 mg DAILY PO Last administered on 04/23/20at 08:39; Start 04/11/20 at 09:00; Stop 04/24/20 at 13:14; Status DC Loperamide HCl (Imodium) 2 mg PRN Q2HRS PRN PO DIARRHEA Last administered on 04/15/20at 20:50; Start 04/10/20 at 17:00 Rivaroxaban (Xarelto) 20 mg DAILYWSUP PO Last administered on 04/26/20at 17:18; Start 04/10/20 at 17:00 Acetaminophen (Tylenol) 650 mg PRN Q6HRS PRN PO MILD PAIN / TEMP > 100.3'F Last administered on 04/12/20at 14:07; Start 04/10/20 at 16:30 Multi-Ingredient Ointment (Analgesic Macclenny) 1 kailey PRN QID PRN TP MUSCLE PAIN; Start 04/10/20 at 16:30 Al Hydroxide/Mg Hydroxide (Mylanta Plus Xs) 15 ml PRN AFTMEALHC PRN PO DYSPEPSIA; Start 04/10/20 at 16:30 Magnesium Hydroxide (Milk Of Magnesia) 2,400 mg PRN QHS PRN PO 2ND CHOICE CONSTIPATION; Start 04/10/20 at 16:30 Lorazepam (Ativan) 0.25 mg PRN TID PRN PO ANXIETY / AGITATION Last administered on 04/25/20 08:39; Start 04/12/20 at 16:30 Divalproex Sodium (Depakote Sprinkles) 250 mg 0900,1700 PO Last administered on 04/17/20at 17:04; Start 04/14/20 at 09:00; Stop 04/17/20 at 18:32; Status DC Neomycin/ Polymyxin/Bacitr/ Hydrocort (Cortisporin Ophth) 2 kailey BID OU Last administered on 04/23/20 20:29; Start 04/14/20 at 21:00; Stop 04/24/20 at 18:13; Status DC Albuterol Sulfate (Ventolin) 2.5 mg PRN Q4HRS PRN IH wheezing Last administered on 04/19/20 16:54; Start 04/14/20 at 22:31 Acetaminophen/ Hydrocodone Bitart (Lortab 7.5/325) 1 tab QID PO Last a dministered on 04/27/20 08:06; Start 04/15/20 at 20:30 Cetirizine HCl (ZyrTEC) 10 mg DAILY PO Last administered on 04/27/20 08:02; Start 04/16/20 at 09:00 Citalopram Hydrobromide (CeleXA) 20 mg DAILY PO Last administered on 04/27/20 08:03; Start 04/16/20 at 09:00 Magnesium Oxide (Magnesium Oxide) 400 mg TID PO Last administered on 04/27/20 08:04; Start 04/16/20 at 09:00 Nitroglycerin (Nitrostat) 0.4 mg 1X PRN SL chest pain Last administered on 04/26/20 18:16; Start 04/16/20 at 00:30 Oxybutynin Chloride (Ditropan) 5 mg TID PO Last administered on 04/27/20 08:06; Start 04/16/20 at 09:00 Potassium Chloride (Klor-Con) 20 meq TIDWMEALS PO Last administered on 04/20/20 17:40; Start 04/16/20 at 08:00; Stop 04/21/20 at 16:03; Status DC Non-Formulary Medication (Cholecalciferol (Vitamin D3) (Vitamin D3)) 50 mcg DAILY PO ; Start 04/16/20 at 09:00; Status UNV Saliva Substitute (Biotene Moisturizing Mouth) 2 spray PRN Q12HR PRN PO DRY MOUTH; Start 04/16/20 at 01:15 Vitamin D (Vitamin D3) 2,000 unit DAILY PO Last administered on 04/27/20at 08:03; Start 04/16/20 at 09:00 Levothyroxine Sodium (Synthroid) 50 mcg DAILY06 PO Last administered on 04/27/20at 05:34; Start 04/17/20 at 06:00 Divalproex Sodium (Depakote Sprinkles) 500 mg 0900,1700 PO Last administered on 04/21/20at 17:30; Start 04/18/20 at 09:00; Stop 04/21/20 at 18:05; Status DC Potassium Chloride (Klor-Con) 20 meq DAILY PO ; Start 04/22/20 at 09:00; Stop 04/25/20 at 18:43; Status DC Divalproex Sodium (Depakote Sprinkles) 750 mg 0900,1700 PO Last administered on 04/23/20at 16:49; Start 04/22/20 at 09:00; Stop 04/23/20 at 21:10; Status DC Divalproex Sodium (Depakote Er) 1,500 mg QHS PO Last administered on 04/26/20at 21:48; Start 04/24/20 at 21:30 Isosorbide Mononitrate (Imdur) 30 mg DAILY PO Last administered on 04/27/20at 08:03; Start 04/25/20 at 09:00 Insulin Glargine (Lantus Syringe) 20 unit QHS SQ Last administered on 04/26/20at 21:52; Start 04/24/20 at 21:00 Potassium Chloride (Klor-Con) 20 meq DAILY PO Last administered on 04/27/20at 08:05; Start 04/27/20 at 09:00 Aspirin (Aspirin Chewable) 81 mg DAILYWBKFT PO Last administered on 04/27/20at 08:04; Start 04/27/20 at 08:00 Aspirin (Lashell Aspirin) 325 mg 1X ONCE PO Last administered on 04/26/20at 11:25; Start 04/26/20 at 11:20; Stop 04/26/20 at 11:21; Status DC Active Scripts Active Reported Vitamin D (Cholecalciferol (Vitamin D3)) 400 Unit Tablet 2,000 Unit PO DAILY NITROGLYCERIN SubLingual (Nitroglycerin) 0.4 Mg Tab.subl 0.4 Mg SL UD 1st sign of attack; may repeat every 5 mins; if pain persists after 3 in 15 min, medical attention is recommended Biotene Oralbalance (Saliva Stimulant Agents Comb.2) 44.3 Ml Liquid 15 Ml MM PRN Q12HR PRN Klor-Con M20 (Potassium Chloride) 20 Meq Tab.er.prt 20 Meq PO TID 30 Days Oxybutynin Chloride 5 Mg Tablet 1 Tab PO TID Magnesium Oxide 400 Mg Tablet 1 Tab PO TID Citalopram Hbr (Citalopram Hydrobromide) 10 Mg Tablet 20 Mg PO DAILY Cetirizine Hcl 10 Mg Tablet 1 Tab PO DAILY Xarelto (Rivaroxaban) 20 Mg Tablet 20 Mg PO DAILY Vitamin C (Ascorbic Acid) 500 Mg Capsule.er 500 Mg PO BID Ropinirole Hcl 1 Mg Tablet 1 Mg PO QHS Risperdal (Risperidone) 0.5 Mg Tablet 0.25 Mg PO BID Refresh Optive Eye Drops (Carboxymethylcellulos/Glycerin) 15 Ml Drops 1 Drop EACHEYE PRN BID PRN Questran Packet (Cholestyramine (With Sugar)) 4 Gm Powd.pack 1 Packet PO PRN DAILY PRN 30 Days Proair Hfa Inhaler (Albuterol Sulfate) 8.5 Gm Hfa.aer.ad 2 Puff IH PRN Q4-6HRS PRN 21 Days Protonix (Pantoprazole Sodium) 40 Mg Tablet.dr 40 Mg PO BID Nystatin 15 Gm Powder 15 Gm TP PRN BID PRN Hydrocodone-Acetamin 7.5-325 (Hydrocodone/Acetaminophen) 1 Each Tablet 1 Each PO PRN QID PRN Miralax (Polyethylene Glycol 3350) 17 Gm Powd.pack 17 Gm PO PRN DAILY PRN Cozaar (Losartan Potassium) 25 Mg Tablet 25 Mg PO DAILY Loperamide (Loperamide Hcl) 2 Mg Tablet 2 Mg PO PRN Q2HR PRN Lipitor (Atorvastatin Calcium) 20 Mg Tablet 20 Mg PO QHS Levothyroxine Sodium 50 Mcg Tablet 50 Mcg PO DAILYAC Lasix (Furosemide) 40 Mg Tablet 40 Mg PO DAILY Lantus Solostar (Insulin Glargine,Hum.rec.anlog) 100 Unit/1 Ml Insuln.pen 30 Unit SQ QHS Isosorbide Mononitrate Er (Isosorbide Mononitrate) 60 Mg Tab.er.24h 1 Tab PO DAILY Hiprex (Methenamine Hippurate) 1 Gm Tablet 1 Tab PO BID 30 Days Fluphenazine Hcl 2.5 Mg Tablet 2.5 Mg PO QHS Flomax (Tamsulosin Hcl) 0.4 Mg Cap.er.24h 0.4 Mg PO QEVNG Diltiazem 24HR Cd (Diltiazem Hcl) 120 Mg Cap.er.24h 120 Mg PO DAILY Coreg (Carvedilol) 3.125 Mg Tablet 3.125 Mg PO BIDWMEALS Celebrex (Celecoxib) 200 Mg Capsule 200 Mg PO QHS Calcitriol 0.25 Mcg Capsule 0.25 Mcg PO DAILY Anti-Gas (Nhugu-D-Bvkblrtrqlpev) 600 Unit Capsule 600 Unit PO TID ALLERGIES Allergies: Coded Allergies: levofloxacin (Verified Allergy, Intermediate, 04/09/20) metoprolol (Verified Allergy, Intermediate, 04/09/20) Penicillins (Verified Allergy, Unknown, 04/09/20) pravastatin (Verified Allergy, Unknown, 04/09/20) ROS Review of Systems 14 point ROS conducted with pertinent positives noted above in HPI PHYSICAL EXAM General: Alert, Cooperative, No acute distress HEENT: Atraumatic, Mucous membr. moist/pink Lungs: Clear to auscultation, Other (right chest tenderness upon palpation ) Heart: Other (IRR; not on tele. EKG shows AFIB. ) Abdomen: Soft Extremities: No edema, Normal pulses Skin: No rashes, No breakdown Neuro: Normal speech, Sensation intact Psych/Mental Status: Other (flat affect ) MUSCULOSKELETAL: Osteoarthritic changes both hands VITALS Vital Signs Vital Signs Date Time Temp Pulse Resp B/P (MAP) Pulse Ox O2 Delivery O2 Flow Rate FiO2 04/27/20 08:05 66 109/76 04/27/20 05:56 97.0 24 94 Nasal Cannula 3.5 LABS LABS Laboratory Tests Test 04/25/20 19:01 04/26/20 08:00 04/26/20 08:26 04/26/20 11:03 Glucose (Fingerstick) 178 mg/dL (70-99) 120 mg/dL (70-99) Iron Level 46 ug/dL (65-175) Total Iron Binding Capacity 334 ug/dL (250-450) Iron Saturation 14 % (15-34) Troponin I Quantitative < 0.017 ng/mL (0-0.055) Test 04/26/20 12:55 04/26/20 15:55 04/26/20 19:07 04/27/20 05:44 Troponin I Quantitative < 0.017 ng/mL (0-0.055) Glucose (Fingerstick) 115 mg/dL (70-99) 191 mg/dL (70-99) Sodium Level 139 mmol/L (136-145) Potassium Level 4.1 mmol/L (3.5-5.1) Chloride Level 97 mmol/L (98-107) Carbon Dioxide Level 40 mmol/L (21-32) Anion Gap 2 (6-14) Blood Urea Nitrogen 11 mg/dL (8-26) Creatinine 0.9 mg/dL (0.7-1.3) Estimated GFR (Cockcroft-Gault) 82.9 Glucose Level 100 mg/dL (70-99) Calcium Level 8.7 mg/dL (8.5-10.1) Test 04/27/20 07:53 Glucose (Fingerstick) 122 mg/dL (70-99) ASSESSMENT/PLAN Assessment/Plan 1. Acute exacerbation of schizoaffective disorder with failed outpatient psychiatric intervention. 2. Chest pain; atypical. AMI ruled out. 3. Chronic systolic CHF; appears compensated. 4. Cardiomyopathy; s/p AICD. brand unknown 5. CAD s/p PCI/stents. clinically stable 6. Persistent AFIB. On Xarelto. rate controlled 7. Hypertension; controlled 8. GERD 9. Hypothyroidism; on replacement Recommendations Oral Lasix therapy Secondary prevention measures Consider outpatient echo and stress test if none recently Follow up with primary armor reconnaissance vehicle driver upon discharge Supportive care TERRI BENAVIDEZ APRN Apr 27, 2020 08:52
--- NOTE | 2020-04-27 09:02 | PDOC ---
Exam Note: Good Note: This note is a late entry for 04/26/2020 covers elements not covered in my initial note. Subjective: The patient was seen individually in the evening of 04/26/2020 with Nora MATUTE, discussed and reviewed the chart. He slept 7 hours previous night. He has complained of chest pain during the day off and on today. Dr. Ortega had checked troponin x2 and was unremarkable. EKG was non-contributory. Cardiovascular nurse practitioner did start the patient on aspirin. There has been a question whether some of the chest pain might have been due to GERD. I met with him in his room. He was lying in bed. He states he wants to talk to his legal guardian to transition him back to the residential. Review of Systems: Ambulation impaired in wheelchair. Shortness of breath on O2 supplements. He has difficulty with his speech but typical for him. No CV, , eye system symptoms on review. Mental Status Exam: The patient is reasonably oriented. Speech is coherent has some latency. Abstraction is fair. Computation impaired. Language function intact. Attention span is short. Mood and affect less withdrawn, less tired during the day. Laboratory Data: Reviewed. 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 Anxiety disorder unspecified. Impulse control disorder unspecified. Plan: No change from initial note. Assessment: Vital Signs/I&O: Vital Signs Date Time Temp Pulse Resp B/P (MAP) Pulse Ox O2 Delivery O2 Flow Rate FiO2 04/27/20 08:05 66 109/76 04/27/20 05:56 97.0 24 94 Nasal Cannula 3.5 I & O 04/26/20 04/26/20 04/27/20 15:00 23:00 07:00 Intake Total 840 ml 720 ml Balance 840 ml 720 ml Labs: Laboratory Tests Test 04/26/20 11:03 04/26/20 12:55 04/26/20 15:55 04/26/20 19:07 Troponin I Quantitative < 0.017 ng/mL (0-0.055) < 0.017 ng/mL (0-0.055) Glucose (Fingerstick) 115 mg/dL (70-99) H 191 mg/dL (70-99) H Test 04/27/20 05:44 04/27/20 07:53 Sodium Level 139 mmol/L (136-145) Potassium Level 4.1 mmol/L (3.5-5.1) Chloride Level 97 mmol/L (98-107) L Carbon Dioxide Level 40 mmol/L (21-32) H Anion Gap 2 (6-14) L Blood Urea Nitrogen 11 mg/dL (8-26) Creatinine 0.9 mg/dL (0.7-1.3) Estimated GFR (Cockcroft-Gault) 82.9 Glucose Level 100 mg/dL (70-99) H Calcium Level 8.7 mg/dL (8.5-10.1) Glucose (Fingerstick) 122 mg/dL (70-99) H Current Medications: Meds: Current Medications Medications (Trade) Dose Ordered Sig/Aaron Route PRN Reason Start Time Stop Time Status Last Admin Dose Admin Potassium Chloride (Klor-Con) 20 meq DAILY PO 04/27/20 09:00 04/27/20 08:05 Aspirin (Aspirin Chewable) 81 mg DAILYWBKFT PO 04/27/20 08:00 04/27/20 08:04 Aspirin (Lashell Aspirin) 325 mg 1X ONCE PO 04/26/20 11:20 04/26/20 11:21 DC 04/26/20 11:25 I have reviewed the current psychotropics carefully including drug interactions. Risk benefit ratio favors no change other than as noted in my dictated progress note. Diagnosis: Problems: (1) Tardive dyskinesia (2) Paranoid behavior (3) Chronic undifferentiated schizophrenia (4) Schizoaffective disorder, bipolar type (5) Bipolar disorder with psychotic features (6) Impulse control disorder, unspecified (7) Anxiety disorder, unspecified KAMILA LOMELI MD Apr 27, 2020 09:02
--- NOTE | 2020-04-27 09:18 | NUR ---
Pt cooperative with assessment and med compliant. He c/o 5/10 pain in R ribs and sternum; scheduled pain medication administered to no relief, less than 30 minutes after administration he was asking for more pain medications. During breakfast pt was also holding abd and groaning loudly in pain, stating he is experiencing abd pain when "urine dribbles out." Of note, no yelling/groaning has been heard from pt's room when he is alone this shift, his audible exclamations of pain have only occurred in the dining room while in the presence of staff. Pt has been seen by Cardiology today; no orders at this time. Pt also requests to speak with SW concerning talking to a media marketing director; his explanations as to why he needs to talk to a media marketing director regarding a court case and a color shop helper was difficult to follow and did not make a whole lot of sense. Pt also states he should not be on SBHU and should be on a Cardiac Unit instead. Will pass on to next shift.
[2020-04-27] MEDS: ACETAMINOPHEN 325 MG TABLET PO PRN (10:45)
[2020-04-27] MEDS: LORazepam 0.5 MG TABLET PO PRN (10:45)
--- NOTE | 2020-04-27 13:19 | NUR ---
Pt c/o pain in ribs and sternum. States scheduled hydrocodone was not effective. PRN Acetaminophen and Ativan administered.
--- NOTE | 2020-04-27 15:16 | NUR ---
Contacted Stacey Angel NP regarding her order for 12 Lead EKG. Requesting clarification/confirmation. STRUCTURAL STEEL IRONWORKER gave instruction to d/c the order.
--- NOTE | 2020-04-27 15:52 | NUR ---
SW spoke with facility to discuss discharge for Saturday. Facility request Covid swab to be completed today for Saturday d/c. SW relayed information to [facility] nursing staff. Facility will p/u between 1300 and 1400.
[2020-04-27 15:56] VITALS: BP 102/62
[2020-04-27] MEDS: RIVAROXABAN 10 MG TABLET. PO SCH (17:10)
[2020-04-27] MEDS: TAMSULOSIN 0.4 MG CAP.ER.24H. PO SCH (17:10)
[2020-04-27 19:51] VITALS: BP 117/72
[2020-04-27] MEDS: CELECOXIB 100 MG CAPSULE PO SCH (20:30)
[2020-04-27] MEDS: rOPINIRole 1 MG TABLET. PO SCH (20:31)
[2020-04-27] MEDS: ATORVASTATIN CALCIUM 20 MG TABLET PO SCH (20:31)
[2020-04-27] MEDS: DIVALPROEX ER 500 MG TAB.ER.24H PO SCH (20:31)
[2020-04-27] MEDS: ALBUTEROL SULFATE 2.5 MG/3 ML NEBU. IH PRN (20:38)
[2020-04-27] MEDS: INSULIN GLARGINE SYRINGE. SQ SCH (21:00)
--- NOTE | 2020-04-27 22:08 | PDOC ---
Exam Note: Good Note: Please also refer to the separate dictated note~for this date of service dictated separately.~Patient seen individually. Discussed the patient with Nursing staff reviewed the chart.~Reviewed interim history and current functioning. Reviewed vital signs,~Labs/ Radiology~and current medications noted below. Continue current treatment with the changes noted in the dictated addendum note Assessment: Vital Signs/I&O: Vital Signs Date Time Temp Pulse Resp B/P (MAP) Pulse Ox O2 Delivery O2 Flow Rate FiO2 04/27/20 19:51 56 117/72 (87) 96 Nasal Cannula 3.0 04/27/20 15:56 98.3 20 I & O 04/26/20 04/26/20 04/27/20 15:00 23:00 07:00 Intake Total 840 ml 720 ml Balance 840 ml 720 ml Labs: Laboratory Tests Test 04/27/20 05:44 04/27/20 07:53 04/27/20 19:05 Sodium Level 139 mmol/L (136-145) Potassium Level 4.1 mmol/L (3.5-5.1) Chloride Level 97 mmol/L (98-107) L Carbon Dioxide Level 40 mmol/L (21-32) H Anion Gap 2 (6-14) L Blood Urea Nitrogen 11 mg/dL (8-26) Creatinine 0.9 mg/dL (0.7-1.3) Estimated GFR (Cockcroft-Gault) 82.9 Glucose Level 100 mg/dL (70-99) H Calcium Level 8.7 mg/dL (8.5-10.1) Glucose (Fingerstick) 122 mg/dL (70-99) H 175 mg/dL (70-99) H Current Medications: Meds: Current Medications Medications (Trade) Dose Ordered Sig/Aaron Route PRN Reason Start Time Stop Time Status Last Admin Dose Admin Potassium Chloride (Klor-Con) 20 meq DAILY PO 04/27/20 09:00 04/27/20 08:05 Aspirin (Aspirin Chewable) 81 mg DAILYWBKFT PO 04/27/20 08:00 04/27/20 08:04 I have reviewed the current psychotropics carefully including drug interactions. Risk benefit ratio favors no change other than as noted in my dictated progress note. Diagnosis: Problems: (1) Tardive dyskinesia (2) Chronic undifferentiated schizophrenia (3) Schizoaffective disorder, bipolar type (4) Bipolar disorder with psychotic features (5) Impulse control disorder, unspecified (6) Anxiety disorder, unspecified KAMILA LOMELI MD Apr 27, 2020 22:08
--- NOTE | 2020-04-27 23:07 | NUR ---
Patient was in day room watching movie with peers, he was moaning loudly and rubbing his side. Patient was previously evaluated by hospitalist and cardiology for complaints of pain. Cardiology department stated that pain appears to be musculoskeletal and not cardiac when evaluating patient. Patient given scheduled hydrocodone for pain with HS meds and is now sleeping, no s/s pain noted at this time. Prior to bed, patient was coughing, nurse offered PRN inhaler and patient refused. Vital signs obtained, WNL. Patient on 3L oxygen and is 96% when checked. Patient cooperative, calm and compliant with HS meds.
[2020-04-28 05:34] VITALS: BP 122/75
[2020-04-28] MEDS: LEVOTHYROXINE 50 MCG TABLET PO SCH (05:40)
[2020-04-28] MEDS: CHOLECALCIFEROL (VITAMIN D3) 1,000 UNIT TABLET PO SCH (08:11)
[2020-04-28] MEDS: ASPIRIN CHEWABLE 81 MG TABLET. PO SCH (08:11)
[2020-04-28] MEDS: SIMETHICONE 80 MG TAB.CHEW PO SCH ×3 (08:12→20:04)
[2020-04-28] MEDS: ISOSORBIDE MONONITRATE ER 30 MG TAB.ER.24H PO SCH (08:12)
[2020-04-28] MEDS: HYDROcodone/APAP 7.5/325MG 1 TAB TABLET PO SCH ×4 (08:12→20:28)
[2020-04-28] MEDS: FUROSEMIDE 40 MG TABLET PO SCH (08:12)
[2020-04-28] MEDS: ASCORBIC ACID 500 MG TABLET PO SCH ×2 (08:13→20:03)
[2020-04-28] MEDS: risperiDONE 0.25 MG TABLET. PO SCH ×2 (08:13→20:03)
[2020-04-28] MEDS: CETIRIZINE HCL 10 MG TABLET PO SCH (08:13)
[2020-04-28] MEDS: POTASSIUM CHLORIDE 20 MEQ TABLET.ER. PO SCH (08:13)
[2020-04-28] MEDS: CARVEDILOL 3.125 MG TABLET PO SCH ×2 (08:13→16:44)
[2020-04-28] MEDS: PANTOPRAZOLE 40 MG TABLET. PO SCH ×2 (08:13→20:04)
[2020-04-28] MEDS: CITALOPRAM 10 MG TABLET. PO SCH (08:14)
[2020-04-28] MEDS: CALCITRIOL 0.25 MCG CAPSULE PO SCH (08:14)
[2020-04-28] MEDS: METHENAMINE HIPPURATE 1 GM TABLET PO SCH ×2 (08:14→20:28)
[2020-04-28] MEDS: MAGNESIUM OXIDE 400 MG TABLET PO SCH ×3 (08:14→20:03)
[2020-04-28] MEDS: OXYBUTYNIN CHLORIDE 5 MG TABLET PO SCH ×3 (08:14→20:04)
--- NOTE | 2020-04-28 08:30 | PDOC ---
Exam Note: Good Note: This note is a late entry for 04/27/2020 covers elements not covered in my initial note. Subjective: The patient was seen individually in the evening of 04/27/2020 with Dulce MATUTE, discussed and reviewed the chart. He slept 6-3/4 hours previous night. Previous night the patient was short of breath. No further chest pain. Dr. Ortega has restarted potassium supplements. He is compliant with his medications. I met with him in the group room. Review of Systems: Ambulation impaired in wheelchair. Shortness of breath on O2 supplements. No CV, , GI, eye system symptoms on review. It is difficult to understand him since his voice is somewhat hoarse, typical for him. He does complain of pain in the right rib asking for increased pain medications. Mental Status Exam: The patient is reasonably oriented. Speech is coherent has some latency. Abstraction is fair. Computation impaired. Language function intact. Attention span is short. Mood and affect less withdrawn. Laboratory Data: Reviewed. 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 Anxiety disorder unspecified. Impulse control disorder unspecified. Plan: The patient has been obsessing about wanting to contact the guardian for discharge plans. He was also seen by Cardiology. No further recommendation from this standpoint. Assessment: Vital Signs/I&O: Vital Signs Date Time Temp Pulse Resp B/P (MAP) Pulse Ox O2 Delivery O2 Flow Rate FiO2 04/28/20 08:14 59 122/75 04/28/20 05:34 98.0 20 98 2.5 04/27/20 19:51 Nasal Cannula I & O 04/27/20 04/27/20 04/28/20 15:00 23:00 07:00 Intake Total 1000 ml 600 ml Balance 1000 ml 600 ml Labs: Laboratory Tests Test 04/27/20 19:05 04/28/20 08:17 Glucose (Fingerstick) 175 mg/dL (70-99) H 88 mg/dL (70-99) Current Medications: Meds: Laboratory Tests Test 04/27/20 19:05 04/28/20 08:17 Glucose (Fingerstick) 175 mg/dL 88 mg/dL Current Medications Medications (Trade) Dose Ordered Sig/Aaron Route PRN Reason Start Time Stop Time Status Last Admin Dose Admin Albuterol Sulfate (Ventolin) 8 mg PRN Q4HRS PRN IH wheezing 04/10/20 15:45 04/14/20 22:31 DC 04/14/20 22:12 Atorvastatin Calcium (Lipitor) 20 mg QHS PO 04/10/20 21:00 04/27/20 20:31 Calcitriol (Rocaltrol) 0.25 mcg DAILY PO 04/11/20 09:00 04/28/20 08:14 Carvedilol (Coreg) 3.125 mg BIDWMEALS PO 04/10/20 17:00 04/28/20 08:13 Diltiazem HCl (Cardizem 24hr Cd) 120 mg DAILY PO 04/11/20 09:00 04/28/20 08:14 Fluphenazine HCl (Prolixin) 2.5 mg QHS PO 04/10/20 21:00 04/27/20 20:31 Furosemide (Lasix) 40 mg DAILY PO 04/11/20 09:00 04/28/20 08:12 Acetaminophen/ Hydrocodone Bitart (Lortab 7.5/325) 1 tab PRN QID PRN PO MOD-SEV PAIN 04/10/20 15:45 04/15/20 19:58 DC 04/15/20 16:13 Levothyroxine Sodium (Synthroid) 50 mcg DAILYAC PO 04/11/20 07:30 04/16/20 11:53 DC 04/16/20 09:19 Losartan Potassium (Cozaar) 25 mg DAILY PO 04/11/20 09:00 04/24/20 13:14 DC 04/24/20 08:41 Methenamine Hippurate (Hiprex) 1 gm BID PO 04/10/20 21:00 04/28/20 08:14 Nystatin (Nystop) 15 kailey PRN BID PRN TP YEAST 04/10/20 15:45 04/22/20 08:12 Pantoprazole Sodium (Protonix) 40 mg BID PO 04/10/20 21:00 04/28/20 08:13 Polyethylene Glycol (miraLAX) 17 gm PRN DAILY PRN PO 1ST CHOICE CONSTIPATION 04/10/20 15:45 Risperidone (RisperDAL) 0.25 mg BID PO 04/10/20 21:00 04/28/20 08:13 Ropinirole HCl (Requip) 1 mg QHS PO 04/10/20 21:00 04/27/20 20:31 Tamsulosin HCl (Flomax) 0.4 mg QEVNG PO 04/10/20 18:00 04/27/20 17:10 Simethicone (Gas-X) 80 mg TID PO 04/10/20 21:00 04/28/20 08:12 Ascorbic Acid (Vitamin C) 500 mg BID PO 04/10/20 21:00 04/28/20 08:13 Artificial Tears (Artificial Tears) 1 drop PRN BID PRN OU DRY EYE 04/10/20 17:00 Celecoxib (CeleBREX) 200 mg QHS PO 04/10/20 21:00 04/27/20 20:30 Cholestyramine Resin (Questran Light) 4 gm PRN DAILY PRN PO LOOSE STOOLS 04/10/20 17:00 Insulin Glargine (Lantus Syringe) 30 unit QHS SQ 04/10/20 21:00 04/24/20 18:13 DC 04/20/20 21:00 Isosorbide Mononitrate (Imdur) 60 mg DAILY PO 04/11/20 09:00 04/24/20 13:14 DC 04/23/20 08:39 Loperamide HCl (Imodium) 2 mg PRN Q2HRS PRN PO DIARRHEA 04/10/20 17:00 04/15/20 20:50 Rivaroxaban (Xarelto) 20 mg DAILYWSUP PO 04/10/20 17:00 04/27/20 17:10 Acetaminophen (Tylenol) 650 mg PRN Q6HRS PRN PO MILD PAIN / TEMP > 100.3'F 04/10/20 16:30 04/27/20 10:45 Multi-Ingredient Ointment (Analgesic [place]) 1 kailey PRN QID PRN TP MUSCLE PAIN 04/10/20 16:30 Al Hydroxide/Mg Hydroxide (Mylanta Plus Xs) 15 ml PRN AFTMEALHC PRN PO DYSPEPSIA 04/10/20 16:30 Magnesium Hydroxide (Milk Of Magnesia) 2,400 mg PRN QHS PRN PO 2ND CHOICE CONSTIPATION 04/10/20 16:30 Lorazepam (Ativan) 0.25 mg PRN TID PRN PO ANXIETY / AGITATION 04/12/20 16:30 04/27/20 10:45 Divalproex Sodium (Depakote Sprinkles) 250 mg 0900,1700 PO 04/14/20 09:00 04/17/20 18:32 DC 04/17/20 17:04 Neomycin/ Polymyxin/Bacitr/ Hydrocort (Cortisporin Ophth) 2 kailey BID OU 04/14/20 21:00 04/24/20 18:13 DC 04/23/20 20:29 Albuterol Sulfate (Ventolin) 2.5 mg PRN Q4HRS PRN IH wheezing 04/14/20 22:31 04/19/20 16:54 Acetaminophen/ Hydrocodone Bitart (Lortab 7.5/325) 1 tab QID PO 04/15/20 20:30 04/28/20 08:12 Cetirizine HCl (ZyrTEC) 10 mg DAILY PO 04/16/20 09:00 04/28/20 08:13 Citalopram Hydrobromide (CeleXA) 20 mg DAILY PO 04/16/20 09:00 04/28/20 08:14 Magnesium Oxide (Magnesium Oxide) 400 mg TID PO 04/16/20 09:00 04/28/20 08:14 Nitroglycerin (Nitrostat) 0.4 mg 1X PRN SL chest pain 04/16/20 00:30 04/26/20 18:16 Oxybutynin Chloride (Ditropan) 5 mg TID PO 04/16/20 09:00 04/28/20 08:14 Potassium Chloride (Klor-Con) 20 meq TIDWMEALS PO 04/16/20 08:00 04/21/20 16:03 DC 04/20/20 17:40 Non-Formulary Medication (Cholecalciferol (Vitamin D3) (Vitamin D3)) 50 mcg DAILY PO 04/16/20 09:00 UNV Saliva Substitute (Biotene Moisturizing Mouth) 2 spray PRN Q12HR PRN PO DRY MOUTH 04/16/20 01:15 04/28/20 06:31 Vitamin D (Vitamin D3) 2,000 unit DAILY PO 04/16/20 09:00 04/28/20 08:11 Levothyroxine Sodium (Synthroid) 50 mcg DAILY06 PO 04/17/20 06:00 04/28/20 05:40 Divalproex Sodium (Depakote Sprinkles) 500 mg 0900,1700 PO 04/18/20 09:00 04/21/20 18:05 DC 04/21/20 17:30 Potassium Chloride (Klor-Con) 20 meq DAILY PO 04/22/20 09:00 04/25/20 18:43 DC Divalproex Sodium (Depakote Sprinkles) 750 mg 0900,1700 PO 04/22/20 09:00 04/23/20 21:10 DC 04/23/20 16:49 Divalproex Sodium (Depakote Er) 1,500 mg QHS PO 04/24/20 21:30 04/27/20 20:31 Isosorbide Mononitrate (Imdur) 30 mg DAILY PO 04/25/20 09:00 04/28/20 08:12 Insulin Glargine (Lantus Syringe) 20 unit QHS SQ 04/24/20 21:00 04/27/20 21:00 Potassium Chloride (Klor-Con) 20 meq DAILY PO 04/27/20 09:00 04/28/20 08:13 Aspirin (Aspirin Chewable) 81 mg DAILYWBKFT PO 04/27/20 08:00 04/28/20 08:11 Aspirin (Lashell Aspirin) 325 mg 1X ONCE PO 04/26/20 11:20 04/26/20 11:21 DC 04/26/20 11:25 Current Medications Medications (Trade) Dose Ordered Sig/Aaron Route PRN Reason Start Time Stop Time Status Last Admin Dose Admin Potassium Chloride (Klor-Con) 20 meq DAILY PO 04/27/20 09:00 04/28/20 08:13 I have reviewed the current psychotropics carefully including drug interactions. Risk benefit ratio favors no change other than as noted in my dictated progress note. Diagnosis: Problems: (1) Tardive dyskinesia (2) Chronic undifferentiated schizophrenia (3) Schizoaffective disorder, bipolar type (4) Bipolar disorder with psychotic features (5) Impulse control disorder, unspecified (6) Anxiety disorder, unspecified KAMILA LOMELI MD Apr 28, 2020 08:30
--- NOTE | 2020-04-28 09:36 | NUR ---
Pt has been appropriate so far this shift. Complaint with medications and assessment. He is A&Ox4; socially appropriate behaviors have been observed this shift. He denies SI/HI/VH/AH/delusions. He continues to report 6/10 R rib and sternum pain. Scheduled Lortab administered with no reported effectiveness. Pt has no complaints or concerns at this time aside from pain, which is his baseline. Plan of care continues, will pass on to next shift.
[2020-04-28] MEDS: ACETAMINOPHEN 325 MG TABLET PO PRN (11:23)
--- NOTE | 2020-04-28 11:25 | NUR ---
Pt continues to c/o sternum pain. Reports that scheduled Lortab was not effective. PRN Acetaminophen 650 mg PO administered at his request.
--- NOTE | 2020-04-28 12:44 | NUR ---
[facility] Social Work Discharge Planning Form Patient Name NISREEN GARCÍA Admit Date: 04/10/20 DISCHARGE PLAN Discharge Destination: [facility] Assessment: No Level II Assessment: No Transportation: Facility will p/u between 1300 and 1400 Special Instructions/Notes: Please fax discharge orders and current medication list. [facility] Address: [address] [place] [address] Contact Name: Maryanne Samayoa/Sulaiman PCP: Dr. Sudheer Peck Psychiatrist: [facility]
[2020-04-28] MEDS: LORazepam 0.5 MG TABLET PO PRN (14:05)
--- NOTE | 2020-04-28 14:14 | NUR ---
Pt presents with high anxiety about a variety of issues (pain, wanting something to drink, wanting something to eat), he also speaks of "little demons" running around his w/c however he is unable to confirm if he is experiencing VH/AH when asked. PRN Lorazepam 0.25 mg PO administered at his request.
[2020-04-28 16:06] VITALS: BP 145/71
[2020-04-28] MEDS: RIVAROXABAN 10 MG TABLET. PO SCH (16:44)
[2020-04-28] MEDS: TAMSULOSIN 0.4 MG CAP.ER.24H. PO SCH ×2 (17:02→20:03)
[2020-04-28] MEDS: CELECOXIB 100 MG CAPSULE PO SCH (20:03)
[2020-04-28] MEDS: DIVALPROEX ER 500 MG TAB.ER.24H PO SCH (20:03)
[2020-04-28] MEDS: ATORVASTATIN CALCIUM 20 MG TABLET PO SCH (20:04)
[2020-04-28] MEDS: rOPINIRole 1 MG TABLET. PO SCH (20:04)
[2020-04-28] MEDS: INSULIN GLARGINE SYRINGE. SQ SCH (21:10)
--- NOTE | 2020-04-28 21:30 | PDOC ---
Exam Note: Good Note: Please also refer to the separate dictated note~for this date of service dictated separately.~Patient seen individually. Discussed the patient with Nursing staff reviewed the chart.~Reviewed interim history and current functioning. Reviewed vital signs,~Labs/ Radiology~and current medications noted below. Continue current treatment with the changes noted in the dictated addendum note Assessment: Vital Signs/I&O: Vital Signs Date Time Temp Pulse Resp B/P (MAP) Pulse Ox O2 Delivery O2 Flow Rate FiO2 04/28/20 20:28 97 04/28/20 17:24 16 Nasal Cannula 3.0 04/28/20 16:44 65 145/71 04/28/20 16:06 98.2 I & O 04/27/20 04/27/20 04/28/20 15:00 23:00 07:00 Intake Total 1000 ml 600 ml Balance 1000 ml 600 ml Labs: Laboratory Tests Test 04/28/20 08:17 04/28/20 21:06 Glucose (Fingerstick) 88 mg/dL (70-99) 185 mg/dL (70-99) H Current Medications: Meds: Laboratory Tests Test 04/28/20 08:17 04/28/20 21:06 Glucose (Fingerstick) 88 mg/dL 185 mg/dL Current Medications Medications (Trade) Dose Ordered Sig/Aaron Route PRN Reason Start Time Stop Time Status Last Admin Dose Admin Albuterol Sulfate (Ventolin) 8 mg PRN Q4HRS PRN IH wheezing 04/10/20 15:45 04/14/20 22:31 DC 04/14/20 22:12 Atorvastatin Calcium (Lipitor) 20 mg QHS PO 04/10/20 21:00 04/28/20 20:04 Calcitriol (Rocaltrol) 0.25 mcg DAILY PO 04/11/20 09:00 04/28/20 08:14 Carvedilol (Coreg) 3.125 mg BIDWMEALS PO 04/10/20 17:00 04/28/20 16:44 Diltiazem HCl (Cardizem 24hr Cd) 120 mg DAILY PO 04/11/20 09:00 04/28/20 08:14 Fluphenazine HCl (Prolixin) 2.5 mg QHS PO 04/10/20 21:00 04/28/20 20:03 Furosemide (Lasix) 40 mg DAILY PO 04/11/20 09:00 04/28/20 08:12 Acetaminophen/ Hydrocodone Bitart (Lortab 7.5/325) 1 tab PRN QID PRN PO MOD-SEV PAIN 04/10/20 15:45 04/15/20 19:58 DC 04/15/20 16:13 Levothyroxine Sodium (Synthroid) 50 mcg DAILYAC PO 04/11/20 07:30 04/16/20 11:53 DC 04/16/20 09:19 Losartan Potassium (Cozaar) 25 mg DAILY PO 04/11/20 09:00 04/24/20 13:14 DC 04/24/20 08:41 Methenamine Hippurate (Hiprex) 1 gm BID PO 04/10/20 21:00 04/28/20 20:28 Nystatin (Nystop) 15 kailey PRN BID PRN TP YEAST 04/10/20 15:45 04/22/20 08:12 Pantoprazole Sodium (Protonix) 40 mg BID PO 04/10/20 21:00 04/28/20 20:04 Polyethylene Glycol (miraLAX) 17 gm PRN DAILY PRN PO 1ST CHOICE CONSTIPATION 04/10/20 15:45 Risperidone (RisperDAL) 0.25 mg BID PO 04/10/20 21:00 04/28/20 20:03 Ropinirole HCl (Requip) 1 mg QHS PO 04/10/20 21:00 04/28/20 20:04 Tamsulosin HCl (Flomax) 0.4 mg QEVNG PO 04/10/20 18:00 04/28/20 20:03 Simethicone (Gas-X) 80 mg TID PO 04/10/20 21:00 04/28/20 20:04 Ascorbic Acid (Vitamin C) 500 mg BID PO 04/10/20 21:00 04/28/20 20:03 Artificial Tears (Artificial Tears) 1 drop PRN BID PRN OU DRY EYE 04/10/20 17:00 Celecoxib (CeleBREX) 200 mg QHS PO 04/10/20 21:00 04/28/20 20:03 Cholestyramine Resin (Questran Light) 4 gm PRN DAILY PRN PO LOOSE STOOLS 04/10/20 17:00 Insulin Glargine (Lantus Syringe) 30 unit QHS SQ 04/10/20 21:00 04/24/20 18:13 DC 04/20/20 21:00 Isosorbide Mononitrate (Imdur) 60 mg DAILY PO 04/11/20 09:00 04/24/20 13:14 DC 04/23/20 08:39 Loperamide HCl (Imodium) 2 mg PRN Q2HRS PRN PO DIARRHEA 04/10/20 17:00 04/15/20 20:50 Rivaroxaban (Xarelto) 20 mg DAILYWSUP PO 04/10/20 17:00 04/28/20 16:44 Acetaminophen (Tylenol) 650 mg PRN Q6HRS PRN PO MILD PAIN / TEMP > 100.3'F 04/10/20 16:30 04/28/20 11:23 Multi-Ingredient Ointment (Analgesic [place]) 1 kailey PRN QID PRN TP MUSCLE PAIN 04/10/20 16:30 Al Hydroxide/Mg Hydroxide (Mylanta Plus Xs) 15 ml PRN AFTMEALHC PRN PO DYSPEPSIA 04/10/20 16:30 Magnesium Hydroxide (Milk Of Magnesia) 2,400 mg PRN QHS PRN PO 2ND CHOICE CONSTIPATION 04/10/20 16:30 Lorazepam (Ativan) 0.25 mg PRN TID PRN PO ANXIETY / AGITATION 04/12/20 16:30 04/28/20 14:05 Divalproex Sodium (Depakote Sprinkles) 250 mg 0900,1700 PO 04/14/20 09:00 04/17/20 18:32 DC 04/17/20 17:04 Neomycin/ Polymyxin/Bacitr/ Hydrocort (Cortisporin Ophth) 2 kailey BID OU 04/14/20 21:00 04/24/20 18:13 DC 04/23/20 20:29 Albuterol Sulfate (Ventolin) 2.5 mg PRN Q4HRS PRN IH wheezing 04/14/20 22:31 04/19/20 16:54 Acetaminophen/ Hydrocodone Bitart (Lortab 7.5/325) 1 tab QID PO 04/15/20 20:30 04/28/20 20:28 Cetirizine HCl (ZyrTEC) 10 mg DAILY PO 04/16/20 09:00 04/28/20 08:13 Citalopram Hydrobromide (CeleXA) 20 mg DAILY PO 04/16/20 09:00 04/28/20 08:14 Magnesium Oxide (Magnesium Oxide) 400 mg TID PO 04/16/20 09:00 04/28/20 20:03 Nitroglycerin (Nitrostat) 0.4 mg 1X PRN SL chest pain 04/16/20 00:30 04/26/20 18:16 Oxybutynin Chloride (Ditropan) 5 mg TID PO 04/16/20 09:00 04/28/20 20:04 Potassium Chloride (Klor-Con) 20 meq TIDWMEALS PO 04/16/20 08:00 04/21/20 16:03 DC 04/20/20 17:40 Non-Formulary Medication (Cholecalciferol (Vitamin D3) (Vitamin D3)) 50 mcg DAILY PO 04/16/20 09:00 UNV Saliva Substitute (Biotene Moisturizing Mouth) 2 spray PRN Q12HR PRN PO DRY MOUTH 04/16/20 01:15 04/28/20 06:31 Vitamin D (Vitamin D3) 2,000 unit DAILY PO 04/16/20 09:00 04/28/20 08:11 Levothyroxine Sodium (Synthroid) 50 mcg DAILY06 PO 04/17/20 06:00 04/28/20 05:40 Divalproex Sodium (Depakote Sprinkles) 500 mg 0900,1700 PO 04/18/20 09:00 04/21/20 18:05 DC 04/21/20 17:30 Potassium Chloride (Klor-Con) 20 meq DAILY PO 04/22/20 09:00 04/25/20 18:43 DC Divalproex Sodium (Depakote Sprinkles) 750 mg 0900,1700 PO 04/22/20 09:00 04/23/20 21:10 DC 04/23/20 16:49 Divalproex Sodium (Depakote Er) 1,500 mg QHS PO 04/24/20 21:30 04/28/20 20:03 Isosorbide Mononitrate (Imdur) 30 mg DAILY PO 04/25/20 09:00 04/28/20 08:12 Insulin Glargine (Lantus Syringe) 20 unit QHS SQ 04/24/20 21:00 04/28/20 21:10 Potassium Chloride (Klor-Con) 20 meq DAILY PO 04/27/20 09:00 04/28/20 08:13 Aspirin (Aspirin Chewable) 81 mg DAILYWBKFT PO 04/27/20 08:00 04/28/20 08:11 Aspirin (Lashell Aspirin) 325 mg 1X ONCE PO 04/26/20 11:20 04/26/20 11:21 DC 04/26/20 11:25 I have reviewed the current psychotropics carefully including drug interactions. Risk benefit ratio favors no change other than as noted in my dictated progress note. Diagnosis: Problems: (1) Tardive dyskinesia (2) Chronic undifferentiated schizophrenia (3) Schizoaffective disorder, bipolar type (4) Bipolar disorder with psychotic features (5) Impulse control disorder, unspecified (6) Anxiety disorder, unspecified KAMILA LOMELI MD Apr 28, 2020 21:30
--- NOTE | 2020-04-29 00:38 | NUR ---
Nursing Note Pt pleasant and cooperative. Coughs up a large amount of sputum feeling soa, basin given, vomited a small amount of mucous and food particles.
[2020-04-29] MEDS ORDERED: METH57CR17 TP (03:54)
[2020-04-29] MEDS ORDERED: ASPI-630 PO (03:54)
[2020-04-29] MEDS ORDERED: DIVA500T4 PO (03:56)
[2020-04-29] MEDS ORDERED: ACET325T21 PO (03:57)
[2020-04-29] MEDS ORDERED: LORA0.5T21 PO (03:59)
[2020-04-29] MEDS ORDERED: MAG-124 PO (04:01)
[2020-04-29] MEDS ORDERED: MAGN24003 PO (04:02)
[2020-04-29] MEDS: LEVOTHYROXINE 50 MCG TABLET PO SCH (05:39)
[2020-04-29 05:56] VITALS: BP 121/72
[2020-04-29] MEDS: ASPIRIN CHEWABLE 81 MG TABLET. PO SCH (07:35)
[2020-04-29] MEDS: CARVEDILOL 3.125 MG TABLET PO SCH (07:35)
[2020-04-29] MEDS: CHOLECALCIFEROL (VITAMIN D3) 1,000 UNIT TABLET PO SCH (07:35)
[2020-04-29] MEDS: CITALOPRAM 10 MG TABLET. PO SCH (07:36)
[2020-04-29] MEDS: risperiDONE 0.25 MG TABLET. PO SCH (07:36)
[2020-04-29] MEDS: CETIRIZINE HCL 10 MG TABLET PO SCH (07:36)
[2020-04-29] MEDS: OXYBUTYNIN CHLORIDE 5 MG TABLET PO SCH ×2 (07:36→13:04)
[2020-04-29] MEDS: ISOSORBIDE MONONITRATE ER 30 MG TAB.ER.24H PO SCH (07:36)
[2020-04-29] MEDS: HYDROcodone/APAP 7.5/325MG 1 TAB TABLET PO SCH ×2 (07:36→12:02)
[2020-04-29 07:37] VITALS: BP 121/72
[2020-04-29] MEDS: ASCORBIC ACID 500 MG TABLET PO SCH (07:37)
[2020-04-29] MEDS: MAGNESIUM OXIDE 400 MG TABLET PO SCH ×2 (07:37→13:04)
[2020-04-29] MEDS: PANTOPRAZOLE 40 MG TABLET. PO SCH (07:37)
[2020-04-29] MEDS: SIMETHICONE 80 MG TAB.CHEW PO SCH ×2 (07:37→13:04)
[2020-04-29] MEDS: FUROSEMIDE 40 MG TABLET PO SCH (07:37)
[2020-04-29] MEDS: POTASSIUM CHLORIDE 20 MEQ TABLET.ER. PO SCH (07:37)
[2020-04-29] MEDS: METHENAMINE HIPPURATE 1 GM TABLET PO SCH (07:38)
[2020-04-29] MEDS: CALCITRIOL 0.25 MCG CAPSULE PO SCH (07:38)
--- NOTE | 2020-04-29 08:47 | NUR ---
Pt has been appropriate so far this shift. Complaint with medications and assessment. He is A&Ox4; socially appropriate behaviors have been observed this shift. He denies SI/HI/VH/AH/delusions. He had a brief moment of difficulty swallowing food in which he coughed forcefully and induced a regurgitation of phlegm and food particles. After the cough/regurgitation he had no c/o of difficulty swallowing food for the duration of the meal and had no complaints/concerns. He is scheduled to d/c today at approx 1400. Plan of care continues, preparing for d/c.
--- NOTE | 2020-04-29 09:17 | PDOC ---
Exam Note: Good Note: This note is a late entry for 04/28/2020 covers elements not covered in my initial note. Subjective: The patient was seen individually in the evening of 04/28/2020 with Dulce MATUTE, discussed and reviewed the chart. He slept 8 hours previous night. He refused his h.s. p.r.n. medication, took it later. He has been having some cough, difficulty with breathing on O2 supplements. COVID screen is negative in preparation for discharge back to shelter tomorrow. Review of Systems: Ambulation impaired in wheelchair. Shortness of breath on O2 supplements. No CV, , GI, eye system symptoms on review. Mental Status Exam: The patient is reasonably oriented. I discussed with him discharge for tomorrow and he is quite cognizant of this and thankful. Speech is coherent has some latency. Abstraction is fair. Computation impaired. Language function intact. Attention span is short. Mood and affect less withdrawn. Laboratory Data: Reviewed. 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 Anxiety disorder unspecified. Impulse control disorder unspecified. Plan: No change from initial note. Assessment: Vital Signs/I&O: Vital Signs Date Time Temp Pulse Resp B/P (MAP) Pulse Ox O2 Delivery O2 Flow Rate FiO2 04/29/20 07:37 61 121/72 04/29/20 07:36 Nasal Cannula 3.0 04/29/20 05:56 97.8 16 96 I & O 04/28/20 04/28/20 04/29/20 15:00 23:00 07:00 Intake Total 1080 ml 480 ml Balance 1080 ml 480 ml Labs: Laboratory Tests Test 04/28/20 21:06 04/29/20 07:41 Glucose (Fingerstick) 185 mg/dL (70-99) H 100 mg/dL (70-99) H Current Medications: Meds: Laboratory Tests Test 04/28/20 21:06 04/29/20 07:41 Glucose (Fingerstick) 185 mg/dL 100 mg/dL Current Medications Medications (Trade) Dose Ordered Sig/Aaron Route PRN Reason Start Time Stop Time Status Last Admin Dose Admin Albuterol Sulfate (Ventolin) 8 mg PRN Q4HRS PRN IH wheezing 04/10/20 15:45 04/14/20 22:31 DC 04/14/20 22:12 Atorvastatin Calcium (Lipitor) 20 mg QHS PO 04/10/20 21:00 04/28/20 20:04 Calcitriol (Rocaltrol) 0.25 mcg DAILY PO 04/11/20 09:00 04/29/20 07:38 Carvedilol (Coreg) 3.125 mg BIDWMEALS PO 04/10/20 17:00 04/29/20 07:35 Diltiazem HCl (Cardizem 24hr Cd) 120 mg DAILY PO 04/11/20 09:00 04/29/20 07:37 Fluphenazine HCl (Prolixin) 2.5 mg QHS PO 04/10/20 21:00 04/28/20 20:03 Furosemide (Lasix) 40 mg DAILY PO 04/11/20 09:00 04/29/20 07:37 Acetaminophen/ Hydrocodone Bitart (Lortab 7.5/325) 1 tab PRN QID PRN PO MOD-SEV PAIN 04/10/20 15:45 04/15/20 19:58 DC 04/15/20 16:13 Levothyroxine Sodium (Synthroid) 50 mcg DAILYAC PO 04/11/20 07:30 04/16/20 11:53 DC 04/16/20 09:19 Losartan Potassium (Cozaar) 25 mg DAILY PO 04/11/20 09:00 04/24/20 13:14 DC 04/24/20 08:41 Methenamine Hippurate (Hiprex) 1 gm BID PO 04/10/20 21:00 04/29/20 07:38 Nystatin (Nystop) 15 kailey PRN BID PRN TP YEAST 04/10/20 15:45 04/22/20 08:12 Pantoprazole Sodium (Protonix) 40 mg BID PO 04/10/20 21:00 04/29/20 07:37 Polyethylene Glycol (miraLAX) 17 gm PRN DAILY PRN PO 1ST CHOICE CONSTIPATION 04/10/20 15:45 Risperidone (RisperDAL) 0.25 mg BID PO 04/10/20 21:00 04/29/20 07:36 Ropinirole HCl (Requip) 1 mg QHS PO 04/10/20 21:00 04/28/20 20:04 Tamsulosin HCl (Flomax) 0.4 mg QEVNG PO 04/10/20 18:00 04/28/20 20:03 Simethicone (Gas-X) 80 mg TID PO 04/10/20 21:00 04/29/20 07:37 Ascorbic Acid (Vitamin C) 500 mg BID PO 04/10/20 21:00 04/29/20 07:37 Artificial Tears (Artificial Tears) 1 drop PRN BID PRN OU DRY EYE 04/10/20 17:00 Celecoxib (CeleBREX) 200 mg QHS PO 04/10/20 21:00 04/28/20 20:03 Cholestyramine Resin (Questran Light) 4 gm PRN DAILY PRN PO LOOSE STOOLS 04/10/20 17:00 Insulin Glargine (Lantus Syringe) 30 unit QHS SQ 04/10/20 21:00 04/24/20 18:13 DC 04/20/20 21:00 Isosorbide Mononitrate (Imdur) 60 mg DAILY PO 04/11/20 09:00 04/24/20 13:14 DC 04/23/20 08:39 Loperamide HCl (Imodium) 2 mg PRN Q2HRS PRN PO DIARRHEA 04/10/20 17:00 04/15/20 20:50 Rivaroxaban (Xarelto) 20 mg DAILYWSUP PO 04/10/20 17:00 04/28/20 16:44 Acetaminophen (Tylenol) 650 mg PRN Q6HRS PRN PO MILD PAIN / TEMP > 100.3'F 04/10/20 16:30 04/28/20 11:23 Multi-Ingredient Ointment (Analgesic [place]) 1 kailey PRN QID PRN TP MUSCLE PAIN 04/10/20 16:30 Al Hydroxide/Mg Hydroxide (Mylanta Plus Xs) 15 ml PRN AFTMEALHC PRN PO DYSPEPSIA 04/10/20 16:30 Magnesium Hydroxide (Milk Of Magnesia) 2,400 mg PRN QHS PRN PO 2ND CHOICE CONSTIPATION 04/10/20 16:30 Lorazepam (Ativan) 0.25 mg PRN TID PRN PO ANXIETY / AGITATION 04/12/20 16:30 04/28/20 14:05 Divalproex Sodium (Depakote Sprinkles) 250 mg 0900,1700 PO 04/14/20 09:00 04/17/20 18:32 DC 04/17/20 17:04 Neomycin/ Polymyxin/Bacitr/ Hydrocort (Cortisporin Ophth) 2 kailey BID OU 04/14/20 21:00 04/24/20 18:13 DC 04/23/20 20:29 Albuterol Sulfate (Ventolin) 2.5 mg PRN Q4HRS PRN IH wheezing 04/14/20 22:31 04/19/20 16:54 Acetaminophen/ Hydrocodone Bitart (Lortab 7.5/325) 1 tab QID PO 04/15/20 20:30 04/29/20 07:36 Cetirizine HCl (ZyrTEC) 10 mg DAILY PO 04/16/20 09:00 04/29/20 07:36 Citalopram Hydrobromide (CeleXA) 20 mg DAILY PO 04/16/20 09:00 04/29/20 07:36 Magnesium Oxide (Magnesium Oxide) 400 mg TID PO 04/16/20 09:00 04/29/20 07:37 Nitroglycerin (Nitrostat) 0.4 mg 1X PRN SL chest pain 04/16/20 00:30 04/26/20 18:16 Oxybutynin Chloride (Ditropan) 5 mg TID PO 04/16/20 09:00 04/29/20 07:36 Potassium Chloride (Klor-Con) 20 meq TIDWMEALS PO 04/16/20 08:00 04/21/20 16:03 DC 04/20/20 17:40 Non-Formulary Medication (Cholecalciferol (Vitamin D3) (Vitamin D3)) 50 mcg DAILY PO 04/16/20 09:00 UNV Saliva Substitute (Biotene Moisturizing Mouth) 2 spray PRN Q12HR PRN PO DRY MOUTH 04/16/20 01:15 04/28/20 06:31 Vitamin D (Vitamin D3) 2,000 unit DAILY PO 04/16/20 09:00 04/29/20 07:35 Levothyroxine Sodium (Synthroid) 50 mcg DAILY06 PO 04/17/20 06:00 04/29/20 05:39 Divalproex Sodium (Depakote Sprinkles) 500 mg 0900,1700 PO 04/18/20 09:00 04/21/20 18:05 DC 04/21/20 17:30 Potassium Chloride (Klor-Con) 20 meq DAILY PO 04/22/20 09:00 04/25/20 18:43 DC Divalproex Sodium (Depakote Sprinkles) 750 mg 0900,1700 PO 04/22/20 09:00 04/23/20 21:10 DC 04/23/20 16:49 Divalproex Sodium (Depakote Er) 1,500 mg QHS PO 04/24/20 21:30 04/28/20 20:03 Isosorbide Mononitrate (Imdur) 30 mg DAILY PO 04/25/20 09:00 04/29/20 07:36 Insulin Glargine (Lantus Syringe) 20 unit QHS SQ 04/24/20 21:00 04/28/20 21:10 Potassium Chloride (Klor-Con) 20 meq DAILY PO 04/27/20 09:00 04/29/20 07:37 Aspirin (Aspirin Chewable) 81 mg DAILYWBKFT PO 04/27/20 08:00 04/29/20 07:35 Aspirin (Lashell Aspirin) 325 mg 1X ONCE PO 04/26/20 11:20 04/26/20 11:21 DC 04/26/20 11:25 I have reviewed the current psychotropics carefully including drug interactions. Risk benefit ratio favors no change other than as noted in my dictated progress note. Diagnosis: Problems: (1) Tardive dyskinesia (2) Chronic undifferentiated schizophrenia (3) Schizoaffective disorder, bipolar type (4) Bipolar disorder with psychotic features (5) Impulse control disorder, unspecified (6) Anxiety disorder, unspecified KAMILA LOMELI MD Apr 29, 2020 09:17
[2020-04-29] MEDS: LORazepam 0.5 MG TABLET PO PRN (09:59)
--- NOTE | 2020-04-29 14:51 | NUR ---
Transition Record was faxed to follow-up provider with the following elements: Reason for admission, procedures, tests, principal diagnosis, pending studies, patient instructions, 03/09 contact information for unit, phone number to obtain pending test results, plan for follow-up care, physician follow-up, advanced directive information, and medication list with dose, duration and instructions. This information was included in the following documents: History and physical, lab results, study results, progress notes, social work planning form, DC instruction form, patient visit summary, and medication reconciliation form. Date & time record faxed: 04/29/20 at 0430 and 1434 to [phone] ([facility]) Record faxed to: [phone] ([facility]) Record discussed with/ report given to: Michelle STANLEY at [facility]
--- NOTE | 2020-04-29 22:10 | DS ---
DATE OF DISCHARGE: 04/29/2020 PSYCHIATRIC PROGRESS NOTE This note covers elements not covered in my initial note 04/29/2020. REASON FOR ADMISSION: Please refer to the admission history for details. Briefly, the patient is a 74-year-old male referred to us from [facility] on account of an acute exacerbation of his schizoaffective disorder, bipolar type, mixed with psychotic features. The patient has been agitated, anxious, was sleeping excessively, accusing staff of abusing and neglecting him. Police had been called to the facility on two separate occasions and reports were unfounded. He was paranoid, had failed outpatient psychiatric interventions. Unable to function at the facility and referred for inpatient psychiatric stabilization. SIGNIFICANT FINDINGS AND CLINICAL COURSE: Following admission, the patient was seen daily individually by myself from a psychiatric standpoint, medical followup with Dr. Ortega/Dr. Alcantara. The patient was quite withdrawn, somewhat isolative, intermittently agitated and appeared depressed. Adjustments were made in his psychotropics and he seemed to respond to a combination of Celexa 20 mg a day, Risperdal 0.25 mg twice a day, Ativan 0.25 mg t.i.d. p.r.n. anxiety, Depakote ER 1500 mg at bedtime, valproic acid level on 04/25/2020 was 52, therapeutic and prior to discharge, 04/29/2020. REVIEW OF SYSTEMS: Ambulation impaired, in wheelchair, difficulty with his breathing, on O2 supplements. No CV, GI, , eye system symptoms on review. MENTAL STATUS EXAM: Reasonably oriented. Speech is difficult to understand. Abstraction fair, computation impaired, language function intact. Mood and affect, lability is improved. No suicidal or homicidal ideation and he was not aggressive, disruptive. Paranoia was improved. LABORATORY DATA: Reviewed. FINAL DIAGNOSES: Schizoaffective disorder, bipolar type, mixed with psychotic features; anxiety disorder, unspecified; impulse control disorder, unspecified. Rest unchanged from admission. DISCHARGE MEDICATIONS: Please refer to the MRAD. DISCHARGE INSTRUCTIONS: Outpatient psychiatric and medical followup at the detention. Time for discharge day management greater than 30 minutes. KAMILA LOMELI MD DR: MARILIN/stephanie JOB#: [id number] / [id number]
--- NOTE | 2020-04-29 22:11 | PDOC ---
Exam Note: Good Note: Please also refer to the separate dictated note~for this date of service dictated separately.~Patient seen individually. Discussed the patient with Nursing staff reviewed the chart.~Reviewed interim history and current functioning. Reviewed vital signs,~Labs/ Radiology~and current medications noted below. Continue current treatment with the changes noted in the dictated addendum note Assessment: Vital Signs/I&O: Vital Signs Date Time Temp Pulse Resp B/P (MAP) Pulse Ox O2 Delivery O2 Flow Rate FiO2 04/29/20 13:08 Nasal Cannula 3.0 04/29/20 07:37 61 121/72 04/29/20 05:56 97.8 16 96 I & O 0 04/28/20 04/28/20 04/29/20 15:00 23:00 07:00 Intake Total 1080 ml 480 ml Balance 1080 ml 480 ml Labs: Laboratory Tests Test 04/29/20 07:41 Glucose (Fingerstick) 100 mg/dL (70-99) H Current Medications: Meds: Laboratory Tests Test 04/29/20 07:41 Glucose (Fingerstick) 100 mg/dL Current Medications Medications (Trade) Dose Ordered Sig/Aaron Route PRN Reason Start Time Stop Time Status Last Admin Dose Admin Albuterol Sulfate (Ventolin) 8 mg PRN Q4HRS PRN IH wheezing 04/10/20 15:45 04/14/20 22:31 DC 04/14/20 22:12 Atorvastatin Calcium (Lipitor) 20 mg QHS PO 04/10/20 21:00 04/29/20 14:56 DC 04/28/20 20:04 Calcitriol (Rocaltrol) 0.25 mcg DAILY PO 04/11/20 09:00 04/29/20 14:56 DC 04/29/20 07:38 Carvedilol (Coreg) 3.125 mg BIDWMEALS PO 04/10/20 17:00 04/29/20 14:56 DC 04/29/20 07:35 Diltiazem HCl (Cardizem 24hr Cd) 120 mg DAILY PO 04/11/20 09:00 04/29/20 14:56 DC 04/29/20 07:37 Fluphenazine HCl (Prolixin) 2.5 mg QHS PO 04/10/20 21:00 04/29/20 14:56 DC 04/28/20 20:03 Furosemide (Lasix) 40 mg DAILY PO 04/11/20 09:00 04/29/20 14:56 DC 04/29/20 07:37 Acetaminophen/ Hydrocodone Bitart (Lortab 7.5/325) 1 tab PRN QID PRN PO MOD-SEV PAIN 04/10/20 15:45 04/15/20 19:58 DC 04/15/20 16:13 Levothyroxine Sodium (Synthroid) 50 mcg DAILYAC PO 04/11/20 07:30 04/16/20 11:53 DC 04/16/20 09:19 Losartan Potassium (Cozaar) 25 mg DAILY PO 04/11/20 09:00 04/24/20 13:14 DC 04/24/20 08:41 Methenamine Hippurate (Hiprex) 1 gm BID PO 04/10/20 21:00 04/29/20 14:56 DC 04/29/20 07:38 Nystatin (Nystop) 15 kailey PRN BID PRN TP YEAST 04/10/20 15:45 04/29/20 14:56 DC 04/22/20 08:12 Pantoprazole Sodium (Protonix) 40 mg BID PO 04/10/20 21:00 04/29/20 14:56 DC 04/29/20 07:37 Polyethylene Glycol (miraLAX) 17 gm PRN DAILY PRN PO 1ST CHOICE CONSTIPATION 04/10/20 15:45 04/29/20 14:57 DC Risperidone (RisperDAL) 0.25 mg BID PO 04/10/20 21:00 04/29/20 14:57 DC 04/29/20 07:36 Ropinirole HCl (Requip) 1 mg QHS PO 04/10/20 21:00 04/29/20 14:57 DC 04/28/20 20:04 Tamsulosin HCl (Flomax) 0.4 mg QEVNG PO 04/10/20 18:00 04/29/20 14:57 DC 04/28/20 20:03 Simethicone (Gas-X) 80 mg TID PO 04/10/20 21:00 04/29/20 14:57 DC 04/29/20 13:04 Ascorbic Acid (Vitamin C) 500 mg BID PO 04/10/20 21:00 04/29/20 14:57 DC 04/29/20 07:37 Artificial Tears (Artificial Tears) 1 drop PRN BID PRN OU DRY EYE 04/10/20 17:00 04/29/20 14:57 DC Celecoxib (CeleBREX) 200 mg QHS PO 04/10/20 21:00 04/29/20 14:57 DC 04/28/20 20:03 Cholestyramine Resin (Questran Light) 4 gm PRN DAILY PRN PO LOOSE STOOLS 04/10/20 17:00 04/29/20 14:57 DC Insulin Glargine (Lantus Syringe) 30 unit QHS SQ 04/10/20 21:00 04/24/20 18:13 DC 04/20/20 21:00 Isosorbide Mononitrate (Imdur) 60 mg DAILY PO 04/11/20 09:00 04/24/20 13:14 DC 04/23/20 08:39 Loperamide HCl (Imodium) 2 mg PRN Q2HRS PRN PO DIARRHEA 04/10/20 17:00 04/29/20 14:57 DC 04/15/20 20:50 Rivaroxaban (Xarelto) 20 mg DAILYWSUP PO 04/10/20 17:00 04/29/20 14:57 DC 04/28/20 16:44 Acetaminophen (Tylenol) 650 mg PRN Q6HRS PRN PO MILD PAIN / TEMP > 100.3'F 04/10/20 16:30 04/29/20 14:57 DC 04/28/20 11:23 Multi-Ingredient Ointment (Analgesic Arminto) 1 kailey PRN QID PRN TP MUSCLE PAIN 04/10/20 16:30 04/29/20 14:57 DC Al Hydroxide/Mg Hydroxide (Mylanta Plus Xs) 15 ml PRN AFTMEALHC PRN PO DYSPEPSIA 04/10/20 16:30 04/29/20 14:57 DC Magnesium Hydroxide (Milk Of Magnesia) 2,400 mg PRN QHS PRN PO 2ND CHOICE CONSTIPATION 04/10/20 16:30 04/29/20 14:57 DC Lorazepam (Ativan) 0.25 mg PRN TID PRN PO ANXIETY / AGITATION 04/12/20 16:30 04/29/20 14:57 DC 04/29/20 09:59 Divalproex Sodium (Depakote Sprinkles) 250 mg 0900,1700 PO 04/14/20 09:00 04/17/20 18:32 DC 04/17/20 17:04 Neomycin/ Polymyxin/Bacitr/ Hydrocort (Cortisporin Ophth) 2 kailey BID OU 04/14/20 21:00 04/24/20 18:13 DC 04/23/20 20:29 Albuterol Sulfate (Ventolin) 2.5 mg PRN Q4HRS PRN IH wheezing 04/14/20 22:31 04/29/20 14:57 DC 04/19/20 16:54 Acetaminophen/ Hydrocodone Bitart (Lortab 7.5/325) 1 tab QID PO 04/15/20 20:30 04/29/20 14:57 DC 04/29/20 12:02 Cetirizine HCl (ZyrTEC) 10 mg DAILY PO 04/16/20 09:00 04/29/20 14:57 DC 04/29/20 07:36 Citalopram Hydrobromide (CeleXA) 20 mg DAILY PO 04/16/20 09:00 04/29/20 14:57 DC 04/29/20 07:36 Magnesium Oxide (Magnesium Oxide) 400 mg TID PO 04/16/20 09:00 04/29/20 14:57 DC 04/29/20 13:04 Nitroglycerin (Nitrostat) 0.4 mg 1X PRN SL chest pain 04/16/20 00:30 04/29/20 14:57 DC 04/26/20 18:16 Oxybutynin Chloride (Ditropan) 5 mg TID PO 04/16/20 09:00 04/29/20 14:57 DC 04/29/20 13:04 Potassium Chloride (Klor-Con) 20 meq TIDWMEALS PO 04/16/20 08:00 04/21/20 16:03 DC 04/20/20 17:40 Non-Formulary Medication (Cholecalciferol (Vitamin D3) (Vitamin D3)) 50 mcg DAILY PO 04/16/20 09:00 UNV Saliva Substitute (Biotene Moisturizing Mouth) 2 spray PRN Q12HR PRN PO DRY MOUTH 04/16/20 01:15 04/29/20 14:57 DC 04/28/20 06:31 Vitamin D (Vitamin D3) 2,000 unit DAILY PO 04/16/20 09:00 04/29/20 14:57 DC 04/29/20 07:35 Levothyroxine Sodium (Synthroid) 50 mcg DAILY06 PO 04/17/20 06:00 04/29/20 14:57 DC 04/29/20 05:39 Divalproex Sodium (Depakote Sprinkles) 500 mg 0900,1700 PO 04/18/20 09:00 04/21/20 18:05 DC 04/21/20 17:30 Potassium Chloride (Klor-Con) 20 meq DAILY PO 04/22/20 09:00 04/25/20 18:43 DC Divalproex Sodium (Depakote Sprinkles) 750 mg 0900,1700 PO 04/22/20 09:00 04/23/20 21:10 DC 04/23/20 16:49 Divalproex Sodium (Depakote Er) 1,500 mg QHS PO 04/24/20 21:30 04/29/20 14:57 DC 04/28/20 20:03 Isosorbide Mononitrate (Imdur) 30 mg DAILY PO 04/25/20 09:00 04/29/20 14:57 DC 04/29/20 07:36 Insulin Glargine (Lantus Syringe) 20 unit QHS SQ 04/24/20 21:00 04/29/20 14:57 DC 04/28/20 21:10 Potassium Chloride (Klor-Con) 20 meq DAILY PO 04/27/20 09:00 04/29/20 14:57 DC 04/29/20 07:37 Aspirin (Aspirin Chewable) 81 mg DAILYWBKFT PO 04/27/20 08:00 04/29/20 14:57 DC 04/29/20 07:35 Aspirin (Lashell Aspirin) 325 mg 1X ONCE PO 04/26/20 11:20 04/26/20 11:21 DC 04/26/20 11:25 I have reviewed the current psychotropics carefully including drug interactions. Risk benefit ratio favors no change other than as noted in my dictated progress note. Diagnosis: Problems: (1) Tardive dyskinesia (2) Chronic undifferentiated schizophrenia (3) Schizoaffective disorder, bipolar type (4) Bipolar disorder with psychotic features (5) Impulse control disorder, unspecified (6) Anxiety disorder, unspecified KAMILA LOMELI MD Apr 29, 2020 22:11
== END 2020-04-29 14:56 | DRG 885 ==
LOC: GEROPSY 14:50
PROVIDERS: ADMIT Psychiatry & Neurology Psychiatry; ATTEND Psychiatry & Neurology Psychiatry
DX: F25.0 Schizoaffective disorder, bipolar type (principal); I11.0 Hypertensive heart disease with heart failure; I42.9 Cardiomyopathy, unspecified; I48.19 Other persistent atrial fibrillation; I50.22 Chronic systolic (congestive) heart failure; E03.9 Hypothyroidism, unspecified; E11.9 Type 2 diabetes mellitus without complications; E78.00 Pure hypercholesterolemia, unspecified; E78.5 Hyperlipidemia, unspecified; E83.42 Hypomagnesemia; E87.6 Hypokalemia; F41.9 Anxiety disorder, unspecified; F63.9 Impulse disorder, unspecified; G24.01 Drug induced subacute dyskinesia; G25.81 Restless legs syndrome; I25.10 Atherosclerotic heart disease of native coronary artery without angina pectoris; J44.9 Chronic obstructive pulmonary disease, unspecified; K21.9 Gastro-esophageal reflux disease without esophagitis; L83 Acanthosis nigricans; Z20.822 Contact with and (suspected) exposure to COVID-19; Z79.899 Other long term (current) drug therapy; Z82.49 Family history of ischemic heart disease and other diseases of the circulatory system; Z86.711 Personal history of pulmonary embolism; Z86.73 Personal history of transient ischemic attack (TIA), and cerebral infarction without residual deficits; Z87.891 Personal history of nicotine dependence; Z95.5 Presence of coronary angioplasty implant and graft; Z95.810 Presence of automatic (implantable) cardiac defibrillator; E66.9 Obesity, unspecified; F32.9 Major depressive disorder, single episode, unspecified; M19.90 Unspecified osteoarthritis, unspecified site; R07.89 Other chest pain; Z88.8 Allergy status to other drugs, medicaments and biological substances; Z88.0 Allergy status to penicillin
CPT/HCPCS: 36415; 80048; 80053; 80164; 82947; 83540; 83550; 83735; 84484; 85025; 85027; J1815; U0003; J7613